=== PATIENT | female | born 1960 | race Caucasian/White ===

== ENCOUNTER 2024-12-12 16:29 | Inpatient (IN) | payer MEDICARE, MEDICAID, SELFPAY ==
[2024-12-12 16:47] VITALS: BP 157/51; PULSE 89; RESP 18; TEMP 37; O2SAT 95; BMI 20.4
--- NOTE | 2024-12-12 16:56 | XR_ITS ---
Examination: Foot, right, 3 views Technique: AP, oblique, lateral views foot, 3 views Date and time of exam: December 12, 2024 1702 hrs. Indications: Open wound between fourth and fifth digit today. Findings: Amputation proximal phalanx third digit Prominent soft tissue swelling involving the fifth digit with ulcer defect at the tail and fifth digit Suspicious for early cortical bone destruction involving the distal aspect of the proximal phalanx fifth digit Impression: Suspicious for early osteomyelitis proximal phalanx fifth digit, recommend MRI foot without contrast follow-up
--- NOTE | 2024-12-12 17:02 | PD.EDRME ---
Rapid Medical Screening Exam RME Arrival date/time: 12/12/24 16:29 Chief Complaint: Extremity Problem,Nontraumatic Time Seen by Provider: 12/12/24 16:38 Vital signs: Vital Signs Temperature 98.6 F 12/12/24 16:47 Pulse Rate 89 12/12/24 16:47 Respiratory Rate 18 12/12/24 16:47 Blood Pressure 157/51 H 12/12/24 16:47 Pulse Oximetry (%) 95 12/12/24 16:47 Oxygen Delivery Method Room Air 12/12/24 16:47 RME Narrative: Patient is a 64-year-old female with history of hypertension, prior CVA, breast cancer, polycythemia, and prior foot amputations. She presents with complaint of pain to her right fifth toe for weeks. She also complains of generalized pain. I have greeted and performed a focused initial assessment of this patient. A comprehensive ED assessment and evaluation of the patient, analysis of all test results, and completion of the medical decision making process will be conducted by additional ED providers.
[2024-12-12 18:00] LABS: Lactate (Lactic Acid) 1.6 mMol/L (0.4-2.0)
[2024-12-12 18:05] LABS: Basophils # (Auto) 0.2 Thou/mm3 (0.0-0.2); Basophils % (Auto) 1 % (0-2.5); Eosinophils # (Auto) 0.4 Thou/mm3 (0.0-0.5); Eosinophils % (Auto) 3 % (0-10); Immature Granulocytes % (Auto) 1 % (0-0); Immature Granulocytes Auto 0.21 Thou/mm3 (0.00-0.00); Lymphocytes # (Auto) 2.7 Thou/mm3 (1.0-4.8); Lymphocytes % (Auto) 17 % (10-50); Mean Corpuscular Hemoglobin 15.3 pg (25.0-35.0); Mean Corpuscular Volume 57 fL (80-100); Monocytes # (Auto) 0.6 Thou/mm3 (0.0-0.8); Monocytes % (Auto) 4 % (0-12); Neutrophils % (Auto) 75 % (37-80); Nucleated Red Blood Cell % 1 /100 WBC (0); RDW Standard Deviation 49.2 fL (36.4-46.3); Red Blood Count 3.79 Miln/mm3 (4.00-5.20); White Blood Count 16.1 Thou/mm3 (3.6-11.0)
[2024-12-12 18:20] LABS: Hematocrit 21.5 % (36.0-46.0); Hemoglobin 5.8 g/dL (12.0-16.0); Platelet Count 1786 Thou/mm3 (140-440)
[2024-12-12] MEDS: ACETAMINOPHEN 500 MG TABLET 1000 MG PO (18:23)
[2024-12-12 18:26] LABS: Alanine Aminotransferase 13 U/L (10-49); Albumin, Serum 4.2 gm/dL (3.4-4.8); Albumin/Globulin Ratio 1.6 (1.2-2.2); Alkaline Phosphatase 477 U/L (46-116); Anion Gap 5 (7-16); Aspartate Amino Transferase 30 U/L (0-34); BUN/Creatinine Ratio 21 Ratio (12-20); Bilirubin,Total 0.2 mg/dL (0.3-1.2); Blood Urea Nitrogen 25 mg/dL (9-23); C-Reactive Protein 1.5 mg/dL (0.0-0.9); Carbon Dioxide 24.6 mMol/L (20.0-31.0); Chloride 106 mMol/L (98-107); Creatinine (Component) 1.2 mg/dL (0.6-1.3); Estimated Creatinine Clearance 38.6 mL/min (>60); Globulin 2.7 gm/dL (2.3-3.5); Glucose 117 mg/dL (74-106); Osmolality,Calculated 277 (275-295); Potassium 3.8 mMol/L (3.4-5.1); Sodium 136 mMol/L (136-145); Total Protein 6.9 gm/dL (5.7-8.2); eGFR 50 See Note
[2024-12-12 18:40] LABS: Sed Rate (ESR) 70 mm/hr (0-30)
[2024-12-12 19:21] VITALS: BP 121/67; PULSE 82; RESP 18; TEMP 36.9; O2SAT 96
[2024-12-12 20:05] LABS: Path Review Blood Smear Sent to Pathologist
--- NOTE | 2024-12-12 20:17 | PD.EDEXREM ---
ED Extremity Problem RME/HPI General Chief complaint: Extremity Problem,Nontraumatic Stated complaint: BILATERAL LEG AND FEET PAIN / SWELLING Time Seen by Provider: 12/12/24 16:38 Arrival date/time: 12/12/24 16:29 RME / HPI RME / HPI Narrative: Patient is a 64-year-old female with history of hypertension, prior CVA, breast cancer, polycythemia, and prior foot amputations. She presents with complaint of pain to her right fifth toe for weeks. She also complains of generalized pain. I have greeted and performed a focused initial assessment of this patient. A comprehensive ED assessment and evaluation of the patient, analysis of all test results, and completion of the medical decision making process will be conducted by additional ED providers. This section includes all my notes and documentations, including HPI, PE, and ED course. Cristian Angulo MD HPI: 64yo female with a history of CVA (2020), HTN, breast CA s/p left mastectomy, Reynaud's disease, depression BIB her son presents to the ED for a chief complaint of bilateral foot pain x 2-3 weeks. Son at bedside states the patient has been unable to bare weight very well due to her feet pain. He states the patient has been losing weight despite eating normally. He states the patient lives with his dad, but is unsure if she is compliant with her medications. Patient denies any hematemesis, coffee-ground emesis, rectal bleeding, black/tarry stools, abdominal pain or any other associated symptoms. No other complaints reported. ROS: All negative except as documented in HPI. Physical Exam: General: Alert and oriented. Appears to be in pain. Eyes: Conjunctivae and lids clear. ENT: No nasal congestion. Neck: Supple. Heart: RRR. Lungs: No respiratory distress. Good air movement. No rhonchi, wheezing, rales. Abdomen: Soft and nontender. Legs: No clubbing, cyanosis, edema. Skin: Warm and dry. Third toes amputated bilaterally. Distal foot bilateral remarkable for erythema and edema and calor and tenderness. Neuro: Alert and oriented X 3. I reviewed all diagnostic test results. My review of the right foot CT report is osteomyelitis. Blood tests and urine tests remarkable for WBC 16.1, Hgb 5.8, PLT 1786, ESR 70, TSH 12.40, and UTI. At this point, diagnoses include osteomyelitis, UTI, severe anemia, thrombocythemia, and elevated TSH. Treatment here included Tylenol, NS, Morphine, Cefepime, and Vancomycin. Two units of pRBC ordered. I discussed the case with our hospitalist. About the presentation and exam and diagnostics and treatments here. And need of further care in the hospital. Will accept the patient. Cristian Angulo MD Related Data Home Medications ?Medication ?Instructions ?Recorded ?Confirmed aspirin 325 mg tablet 325 mg PO QDAY 12/05/21 12/17/21 famotidine 20 mg tablet 20 mg PO Q12H 12/05/21 12/17/21 gabapentin 600 mg tablet 600 mg PO TID 12/05/21 12/17/21 levothyroxine 50 mcg tablet 50 mcg PO QDAY 12/05/21 12/17/21 Previous Rx's ?Medication ?Instructions ?Recorded cephalexin 500 mg capsule 500 mg PO Q8H #20 caps 12/17/21 hydrocodone 5 mg-acetaminophen 325 1 tab PO Q6H #25 tabs 12/17/21 mg tablet cephalexin 500 mg capsule 500 mg PO BID #10 caps 05/20/22 hydrocodone 5 mg-acetaminophen 325 1 tab PO TID PRN pain #15 tabs 05/20/22 mg tablet Allergies Allergy/AdvReac Type Severity Reaction Status Date / Time codeine Allergy Vomiting Verified 12/12/24 16:32 Review of Systems Review of Systems Systems Reviewed: All systems reviewed, normal except as documented Past Medical History Past Medical History NEUROLOGIC: Positive Neurological Disorders and Cerebrovascular Accident; Negative Seizures CARDIAC: Positive Cardiac Disorders, Hypercholesterolemia and Hypertension; Negative Congestive Heart Failure RESPIRATORY: Positive Chronic Obstructive Pulmonary Disease (COPD) and Pneumonia; Negative Asthma GASTROINTESTINAL: Positive Hepatitis; Negative Gastrointestinal Disorders GENITOURINARY: Negative Genitourinary Disorders or Renal Disease REPRODUCTIVE: Positive Breast Cancer and Previous Pregnancies; Negative Endometriosis, Pelvic Inflammatory Disease or Uterine Prolapse MUSCULOSKELETAL: Positive Musculoskeletal Disorders and Fractures ENDOCRINE: Positive Endocrine Disorders, Diabetes Mellitus Type 2 and Hyperthyroidism; Negative Diabetes Mellitus Type 1 HEMATOLOGIC: Negative Blood Disorders, Anemia, Leukemia, Hemophilia, Thalassemia, Sickle Cell Disease or Clotting Problems PSYCHO/SOCIAL: Positive Depression and Anxiety OTHER HISTORY: Positive Hospitalization, Chicken Pox, Cancer and Breast Cancer; Negative Autoimmune Disease, Down Syndrome, Developmental Delay, Shingles, Falls, Blood Transfusions, Blood Transfusion Reaction, Anesthesia Reactions, Organ Transplant, Chemotherapy, Radiation Therapy, Hyperbaric Therapy, MRSA, VRSA, Vancomycin-Resistant Enterococci, Human Immunodeficiency Virus (HIV), Measles, Mumps, Rubella ([place] Measles), Pertussis or Clostridium Difficile Family History FAMILY HISTORY: Positive Family Cancer; Negative Family Cardiac Disorders, Family Surgery or Family Anesthesia Reaction Surgical History SURGICAL: Positive Amputation and Tubal Ligation; Negative Organ Transplant Social History SMOKING STATUS: Current every day smoker SUBSTANCE USE: methamphetamine ED Exam Narrative Physical exam: As noted in HPI. Course Quality Measures none Orders Category Date Time Status Admit to Inpatient Status Routine Admission 12/13/24 00:06 Active Patient Condition Routine Admission 12/13/24 00:06 Ordered COVID-19 Screening Questionnaire NOW Care 12/12/24 23:[address] Screening NOW Care 12/12/24 20:28 Active Decision to Admit X1 Care 12/12/24 23:55 Active Notify provider NEEDED Care 12/13/24 00:06 Active Obtain weight NOW Care 12/13/24 00:06 Active Post Transfusion H&H PRN Care 12/13/24 00:06 Active Saline [Insert IV] NOW Care 12/12/24 20:26 Active Straight [In and Out Catheter] X1 Care 12/12/24 20:26 Completed Transfuse,blood/blood products NOW Care 12/12/24 20:27 Active Wound Care NOW Care 12/13/24 00:[address] foot LT w con Stat Exams 12/12/24 20:[address] foot RT w con Stat Exams 12/12/24 20:27 Completed XR foot comp RT min 3V Stat Exams 12/12/24 16:56 Completed Antibody Identification Stat Lab 12/12/24 20:44 Results Blood Culture (Lab) Stat Lab 12/13/24 00:02 Ordered CBC AM DRAW Lab 12/13/24 05:00 Ordered CBC AM DRAW Lab 12/14/24 05:00 Ordered CBC AM DRAW Lab 12/15/24 05:00 Ordered CBC AM DRAW Lab 12/16/24 05:00 Ordered CBC Stat Lab 12/12/24 17:35 Completed CMP [Comprehensive Metabolic Panel] AM DRAW Lab 12/13/24 05:00 Ordered CMP [Comprehensive Metabolic Panel] AM DRAW Lab 12/14/24 05:00 Ordered CMP [Comprehensive Metabolic Panel] AM DRAW Lab 12/15/24 05:00 Ordered CMP [Comprehensive Metabolic Panel] AM DRAW Lab 12/16/24 05:00 Ordered CMP [Comprehensive Metabolic Panel] Stat Lab 12/12/24 17:35 Completed CRP [C-Reactive Protein] Stat Lab 12/12/24 17:35 Completed Drug Screen,Urine Stat Lab 12/12/24 22:12 Completed ESR [Sed Rate (ESR)] Stat Lab 12/12/24 17:35 Completed Free T4 (Free Thyroxine) AM DRAW Lab 12/13/24 05:00 Ordered Lactate (Lactic Acid) Stat Lab 12/12/24 17:35 Completed Magnesium AM DRAW Lab 12/13/24 05:00 Ordered Magnesium AM DRAW Lab 12/14/24 05:00 Ordered Magnesium AM DRAW Lab 12/15/24 05:00 Ordered Magnesium AM DRAW Lab 12/16/24 05:00 Ordered Magnesium Stat Lab 12/12/24 20:44 Completed Path Review Blood Smear Stat Lab 12/12/24 17:35 Completed Phosphorous AM DRAW Lab 12/13/24 05:00 Ordered Phosphorous AM DRAW Lab 12/14/24 05:00 Ordered Phosphorous AM DRAW Lab 12/15/24 05:00 Ordered Phosphorous AM DRAW Lab 12/16/24 05:00 Ordered Prothrombin Time with INR Stat Lab 12/13/24 00:06 Ordered TSH [Thyroid Stimulating Hormone] Stat Lab 12/12/24 20:44 Completed Troponin I Stat Lab 12/12/24 20:44 Completed Type and Screen Stat Lab 12/12/24 20:44 Results UA, C/S IF [Urinalysis, C/S if Indicated] Stat Lab 12/12/24 22:12 Completed Urine Culture Stat Lab 12/12/24 22:12 Received Urine Culture Stat Lab 12/13/24 00:02 Ordered prbc [Red Blood Cells] Stat Lab 12/12/24 20:44 Results Acetaminophen Tab [Tylenol ES Tab] Med 12/12/24 16:58 Discontinued 1,000 mg PO X1 ONE Acetaminophen Tab [Tylenol Tab] Med 12/13/24 00:06 Active 650 mg PO Q6H PRN Acetaminophen Tab [Tylenol Tab] Med 12/13/24 00:06 Active 650 mg PO Q6H PRN Aspirin [Ecotrin] Med 12/13/24 09:00 Pending 81 mg PO QDAY Cefepime Inj [Maxipime Inj] 1 gm Med 12/12/24 23:00 Discontinued Sodium Chloride 0.9% [Ns] 50 ml IV X1 Gabapentin [Neurontin] Med 12/13/24 00:15 Active 300 mg PO TID HYDROcodone/APAP 10/325 [[place] 10/325] Med 12/13/24 00:06 Active 1 tab PO Q4HR PRN Levothyroxine Sodium [Synthroid] Med 12/13/24 06:00 Active 50 mcg PO ACBR Morphine Inj Med 12/12/24 20:27 Discontinued 4 mg IVP X1 ONE Ondansetron Inj [Zofran Inj] Med 12/13/24 00:06 Active 4 mg IV Q6H PRN Pantoprazole Inj [Protonix Inj] Med 12/13/24 09:00 Active 40 mg IVP QDAY Piper/Tazo 3.375 gm [Zosyn] Med 12/13/24 00:13 Pending 3.375 gm in 50 ml IV Q6HR Piper/Tazo 3.375 gm [Zosyn] Med 12/13/24 00:30 Active 3.375 gm in 50 ml IV X1 Sodium Chloride 0.9% 1000 ml [Ns] 1,000 ml Med 12/12/24 20:28 Discontinued IV 999 mls/hr Vancomycin Inj 2,000 mg Med 12/12/24 23:00 Active Sodium Chloride 0.9% 500 ml [Ns] 500 ml IV X1 Vancomycin Pharmacy to Dose Med 12/13/24 09:00 Pending 1 each IV QDAY oxyCODONE/APAP 5/325 [Percocet 5/325] Med 12/13/24 00:06 Active 1 tab PO Q6H PRN Code Status Routine Oth 12/13/24 00:06 Ordered Vital Signs Vital signs: Vital Signs Temperature 98.6 F 12/12/24 16:47 Pulse Rate 89 12/12/24 16:47 Respiratory Rate 18 12/12/24 16:47 Blood Pressure 157/51 H 12/12/24 16:47 Pulse Oximetry (%) 95 12/12/24 16:47 Oxygen Delivery Method Room Air 12/12/24 16:47 Extremity Problem MDM Narrative MDM Narrative:: Scribe Attestation: 12/12/24 - Jackie Arnett am scribing for and in the presence of Dr. Angulo. Patient data External records reviewed:: [facility] previous records (Per chart review, patient was seen here on 01/15/24 for atypical chest pain.) Clinical information provided by:: patient and family Social determinants that could affect healthcare access:: none Patient has the following chronic illnesses:: CVA, HTN, breast CA s/p left mastectomy, Reynaud's disease, depression How is presenting disease/condition affected by chronic disease/condition?: exacerbated by Evaluation data The following diagnostics were reviewed and interpreted by me:: lab results and radiology exam(s) Lab and/or radiology exams considered but not ordered:: none Interpretation Summary: osteomyelitis, UTI, severe anemia, thrombocythemia, and elevated TSH. Medications / Prescriptions Medications or Prescriptions considered but not ordered:: none Medication administrations:: Medication Administration History Acetaminophen (Acetaminophen 325 Mg Tablet) 650 mg PO Q6H PRN PRN Reason: PAIN SCALE 1-3 (mild Stop: 01/12/25 00:05 Acetaminophen (Acetaminophen 325 Mg Tablet) 650 mg PO Q6H PRN PRN Reason: Fever >100 Stop: 01/12/25 00:05 Hydrocodone Bitart/Acetaminophen (Hydrocodone/Apap 10/325 Tab) 1 tab PO Q4HR PRN PRN Reason: PAIN SCALE 7-10 (Severe Stop: 12/18/24 00:05 Aspirin (Aspirin Ec 81 Mg Tabec) 81 mg PO QDAY JUAN Stop: 01/12/25 08:59 Gabapentin (Gabapentin 300 Mg Capsule) 300 mg PO TID JUAN Stop: 01/12/25 00:14 Vancomycin HCl 2,000 mg/ (Sodium Chloride) 500 mls @ 150 mls/hr IV X1 ONE Stop: 12/13/24 02:19 Last Admin: 12/12/24 23:41 Dose: 150 mls/hr Documented By: KG Piperacillin/Tazobactam/Dextrose (Zosyn) 3.375 gm in 50 mls @ 100 mls/hr IV Q6HR JUAN Stop: 12/20/24 00:12 Piperacillin/Tazobactam/Dextrose (Zosyn) 3.375 gm in 50 mls @ 100 mls/hr IV X1 ONE Stop: 12/13/24 00:59 Levothyroxine Sodium (Levothyroxine Sodium 25 Mcg Tablet) 50 mcg PO ACBR JUAN Stop: 01/12/25 05:59 Ondansetron HCl (Ondansetron Inj 2 Mg/Ml Inj 2 Ml) 4 mg IV Q6H PRN; Protocol PRN Reason: NAUSEA OR VOMITING Stop: 01/12/25 00:05 Oxycodone/Acetaminophen (Oxycodone/Apap 5/325 Tablet) 1 tab PO Q6H PRN PRN Reason: PAIN SCALE 4-6 (Moderate Stop: 12/18/24 00:05 Pantoprazole Sodium (Pantoprazole Inj 40 Mg Vial) 40 mg IVP QDAY [facility] Stop: 01/12/25 08:59 Pharmacy Consult (Vancomycin Pharmacy To Dose 1 Each Each) 1 each IV QDAY [facility] Stop: 01/12/25 08:59 Discontinued Medications Acetaminophen (Acetaminophen 500 Mg Tablet) 1,000 mg PO X1 ONE Stop: 12/12/24 16:59 Last Admin: 12/12/24 18:23 Dose: 1,000 mg Documented By: Sodium Chloride (Ns) 1,000 mls @ 999 mls/hr IV .Q1H1M ONE Stop: 12/12/24 21:28 Last Infusion: 12/12/24 21:39 Dose: Infused Documented By: Admin: 12/12/24 20:38 Dose: 999 mls/hr Documented By: KG Cefepime HCl 1 gm/ Sodium (Chloride) 50 mls @ 100 mls/hr IV X1 ONE Stop: 12/12/24 23:29 Last Infusion: 12/12/24 23:41 Dose: Infused Documented By: Admin: 12/12/24 23:11 Dose: 100 mls/hr Documented By: KG Morphine Sulfate (Morphine Sulf Inj 10 Mg/Ml Vial) 4 mg IVP X1 ONE Stop: 12/12/24 20:28 Last Admin: 12/12/24 20:39 Dose: 4 mg Documented By: KG Tylenol, NS, Morphine, Cefepime, Vancomycin Consultations Consultation(s) initiated? (list below): No Diagnosis Extremity Problem Differential Diagnosis: gout, cellulitis, superficial thrombophlebitis, deep venous thrombosis of upper extremity, lower extremity edema and deep vein thrombosis of lower extremity Most likely diagnosis given after review of the tests above:: osteomyelitis, UTI, severe anemia, thrombocythemia, and elevated TSH. Admission Indicated Admission indicated?: indicated Explain why admission is indicated or not indicated:: osteomyelitis, UTI, severe anemia, thrombocythemia, and elevated TSH. Admission Request Was there a request for admission?: Yes Admission Attestation Admission request attestation: Discussed case with Hospitalist service regarding admission. Discussed patients ED course, exam findings, labs, and radiology results. The Hospitalist [agrees] to accept the patient for admission. Disposition Plan Disposition Plan: Admit Discharge Plan Plan Patient Disposition: Admit Acute Care w/in Hospital Prescriptions/Referrals Prescriptions/Med Rec: No Action gabapentin 600 mg tablet 600 mg PO TID aspirin 325 mg Tablet 325 mg PO QDAY famotidine 20 mg tablet 20 mg PO Q12H levothyroxine 50 mcg Tablet 50 mcg PO QDAY cephalexin 500 mg capsule 500 mg PO BID Qty: 10 0RF hydrocodone-acetaminophen 5-325 mg tablet 1 tab PO TID MDD APAP PRN (Reason: pain) Qty: 15 0RF cephalexin 500 mg capsule 500 mg PO Q8H Qty: 20 0RF hydrocodone-acetaminophen 5-325 mg tablet 1 tab PO Q6H MDD 4 Qty: 25 0RF Referrals: Benjy Mcneal, [employer] [Primary Care Provider] - In 1 week Problem List Clinical Impression: Severe anemia, Osteomyelitis, UTI (urinary tract infection), Thrombocythemia, Elevated TSH Patient/Caregiver Discharge Instructions Print Language: Hungarian Stand Alone Forms: Joyce Award Info., Patient Portal Info Letter
[2024-12-12 20:23] VITALS: BP 114/80; PULSE 84; RESP 20; O2SAT 99
--- NOTE | 2024-12-12 20:23 | PC.NURSE ---
Dr. Angulo at the bedside at this time.
--- NOTE | 2024-12-12 20:27 | XR_ITS ---
Examination: CT left foot without intravenous contrast. 2-D sagittal reconstructions. 2-D coronal reconstructions. 3-D reconstructions. Date and time of exam: December 12, 2024 10:26 PM Indications: Severe foot pain this week CTDI: vol (mGy):3.51 DLP: (mGycm):934 Technique: Multiple 1.25 mm axial sections of the left foot without intravenous contrast have been obtained. 2-D sagittal and coronal reconstructions have been obtained. 3-D reconstructions have been obtained. Low dose protocols were performed. One or more of the following dose reduction techniques were used; automated exposure control, adjustment of the mA and/or KV according to patient size, use of iterative reconstruction technique. Findings: Severe osteopenia Amputation proximal phalanx third digit No acute fracture No tremayne cortical bone destruction No opaque foreign body No soft tissue abscess noted Impression: No tremayne cortical bone destruction Consider MRI foot without contrast follow-up
--- NOTE | 2024-12-12 20:27 | XR_ITS ---
Examination: CT right thyroid, without contrast. 2-D sagittal reconstructions. 2-D coronal reconstructions. 3-D reconstructions. Date and time of exam:December 08, 2024 at 10:26 PM Indications: Severe (pain today CTDI: vol (mGy):3.52 DLP: (mGycm):92.4 Technique: Multiple 1.25 mm axial sections of the right foot without intravenous contrast have been obtained. 2-D sagittal and coronal reconstructions have been obtained. 3-D reconstructions have been obtained. Low dose protocols were performed. One or more of the following dose reduction techniques were used; automated exposure control, adjustment of the mA and/or KV according to patient size, use of iterative reconstruction technique. Findings: Severe osteopenia Amputation proximal proximal phalanx third digit Soft tissue defect distal fifth digit Early cortical erosion distal aspect proximal phalanx fifth digit No foreign body No soft tissue abscess Impression: Suspicious for early osteomyelitis distal aspect proximal phalanx fifth digit Recommend MRI foot without contrast follow-up
[2024-12-12] MEDS: SODIUM CHLORIDE 0.9% 1000 ML 1,000 ML 999 ML IV (20:38)
[2024-12-12] MEDS: MORPHINE SULF INJ 10 MG/ML VIAL 4 MG IVP (20:39)
[2024-12-12 21:14] VITALS: BP 133/71; PULSE 84; RESP 20; O2SAT 98
[2024-12-12 21:30] LABS: Magnesium 2.5 mg/dL (1.6-2.6); Troponin I < 0.020 ng/mL (0.0-0.045)
[2024-12-12 22:37] LABS: Collection Type, Urine Clean Catch; Squamous Epithelial Cell,Urine 0 /hpf (0-5)
[2024-12-12 22:42] LABS: Bacteria,Urine Rare; Bilirubin,Urine Negative (Negative); Blood,Urine Negative (Negative); Clarity,Urine Clear (Clear/Hazy); Color,Urine Lt-Yellow (Lt Yel-Yel); Culture Indicated,Urine Yes; Glucose, Urine Negative (Negative); Hyaline Casts,Urine < 1 /hpf (0-1); Ketones,Urine Negative (Negative); Leukocyte Esterase,Urine Positive (Negative); Nitrite,Urine Positive (Negative); PH,Urine 5.5 (5.0-7.0); Protein,Urine Negative (Neg - Trace); RBC,Urine 3 /hpf (0-3); Specific Gravity,Urine 1.024 (1.001-1.035); Urobilinogen,Urine Negative mg/dL (0.0-1.0); WBC,Urine 98 /hpf (0-5)
--- NOTE | 2024-12-12 22:48 | PC.LAC ---
Pt back in room after CT scan.
[2024-12-12 22:49] LABS: Amphetamine/Methamp Scrn,U Negative (Negative); Barbiturate Screen,Urine Negative (Negative); Benzodiazepines Screen,Urine Negative (Negative); Benzoylecgonine Screen, Ur Negative (Negative); Fentanyl Screen,Urine Negative (Negative); Opiate Screen,Urine Positive (Negative); THC Screen,Urine Positive (Negative)
[2024-12-12 23:00] VITALS: BP 121/56; PULSE 70; RESP 16; O2SAT 100
[2024-12-12] MEDS: CEFEPIME INJ 1 GM in SODIUM CHLORIDE 0.9% 50 ML IV (23:11)
[2024-12-12] MEDS: Vancomycin Inj 2,000 MG in SODIUM CHLORIDE 0.9% 500 ML 500 ML 150 MG IV (23:41)
[2024-12-13] VITALS (18 sets, daily range): BP systolic 109–174; BP diastolic 56–101; PULSE 61–90; RESP 14–23; TEMP 36.8–37.3; O2SAT 94–100
[2024-12-13] MEDS: GABAPENTIN 300 MG CAPSULE PO ×4 (00:48→21:20)
[2024-12-13 00:58] LABS: Prothrombin Time 11.4 Seconds (9.0-12.2)
--- NOTE | 2024-12-13 02:18 | ESPR_ITS ---
Documentation for date of: 12/13/24 Subjective Subjective Interval history: This is a 64-year-old female PMHx of HTN, hypothyroidism, prior CVA, breast cancer, polycythemia, prior digit amputation, substance use disorder, Raynaud's presenting with right foot pain. Pain started weeks ago, greater than 2 months and has been gradually worsening since. Describes the pain as burning sensation extending over her right foot. Has not improved with etpa-laa-dhzvfow pain meds. She had previous partial amputation of the right foot fifth digit which was done in January 2024. Per son, she completed ANTIBIOTICS and wound care at [facility]. However, she has been complaining of worsening pain of her right foot which has been limiting her daily activities of living. She hasn't follow-up with her surgeon since she was discharged from SNF. Additionally, son states that she has been generally weak, fatigued, and deterioration over the last several months. Stay mostly at home, avoiding driving, shopping, and other outdoor activities secondary to pain. Currently not taking any medications of except for ASPIRIN. Denies fall, trauma, foot injury, fever, chills, headaches, chest pain, shortness of breath, GI or urinary symptoms, abnormal bleeding including dark stool, blood in stool, vomiting or coughing up blood. ED COURSE: Febrile, HR 89, BP 157/51, satting 95% on room air. WBC 16.1, Hgb 5.8, HCT 21.5, MCV 57, PLT 1786. Normal coag studies. CR 1.2, GLUCOSE 117, ALP 477, CRP 1.5, TSH 12.4. Right foot CXR and CT showed early osteomyelitis of proximal fifth phalanx. Left foot CT without cortical bone destruction. PMHx: HTN, hypothyroidism, prior CVA, breast cancer, polycythemia PSHx: Prior foot amputation MEDS: Currently only taking ASPIRIN. However, she is prescribed GABAPENTIN 600 mg TID, ATORVASTATIN (dose unknown), and LEVOTHYROXINE 50 mcg. ALLERGIES: CODEINE (vomiting) FHx: Not relevant SH: Current daily tobacco smoker. Uses METHAMPHETAMINE use daily. Denies alcohol. Exam Vital Signs Temp Pulse Resp BP Pulse Ox O2 Del Method O2 Flow Rate 98.4 F 78 17 171/67 H 99 Room Air 0 12/13/24 01:23 12/13/24 01:23 12/13/24 01:23 12/13/24 01:23 12/13/24 01:23 12/12/24 23:00 12/13/24 01:23 Narrative Exam GENERAL * Disheveled, ill-appearing female, appears in distress secondary to pain. HEENT * NCAT.?MED. Oral mucosa is moist. Patent Nares NECK * Supple, nontender, no thyromegaly, no meningismus, no JVD, no step offs CHEST * Tachycardic, grade 3 systolic murmur, no gallops. * CTAB, no w/r/r. Symmetrical chest rise. No intercostal subcostal retraction * Atraumatic, nontender, no crepitus, symmetrical expansion. ABDOMEN * Soft, flat, nontender. No guarding/rebound tenderness/masses. * Bowel sounds presents EXTREMITIES * Nontender, no cyanosis, no edema * No edema/cyanosis.? * Right foot: S/p amputation of third digit. Fifth digit s/p partial amputation, erythema, tender to palpation, no active bleeding or discharge. SKIN * Warm and dry, no jaundice/rashes. NEUROMUSCULAR * No lumbar or midline, no CVA, no paraspinal muscle spasm or tenderness. * Moves all 4 extremities well, with full ROM and good CSM. * CASTELLANOS x4, CN II-XII grossly intact. * No focal neurologic deficits. PSYCHIATRY * Normal mood and affect, cooperative, no SI or HI or hallucinations. Objective Labs 12/12/24 17:35 12/12/24 17:35 Labs: Laboratory Results - last 24 hr 12/12/24 12/12/24 12/12/24 17:35 20:44 22:12 WBC 16.1 H RBC 3.79 L Hgb 5.8 L* Hct 21.5 L* MCV 57 L MCH 15.3 L MCHC 27.0 L RDW Std Deviation 49.2 H Plt Count 1786 H* Neut % (Auto) 75 Lymph % (Auto) 17 Boyle % (Auto) 4 Eos % (Auto) 3 Baso % (Auto) 1 Neut # (Auto) 12.0 H Lymph # (Auto) 2.7 Boyle # (Auto) 0.6 Eos # (Auto) 0.4 Baso # (Auto) 0.2 Immature Gran # (Auto) 0.21 H Absolute Nucleated RBC 0.20 H Immature Gran % 1 H Nucleated RBC % 1 H Smear Path Review Sent to Pathologist ESR 70 H PT INR Sodium 136 Potassium 3.8 Chloride 106 Carbon Dioxide 24.6 Anion Gap 5 L BUN 25 H Creatinine 1.2 Estim Creat Clear Calc 38.6 L eGFR 50 L BUN/Creatinine Ratio 21 H Glucose 117 H Calculated Osmolality 277 Lactic Acid 1.6 Calcium 9.0 Corrected Calcium 9.0 Magnesium 2.5 Total Bilirubin 0.2 L AST 30 ALT 13 Alkaline Phosphatase 477 H Troponin I < 0.020 C-Reactive Prot, Quant 1.5 H Total Protein 6.9 Albumin 4.2 Globulin 2.7 Albumin/Globulin Ratio 1.6 TSH 12.40 H Ur Collection Type Clean Catch Urine Color Lt-Yellow Urine Clarity Clear Urine pH 5.5 Ur Specific Point 1.024 Urine Protein Negative Urine Glucose (UA) Negative Urine Ketones Negative Urine Blood Negative Urine Nitrite Positive Urine Bilirubin Negative Urine Urobilinogen (Auto) Negative Ur Leukocyte Esterase Positive Urine RBC 3 Urine WBC 98 H Ur Squamous Epith Cells 0 Urine Bacteria Rare Hyaline Casts < 1 Ur Culture Indicated? Yes Urine Opiates Screen Positive A Urine Fentanyl Screen Negative Ur Barbiturates Screen Negative U Amphetamin/Meth Scrn Negative U Benzodiazepines Scrn Negative U Cocaine Metab Screen Negative U Marijuana (THC) Screen Positive A Blood Type O Positive Antibody Screen POSITIVE Antibody Identification Cold Antibody Crossmatch See Detail Blood Bank Wristband ID Yes 12/13/24 00:28 WBC RBC Hgb Hct MCV MCH MCHC RDW Std Deviation Plt Count Neut % (Auto) Lymph % (Auto) Boyle % (Auto) Eos % (Auto) Baso % (Auto) Neut # (Auto) Lymph # (Auto) Boyle # (Auto) Eos # (Auto) Baso # (Auto) Immature Gran # (Auto) Absolute Nucleated RBC Immature Gran % Nucleated RBC % Smear Path Review ESR PT 11.4 INR 1.0 Sodium Potassium Chloride Carbon Dioxide Anion Gap BUN Creatinine Estim Creat Clear Calc eGFR BUN/Creatinine Ratio Glucose Calculated Osmolality Lactic Acid Calcium Corrected Calcium Magnesium Total Bilirubin AST ALT Alkaline Phosphatase Troponin I C-Reactive Prot, Quant Total Protein Albumin Globulin Albumin/Globulin Ratio TSH Ur Collection Type Urine Color Urine Clarity Urine pH Ur Specific Point Urine Protein Urine Glucose (UA) Urine Ketones Urine Blood Urine Nitrite Urine Bilirubin Urine Urobilinogen (Auto) Ur Leukocyte Esterase Urine RBC Urine WBC Ur Squamous Epith Cells Urine Bacteria Hyaline Casts Ur Culture Indicated? Urine Opiates Screen Urine Fentanyl Screen Ur Barbiturates Screen U Amphetamin/Meth Scrn U Benzodiazepines Scrn U Cocaine Metab Screen U Marijuana (THC) Screen Blood Type Antibody Screen Antibody Identification Crossmatch Blood Bank Wristband ID Quality Measures Quality Measures none Advance care planning discussed with:: patient Assessment & Plan Assessment Current Active Medications: Generic Name Dose Route Start Last Admin Trade Name Freq PRN Reason Stop Dose Admin Acetaminophen 650 mg 12/13/24 00:06 Acetaminophen 325 Mg Tablet PO 01/12/25 00:05 Q6H PRN PAIN SCALE 1-3 (mild Acetaminophen 650 mg 12/13/24 00:06 Acetaminophen 325 Mg Tablet PO 01/12/25 00:05 Q6H PRN Fever >100 Hydrocodone Bitart/Acetaminophen 1 tab 12/13/24 00:06 Hydrocodone/Apap 10/325 Tab PO 12/18/24 00:05 Q4HR PRN PAIN SCALE 7-10 (Severe Aspirin 81 mg 12/13/24 09:00 Aspirin Ec 81 Mg Tabec PO 01/12/25 08:59 QDAY JUAN Gabapentin 300 mg 12/13/24 00:15 12/13/24 00:48 Gabapentin 300 Mg Capsule PO 01/12/25 00:14 300 mg TID JUAN Administration Vancomycin HCl 2,000 mg/ 500 mls @ 150 mls/hr 12/12/24 23:00 12/12/24 23:41 Sodium Chloride IV 12/13/24 02:19 150 mls/hr X1 ONE Administration Piperacillin/Tazobactam/Dextrose 3.375 gm in 50 mls @ 100 mls/hr 12/13/24 00:13 Zosyn IV 12/20/24 00:12 Q6HR JUAN Levothyroxine Sodium 50 mcg 12/13/24 06:00 Levothyroxine Sodium 25 Mcg Tablet PO 01/12/25 05:59 ACBR JUAN Ondansetron HCl 4 mg 12/13/24 00:06 Ondansetron Inj 2 Mg/Ml Inj 2 Ml IV 01/12/25 00:05 Q6H PRN NAUSEA OR VOMITING Protocol Oxycodone/Acetaminophen 1 tab 12/13/24 00:06 Oxycodone/Apap 5/325 Tablet PO 12/18/24 00:05 Q6H PRN PAIN SCALE 4-6 (Moderate Pantoprazole Sodium 40 mg 12/13/24 09:00 Pantoprazole Inj 40 Mg Vial IVP 01/12/25 08:59 QDAY [facility] Pharmacy Consult 1 each 12/13/24 09:00 Vancomycin Pharmacy To Dose 1 Each Each IV 01/12/25 08:59 QDAY [facility] Plan In summary: 64-year-old female PMHx of HTN, hypothyroidism, prior CVA, breast cancer, polycythemia, prior digit amputation, substance use disorder, Raynaud's, admitted for early osteomyelitis of fifth digit of right foot. Osteomyelitis of 5th digit of 4 foot S/p partial amputation of distal 5th digit of same limb S/p amputation of 3rd digit of same limb 2/4 SIRS positive Substance use disorder Chronic, worsening right foot pain, leading to limitation in daily activities of living. No history of diabetes. A1c/GLUCOSE WNL. Has Raynaud's documented in visit from 2021, she is unaware of having Raynaud's. DDx: PAD in settings of smoking, recurrent injury, thrombotic disease in setting of PV, possibly Raynaud's. Met 2/ SIRS with tachypnea and leukocytosis. Right foot CXR and CT showed early osteomyelitis of proximal fifth phalanx. ? Pain control ? Continue VANCOMYCIN (12/13 to present) ? Continue ZOSYN (12/13 to present) ? Wound care ? Pending arterial duplex r/o PAD ? Pending blood/urine culture ? Consider general surgery consult as indicated Acute microcytic anemia Polycythemia vera Prior CVA Anemia likely related to iron deficiency. Admission Hgb 5.8, MCV 57, PLT 1786. Previously seen here by Dr. Angulo for PV and prescribed HYDROXYUREA which likely the cause anemia. However she states she is only taking ASPIRIN 325 mg daily. No signs or symptoms of abnormal bleed. Received 1 unit PRBC in ED. ? Holding home ASPIRIN in settings of anemia ? Posttransfusion H&H ? Transfuse if Hgb <7 ? Pending iron studies ? Pending FOBT ? Consider heme-onc consult, may need HYDROXYUREA once anemia control HTN Hypothyroidism BP 147/89. Likely reactive. No history of hypertension. TSH elevated on admission. Currently not taking meds. ? Resumed home LEVOTHYROXINE 50 mcg ? Pending free T4 ? Start ANTIHYPERTENSIVE as indicated Peripheral neuropathy Received prescribed GABAPENTIN, however has not refilled her meds. Planing of severe burning sensation in bilateral extremity, worse on the right. On exam right foot, tender and erythematous, no increased swelling compared to left. ? Continue GABAPENTIN 600 mL TID ? Pending venous Doppler R/O DVT Grade 3 systolic murmur Likely incidental. Currently asymptomatic. Recommended outpatient follow-up. Health maintenance Diet: Regular diet GI prophylaxis: PROTONIX DVT prophylaxis: CI 2/2 anemia, cannot tolerate SCD 2/2 pain Antibiotics: ZOSYN, VANCOMYCIN CODE STATUS: Full code Disposition: Pending further workup. Patient case was discussed with attending, Glen Chacon MD. Quintin Burr DO PGYI Attending Provider Attestation/Addendum 64-year-old female with substance use, hypertension, polycythemia vera, history of CVA was admitted because of right fifth toe osteomyelitis. Patient has a hemoglobin less than 6. She is on hydroxyurea. The patient was seen in ER 18 receiving PRBC. He will be admitted for IV antibiotic treatment. Check vascular studies. Fecal occult blood testing ordered.
--- NOTE | 2024-12-13 02:50 | XR_ITS ---
Examination: Venous duplex lower extremity sonogram, bilateral. Date and time of exam: December 13, 2024 1022 hours INDICATIONS: Bilateral foot redness swelling and pain this week, early cortical bone destruction distal aspect proximal phalanx fifth digit right foot Technique: Multiple sonographic images of the deep venous system have been obtained. B-mode/2-D grayscale imaging of vascular structures and Doppler spectral analysis (waveforms) and color performed Both legs are examined. Findings: Deep venous systems do not demonstrate abnormal echogenicity. All visualized deep veins exhibit compressibility. All visualized deep veins exhibit augmentation. Impression: Negative for deep vein thrombosis
--- NOTE | 2024-12-13 02:50 | XR_ITS ---
Examination: Arterial duplex lower extremity study. Date and time of exam: December 13, 2024 1027 hours INDICATIONS: Early osteomyelitis fifth digit on CT foot examination right foot yesterday, redness swelling and pain involving both lower legs and feet Findings: Duplex sonographic imaging of the lower extremity arteries using B-mode/Feliciano scale imaging and Doppler spectral analysis and color flow. Ankle brachial indices have been recorded. Right common femoral artery demonstrates triphasic flow. Right superficial femoral artery demonstrates triphasic flow. Right popliteal artery demonstrates triphasic flow. Right posterior tibial artery demonstrated monophasic flow. Right ankle/brachial index is 1.0. Left common femoral artery demonstrates triphasic flow. Left superficial femoral artery demonstrates monophasic flow. Left popliteal artery demonstrates monophasic flow. Left posterior tibial artery demonstrated monophasic flow. Left ankle/brachial index is 1.0. Impression: Bilateral peripheral obstructive arterial disease, consider correlation with CTA abdominal aorta iliofemoral runoff post intravenous contrast follow-up
[2024-12-13] MEDS: PIPER/TAZO 3.375 GM 3.375 GM/50 ML BAG IV (03:06)
[2024-12-13 03:17] LABS: Iron 9 mcg/dL (50-170)
[2024-12-13 03:30] LABS: Percent Iron Saturation 3 % (20-55); Total Iron Binding Capacity 283 mcg/dL (250-425); Unsaturated Iron Binding 274 (225-295)
[2024-12-13] MEDS: LEVOTHYROXINE SODIUM 25 MCG TABLET 50 MCG PO (06:14)
[2024-12-13] MEDS: HYDROcodone/APAP 10/325 TAB PO (06:20)
--- NOTE | 2024-12-13 06:55 | PC.NURSE ---
pt arrived on floor at 06:31. pt a/o to self and place vital signs done.Patient hooked up to cloth classer and tucked in bed. Wheel chair at bed side
--- NOTE | 2024-12-13 08:37 | ESHP_ITS ---
Documentation for date of: 12/13/24 [facility] History of Present Illness History of present illness: This is a 64-year-old female PMHx of HTN, hypothyroidism, prior CVA, breast cancer, polycythemia, prior digit amputation, substance use disorder, Raynaud's presenting with right foot pain. Pain started weeks ago, greater than 2 months and has been gradually worsening since. Describes the pain as burning sensation extending over her right foot. Has not improved with hykv-yaf-bftouhs pain meds. She had previous partial amputation of the right foot fifth digit which was done in January 2024. Per son, she completed ANTIBIOTICS and wound care at [facility]. However, she has been complaining of worsening pain of her right foot which has been limiting her daily activities of living. She hasn't follow-up with her surgeon since she was discharged from SNF. Additionally, son states that she has been generally weak, fatigued, and deterioration over the last several months. Stay mostly at home, avoiding driving, shopping, and other outdoor activities secondary to pain. Currently not taking any medications of except for ASPIRIN. Denies fall, trauma, foot injury, fever, chills, headaches, chest pain, shortness of breath, GI or urinary symptoms, abnormal bleeding including dark stool, blood in stool, vomiting or coughing up blood. ED COURSE: Febrile, HR 89, BP 157/51, satting 95% on room air. WBC 16.1, Hgb 5.8, HCT 21.5, MCV 57, PLT 1786. Normal coag studies. CR 1.2, GLUCOSE 117, ALP 477, CRP 1.5, TSH 12.4. Right foot CXR and CT showed early osteomyelitis of proximal fifth phalanx. Left foot CT without cortical bone destruction. PMHx: HTN, hypothyroidism, prior CVA, breast cancer, polycythemia PSHx: Prior foot amputation MEDS: Currently only taking ASPIRIN. However, she is prescribed GABAPENTIN 600 mg TID, ATORVASTATIN (dose unknown), and LEVOTHYROXINE 50 mcg. ALLERGIES: CODEINE (vomiting) FHx: Not relevant SH: Current daily tobacco smoker. Uses METHAMPHETAMINE use daily. Denies alcohol. Exam Vital Signs Temp Pulse Resp BP Pulse Ox O2 Del Method O2 Flow Rate 98.9 F 74 20 131/65 H 96 Room Air 0 12/13/24 07:55 12/13/24 07:55 12/13/24 07:55 12/13/24 07:55 12/13/24 07:55 12/13/24 07:55 12/13/24 06:39 Narrative Exam GENERAL * Disheveled, ill-appearing female, appears in distress secondary to pain. HEENT * NCAT.?MED. Oral mucosa is moist. Patent Nares NECK * Supple, nontender, no thyromegaly, no meningismus, no JVD, no step offs CHEST * Tachycardic, grade 3 systolic murmur, no gallops. * CTAB, no w/r/r. Symmetrical chest rise. No intercostal subcostal retraction * Atraumatic, nontender, no crepitus, symmetrical expansion. ABDOMEN * Soft, flat, nontender. No guarding/rebound tenderness/masses. * Bowel sounds presents EXTREMITIES * Nontender, no cyanosis, no edema * No edema/cyanosis.? * Right foot: S/p amputation of third digit. Fifth digit s/p partial amputation, erythema, tender to palpation, no active bleeding or discharge. SKIN * Warm and dry, no jaundice/rashes. NEUROMUSCULAR * No lumbar or midline, no CVA, no paraspinal muscle spasm or tenderness. * Moves all 4 extremities well, with full ROM and good CSM. * CASTELLANOS x4, CN II-XII grossly intact. * No focal neurologic deficits. PSYCHIATRY * Normal mood and affect, cooperative, no SI or HI or hallucinations. Results: Labs 12/12/24 17:35 12/12/24 17:35 Labs: Short CBC 12/12/24 Range/Units 17:35 WBC 16.1 H (3.6-11.0) Thou/mm3 Hgb 5.8 L* (12.0-16.0) g/dL Hct 21.5 L* (36.0-46.0) % Plt Count 1786 H* (140-440) Thou/mm3 BMP 12/12/24 17:35 Sodium 136 Potassium 3.8 Chloride 106 Carbon Dioxide 24.6 BUN 25 H Creatinine 1.2 Glucose 117 H Calcium 9.0 Cardiac Enzymes 12/12/24 Range/Units 20:44 Troponin I < 0.020 (0.0-0.045) ng/mL Liver Function 12/12/24 Range/Units 17:35 Total Bilirubin 0.2 L (0.3-1.2) mg/dL AST 30 (0-34) U/L ALT 13 (10-49) U/L Alkaline Phosphatase 477 H (46-116) U/L Albumin 4.2 (3.4-4.8) gm/dL Urine 12/12/24 Range/Units 22:12 Urine Color Lt-Yellow (Lt Yel-Yel) Urine Clarity Clear (Clear/Hazy) Urine pH 5.5 (5.0-7.0) Ur Specific [place] 1.024 (1.001-1.035) Urine Protein Negative (Neg - Trace) Urine Glucose (UA) Negative (Negative) Quality Measures Quality Measures none Advance care planning discussed with:: patient and child Medications Home Medications and Allergies Home Medications ?Medication ?Instructions ?Recorded ?Confirmed ?Type aspirin 325 mg tablet 325 mg PO QDAY 12/05/2112/02 History famotidine 20 mg tablet 20 mg PO Q12H 12/05/2112/17 History gabapentin 600 mg tablet 600 mg PO TID 12/05/2112/17 History levothyroxine 50 mcg tablet 50 mcg PO QDAY 12/05/21 History Allergies Allergy/AdvReac Type Severity Reaction Status Date / Time codeine Allergy Vomiting Verified 12/12/24 16:32 Visit Medications Acetaminophen (Acetaminophen 325 Mg Tablet) 650 mg PO Q6H PRN PRN Reason: PAIN SCALE 1-3 (mild Stop: 01/12/25 00:05 Acetaminophen (Acetaminophen 325 Mg Tablet) 650 mg PO Q6H PRN PRN Reason: Fever >100 Stop: 01/12/25 00:05 Hydrocodone Bitart/Acetaminophen (Hydrocodone/Apap 10/325 Tab) 1 tab PO Q4HR PRN PRN Reason: PAIN SCALE 7-10 (Severe Stop: 12/18/24 00:05 Last Admin: 12/13/24 06:20 Dose: 1 tab Gabapentin (Gabapentin 300 Mg Capsule) 300 mg PO TID [facility] Stop: 01/12/25 00:14 Last Admin: 12/13/24 06:14 Dose: 300 mg Piperacillin/Tazobactam/Dextrose (Zosyn) 3.375 gm in 50 mls @ 12.5 mls/hr IV Q8HR [facility] Stop: 12/20/24 13:59 Vancomycin/Sodium Chloride (Vancomycin/Ns 500 Mg Ivpb) 100 mls @ 120 mls/hr IV Q12HR@1000,2200 [facility] Stop: 12/20/24 09:59 Levothyroxine Sodium (Levothyroxine Sodium 25 Mcg Tablet) 50 mcg PO ACBR [facility] Stop: 01/12/25 05:59 Last Admin: 12/13/24 06:14 Dose: 50 mcg Ondansetron HCl (Ondansetron Inj 2 Mg/Ml Inj 2 Ml) 4 mg IV Q6H PRN; Protocol PRN Reason: NAUSEA OR VOMITING Stop: 01/12/25 00:05 Oxycodone/Acetaminophen (Oxycodone/Apap 5/325 Tablet) 1 tab PO Q6H PRN PRN Reason: PAIN SCALE 4-6 (Moderate Stop: 12/18/24 00:05 Pantoprazole Sodium (Pantoprazole Inj 40 Mg Vial) 40 mg IVP QDAY [facility] Stop: 01/12/25 08:59 Pharmacy Consult (Vancomycin Pharmacy To Dose 1 Each Each) 1 each IV QDAY PRN PRN Reason: CONSULT Stop: 01/12/25 08:59 Discontinued Medications Acetaminophen (Acetaminophen 500 Mg Tablet) 1,000 mg PO X1 ONE Stop: 12/12/24 16:59 Last Admin: 12/12/24 18:23 Dose: 1,000 mg Aspirin (Aspirin Ec 81 Mg Tabec) 81 mg PO QDAY [facility] Stop: 01/12/25 08:59 Sodium Chloride (Ns) 1,000 mls @ 999 mls/hr IV .Q1H1M ONE Stop: 12/12/24 21:28 Last Infusion: 12/12/24 21:39 Dose: Infused Cefepime HCl 1 gm/ Sodium (Chloride) 50 mls @ 100 mls/hr IV X1 ONE Stop: 12/12/24 23:29 Last Infusion: 12/12/24 23:41 Dose: Infused Vancomycin HCl 2,000 mg/ (Sodium Chloride) 500 mls @ 150 mls/hr IV X1 ONE Stop: 12/13/24 02:19 Last Infusion: 12/13/24 03:01 Dose: Infused Piperacillin/Tazobactam/Dextrose (Zosyn) 3.375 gm in 50 mls @ 100 mls/hr IV X1 ONE Stop: 12/13/24 00:59 Last Infusion: 12/13/24 03:36 Dose: Infused Morphine Sulfate (Morphine Sulf Inj 10 Mg/Ml Vial) 4 mg IVP X1 ONE Stop: 12/12/24 20:28 Last Admin: 12/12/24 20:39 Dose: 4 mg Assessment & Plan Plan In summary: 64-year-old female PMHx of HTN, hypothyroidism, prior CVA, breast cancer, polycythemia, prior digit amputation, substance use disorder, Raynaud's, admitted for early osteomyelitis of fifth digit of right foot. Osteomyelitis of 5th digit of 4 foot S/p partial amputation of distal 5th digit of same limb S/p amputation of 3rd digit of same limb 2/4 SIRS positive Substance use disorder Chronic, worsening right foot pain, leading to limitation in daily activities of living. No history of diabetes. A1c/GLUCOSE WNL. Has Raynaud's documented in visit from 2021, she is unaware of having Raynaud's. DDx: PAD in settings of smoking, recurrent injury, thrombotic disease in setting of PV, possibly Raynaud's. Met 2/ SIRS with tachypnea and leukocytosis. Right foot CXR and CT showed early osteomyelitis of proximal fifth phalanx. ? Pain control ? Continue VANCOMYCIN (12/13 to present) ? Continue ZOSYN (12/13 to present) ? Wound care ? Pending arterial duplex r/o PAD ? Pending blood/urine culture ? Consider general surgery consult as indicated Acute microcytic anemia Polycythemia vera Prior CVA Anemia likely related to iron deficiency. Admission Hgb 5.8, MCV 57, PLT 1786. Previously seen here by Dr. Angulo for PV and prescribed HYDROXYUREA which likely the cause anemia. However she states she is only taking ASPIRIN 325 mg daily. No signs or symptoms of abnormal bleed. Received 1 unit PRBC in ED. ? Holding home ASPIRIN in settings of anemia ? Posttransfusion H&H ? Transfuse if Hgb <7 ? Pending iron studies ? Pending FOBT ? Consider heme-onc consult, may need HYDROXYUREA once anemia control HTN Hypothyroidism BP 147/89. Likely reactive. No history of hypertension. TSH elevated on admission. Currently not taking meds. ? Resumed home LEVOTHYROXINE 50 mcg ? Pending free T4 ? Start ANTIHYPERTENSIVE as indicated Peripheral neuropathy Received prescribed GABAPENTIN, however has not refilled her meds. Planing of severe burning sensation in bilateral extremity, worse on the right. On exam right foot, tender and erythematous, no increased swelling compared to left. ? Continue GABAPENTIN 600 mL TID ? Pending venous Doppler R/O DVT Grade 3 systolic murmur Likely incidental. Currently asymptomatic. Recommended outpatient follow-up. Health maintenance Diet: Regular diet GI prophylaxis: PROTONIX DVT prophylaxis: CI 2/2 anemia, cannot tolerate SCD 2/2 pain Antibiotics: ZOSYN, VANCOMYCIN CODE STATUS: Full code Disposition: Pending further workup. Patient case was discussed with attending, Glen Chacon MD. Quintin Burr DO PGYI Attending Provider Attestation/Addendum 64-year-old female with substance use, hypertension, polycythemia vera, history of CVA was admitted because of right fifth toe osteomyelitis. Patient has a hemoglobin less than 6. She is on hydroxyurea. The patient was seen in ER 18 receiving PRBC. He will be admitted for IV antibiotic treatment. Check vascular studies. Fecal occult blood testing ordered.
[2024-12-13 09:07] LABS: Basophils # (Auto) 0.2 Thou/mm3 (0.0-0.2); Basophils % (Auto) 1 % (0-2.5); Eosinophils # (Auto) 0.4 Thou/mm3 (0.0-0.5); Eosinophils % (Auto) 3 % (0-10); Hematocrit 27.9 % (36.0-46.0); Immature Granulocytes % (Auto) 1 % (0-0); Immature Granulocytes Auto 0.19 Thou/mm3 (0.00-0.00); Lymphocytes % (Auto) 14 % (10-50); Mean Corpuscular HGB Conc 30.5 g/dl (31.0-37.0); Mean Corpuscular Hemoglobin 19.4 pg (25.0-35.0); Mean Corpuscular Volume 64 fL (80-100); Monocytes # (Auto) 0.6 Thou/mm3 (0.0-0.8); Monocytes % (Auto) 4 % (0-12); Neutrophils # (Auto) 11.6 Thou/mm3 (1.8-7.7); Neutrophils % (Auto) 77 % (37-80); Nucleated Red Blood Cell # 0.22 Thou/mm3 (0.00-0.00); Nucleated Red Blood Cell % 2 /100 WBC (0); Red Blood Count 4.39 Miln/mm3 (4.00-5.20)
[2024-12-13 09:13] LABS: Hemoglobin 8.5 g/dL (12.0-16.0)
[2024-12-13 09:16] LABS: Platelet Count 1439 Thou/mm3 (140-440)
[2024-12-13 09:32] LABS: Iron 35 mcg/dL (50-170); Percent Iron Saturation 12 % (20-55); Total Iron Binding Capacity 276 mcg/dL (250-425); Unsaturated Iron Binding 241 (225-295)
[2024-12-13] MEDS: PANTOPRAZOLE INJ 40 MG VIAL IVP (09:32)
[2024-12-13 09:47] LABS: Alanine Aminotransferase 9 U/L (10-49); Albumin, Serum 3.7 gm/dL (3.4-4.8); Albumin/Globulin Ratio 1.6 (1.2-2.2); Alkaline Phosphatase 423 U/L (46-116); Anion Gap 3 (7-16); Aspartate Amino Transferase 33 U/L (0-34); BUN/Creatinine Ratio 19 Ratio (12-20); Bilirubin,Total 0.5 mg/dL (0.3-1.2); Blood Urea Nitrogen 21 mg/dL (9-23); Calcium (Corrected) 9.2 mg/dL (8.5-10.1); Carbon Dioxide 21.8 mMol/L (20.0-31.0); Chloride 113 mMol/L (98-107); Creatinine (Component) 1.1 mg/dL (0.6-1.3); Estimated Creatinine Clearance 42.1 mL/min (>60); Free T4 (Free Thyroxine) 0.94 ng/dL (0.89-1.76); Globulin 2.3 gm/dL (2.3-3.5); Glucose 87 mg/dL (74-106); Magnesium 2.2 mg/dL (1.6-2.6); Osmolality,Calculated 277 (275-295); Phosphorous 4.6 mg/dL (2.4-5.1); Potassium 4.3 mMol/L (3.4-5.1); Sodium 138 mMol/L (136-145); eGFR 56 See Note
[2024-12-13] MEDS: VANCOMYCIN/NS 500 MG IVPB 100 ML 120 MG IV ×2 (11:07→21:18)
--- NOTE | 2024-12-13 11:22 | PD.ONCCONS ---
HPI Data of Consult Consult date: 12/13/24 Requesting Physician: Franklin Gamez MD Primary Care Provider: Benjy Mcneal NP Consult Narrative Reason for consult: History of left breast CA and polycythemia rubra vera History of present illness: Patient is a 64-year-old lady who has been followed at the cancer treatment center seeing both myself and junior accountant bookkeeper Dr. Burt for problem related to her left breast as well as polycythemia vera. Patient initially underwent left partial mastectomy 2006 and underwent simple mastectomy for recurrence in 12/17/2021. Tumor was receptor positive HER2 negative. Patient was recommended a postoperation radiation and estrogen modulators. Which she never followed through on. Also will being followed by junior accountant bookkeeper Dr. Burt for polycythemia vera, noted to have elevated WBC neutrophilia erythrocytosis as well as thrombocytosis. Pt was prescribed hydroxyurea and aspirin, which she reportedly was noncompliant on along with not coming for follow-up visits. Patient also has been having pain involving her right lower extremity and had a surgeon in [place] remove right third digit January 2024 followed by rehab at [facility]. Patient presented to the ER with complaints of right foot pain and plain x-ray 12/12/2024 revealed suspicion for early osteomyelitis proximal phalanx fifth digit with amputation of proximal phalanx third digit noted. There appear to be early cortical destruction of the distal aspect of the proximal phalanx of the fifth digit and soft tissue swelling involving the fifth digit with ulcer defect. Also noted was elevated white count of 16.1 hemoglobin of 5.8 and platelets 1786. After receiving packed cells at the ER they hemoglobin improved to 8.5 this a.m. Patient now referred for oncological consultation. The last PET scan she had on 04/08/2023 suggested possible bone and lung met. cc:: cc: Franklin Gamez MD Past Medical History Family History OTHER FAMILY HX: Denies family history of cancer Surgical History OTHER SURGICAL HX: Prior mastectomy x 2 right foot third digit removal Social History SOCIAL: Lives with partner with son Camilo Stewart help caring for patient Past Medical History Comments PMH COMMENT: History of left left breast CA initial surgery followed by total mastectomy for recurrence 2021. Noncompliance regarding postop adjuvant therapy with possible mets. History of polycythemia vera noncompliant with medications. History of prior CVA hypertension hypothyroidism. Meds Home Medications and Allergies Home Medications ?Medication ?Instructions ?Recorded ?Confirmed ?Type aspirin 325 mg tablet 325 mg PO QDAY 12/05/21 12/17/21 History famotidine 20 mg tablet 20 mg PO Q12H 12/05/21 12/17/21 History gabapentin 600 mg tablet 600 mg PO TID 12/05/21 12/17/21 History levothyroxine 50 mcg tablet 50 mcg PO QDAY 12/05/21 12/17/21 History Allergies Allergy/AdvReac Type Severity Reaction Status Date / Time codeine Allergy Vomiting Verified 12/12/24 16:32 Exam Vital Signs Temp Pulse Resp BP Pulse Ox O2 Del Method O2 Flow Rate 98.9 F 74 20 131/65 H 96 Room Air 0 12/13/24 07:55 12/13/24 07:55 12/13/24 07:55 12/13/24 07:55 12/13/24 07:55 12/13/24 07:55 12/13/24 06:39 Narrative Exam Appears comfortable not good historian ambulating without significant difficulty., Results Labs 12/13/24 08:40 12/13/24 08:40 Labs: Short CBC 12/12/24 12/13/24 Range/Units 17:35 08:40 WBC 16.1 H 15.0 H (3.6-11.0) Thou/mm3 Hgb 5.8 L* 8.5 L D (12.0-16.0) g/dL Hct 21.5 L* 27.9 L (36.0-46.0) % Plt Count 1786 H* 1439 H* D (140-440) Thou/mm3 BMP 12/12/24 12/13/24 17:35 08:40 Sodium 136 138 Potassium 3.8 4.3 D Chloride 106 113 H Carbon Dioxide 24.6 21.8 BUN 25 H 21 Creatinine 1.2 1.1 Glucose 117 H 87 Calcium 9.0 9.0 Cardiac Enzymes 12/12/24 Range/Units 20:44 Troponin I < 0.020 (0.0-0.045) ng/mL Liver Function 12/12/24 12/13/24 Range/Units 17:35 08:40 Total Bilirubin 0.2 L 0.5 (0.3-1.2) mg/dL AST 30 33 (0-34) U/L ALT 13 9 L (10-49) U/L Alkaline Phosphatase 477 H 423 H D (46-116) U/L Albumin 4.2 3.7 D (3.4-4.8) gm/dL Urine 12/12/24 Range/Units 22:12 Urine Color Lt-Yellow (Lt Yel-Yel) Urine Clarity Clear (Clear/Hazy) Urine pH 5.5 (5.0-7.0) Ur Specific [place] 1.024 (1.001-1.035) Urine Protein Negative (Neg - Trace) Urine Glucose (UA) Negative (Negative) Assessment and Plan Additional Assessment & Plan Additional Plan: 1. History of left breast CA receptor positive HER2/chelsea negative prior surgery for recurrence 2019 after initial partial mastectomy 2006. 2. Has been noncompliant regarding adjuvant therapy and follow-ups at the cancer center. Has suspected lung and bone mets on PET scan of 2022. 3 History of polycythemia vera prescribed aspirin and, hydroxyurea and varying doses which according to son patient has been noncompliant as well. 4. Had prior right third toe removed, in [place], for pain symptoms. Now with more pain and suspected osteomyelitis right foot fifth digit. 5. Patient has been followed by the previous junior accountant bookkeeper Dr. Burt, I will discuss case with Dr. Lentz who is now following his patients at [facility].
--- NOTE | 2024-12-13 13:24 | ESPR_ITS ---
<Statement entered by Nacho Carmona MD - 12/14/24 17:45> Patient to undergo amputation by Dr. De La Cruz. I discussed with and supervised the geotechnical intern physician involved in the care of this patient. Patient assessment and plan was discussed with entire medicine team, including my attending. I agree with the assessment and plan as documented by geotechnical intern doctor. Patient care was discussed with my attending physician Dr. Mercedes Carmona, PGY-2 Documentation for date of: 12/13/24 Subjective Subjective Interval history: Patient was seen and examined at bedside this AM. No acute exents overnight. Patient tolerating diet, adequate urine output and mentation is at baseline. Patient currently denies any pain but is tearful. When questioned did not give a reason. Currently pending bilateral lower extremity duplex arterial ultrasound. Will consult general surgery, Dr Madrigal. Appreciate recommendations Exam Vital Signs Temp Pulse Resp BP Pulse Ox O2 Del Method O2 Flow Rate 98.5 F 68 14 129/61 95 Room Air 0 12/13/24 11:48 12/13/24 12:00 12/13/24 11:48 12/13/24 11:48 12/13/24 11:48 12/13/24 11:48 12/13/24 06:39 Narrative Exam Constitutional Alert, oriented x 3. Elderly female, tearful HEENT Vision grossly intact. Patent nares. Trachea midline Respiratory Chest normal on inspection and clear auscultation bilaterally Cardiovascular S1 and S2 audible, RRR. No murmurs carotid bruit. No gross JVD. Abdominal Soft and non tender to palpation in all quadrants. BS + Genitourinary No bladder tenderness, no flank pain. Normal to palpation Musculoskeletal Extremities tone within normal limits. No LE edema. Neurological CN II - XII grossly intact. Extremity motor and sensation grossly intact. Skin Warm, dry and intact. Toes on bilateral lower extremities appear swollen, erythematous, nontender to touch. Bilateral third digit amputation on both feet. Psychiatric Patient has good affect, is cooperative Objective Labs 12/15/24 04:20 12/15/24 04:20 Labs: Laboratory Results - last 24 hr 12/12/24 12/12/24 12/12/24 17:35 20:44 22:12 WBC 16.1 H RBC 3.79 L Hgb 5.8 L* Hct 21.5 L* MCV 57 L MCH 15.3 L MCHC 27.0 L RDW Std Deviation 49.2 H Plt Count 1786 H* Neut % (Auto) 75 Lymph % (Auto) 17 Bledsoe % (Auto) 4 Eos % (Auto) 3 Baso % (Auto) 1 Neut # (Auto) 12.0 H Lymph # (Auto) 2.7 Bledsoe # (Auto) 0.6 Eos # (Auto) 0.4 Baso # (Auto) 0.2 Immature Gran # (Auto) 0.21 H Absolute Nucleated RBC 0.20 H Immature Gran % 1 H Nucleated RBC % 1 H Smear Path Review Sent to Pathologist ESR 70 H PT INR Sodium 136 Potassium 3.8 Chloride 106 Carbon Dioxide 24.6 Anion Gap 5 L BUN 25 H Creatinine 1.2 Estim Creat Clear Calc 38.6 L eGFR 50 L BUN/Creatinine Ratio 21 H Glucose 117 H Calculated Osmolality 277 Lactic Acid 1.6 Calcium 9.0 Corrected Calcium 9.0 Phosphorus Magnesium 2.5 Iron TIBC Iron Saturation Unsat Iron Binding Total Bilirubin 0.2 L AST 30 ALT 13 Alkaline Phosphatase 477 H Troponin I < 0.020 C-Reactive Prot, Quant 1.5 H Total Protein 6.9 Albumin 4.2 Globulin 2.7 Albumin/Globulin Ratio 1.6 TSH 12.40 H Free T4 Ur Collection Type Clean Catch Urine Color Lt-Yellow Urine Clarity Clear Urine pH 5.5 Ur Specific [place] 1.024 Urine Protein Negative Urine Glucose (UA) Negative Urine Ketones Negative Urine Blood Negative Urine Nitrite Positive Urine Bilirubin Negative Urine Urobilinogen (Auto) Negative Ur Leukocyte Esterase Positive Urine RBC 3 Urine WBC 98 H Ur Squamous Epith Cells 0 Urine Bacteria Rare Hyaline Casts < 1 Ur Culture Indicated? Yes Urine Opiates Screen Positive A Urine Fentanyl Screen Negative Ur Barbiturates Screen Negative U Amphetamin/Meth Scrn Negative U Benzodiazepines Scrn Negative U Cocaine Metab Screen Negative U Marijuana (THC) Screen Positive A Blood Type O Positive Antibody Screen POSITIVE Antibody Identification Cold Antibody Crossmatch See Detail Blood Bank Wristband ID Yes 12/12/24 12/13/24 12/13/24 23:22 00:28 08:40 WBC 15.0 H RBC 4.39 Hgb 8.5 L D Hct 27.9 L MCV 64 L MCH 19.4 L MCHC 30.5 L RDW Std Deviation 67.0 H Plt Count 1439 H* D Neut % (Auto) 77 Lymph % (Auto) 14 Bledsoe % (Auto) 4 Eos % (Auto) 3 Baso % (Auto) 1 Neut # (Auto) 11.6 H Lymph # (Auto) 2.0 Bledsoe # (Auto) 0.6 Eos # (Auto) 0.4 Baso # (Auto) 0.2 Immature Gran # (Auto) 0.19 H Absolute Nucleated RBC 0.22 H Immature Gran % 1 H Nucleated RBC % 2 H Smear Path Review ESR PT 11.4 INR 1.0 Sodium 138 Potassium 4.3 D Chloride 113 H Carbon Dioxide 21.8 Anion Gap 3 L BUN 21 Creatinine 1.1 Estim Creat Clear Calc 42.1 L eGFR 56 L BUN/Creatinine Ratio 19 Glucose 87 Calculated Osmolality 277 Lactic Acid Calcium 9.0 Corrected Calcium 9.2 Phosphorus 4.6 Magnesium 2.2 Iron 9 L 35 L TIBC 283 276 Iron Saturation 3 L 12 L Unsat Iron Binding 274 241 Total Bilirubin 0.5 AST 33 ALT 9 L Alkaline Phosphatase 423 H D Troponin I C-Reactive Prot, Quant Total Protein 6.0 Albumin 3.7 D Globulin 2.3 Albumin/Globulin Ratio 1.6 TSH Free T4 0.94 Ur Collection Type Urine Color Urine Clarity Urine pH Ur Specific [place] Urine Protein Urine Glucose (UA) Urine Ketones Urine Blood Urine Nitrite Urine Bilirubin Urine Urobilinogen (Auto) Ur Leukocyte Esterase Urine RBC Urine WBC Ur Squamous Epith Cells Urine Bacteria Hyaline Casts Ur Culture Indicated? Urine Opiates Screen Urine Fentanyl Screen Ur Barbiturates Screen U Amphetamin/Meth Scrn U Benzodiazepines Scrn U Cocaine Metab Screen U Marijuana (THC) Screen Blood Type Antibody Screen Antibody Identification Crossmatch Blood Bank Wristband ID Quality Measures Quality Measures none Advance care planning discussed with:: patient Assessment & Plan Assessment Current Active Medications: Generic Name Dose Route Start Last Admin Trade Name Freq PRN Reason Stop Dose Admin Acetaminophen 650 mg 12/13/24 00:06 Acetaminophen 325 Mg Tablet PO 01/12/25 00:05 Q6H PRN PAIN SCALE 1-3 (mild Acetaminophen 650 mg 12/13/24 00:06 Acetaminophen 325 Mg Tablet PO 01/12/25 00:05 Q6H PRN Fever >100 Hydrocodone Bitart/Acetaminophen 1 tab 12/13/24 00:06 12/13/24 06:20 Hydrocodone/Apap 10/325 Tab PO 12/18/24 00:05 1 tab Q4HR PRN Administration PAIN SCALE 7-10 (Severe Gabapentin 300 mg 12/13/24 00:15 12/13/24 06:14 Gabapentin 300 Mg Capsule PO 01/12/25 00:14 300 mg TID JUAN Administration Vancomycin/Sodium Chloride 100 mls @ 120 mls/hr 12/13/24 10:00 12/13/24 11:07 Vancomycin/Ns 500 Mg Ivpb IV 12/20/24 09:59 120 mls/hr Q12HR@1000,2200 JUAN Administration Levothyroxine Sodium 50 mcg 12/13/24 06:00 12/13/24 06:14 Levothyroxine Sodium 25 Mcg Tablet PO 01/12/25 05:59 50 mcg ACBR JUAN Administration Ondansetron HCl 4 mg 12/13/24 00:06 Ondansetron Inj 2 Mg/Ml Inj 2 Ml IV 01/12/25 00:05 Q6H PRN NAUSEA OR VOMITING Protocol Oxycodone/Acetaminophen 1 tab 12/13/24 00:06 Oxycodone/Apap 5/325 Tablet PO 12/18/24 00:05 Q6H PRN PAIN SCALE 4-6 (Moderate Pantoprazole Sodium 40 mg 12/13/24 09:00 12/13/24 09:32 Pantoprazole Inj 40 Mg Vial IVP 01/12/25 08:59 40 mg QDAY JUAN Administration Pharmacy Consult 1 each 12/13/24 09:00 Vancomycin Pharmacy To Dose 1 Each Each IV 01/12/25 08:59 QDAY PRN CONSULT Plan In summary: 64-year-old female PMHx of HTN, hypothyroidism, prior CVA, breast cancer, polycythemia, prior digit amputation, substance use disorder, Raynaud's, admitted for early osteomyelitis of fifth digit of right foot. Acute blood loss anemia Iron deficiency anemia Polycythemia vera Prior CVA Previously seen here by Dr. Angulo for PV and prescribed HYDROXYUREA which likely the cause anemia. However she states she is only taking ASPIRIN 325 mg daily. No signs or symptoms of abnormal bleed. Received 2 unit PRBC in ED. Admission Hgb 5.8 ---> 8.5 , PLT 1786 ---> 1439 FE 9, TIBC 283, iron saturation 3% Radiation oncologist, Dr. Angulo said he will reach out to heme oncologist Dr. Lentz. Plan: ? Pending stool guaiac test ? Will consider iron on discharge once osteomyelitis treated ? Radiation oncologist, Dr. Angulo Consulted. Appreciate recommendations Osteomyelitis of 5th digit right foot S/p partial amputation third digit right foot S/p amputation of 3rd digit left foot Peripheral arterial disease 2/4 SIRS positive Substance use disorder Chronic, worsening right foot pain, leading to limitation in daily activities of living. No history of diabetes. A1c/GLUCOSE WNL. Met 2/4 SIRS with tachypnea and leukocytosis. Right foot CXR and CT showed early osteomyelitis of proximal fifth phalanx. Venous duplex completed on 12/13/2024 was negative for DVT. Duplex scan lower extremity arterial 12/13/2021 findings includes bilateral peripheral obstructive arterial disease. Right MIGUEL 1, Left MIGUEL 1 Plan: ? Pain control ? Will consider starting on aspirin pending surgery recommendations ? Discontinued ZOSYN (12/13 to present) ? Continue VANCOMYCIN (12/13- ? Pending blood/urine culture ? General Surgery, Dr Madrigal consulted. Appreciate recommendation Hypothyroidism TSH 12.4, FT4 0.94. Plan: ? Continue home LEVOTHYROXINE 50 mcg History of left breast cancer s/p partial mastectomy [2006] Recurrence of breast cancer 12/17/2021 s/p simple mastectomy not in remission Tumor was receptor positive HER2 negative. Patient was recommended a postoperation radiation and estrogen modulators. Which she never followed through on. Plan: ? Radiation oncologist, Dr. Angulo Consulted. Appreciate recommendations Peripheral neuropathy Raynaud's Has Raynaud's documented in visit from 2021, she is unaware of having Raynaud's. Received prescribed GABAPENTIN, however has not refilled her meds. Planing of severe burning sensation in bilateral extremity, worse on the right. On exam right foot, tender and erythematous, no increased swelling compared to left. Plan: ? Continue GABAPENTIN 600 mL TID Grade 3 systolic murmur Likely incidental. Currently asymptomatic. Plan: ? Will recommend outpatient transthoracic echocardiogram and cardiology referral. Health maintenance: Disposition: IV antibiotics. Pending general surgery consult. Pending oncology recommendations. Diet: Cardiac, dysphagia 2 Lines: pIVs GI Prophylaxis: None Thrombo Prophylaxis: SCDs Code status: FULL CODE Plan of care discussed with Attending Dr. Gamez and PGY2 Dr. Kristine Aldrich MD PGY 1 Attending Provider Attestation/Addendum I attest that I was physically present for the evaluation, physical examination, lab and imaging review of the patient with the residents. I discussed the case with the residents and agree with the findings and plans of care as documented above. Patient is a 64 years old female with past medical history of hypertension, hypothyroidism, prior CVA, breast cancer, polycythemia, prior digit amputation, substance use disorder, Raynaud's phenomena, who was admitted overnight for management of osteomyelitis of fifth digit of right foot. Patient also meets criteria for sepsis secondary to her foot infection. Has been started on broad- spectrum IV antibiotics. General surgery has been consulted for evaluation of possible amputation. Patient is also noted to have acute anemia, likely from her chronic wound, hemoglobin noted to be 5.8 on admission and received 2 units of PRBC. Patient is also noted to have history of breast cancer status partial mastectomy and recurrence with previous imaging concerning for possible metastasis. She is also noted to have history of polycythemia vera. Patient has been seen by Dr. Angulo in the past, we will obtain consult with oncology again. We will also obtain FOBT. Patient found to have low iron, we will plan for iron supplement on discharge after treatment of osteomyelitis. On exam, patient is also noted to be confused , possibly secondary to sepsis but was able to answer few questions. We will monitor closely. Franklin Gamez MD
--- NOTE | 2024-12-13 19:27 | PD.SURCONS ---
HPI Consult details Consult date: 12/13/24 Reason for consultation narrative: The patient was seen on consultation because of ulceration over the fifth toe right foot History of present illness: Patient is not able to give any history because of her confusion Meds Home Medications and Allergies Home Medications ?Medication ?Instructions ?Recorded ?Confirmed ?Type aspirin 325 mg tablet 325 mg PO QDAY 12/05/21 12/17/21 History famotidine 20 mg tablet 20 mg PO Q12H 12/05/21 12/17/21 History gabapentin 600 mg tablet 600 mg PO TID 12/05/21 12/17/21 History levothyroxine 50 mcg tablet 50 mcg PO QDAY 12/05/21 12/17/21 History Allergies Allergy/AdvReac Type Severity Reaction Status Date / Time codeine Allergy Vomiting Verified 12/12/24 16:32 Exam Vital Signs Temp Pulse Resp BP Pulse Ox O2 Del Method O2 Flow Rate 98.5 F 77 20 163/77 H 94 L Room Air 0 12/13/24 16:00 12/13/24 16:12/13/24 16:12/13/24 16:12/13/24 16:12/13/24 16:00 12/13/24 06:39 Routine Extremities Exam Comments: Examination of the right foot revealed soft tissue infection over the fifth toe which seems to have been amputated partially. Patient has no gangrene but ulceration with discoloration of the skin Results Results: Imaging Imaging narrative: X-ray of the right foot revealed osteomyelitis of the fifth toe involving the proximal phalanx Assessment & Plan Additional Assessment Additional comments: Impression ulcer fifth toe right foot Plan Plan: The osteomyelitis is not severe enough for amputation. However she has considerable soft tissue infection and therefore amputation will be indicated. I will discuss with the son and arrange for the procedure.
[2024-12-13] MEDS: HYDROXYUREA 500 MG CAPSULE PO (21:17)
[2024-12-14] VITALS: BP 120/79; PULSE 89; RESP 16; TEMP 37; O2SAT 95
[2024-12-14 04:00] VITALS: BP 145/68; PULSE 85; RESP 15; TEMP 36.7; O2SAT 94
[2024-12-14] MEDS: LEVOTHYROXINE SODIUM 25 MCG TABLET 50 MCG PO (05:35)
[2024-12-14] MEDS: GABAPENTIN 300 MG CAPSULE PO ×3 (05:35→21:49)
[2024-12-14 06:00] VITALS: BMI 20.9
[2024-12-14 06:06] LABS: Basophils # (Auto) 0.2 Thou/mm3 (0.0-0.2); Basophils % (Auto) 1 % (0-2.5); Eosinophils # (Auto) 0.5 Thou/mm3 (0.0-0.5); Eosinophils % (Auto) 3 % (0-10); Hematocrit 27.7 % (36.0-46.0); Immature Granulocytes % (Auto) 2 % (0-0); Immature Granulocytes Auto 0.34 Thou/mm3 (0.00-0.00); Lymphocytes # (Auto) 2.6 Thou/mm3 (1.0-4.8); Lymphocytes % (Auto) 15 % (10-50); Mean Corpuscular HGB Conc 30.7 g/dl (31.0-37.0); Mean Corpuscular Hemoglobin 19.2 pg (25.0-35.0); Mean Corpuscular Volume 63 fL (80-100); Monocytes # (Auto) 0.9 Thou/mm3 (0.0-0.8); Monocytes % (Auto) 5 % (0-12); Neutrophils # (Auto) 12.7 Thou/mm3 (1.8-7.7); Neutrophils % (Auto) 74 % (37-80); Nucleated Red Blood Cell # 0.38 Thou/mm3 (0.00-0.00); Nucleated Red Blood Cell % 2 /100 WBC (0); RDW Standard Deviation 67.1 fL (36.4-46.3); Red Blood Count 4.43 Miln/mm3 (4.00-5.20); White Blood Count 17.2 Thou/mm3 (3.6-11.0)
[2024-12-14 06:09] LABS: Hemoglobin 8.5 g/dL (12.0-16.0)
[2024-12-14 06:10] LABS: Platelet Count 1351 Thou/mm3 (140-440)
[2024-12-14 06:42] LABS: Alanine Aminotransferase 10 U/L (10-49); Albumin, Serum 3.7 gm/dL (3.4-4.8); Albumin/Globulin Ratio 1.5 (1.2-2.2); Alkaline Phosphatase 455 U/L (46-116); Anion Gap 7 (7-16); Aspartate Amino Transferase 36 U/L (0-34); BUN/Creatinine Ratio 20 Ratio (12-20); Bilirubin,Total 0.4 mg/dL (0.3-1.2); Blood Urea Nitrogen 22 mg/dL (9-23); Calcium 9.3 mg/dL (8.3-10.6); Calcium (Corrected) 9.5 mg/dL (8.5-10.1); Carbon Dioxide 23.7 mMol/L (20.0-31.0); Chloride 106 mMol/L (98-107); Creatinine (Component) 1.1 mg/dL (0.6-1.3); Estimated Creatinine Clearance 42.2 mL/min (>60); Globulin 2.5 gm/dL (2.3-3.5); Glucose 92 mg/dL (74-106); Magnesium 2.2 mg/dL (1.6-2.6); Osmolality,Calculated 277 (275-295); Phosphorous 3.6 mg/dL (2.4-5.1); Potassium 4.3 mMol/L (3.4-5.1); Sodium 137 mMol/L (136-145); Total Protein 6.2 gm/dL (5.7-8.2); eGFR 56 See Note
[2024-12-14 08:00] VITALS: BP 149/82; PULSE 90; RESP 18; TEMP 36.3; O2SAT 94
[2024-12-14 09:17] LABS: Vancomycin,Trough 20.1 mcg/mL (5.0-10.0)
--- NOTE | 2024-12-14 09:27 | PC.SS ---
Late note 12-14-24: SS attempted to meet with pt but she is confused.? SS spoke to patient's sonCamilo regarding her d/c plan.? Pt is alert but confused.? Pt was admitted for Osteomyelitis.? Son explained resides alone but her has been staying with her to assists.? Per son, and are .? Son confirmed demographic and contact information is correct on facesheet.? Per son, pt has been having difficulty ambulating independently and is requiring assistance.? Pt requires assistance with ADLs.? Son, Camilo Stewart he is patient's medical decision maker if she is unable.? SS provided verbal d/c options for d/c to home or SNF.? Son's choice is SNF and [facility] is the preferred SNF.? Son explained pt was at [facility] in the past and was their for 20 days.? Son states pt is not participating in chemo therapy at this time.? Per son, pt last followed up with PCP in August or September 2024. D/C plan:? SNF Next of Kin:? Camilo Stewart, son, phone# [phone] PCP:? Dr. Benjy Mcneal from [facility] in [place] Address:? Correct on facesheet
[2024-12-14] MEDS: cefTRIAXone 1,000 MG in SODIUM CHLORIDE 0.9% (P) 50 ML 100 MG IV (09:50)
[2024-12-14] MEDS: HYDROXYUREA 500 MG CAPSULE PO ×2 (09:50→21:49)
[2024-12-14] MEDS: PANTOPRAZOLE INJ 40 MG VIAL IVP (10:00)
--- NOTE | 2024-12-14 10:58 | ESPR_ITS ---
<Statement entered by Nacho Carmona MD - 12/14/24 18:18> Possible right 5th toe amputation per Dr. De La Cruz. I discussed with and supervised the marketing intern physician involved in the care of this patient. Patient assessment and plan was discussed with entire medicine team, including my attending. I agree with the assessment and plan as documented by marketing intern doctor. Patient care was discussed with my attending physician Dr. Mercedes Carmona, PGY-2 Documentation for date of: 12/14/24 Subjective Subjective Interval history: Patient was seen and examined at bedside this AM. No acute exents overnight. Patient tolerating diet, adequate urine output and mentation is confused Patient currently denies any pain but is tearful. When questioned did not give a reason. Platelet decreased to 1439 from 1351. Patient currently on hydroxyurea 500 Mg p.o. twice daily Possible right fifth toe amputation by general surgery, Dr Madrigal. Pending authorization from her son as patient is currently altered. Exam Vital Signs Temp Pulse Resp BP Pulse Ox O2 Del Method O2 Flow Rate 97.3 F 90 18 149/82 H 94 L Room Air 0 12/14/24 08:00 12/14/24 08:00 12/14/24 08:00 12/14/24 08:00 12/14/24 08:00 12/14/24 08:00 12/14/24 04:00 Narrative Exam Constitutional Alert, oriented x 3. Elderly female, tearful HEENT Vision grossly intact. Patent nares. Trachea midline Respiratory Chest normal on inspection and clear auscultation bilaterally Cardiovascular S1 and S2 audible, RRR. No murmurs carotid bruit. No gross JVD. Abdominal Soft and non tender to palpation in all quadrants. BS + Genitourinary No bladder tenderness, no flank pain. Normal to palpation Musculoskeletal Extremities tone within normal limits. No LE edema. Neurological CN II - XII grossly intact. Extremity motor and sensation grossly intact. Skin Warm, dry and intact. Toes on bilateral lower extremities appear swollen, erythematous, nontender to touch. Bilateral third digit amputation on both feet. Psychiatric Patient has good affect, is cooperative Objective Labs 12/15/24 04:20 12/15/24 04:20 Labs: Laboratory Results - last 24 hr 12/14/24 12/14/24 05:45 08:20 WBC 17.2 H RBC 4.43 Hgb 8.5 L Hct 27.7 L MCV 63 L MCH 19.2 L MCHC 30.7 L RDW Std Deviation 67.1 H Plt Count 1351 H* D Neut % (Auto) 74 Lymph % (Auto) 15 [place] % (Auto) 5 Eos % (Auto) 3 Baso % (Auto) 1 Neut # (Auto) 12.7 H Lymph # (Auto) 2.6 [place] # (Auto) 0.9 H Eos # (Auto) 0.5 Baso # (Auto) 0.2 Immature Gran # (Auto) 0.34 H Absolute Nucleated RBC 0.38 H Immature Gran % 2 H Nucleated RBC % 2 H Sodium 137 Potassium 4.3 Chloride 106 Carbon Dioxide 23.7 Anion Gap 7 BUN 22 Creatinine 1.1 Estim Creat Clear Calc 42.2 L eGFR 56 L BUN/Creatinine Ratio 20 Glucose 92 Calculated Osmolality 277 Calcium 9.3 Corrected Calcium 9.5 Phosphorus 3.6 Magnesium 2.2 Total Bilirubin 0.4 AST 36 H ALT 10 Alkaline Phosphatase 455 H D Total Protein 6.2 Albumin 3.7 Globulin 2.5 Albumin/Globulin Ratio 1.5 Vancomycin Trough 20.1 H* Quality Measures Quality Measures none Advance care planning discussed with:: other Assessment & Plan Assessment Current Active Medications: Generic Name Dose Route Start Last Admin Trade Name Freq PRN Reason Stop Dose Admin Acetaminophen 650 mg 12/13/24 00:06 Acetaminophen 325 Mg Tablet PO 01/12/25 00:05 Q6H PRN PAIN SCALE 1-3 (mild Acetaminophen 650 mg 12/13/24 00:06 Acetaminophen 325 Mg Tablet PO 01/12/25 00:05 Q6H PRN Fever >100 Hydrocodone Bitart/Acetaminophen 1 tab 12/13/24 14:33 Hydrocodone/Apap 5/325 Tablet PO 12/18/24 14:32 Q4HR PRN PAIN SCALE 4-10(Mod-Sev Gabapentin 300 mg 12/13/24 00:15 12/14/24 05:35 Gabapentin 300 Mg Capsule PO 01/12/25 00:14 300 mg TID JUAN Administration Hydroxyurea 500 mg 12/13/24 21:00 12/13/24 21:17 Hydroxyurea 500 Mg Capsule PO 01/12/25 20:59 500 mg BID JUAN Administration Ceftriaxone Sodium 1,000 mg/ 50 mls @ 100 mls/hr 12/14/24 09:00 Sodium Chloride IV 12/21/24 08:59 QDAY JUAN Vancomycin HCl 750 mg/ Sodium 250 mls @ 120 mls/hr 12/14/24 14:00 Chloride IV 12/21/24 13:59 QDAY@1000 JUAN Levothyroxine Sodium 50 mcg 12/13/24 06:00 12/14/24 05:35 Levothyroxine Sodium 25 Mcg Tablet PO 01/12/25 05:59 50 mcg ACBR JUAN Administration Morphine Sulfate 2 mg 12/13/24 14:34 Morphine Sulf Inj 10 Mg/Ml Vial IVP 12/18/24 14:33 Q4HR PRN BREAKTHROUGH PAIN Ondansetron HCl 4 mg 12/13/24 00:06 Ondansetron Inj 2 Mg/Ml Inj 2 Ml IV 01/12/25 00:05 Q6H PRN NAUSEA OR VOMITING Protocol Pantoprazole Sodium 40 mg 12/13/24 09:00 12/13/24 09:32 Pantoprazole Inj 40 Mg Vial IVP 01/12/25 08:59 40 mg QDAY JUAN Administration Pharmacy Consult 1 each 12/13/24 09:00 Vancomycin Pharmacy To Dose 1 Each Each IV 01/12/25 08:59 QDAY PRN CONSULT Plan In summary: 64-year-old female PMHx of HTN, hypothyroidism, prior CVA, breast cancer, polycythemia, prior digit amputation, substance use disorder, Raynaud's, admitted for early osteomyelitis of fifth digit of right foot. Altered mental status secondary to acute toxic versus metabolic encephalopathy Patient has history of meth use in the past. However U tox on this admission only positive for marijuana and opiates. Patient denies any drug use history. Patient currently oriented to self only. Plan: ? Neurochecks Q4 hourly Acute blood loss anemia Iron deficiency anemia Polycythemia vera Prior CVA Previously seen here by Dr. Angulo for PV and prescribed HYDROXYUREA which likely the cause anemia. However she states she is only taking ASPIRIN 325 mg daily. No signs or symptoms of abnormal bleed. Received 2 unit PRBC in ED. Admission Hgb 5.8 ---> 8.5 , PLT 1786 ---> 1439 FE 9, TIBC 283, iron saturation 3% Heme oncologist, Dr. Lentz was curb sided. Recommended to start patient on hydroxyurea 500 Mg p.o. twice daily and ASA 81 Mg p.o. daily once no procedures anticipated. Also recommended patient to follow-up with her at [facility]. Plan: ? Pending stool guaiac test ? Continue hydroxyurea 500 Mg p.o. twice daily ? Will consider starting on ASA 81 Mg p.o. daily once amputation completed. ? Will consider iron on discharge once osteomyelitis treated ? Radiation oncologist, Dr. Angulo Consulted. Appreciate recommendations Osteomyelitis of 5th digit right foot S/p partial amputation third digit right foot S/p amputation of 3rd digit left foot Peripheral arterial disease 2/4 SIRS positive Substance use disorder Chronic, worsening right foot pain, leading to limitation in daily activities of living. No history of diabetes. A1c/GLUCOSE WNL. Met 2/4 SIRS with tachypnea and leukocytosis. Right foot CXR and CT showed early osteomyelitis of proximal fifth phalanx. Venous duplex completed on 12/13/2024 was negative for DVT. Duplex scan lower extremity arterial 12/13/2021 findings includes bilateral peripheral obstructive arterial disease. Right MIGUEL 1, Left MIGUEL 1 Possible right fifth toe amputation by general surgery, Dr Madrigal. Pending authorization from her son as patient is currently altered. Plan: ? Pain control ? Will consider starting on aspirin pending surgery recommendations ? Continue VANCOMYCIN (12/13- ? Pending blood/urine culture - Possible right fifth toe amputation by general surgery, Dr Madrigal. Pending authorization from her son as patient is currently altered. ? General Surgery, Dr Madrigal consulted. Appreciate recommendation Hypothyroidism TSH 12.4, FT4 0.94. Plan: ? Continue home LEVOTHYROXINE 50 mcg History of left breast cancer s/p partial mastectomy [2006] Recurrence of breast cancer 12/17/2021 s/p simple mastectomy not in remission Tumor was receptor positive HER2 negative. Patient was recommended a postoperation radiation and estrogen modulators. Which she never followed through on. Plan: ? Radiation oncologist, Dr. Angulo Consulted. Appreciate recommendations Peripheral neuropathy Raynaud's Has Raynaud's documented in visit from 2021, she is unaware of having Raynaud's. Received prescribed GABAPENTIN, however has not refilled her meds. Planing of severe burning sensation in bilateral extremity, worse on the right. On exam right foot, tender and erythematous, no increased swelling compared to left. Plan: ? Continue GABAPENTIN 600 mL TID Grade 3 systolic murmur Likely incidental. Currently asymptomatic. Plan: ? Will recommend outpatient transthoracic echocardiogram and cardiology referral. Health maintenance: Disposition: Pending amputation by general surgery. Diet: Cardiac, dysphagia 2 Lines: pIVs GI Prophylaxis: None Thrombo Prophylaxis: SCDs Code status: FULL CODE Plan of care discussed with Attending Dr. Gamez and PGY2 Dr. Kristine Aldrich MD PGY 1 Attending Provider Attestation/Addendum I attest that I was physically present for the evaluation, physical examination, lab and imaging review of the patient with the residents. I discussed the case with the residents and agree with the findings and plans of care as documented above. At bedside today, patient appears more alert, was able to state her name and date of but did not answer questions about place. She is noted to be crying but states she does not have any complaints when asking. We will try to reach out to the family to find out about her baseline mental status. Patient does have history of illicit drug abuse in the past but urine toxicology is only positive for marijuana and opiates this time. We will continue with frequent neurochecks, after confirming with family if patient continues to have altered mentation, we will obtain brain imaging and neurology consult. Patient continues to be on IV vancomycin, added Rocephin for GNR in urine. General surgery following, patient being planned for amputation of toe. Oncology following, stated that patient has been lost to follow-up regarding her recurrence of breast cancer. Discussed with Dr. Lentz, oncology, recommended starting patient on hydroxyurea 500 twice daily, aspirin 81 daily with outpatient follow-up. We will start hydroxyurea today and start aspirin once patient completes her amputation procedure. Patient's hemoglobin level has been stable following the transfusion, unable to complete occult blood testing as patient has not passed bowel. Franklin Gamez MD
[2024-12-14 12:00] VITALS: BP 125/78; PULSE 87; RESP 18; TEMP 36.2; O2SAT 94
--- NOTE | 2024-12-14 12:46 | PC.CC ---
PASRR Level 1 complete and downloaded; Level 2 not required.
[2024-12-14] MEDS: Vancomycin Inj 750 MG in SODIUM CHLORIDE 0.9% 250 ML 250 ML 120 MG IV (15:00)
[2024-12-14 16:00] VITALS: BP 130/83; PULSE 84; RESP 18; TEMP 36.2; O2SAT 94
[2024-12-14 20:00] VITALS: BP 146/83; PULSE 97; RESP 20; TEMP 36.9; O2SAT 95
[2024-12-15] VITALS (12 sets, daily range): BP systolic 113–152; BP diastolic 66–91; PULSE 61–99; RESP 17–98; TEMP 36.5–37.2; O2SAT 91–99; BMI 21.5
[2024-12-15 06:00] LABS: Eosinophils % (Auto) 2 % (0-10); Hematocrit 27.9 % (36.0-46.0); Immature Granulocytes % (Auto) 1 % (0-0); Immature Granulocytes Auto 0.19 Thou/mm3 (0.00-0.00); Lymphocytes # (Auto) 2.6 Thou/mm3 (1.0-4.8); Lymphocytes % (Auto) 16 % (10-50); Mean Corpuscular HGB Conc 30.5 g/dl (31.0-37.0); Mean Corpuscular Hemoglobin 19.2 pg (25.0-35.0); Mean Corpuscular Volume 63 fL (80-100); Neutrophils # (Auto) 12.4 Thou/mm3 (1.8-7.7); Nucleated Red Blood Cell % 1 /100 WBC (0); RDW Standard Deviation 67.7 fL (36.4-46.3); Red Blood Count 4.42 Miln/mm3 (4.00-5.20); White Blood Count 16.3 Thou/mm3 (3.6-11.0)
[2024-12-15 06:02] LABS: Basophils # (Auto) 0.2 Thou/mm3 (0.0-0.2); Basophils % (Auto) 1 % (0-2.5); Eosinophils # (Auto) 0.4 Thou/mm3 (0.0-0.5); Monocytes # (Auto) 0.6 Thou/mm3 (0.0-0.8); Monocytes % (Auto) 4 % (0-12); Neutrophils % (Auto) 76 % (37-80)
[2024-12-15 06:19] LABS: Hemoglobin 8.5 g/dL (12.0-16.0); Platelet Count 1132 Thou/mm3 (140-440)
--- NOTE | 2024-12-15 06:20 | PC.NURSE ---
Addendum entered by Kenneth Rosa RN 12/15/24 06:28: Critical platelet 1132. Addendum entered by Kenneth Rosa RN 12/15/24 06:27: Dr. Burr made aware. Original Note: RN attempted to call hospitalists at [phone] and [phone] regarding critical platelet of 1000, but hospitalists did not answer. RN will try again later.
[2024-12-15 06:39] LABS: Alanine Aminotransferase < 7 U/L (10-49); Albumin, Serum 3.8 gm/dL (3.4-4.8); Albumin/Globulin Ratio 1.5 (1.2-2.2); Alkaline Phosphatase 446 U/L (46-116); Anion Gap 8 (7-16); Aspartate Amino Transferase 37 U/L (0-34); BUN/Creatinine Ratio 21 Ratio (12-20); Bilirubin,Total 0.3 mg/dL (0.3-1.2); Blood Urea Nitrogen 23 mg/dL (9-23); Calcium 9.3 mg/dL (8.3-10.6); Calcium (Corrected) 9.5 mg/dL (8.5-10.1); Chloride 105 mMol/L (98-107); Creatinine (Component) 1.1 mg/dL (0.6-1.3); Estimated Creatinine Clearance 42.2 mL/min (>60); Globulin 2.5 gm/dL (2.3-3.5); Glucose 77 mg/dL (74-106); Magnesium 2.4 mg/dL (1.6-2.6); Osmolality,Calculated 274 (275-295); Phosphorous 4.2 mg/dL (2.4-5.1); Potassium 4.3 mMol/L (3.4-5.1); Sodium 136 mMol/L (136-145); Total Protein 6.3 gm/dL (5.7-8.2); eGFR 56 See Note
--- NOTE | 2024-12-15 09:19 | PC.SS ---
Follow up note: Possible amputation and waitng for Dr. Cruz's recommendations. Pt will d/c to SNF.
--- NOTE | 2024-12-15 10:54 | XR_ITS ---
Examination: CT brain head without contrast. 2-D sagittal coronal reconstructions Date and time of exam:December 15, 2024 1429 hours INDICATIONS: Onset altered mental status today, diagnosis breast cancer CTDI: vol (mGy):54.6 DLP: (mGycm):1139 Technique: Multiple CT axial sections of the brain have been obtained, 5 mm slice thickness. Contrast has not been administered. 2-D sagittal, coronal reconstructions have been obtained Low dose protocols were performed. One or more of the following dose reduction techniques were used; automated exposure control, adjustment of the mA and/or KV according to patient size, use of iterative reconstruction technique. Findings: No significant ventricular enlargement. Encephalomalacia right frontal lobe right posterior parietal lobe Old infarct right basal ganglia and left cerebellar hemisphere Intra-axial or extra-axial hemorrhage density is not seen. No mass effect or midline shift Basal cisterns are not remarkable. Fourth ventricle is midline. Cranial vault intact. Impression: Negative for acute hemorrhage, mass effect or midline shift Multiple old infarcts As clinically warranted, brain MRI follow-up would best assess for acute ischemic change
[2024-12-15] MEDS: cefTRIAXone 1,000 MG in SODIUM CHLORIDE 0.9% (P) 50 ML 100 MG IV (11:01)
[2024-12-15] MEDS: PANTOPRAZOLE INJ 40 MG VIAL IVP (11:01)
--- NOTE | 2024-12-15 12:21 | PD.SUROPNT ---
Date of Procedure 12/15/24 Pre Op Diagnosis Gangrene right fifth toe with osteomyelitis of the proximal phalanx Post Op Diagnosis Same Procedure Amputation of the right fifth toe at the proximal phalangeal level Findings Patient is found to have a good pedal pulses but there was necrosis of the skin over the fifth toe and therefore amputation is planned Procedure Description After the patient was brought to the operating room LMA anesthesia was given. The right foot was washed with Betadine solution and draped in a sterile manner. Timeout is performed. Then I made a racquet shaped incision over the base of the fifth toe and amputated the proximal phalanx all the way up to the articulating surface. A small portion was left behind and pieces were removed from rounger. Then there was excellent bleeding and skin approximation was carried out with interrupted 5-0 nylon stitches. Dressing was applied with Adaptic and 4 x 4 gauze and Kerlix roll. Patient tolerated the procedure well. Anesthesia other Pathology / specimen Other (Distal to phalanx of the fifth toe) Estimated Blood Loss 10 Surgeon Juan Madrigal MD Surgical Staff Operation Date: 12/15/24 12:00 <No data on this case meets the specified criteria>
--- NOTE | 2024-12-15 12:22 | SUR.PHASEI ---
pt arrived to PACU via bed with LMA present, breathing unlabored, dressing to right foot clean, dry, and intact, report from Dean FLORES and Dr Chen
--- NOTE | 2024-12-15 13:00 | SUR.PHASEI ---
pt awake, alert, able to answer questions, breathing unlabored, VS stable, dressing to right foot clean, dry, and intact, pt able to tolerate ice chips without difficulty swallowing or n/v, report called to Christen FLORES, pt transferred to room at this time
[2024-12-15] MEDS: GABAPENTIN 300 MG CAPSULE PO ×2 (14:13→21:45)
[2024-12-15] MEDS: VANCOMYCIN/NS 1 GM IVPB 200 ML IV (14:13)
[2024-12-15] MEDS: HYDROcodone/APAP 5/325 TABLET 1 TAB PO ×2 (14:59→21:26)
--- NOTE | 2024-12-15 18:32 | PD.RESPRO ---
Documentation for date of: 12/15/24 Subjective Subjective Interval history: Patient underwent right fifth toe amputation by Dr. De La Cruz. Patient's son was contacted for baseline per son, patient dependent but is able to answer questions and have a conversation when at baseline. Per son, patient has had decreased cognition for the last 2 weeks, percent this might be due to the severe pain of her left lower leg that she has been experiencing lately. Neurology was consulted and head CT was ordered. Results of head CT indicated multiple old infarcts but was negative for acute hemorrhage. Exam Vital Signs Temp Pulse Resp BP Pulse Ox O2 Del Method O2 Flow Rate 98.2 F 61 17 135/68 H 97 Room Air 0 12/15/24 16:00 12/15/24 16:00 12/15/24 16:00 12/15/24 16:00 12/15/24 16:00 12/15/24 16:00 12/14/24 16:00 Narrative Exam Constitutional Alert, oriented x 3. Elderly female, tearful HEENT Vision grossly intact. Patent nares. Trachea midline Respiratory Chest normal on inspection and clear auscultation bilaterally Cardiovascular S1 and S2 audible, RRR. No murmurs carotid bruit. No gross JVD. Abdominal Soft and non tender to palpation in all quadrants. BS + Genitourinary No bladder tenderness, no flank pain. Normal to palpation Musculoskeletal Extremities tone within normal limits. No LE edema. Neurological CN II - XII grossly intact. Extremity motor and sensation grossly intact. Skin Warm, dry and intact. Toes on bilateral lower extremities appear swollen, erythematous, nontender to touch. Bilateral third digit amputation on both feet. Psychiatric Patient has good affect, is cooperative Objective Labs 12/16/24 05:07 12/16/24 05:07 Labs: Laboratory Results - last 24 hr 12/15/24 04:20 WBC 16.3 H RBC 4.42 Hgb 8.5 L Hct 27.9 L MCV 63 L MCH 19.2 L MCHC 30.5 L RDW Std Deviation 67.7 H Plt Count 1132 H* D Neut % (Auto) 76 Lymph % (Auto) 16 [place] % (Auto) 4 Eos % (Auto) 2 Baso % (Auto) 1 Neut # (Auto) 12.4 H Lymph # (Auto) 2.6 [place] # (Auto) 0.6 Eos # (Auto) 0.4 Baso # (Auto) 0.2 Immature Gran # (Auto) 0.19 H Absolute Nucleated RBC 0.10 H Immature Gran % 1 H Nucleated RBC % 1 H Sodium 136 Potassium 4.3 Chloride 105 Carbon Dioxide 23.0 Anion Gap 8 BUN 23 Creatinine 1.1 Estim Creat Clear Calc 42.2 L eGFR 56 L BUN/Creatinine Ratio 21 H Glucose 77 Calculated Osmolality 274 L Calcium 9.3 Corrected Calcium 9.5 Phosphorus 4.2 Magnesium 2.4 Total Bilirubin 0.3 AST 37 H ALT < 7 L Alkaline Phosphatase 446 H Total Protein 6.3 Albumin 3.8 Globulin 2.5 Albumin/Globulin Ratio 1.5 Quality Measures Quality Measures none Advance care planning discussed with:: other Assessment & Plan Assessment Current Active Medications: Generic Name Dose Route Start Last Admin Trade Name Freq PRN Reason Stop Dose Admin Acetaminophen 650 mg 12/13/24 00:06 Acetaminophen 325 Mg Tablet PO 01/12/25 00:05 Q6H PRN PAIN SCALE 1-3 (mild Acetaminophen 650 mg 12/13/24 00:06 Acetaminophen 325 Mg Tablet PO 01/12/25 00:05 Q6H PRN Fever >100 Hydrocodone Bitart/Acetaminophen 1 tab 12/13/24 14:33 12/15/24 14:59 Hydrocodone/Apap 5/325 Tablet PO 12/18/24 14:32 1 tab Q4HR PRN Administration PAIN SCALE 4-10(Mod-Sev Gabapentin 300 mg 12/13/24 00:15 12/15/24 14:13 Gabapentin 300 Mg Capsule PO 01/12/25 00:14 300 mg TID JUAN Administration Hydroxyurea 500 mg 12/13/24 21:00 12/15/24 09:00 Hydroxyurea 500 Mg Capsule PO 01/12/25 20:59 Not Given BID JUAN Ceftriaxone Sodium 1,000 mg/ 50 mls @ 100 mls/hr 12/14/24 09:00 12/15/24 11:01 Sodium Chloride IV 12/21/24 08:59 100 mls/hr QDAY JUAN Administration Vancomycin/Sodium Chloride 200 mls @ 120 mls/hr 12/15/24 10:00 12/15/24 14:13 Vancomycin/Ns 1 Gm Ivpb IV 12/22/24 09:59 120 mls/hr QDAY@1000 JUAN Administration Protocol Levothyroxine Sodium 50 mcg 12/13/24 06:00 12/15/24 05:30 Levothyroxine Sodium 25 Mcg Tablet PO 01/12/25 05:59 Not Given ACBR [facility] Morphine Sulfate 2 mg 12/13/24 14:34 Morphine Sulf Inj 10 Mg/Ml Vial IVP 12/18/24 14:33 Q4HR PRN BREAKTHROUGH PAIN Ondansetron HCl 4 mg 12/13/24 00:06 Ondansetron Inj 2 Mg/Ml Inj 2 Ml IV 01/12/25 00:05 Q6H PRN NAUSEA OR VOMITING Protocol Pantoprazole Sodium 40 mg 12/13/24 09:00 12/15/24 11:01 Pantoprazole Inj 40 Mg Vial IVP 01/12/25 08:59 40 mg QDAY JUAN Administration Pharmacy Consult 1 each 12/13/24 09:00 Vancomycin Pharmacy To Dose 1 Each Each IV 01/12/25 08:59 QDAY PRN CONSULT Plan In summary: 64-year-old female PMHx of HTN, hypothyroidism, prior CVA, breast cancer, polycythemia, prior digit amputation, substance use disorder, Raynaud's, admitted for early osteomyelitis of fifth digit of right foot. Altered mental status secondary to acute toxic versus metabolic encephalopathy Patient has history of meth use in the past. However U tox on this admission only positive for marijuana and opiates. Patient denies any drug use history. Patient currently oriented to self only. Plan: ? Neurochecks Q4 hourly Acute blood loss anemia Iron deficiency anemia Polycythemia vera Prior CVA Previously seen here by Dr. Angulo for PV and prescribed HYDROXYUREA which likely the cause anemia. However she states she is only taking ASPIRIN 325 mg daily. No signs or symptoms of abnormal bleed. Received 2 unit PRBC in ED. Admission Hgb 5.8 ---> 8.5 , PLT 1786 ---> 1439 FE 9, TIBC 283, iron saturation 3% Heme oncologist, Dr. Lentz was curb sided. Recommended to start patient on hydroxyurea 500 Mg p.o. twice daily and ASA 81 Mg p.o. daily once no procedures anticipated. Also recommended patient to follow-up with her at [facility]. Plan: ? Pending stool guaiac test ? Continue hydroxyurea 500 Mg p.o. twice daily ? Will consider starting on ASA 81 Mg p.o. daily once amputation completed. ? Will consider iron on discharge once osteomyelitis treated ? Radiation oncologist, Dr. Angulo Consulted. Appreciate recommendations Osteomyelitis of 5th digit right foot S/p partial amputation third digit right foot S/p amputation of 3rd digit left foot Peripheral arterial disease 2/4 SIRS positive Substance use disorder Chronic, worsening right foot pain, leading to limitation in daily activities of living. No history of diabetes. A1c/GLUCOSE WNL. Met 2/4 SIRS with tachypnea and leukocytosis. Right foot CXR and CT showed early osteomyelitis of proximal fifth phalanx. Venous duplex completed on 12/13/2024 was negative for DVT. Duplex scan lower extremity arterial 12/13/2021 findings includes bilateral peripheral obstructive arterial disease. Right MIGUEL 1, Left MIGUEL 1 Possible right fifth toe amputation by general surgery, Dr Madrigal. Pending authorization from her son as patient is currently altered. Plan: ? Pain control ? Will consider starting on aspirin pending surgery recommendations ? Continue VANCOMYCIN (12/13- ? Pending blood/urine culture - Possible right fifth toe amputation by general surgery, Dr Madrigal. Pending authorization from her son as patient is currently altered. ? General Surgery, Dr Madrigal consulted. Appreciate recommendation Hypothyroidism TSH 12.4, FT4 0.94. Plan: ? Continue home LEVOTHYROXINE 50 mcg History of left breast cancer s/p partial mastectomy [2006] Recurrence of breast cancer 12/17/2021 s/p simple mastectomy not in remission Tumor was receptor positive HER2 negative. Patient was recommended a postoperation radiation and estrogen modulators. Which she never followed through on. Plan: ? Radiation oncologist, Dr. Angulo Consulted. Appreciate recommendations Peripheral neuropathy Raynaud's Has Raynaud's documented in visit from 2021, she is unaware of having Raynaud's. Received prescribed GABAPENTIN, however has not refilled her meds. Planing of severe burning sensation in bilateral extremity, worse on the right. On exam right foot, tender and erythematous, no increased swelling compared to left. Plan: ? Continue GABAPENTIN 600 mL TID Grade 3 systolic murmur Likely incidental. Currently asymptomatic. Plan: ? Will recommend outpatient transthoracic echocardiogram and cardiology referral. Health maintenance: Disposition: Pending amputation by general surgery. Diet: Cardiac, dysphagia 2 Lines: pIVs GI Prophylaxis: None Thrombo Prophylaxis: SCDs Code status: FULL CODE This patient care was discussed with my attending Dr. Franco Carmona MD PGY-2 Disclaimer: Minor errors in public health clinical nurse specialist may be present since this note was dictated by speech recognition software. Attending Provider Attestation/Addendum I attest that I was physically present for the evaluation, physical examination, lab and imaging review of the patient with the residents. I discussed the case with the residents and agree with the findings and plans of care as documented above. Franklin Gamez MD
[2024-12-15] MEDS: HYDROXYUREA 500 MG CAPSULE PO (21:45)
--- NOTE | 2024-12-15 23:30 | PD.NEUROCONS ---
History of Present Illness Data of Consult Requesting Physician: Franklin Gamez MD Primary Care Provider: Benjy Mcneal NP Consult Narrative History of present illness: 64-year-old female PMHx of HTN, hypothyroidism, prior CVA, breast cancer, polycythemia, prior digit amputation, substance use disorder, Raynaud's, admitted for early osteomyelitis of fifth digit of right foot. As the patient remains altered with confusion and not able to communicate unlike from baseline, neurology was consulted to evaluate further. Patient underwent to amputation secondary to osteomyelitis. Neurology was consulted to evaluate for altered mental status. cc:: cc: Franklin Gamez MD Review of Systems Review of Systems ROS Unobtainable: unobtainable due to mental status Past Medical History Family History OTHER FAMILY HX: Denies family history of cancer Surgical History OTHER SURGICAL HX: Prior mastectomy x 2 right foot third digit removal Social History SOCIAL: Lives with partner with son Camilo Stewart help caring for patient Past Medical History Comments PMH COMMENT: History of left left breast CA initial surgery followed by total mastectomy for recurrence 2021. Noncompliance regarding postop adjuvant therapy with possible mets. History of polycythemia vera noncompliant with medications. History of prior CVA hypertension hypothyroidism. Meds Home Medications and Allergies Home Medications ?Medication ?Instructions ?Recorded ?Confirmed ?Type aspirin 325 mg tablet 325 mg PO QDAY 12/05/21 12/14/24 History famotidine 20 mg tablet 20 mg PO Q12H 12/05/21 12/14/24 History gabapentin 600 mg tablet 600 mg PO TID 12/05/21 12/14/24 History levothyroxine 50 mcg tablet 50 mcg PO QDAY 12/05/21 12/14/24 History atorvastatin 80 mg tablet 80 mg PO DAILY UD 12/14/24 12/14/24 History clopidogrel 75 mg tablet 75 mg PO .evening 12/14/24 12/14/24 History Allergies Allergy/AdvReac Type Severity Reaction Status Date / Time codeine Allergy Vomiting Verified 12/12/24 16:32 Exam - Neurology Vital Signs Temp Pulse Resp BP Pulse Ox O2 Del Method O2 Flow Rate 98.2 F 68 18 122/66 99 Room Air 0 12/15/24 20:00 12/15/24 20:50 12/15/24 20:50 12/15/24 20:00 12/15/24 20:00 12/15/24 20:00 12/14/24 16:00 Narrative Exam GENERAL APPEARANCE: Well hydrated, well-nourished in no acute distress. HEENT: Normocephalic, atraumatic, extraocular movements intact. Pupils: Equal reacting to light NECK: Supple, no JVD or bruits. CARDIOVASULAR: Heart: S1, S2 heard, regular without S3-S4 or murmur no rubs or gallops. LUNGS/CHEST: Clear to auscultation bilaterally. No rails, rhonchi, or wheezing. Normal inspection. ABDOMEN: Soft, nontender, with normal bowel sounds. No pulsatile masses. No rebound, rigidity, or guarding. Normal inspection and palpation. EXTREMITIES: Normal inspection and palpation. No edema, clubbing or cyanosis. SKIN: Warm and dry without rashes. Normal inspection. MUSCULOSKELETAL: No cervical, thoracic, lumbar or midline bony tenderness. Normal inspection. NEURO: Alert, awake .Cranial nerves: II through XII grossly intact. Speech and language: Noncommunicative. Motor system: Tone and bulk: Normal: Strength: Moves all 4 extremities; No pronator drift noted. Deep tendon reflexes: 1+ bilaterally symmetrical. Plantar reflex: Downgoing bilaterally. Sensory system: Intact to pinprick sensation bilaterally. Rest of the exam including gait: Not able to test. no signs of meningeal irritation noted. PSYCHIATRIC: Normal mood and affect. Emotional lability noted Results Labs 12/15/24 04:20 12/15/24 04:20 Labs: Short CBC 12/15/24 Range/Units 04:20 WBC 16.3 H (3.6-11.0) Thou/mm3 Hgb 8.5 L (12.0-16.0) g/dL Hct 27.9 L (36.0-46.0) % Plt Count 1132 H* D (140-440) Thou/mm3 BMP 12/15/24 04:20 Sodium 136 Potassium 4.3 Chloride 105 Carbon Dioxide 23.0 BUN 23 Creatinine 1.1 Glucose 77 Calcium 9.3 Liver Function 12/15/24 Range/Units 04:20 Total Bilirubin 0.3 (0.3-1.2) mg/dL AST 37 H (0-34) U/L ALT < 7 L (10-49) U/L Alkaline Phosphatase 446 H (46-116) U/L Albumin 3.8 (3.4-4.8) gm/dL Assessment & Plan Assessment and plan (1) Altered mental status: Status: Acute Assessment and plan: Likely secondary to metabolic encephalopathies from urinary tract infection/vascular dementia from prior CVA Continue with aspirin, Plavix and statin and blood pressure control, treatment of urinary tract infection with antibiotics, follow-up with culture and sensitivity reviewed the CT findings. For dual benefits: Consider adding Trintellix 10 mg a day treating depression/cognitive impairment (2) Essential hypertension: Status: Acute Assessment and plan: Continue with the current medication (3) Polycythemia rubra vera: Status: Acute Assessment and plan: Continue with hydroxyurea (4) Dyslipidemia: Status: Acute Assessment and plan: Continue with statin (5) Osteomyelitis: Status: Acute Assessment and plan: Status post toe amputation by Dr. Madrigal.
[2024-12-16] VITALS (7 sets, daily range): BP systolic 109–163; BP diastolic 48–80; PULSE 65–81; RESP 16–97; TEMP 36.1–37.2; O2SAT 93–97
[2024-12-16] MEDS: LEVOTHYROXINE SODIUM 25 MCG TABLET 50 MCG PO (05:42)
[2024-12-16] MEDS: GABAPENTIN 300 MG CAPSULE PO ×3 (05:43→21:00)
[2024-12-16 05:52] LABS: Basophils # (Auto) 0.2 Thou/mm3 (0.0-0.2); Basophils % (Auto) 2 % (0-2.5); Eosinophils # (Auto) 0.4 Thou/mm3 (0.0-0.5); Eosinophils % (Auto) 3 % (0-10); Hematocrit 28.6 % (36.0-46.0); Immature Granulocytes % (Auto) 1 % (0-0); Immature Granulocytes Auto 0.12 Thou/mm3 (0.00-0.00); Lymphocytes # (Auto) 2.1 Thou/mm3 (1.0-4.8); Lymphocytes % (Auto) 18 % (10-50); Mean Corpuscular Hemoglobin 18.8 pg (25.0-35.0); Mean Corpuscular Volume 65 fL (80-100); Monocytes # (Auto) 0.6 Thou/mm3 (0.0-0.8); Monocytes % (Auto) 5 % (0-12); Neutrophils # (Auto) 8.7 Thou/mm3 (1.8-7.7); Neutrophils % (Auto) 72 % (37-80); Nucleated Red Blood Cell # 0.06 Thou/mm3 (0.00-0.00); Nucleated Red Blood Cell % 1 /100 WBC (0); RDW Standard Deviation 72.3 fL (36.4-46.3); Red Blood Count 4.41 Miln/mm3 (4.00-5.20); White Blood Count 12.2 Thou/mm3 (3.6-11.0)
[2024-12-16 06:13] LABS: Hemoglobin 8.3 g/dL (12.0-16.0)
[2024-12-16 06:14] LABS: Platelet Count 1142 Thou/mm3 (140-440)
[2024-12-16 07:45] LABS: Alanine Aminotransferase 8 U/L (10-49); Albumin, Serum 3.8 gm/dL (3.4-4.8); Albumin/Globulin Ratio 1.5 (1.2-2.2); Alkaline Phosphatase 402 U/L (46-116); Anion Gap 9 (7-16); Aspartate Amino Transferase 27 U/L (0-34); BUN/Creatinine Ratio 24 Ratio (12-20); Bilirubin,Total 0.2 mg/dL (0.3-1.2); Blood Urea Nitrogen 26 mg/dL (9-23); Calcium 9.1 mg/dL (8.3-10.6); Calcium (Corrected) 9.3 mg/dL (8.5-10.1); Carbon Dioxide 24.9 mMol/L (20.0-31.0); Chloride 105 mMol/L (98-107); Creatinine (Component) 1.1 mg/dL (0.6-1.3); Estimated Creatinine Clearance 42.2 mL/min (>60); Globulin 2.6 gm/dL (2.3-3.5); Glucose 108 mg/dL (74-106); Magnesium 2.4 mg/dL (1.6-2.6); Osmolality,Calculated 283 (275-295); Phosphorous 4.7 mg/dL (2.4-5.1); Potassium 4.5 mMol/L (3.4-5.1); Sodium 139 mMol/L (136-145); Total Protein 6.4 gm/dL (5.7-8.2); eGFR 56 See Note
[2024-12-16] MEDS: PANTOPRAZOLE INJ 40 MG VIAL IVP (08:42)
[2024-12-16] MEDS: cefTRIAXone 1,000 MG in SODIUM CHLORIDE 0.9% (P) 50 ML 100 MG IV (08:42)
[2024-12-16] MEDS: VANCOMYCIN/NS 1 GM IVPB 200 ML IV (08:44)
[2024-12-16] MEDS: HYDROXYUREA 500 MG CAPSULE PO ×2 (09:18→20:49)
--- NOTE | 2024-12-16 12:16 | PD.VPROG1 ---
Telemedicine visit statement This visit was conducted with the use of phone was obtained on 12/16/24 at 1216. Documentation for date of: 12/16/24 Subjective Subjective Interval history: Patient is in MedSurg unit. No new symptoms reported. Tolerating oral diet well, moves both upper and lower extremities. Virtual exam Vital Signs Temp Pulse Resp BP Pulse Ox O2 Del Method O2 Flow Rate 98.6 F 77 18 130/78 97 Room Air 0 12/16/24 08:00 12/16/24 08:00 12/16/24 08:00 12/16/24 08:00 12/16/24 08:00 12/16/24 08:00 12/14/24 16:00 Objective Labs 12/16/24 05:07 12/16/24 05:07 Labs: Laboratory Results - last 24 hr 12/16/24 05:07 WBC 12.2 H RBC 4.41 Hgb 8.3 L Hct 28.6 L MCV 65 L MCH 18.8 L MCHC 29.0 L RDW Std Deviation 72.3 H Plt Count 1142 H* Neut % (Auto) 72 Lymph % (Auto) 18 [place] % (Auto) 5 Eos % (Auto) 3 Baso % (Auto) 2 Neut # (Auto) 8.7 H Lymph # (Auto) 2.1 [place] # (Auto) 0.6 Eos # (Auto) 0.4 Baso # (Auto) 0.2 Immature Gran # (Auto) 0.12 H Absolute Nucleated RBC 0.06 H Immature Gran % 1 H Nucleated RBC % 1 H Sodium 139 Potassium 4.5 Chloride 105 Carbon Dioxide 24.9 Anion Gap 9 BUN 26 H Creatinine 1.1 Estim Creat Clear Calc 42.2 L eGFR 56 L BUN/Creatinine Ratio 24 H Glucose 108 H Calculated Osmolality 283 Calcium 9.1 Corrected Calcium 9.3 Phosphorus 4.7 Magnesium 2.4 Total Bilirubin 0.2 L AST 27 ALT 8 L Alkaline Phosphatase 402 H D Total Protein 6.4 Albumin 3.8 Globulin 2.6 Albumin/Globulin Ratio 1.5 Assessment & Plan Assessment (1) Altered mental status: Likely secondary to metabolic encephalopathy from urinary tract infection/vascular dementia from prior CVA Continue with aspirin, Plavix and statin and blood pressure control, treatment of urinary tract infection with antibiotics, follow-up with culture and sensitivity reviewed the CT head findings. Added Cymbalta 30 mg once a day as Trintellix may not be covered. (2) Essential hypertension: Controlled Continue with the current medication (3) Polycythemia rubra vera: Continue with hydroxyurea (4) Dyslipidemia: Continue with statin (5) Osteomyelitis: Status post toe amputation by Dr. Madrigal. Continue with antibiotics and wound care
--- NOTE | 2024-12-16 12:19 | PD.SURPROG ---
Documentation for date of: 12/16/24 Subjective Subjective Brief History: Patient is not able to give any history because of her confusion Narrative: Patient was seen postoperatively. Her dressing is dry Exam Vital Signs Temp Pulse Resp BP Pulse Ox O2 Del Method O2 Flow Rate 98.6 F 77 18 130/78 97 Room Air 0 12/16/24 08:00 12/16/24 08:00 12/16/24 08:00 12/16/24 08:00 12/16/24 08:00 12/16/24 08:00 12/14/24 16:00 Assessment & Plan Assessment Additional comments: Impression: Stable postoperative condition after amputation of the right fifth toe Plan Plan: Patient does not have any infection at the amputated site and I closed the wound primarily. She has excellent vascular supply. I will see the patient in my office in 10 days when discharged Procedures Procedures Amputation of the right fifth toe at the proximal phalangeal level
[2024-12-16] MEDS: DULoxetine HCL 30 MG CAPSULE PO (13:35)
--- NOTE | 2024-12-16 14:47 | ESDS_ITS ---
Planned Discharge Date 12/16/24 DS: Providers Provider Date of admission: 12/13/24 00:06 Primary care physician: Benjy Mcneal NP Admitting Provider: Glen Chacon MD Attending Provider on Admission: Franklin Gamez MD Consults: 12/13/24 08:33 Consult to Oncology Routine Comment: Consulting Provider: Rickey Angulo 12/13/24 10:40 Consult to General Surgery Routine Comment: Right 5th toe osteomyelitis Consulting Provider: Juan Madrigal 12/15/24 10:55 Consult to Neurology / Tele-Neurology Routine Comment: Consulting Provider: Rodney Nance 12/15/24 14:37 Consult to Infectious Diseases Routine Comment: Consulting Provider: Camilo Aguilera Attending Provider on DC: Ncaho Carmona MD Discharging Provider: Nacho Carmona MD DS: Diagnosis Problem List Completed Was Problem List Reviewed/Reconciled?: Yes Hospital Course Hospital Course Hospital course: Miss Isidro, a 64-year-old female PMHx of HTN, hypothyroidism, prior CVA, breas t cancer, polycythemia, prior digit amputation, substance use disorder, Raynaud's presenting with right foot pain. Patient was admitted at [facility] on 12/13/27 for osteomyelitis and altered mental status. Patient was also found to have UTI and treated for. While in hospital patient underwent amputation of the right fifth toe (on 12/15/[address] De La Cruz). Neurologist Dr. Nance followed up with patient regarding her altered mental status. Head imagings were negative for any acute changes. Over time patient became stable and was safe to be discharged to SNF on: Nitrofurantoin antibiotics, hydroxyurea, aspirin 81 mg and cymbalta 30 mg. Discharge summary was reviewed with my attending Dr. Franco Carmona, PGY-2 Status at Discharge Overall status at discharge: patient is progressing back to baseline Time Spent with Patient Time attestation: Total time spent providing and/or coordinating discharge services: Time spent: Greater than 30 minutes Exam Vital Signs Temp Pulse Resp BP Pulse Ox O2 Del Method O2 Flow Rate 97.3 F 76 18 126/59 L 93 L Room Air 0 12/16/24 12:00 12/16/24 12:00 12/16/24 12:00 12/16/24 12:00 12/16/24 12:00 12/16/24 12:00 12/14/24 16:00 Narrative Exam Constitutional: Frail looking elderly, in no acute distress, lying in bed HEENT: NCAT, EOMI, reactive round pupils b/l, patent nares b/l, moist mucous membranes Lung: CTAB, no wheezing, no rhonchi Heart: Regular S1S2, no murmurs, gallops, or rubs Abdomen: Soft, non-distended, non-tender, bowel sounds present throughout Extremities: No cyanosis, clubbing, or edema, right fifth toe covered with bandage, sensation of LE intact Neurologic: AOx2, no focal neurological deficit noted Discharge Plan Plan Patient Disposition: Xfer Skilled Nsg Fac (SNF) Prescriptions/Referrals Prescriptions/Med Rec: New hydroxyurea 500 mg Capsule 500 mg PO BID 30 Days Qty: 60 0RF duloxetine 30 mg Capsule,Delayed Release(Dr/Ec) 30 mg PO QDAY 30 Days Qty: 30 2RF aspirin 81 mg capsule 81 mg PO QDAY Qty: 30 1RF nitrofurantoin macrocrystal 100 mg capsule 100 mg PO BID 5 Days Qty: 10 0RF Rx Instructions: must administer with a meal/food Continued gabapentin 600 mg tablet 600 mg PO TID famotidine 20 mg tablet 20 mg PO Q12H levothyroxine 50 mcg Tablet 50 mcg PO QDAY hydrocodone-acetaminophen 5-325 mg tablet 1 tab PO TID MDD APAP PRN (Reason: pain) Qty: 15 0RF clopidogrel 75 mg tablet 75 mg PO .evening Patient Comments: TAKE 1 TABLET BY MOUTH EVERY EVENING atorvastatin 80 mg tablet 80 mg PO DAILY UD Patient Comments: TAKE 1 TABLET BY MOUTH EVERY DAY Discontinued aspirin 325 mg Tablet 325 mg PO QDAY cephalexin 500 mg capsule 500 mg PO BID Qty: 10 0RF Referrals: Benjy Mcneal NP [Primary Care Provider] - Juan Madrigal MD [Physician] - Patient/Caregiver Discharge Instructions Other Discharge Activity Instructions:: See your primary care doctor within x1 week of discharge See your surgeon Dr. De La Cruz within x10 days of discharge Follow up with your heme-oncologist Complete your course of antibiotics for UTI Start your new medications: Duloxetine and hydroxyurea as prescribed Stop taking aspirin 325 mg daily Start aspirin 81 mg once daily Start your new prescriptions duloxetine and hydroxyurea as prescribed If symptoms worsen, go to your nearest hospital / ED Education Materials: Preventing Surgical Site Infections, ED Confusion, ED Hypothyroidism Print Language: Salvadorean Activity Restrictions/Additional Instructions: When discharged please give appointment to my office at [phone] for a follow- up in 10 days and to remove sutures Stand Alone Forms: Joyce Award Info., Patient Portal Info Letter Discharge Order Discharge Orders: Discharge (Routine); Ordered 12/16/24 Ordered By: Nacho Carmona Quality Discharge Quality Measures VTE prophylaxis (SCD) MD Attestestation MD Attestation I attest that I was physically present for the evaluation, physical examination, lab and imaging review of the patient with the residents. I discussed the case with the residents and agree with the findings and plans of care as documented above. Franklin Gamez MD
--- NOTE | 2024-12-16 16:21 | PC.SS ---
SS spoke with Meghana and medical team transportation set for 1800 SS spoke with fausto Dial, authorization number [id number] SS spoke with [facility] Kowalski, confirmed pt to discharge this evening SS spoke with Camilo confirmed SNF[facility]; will set up trnasporation for 1800 SS learned pt to discharge; SS spoke elian Page, went over medicare rights for pt;
--- NOTE | 2024-12-16 17:25 | PC.NURSE ---
Report called to [facility] 12/16 @ 4130. ETA for pt to be picked up for transportation is [phone].
[2024-12-16] MEDS: HYDROcodone/APAP 5/325 TABLET 1 TAB PO (20:49)
== END 2024-12-16 21:30 | disposition skilled nursing facility (03) | DRG 504 ==
LOC: SERX 23:57 → SERHOLD 12-13 00:39 → S2NX 12-13 06:31 → S3NX 12-13 17:59 → S3SX 12-14 04:58
PROVIDERS: Physician Assistant; Surgery; Admitting Provider Internal Medicine; Emergency Provider Emergency Medicine; PCP Nurse Practitioner Family; Visit Provider Student in an Organized Health Care Education/Training Program
PROC: 0Y6X0Z0 Detachment at Right 5th Toe, Complete, Open Approach (ICD-10-PCS; CPT 28820; principal; 2024-12-15 11:45)
DX: M86.8X7 Other osteomyelitis, ankle and foot (principal); D62 Acute posthemorrhagic anemia; G93.40 Encephalopathy, unspecified; I73.01 Raynaud's syndrome with gangrene; N39.0 Urinary tract infection, site not specified; I10 Essential (primary) hypertension; F17.200 Nicotine dependence, unspecified, uncomplicated; E03.9 Hypothyroidism, unspecified; F15.90 Other stimulant use, unspecified, uncomplicated; D45 Polycythemia vera; I69.318 Other symptoms and signs involving cognitive functions following cerebral infarction; D50.9 Iron deficiency anemia, unspecified; G62.9 Polyneuropathy, unspecified; R01.1 Cardiac murmur, unspecified; D75.839 Thrombocytosis, unspecified; F12.10 Cannabis abuse, uncomplicated; E78.5 Hyperlipidemia, unspecified; F01.50 Vascular dementia, unspecified severity, without behavioral disturbance, psychotic disturbance, mood disturbance, and anxiety; Z79.82 Long term (current) use of aspirin; Z91.199 Patient's noncompliance with other medical treatment and regimen due to unspecified reason; Z90.12 Acquired absence of left breast and nipple; Z17.32 Human epidermal growth factor receptor 2 negative status; Z85.3 Personal history of malignant neoplasm of breast; Z89.431 Acquired absence of right foot; Z79.899 Other long term (current) drug therapy; Z88.5 Allergy status to narcotic agent
CPT/HCPCS: 36415; 36430; 70450; 73630; 73701; 80053; 80202; 80307; 81001; 83540; 83550; 83605; 83735; 84100; 84439; 84443; 84484; 85014; 85018; 85025; 85610; 85652; 86140; 86850; 86870; 86900; 86901; 86920; 86921; 86922; 87040; 87077; 87086; 87186; 93925; 93970; 96361; 96365; 96366; 96367; 96375; 99285; A4217; A4649; J0692; J0696; J2250; J2270; J2405; J2470; J2543; J2704; J3010; J3370; J3371; J7030; J7040; J7050; P9016; Q9967; A9270

== ENCOUNTER 2025-02-19 22:19 | Emergency (ER) | payer MEDICARE, MEDICAID, SELFPAY ==
[2025-02-19 22:25] VITALS: BP 108/62; PULSE 111; RESP 20; TEMP 36.9; O2SAT 92
--- NOTE | 2025-02-19 22:59 | PD.EDSKIN ---
ED Skin Abcess FB-RME/HPI General Chief complaint: Skin/Abscess/Foreign Body Stated complaint: BLEEDING FROM LEFT BREAST WOUND Time Seen by Provider: 02/19/25 22:54 Arrival date/time: 02/19/25 22:19 RME / HPI RME / HPI narrative: Dr. Todd?s Main ED Evaluation: 65yo female with a history of HTN, hypothyroidism, prior CVA, breast cancer, polycythemia, prior digit amputation, substance use disorder, Raynaud's BIBA from [facility] presents to the ED for a chief complaint of bleeding from her wound. Per EMS, patient states SNF staff was cleaning the wound , reporting it started bleeding, so they sent her over for evaluation. No fever or chills reported. Patient is a poor historian and is unable to provide any history. Related Data Home Medications ?Medication ?Instructions ?Recorded ?Confirmed famotidine 20 mg tablet 20 mg PO Q12H 12/05/21 12/14/24 gabapentin 600 mg tablet 600 mg PO TID 12/05/21 12/14/24 levothyroxine 50 mcg tablet 50 mcg PO QDAY 12/05/21 12/14/24 atorvastatin 80 mg tablet 80 mg PO DAILY UD 12/14/24 12/14/24 clopidogrel 75 mg tablet 75 mg PO .evening 12/14/24 12/14/24 Previous Rx's ?Medication ?Instructions ?Recorded hydrocodone 5 mg-acetaminophen 325 1 tab PO TID PRN pain #15 tabs 05/20/22 mg tablet aspirin 81 mg capsule 81 mg PO QDAY #30 caps 12/16/24 duloxetine 30 mg capsule,delayed 30 mg PO QDAY 30 days #30 caps 12/16/24 release Allergies Allergy/AdvReac Type Severity Reaction Status Date / Time codeine Allergy Vomiting Verified 12/12/24 16:32 Review of Systems Review of Systems ROS Unobtainable: other (unobtainable due to the patient being a poor historian) ED Exam Narrative Physical exam: GENERAL APPEARANCE: alert and oriented x 4, well-developed, well-nourished, no acute distress VITALS: All vitals were reviewed and the pulse ox is % on room air, which is normal according to my interpretation. HEENT: Normocephalic, atraumatic; pupils equal, round, reactive to light; EOMI; mucous membranes pink, moist; oropharynx clear NECK: Supple LUNGS: CTABL; no wheezes, no rales, no rhonchi HEART: Regular rate, regular rhythm; normal S1, S2; no murmurs ABDOMEN: non distended; normal BS; soft, no tenderness, no guarding, no rebound; no masses, no organomegaly, no hernia BACK: no CVA tenderness EXTREMITIES: atraumatic; no edema NEUROLOGIC: awake; alert and oriented x4; cranial nerves II-XII grossly intact; no focal sensory or motor deficits PSYCHIATRIC: anxious mood and affect SKIN: warm, dry, normal color; no rashes; well-healed horizontal mastectomy scar at the left upper chest; there is a nipple to the left lateral chest with [id number] steady venous bleeding, underlying hard palpable mass noted Course Quality Measures none Orders Category Date Time Status CT Screening NOW Care 02/19/25 23:01 Completed CBC Stat Lab 02/19/25 23:30 Completed CMP [Comprehensive Metabolic Panel] Stat Lab 02/19/25 23:30 Completed INR [Prothrombin Time with INR] Stat Lab 02/19/25 23:30 Completed PTT [Partial Thromboplastin Time] Stat Lab 02/19/25 23:30 Completed LORazepam [Ativan Inj] Med 02/19/25 23:15 Discontinued 0.5 mg IVP X1 ONE Vital Signs Vital signs: Vital Signs Temperature 98.5 F 02/19/25 22:25 Pulse Rate 111 H 02/19/25 22:25 Respiratory Rate 20 02/19/25 22:25 Blood Pressure 108/62 02/19/25 22:25 Pulse Oximetry (%) 92 L 02/19/25 22:25 Oxygen Delivery Method Room Air 02/19/25 22:25 Skin / Abscess / Foreign Body MDM Narrative MDM Narrative:: Scribe Attestation: 02/19/25 - Jackie Arnett am scribing for and in the presence of Dr. Todd. 2310: Spoke with the nurse from [facility], who states the patient has been picking at her nipple and is the reason why she is bleeding. 0048: Patient's HR is currently 98. 0144: Patient's wound is no longer bleeding. Patient is stable to be discharged home. Patient data External records reviewed:: [facility] previous records (Per chart review, patient was admitted here on 12/12/24 for osteomyelitis.) Clinical information provided by:: patient and EMS Social determinants that could affect healthcare access:: housing (SNF resident) Patient has the following chronic illnesses:: HTN, hypothyroidism, prior CVA, breast cancer, polycythemia, prior digit amputation, substance use disorder, Raynaud's How is presenting disease/condition affected by chronic disease/condition?: exacerbated by Evaluation data The following diagnostics were reviewed and interpreted by me:: lab results Lab and/or radiology exams considered but not ordered:: none Interpretation Summary: PTT is normal, PT and INR are normal, CMP is normal. Medications / Prescriptions Medications or Prescriptions considered but not ordered:: none Medication administrations:: Medication Administration History Discontinued Medications Lorazepam (Lorazepam 2 Mg/Ml Vial) 0.5 mg IVP X1 ONE Stop: 02/19/25 23:16 Last Admin: 02/19/25 23:27 Dose: 0.5 mg Documented By: CB see above Consultations Consultation(s) initiated? (list below): No Diagnosis Skin/Abscess Differential Diagnosis: other (abrasion, breast CA, coagulopathy) Most likely diagnosis given after review of the tests above:: see clinical impression below Admission Indicated Admission indicated?: not indicated Admission Request Was there a request for admission?: No Disposition Plan Disposition Plan: Discharge Discharge Attestation Discharge Attestation: The patient and all family members were given an opportunity to ask questions and understood the discharge instructions. Discharge instructions specifically effects, indications for sooner follow up or return to the emergency department, and the expected course of current diagnosis. Patient condition: Stable Discharge Plan Plan Patient Disposition: Xfer Skilled Nsg Fac (SNF) Disposition Comment: Stable for discharge to the SNF Patient condition on transfer: Stable Prescriptions/Referrals Prescriptions/Med Rec: No Action gabapentin 600 mg tablet 600 mg PO TID famotidine 20 mg tablet 20 mg PO Q12H levothyroxine 50 mcg Tablet 50 mcg PO QDAY hydrocodone-acetaminophen 5-325 mg tablet 1 tab PO TID MDD APAP PRN (Reason: pain) Qty: 15 0RF clopidogrel 75 mg tablet 75 mg PO .evening Patient Comments: TAKE 1 TABLET BY MOUTH EVERY EVENING atorvastatin 80 mg tablet 80 mg PO DAILY UD Patient Comments: TAKE 1 TABLET BY MOUTH EVERY DAY duloxetine 30 mg Capsule,Delayed Release(Dr/Ec) 30 mg PO QDAY 30 Days Qty: 30 2RF aspirin 81 mg capsule 81 mg PO QDAY Qty: 30 1RF Referrals: [facility] [Provider Group] - In 1 week Problem List Clinical Impression: Bleeding, Breast cancer Patient/Caregiver Discharge Instructions Discharge Activity: activity as tolerated Education Materials: Cancer: Preventing Infections, What Is Breast Cancer?, First Aid: Bleeding Additional Instructions: Please return to the emergency department if you have any worsening or any further medical problems. Otherwise you should follow-up with your primary healthcare physician or in the [facility] within the next several days. Print Language: Kiswahili Stand Alone Forms: Joyce Award Info., Patient Portal Info Letter
[2025-02-19 23:05] VITALS: BMI 23.3
[2025-02-19] MEDS: LORazepam 2 MG/ML VIAL 0.5 MG IVP (23:27)
[2025-02-20 00:26] LABS: INR 1.1 (0.9-1.3); Partial Thromboplastin Time 24.9 Seconds (22.0-36.0); Prothrombin Time 11.9 Seconds (9.0-12.2)
[2025-02-20 00:42] LABS: Basophils # (Auto) 0.2 Thou/mm3 (0.0-0.2); Basophils % (Auto) 1 % (0-2.5); Eosinophils # (Auto) 0.3 Thou/mm3 (0.0-0.5); Eosinophils % (Auto) 2 % (0-10); Hematocrit 24.2 % (36.0-46.0); Immature Granulocytes % (Auto) 2 % (0-0); Immature Granulocytes Auto 0.38 Thou/mm3 (0.00-0.00); Lymphocytes # (Auto) 3.5 Thou/mm3 (1.0-4.8); Lymphocytes % (Auto) 22 % (10-50); Mean Corpuscular HGB Conc 29.8 g/dl (31.0-37.0); Mean Corpuscular Volume 74 fL (80-100); Monocytes # (Auto) 1.3 Thou/mm3 (0.0-0.8); Monocytes % (Auto) 8 % (0-12); Neutrophils # (Auto) 10.2 Thou/mm3 (1.8-7.7); Neutrophils % (Auto) 65 % (37-80); Nucleated Red Blood Cell # 0.48 Thou/mm3 (0.00-0.00); Nucleated Red Blood Cell % 3 /100 WBC (0); Platelet Count 883 Thou/mm3 (140-440); Red Blood Count 3.27 Miln/mm3 (4.00-5.20); White Blood Count 15.8 Thou/mm3 (3.6-11.0)
[2025-02-20 01:02] LABS: Hemoglobin 7.2 g/dL (12.0-16.0)
[2025-02-20 01:06] VITALS: BP 121/70; PULSE 100; RESP 15; TEMP 37; O2SAT 98
[2025-02-20 01:21] LABS: Alanine Aminotransferase 34 U/L (10-49); Albumin, Serum 3.7 gm/dL (3.4-4.8); Albumin/Globulin Ratio 1.3 (1.2-2.2); Alkaline Phosphatase 1143 U/L (46-116); Anion Gap 9 (7-16); Aspartate Amino Transferase 77 U/L (0-34); BUN/Creatinine Ratio 26 Ratio (12-20); Bilirubin,Total 0.5 mg/dL (0.3-1.2); Blood Urea Nitrogen 26 mg/dL (9-23); Calcium 9.6 mg/dL (8.3-10.6); Calcium (Corrected) 9.8 mg/dL (8.5-10.1); Carbon Dioxide 24.6 mMol/L (20.0-31.0); Chloride 107 mMol/L (98-107); Estimated Creatinine Clearance 49.8 mL/min (>60); Globulin 2.8 gm/dL (2.3-3.5); Glucose 95 mg/dL (74-106); Osmolality,Calculated 285 (275-295); Potassium 4.7 mMol/L (3.4-5.1); Sodium 141 mMol/L (136-145); Total Protein 6.5 gm/dL (5.7-8.2); eGFR > 60 See Note
--- NOTE | 2025-02-20 02:48 | PC.NURSE ---
CALLED JUSTYNA ALEXANDER TO GIVE REPORT SPOKE TO LIDIA FLORES.
[2025-02-20 02:49] VITALS: BP 100/82; PULSE 100; RESP 20; TEMP 37.2; O2SAT 95
== END 2025-02-20 02:50 | disposition skilled nursing facility (03) ==
LOC: SERX 02-20 04:04
PROVIDERS: Emergency Provider Emergency Medicine
DX: R58 Hemorrhage, not elsewhere classified (principal); C50.912 Malignant neoplasm of unspecified site of left female breast
CPT/HCPCS: 36415; 80053; 85025; 85610; 85730; 96374; 99284; J2060

== ENCOUNTER 2025-02-22 13:07 | Outpatient (RCR) | payer MEDICARE, MEDICAID, SELFPAY | END 2025-02-28 23:59 | disposition home or self-care (01) | LOC: SCTC 13:07 | PROVIDERS: PCP Nurse Practitioner Family; Referring Provider Nurse Practitioner Family; Visit Provider Nurse Practitioner Family | DX: D45 Polycythemia vera (principal); R74.01 Elevation of levels of liver transaminase levels; Z89.429 Acquired absence of other toe(s), unspecified side; Z85.3 Personal history of malignant neoplasm of breast; Z90.12 Acquired absence of left breast and nipple; N64.89 Other specified disorders of breast; Z86.73 Personal history of transient ischemic attack (TIA), and cerebral infarction without residual deficits | CPT/HCPCS: 99212; G0463 ==

== ENCOUNTER 2025-02-22 15:53 | Emergency (ER) | payer MEDICARE, MEDICAID, SELFPAY ==
[2025-02-22 15:53] VITALS: BMI 17.4
--- NOTE | 2025-02-22 16:17 | XR_ITS ---
Examination: Abdomen sonogram, Limited Date and time of exam: February 22, 2025 1637 hrs. Indications: Jaundice and low hematocrit today on laboratory examination Technique: Real-time monet scale transabdominal sonographic images of the upper abdomen obtained. Findings: Contracted gallbladder Gallbladder wall 0.4 cm Common bile duct 0.3 cm Pancreatic head 1.7 cm Liver 13.9 cm fatty infiltration no focal liver lesions Normal hepatopedal portal venous flow Patent IVC Impression: Recommend repeating the gallbladder portion of this study with fasting Fatty liver
--- NOTE | 2025-02-22 16:18 | PD.EDRME ---
Rapid Medical Screening Exam RME Arrival date/time: 02/22/25 15:53 65-year-old female with history of hyperlipidemia, breast cancer, CVA with brought to the emergency room by her son with a chief complaint of a low hemoglobin level and jaundice. Patient was sent over by the cancer treatment center. I have greeted and performed a focused initial assessment of this patient. A comprehensive ED assessment and evaluation of the patient, analysis of all test results, and completion of the medical decision making process will be conducted by additional ED providers. Chief Complaint: General Adult/Misc Complain Vital signs reviewed by provider: Yes
[2025-02-22 16:23] VITALS: BP 137/78; PULSE 86; RESP 18; TEMP 36.7; O2SAT 99
[2025-02-22 16:57] LABS: Basophils # (Auto) 0.1 Thou/mm3 (0.0-0.2); Basophils % (Auto) 1 % (0-2.5); Eosinophils # (Auto) 0.3 Thou/mm3 (0.0-0.5); Eosinophils % (Auto) 2 % (0-10); Hematocrit 24.9 % (36.0-46.0); Immature Granulocytes % (Auto) 3 % (0-0); Immature Granulocytes Auto 0.39 Thou/mm3 (0.00-0.00); Lymphocytes # (Auto) 2.8 Thou/mm3 (1.0-4.8); Lymphocytes % (Auto) 20 % (10-50); Mean Corpuscular HGB Conc 28.9 g/dl (31.0-37.0); Mean Corpuscular Volume 76 fL (80-100); Monocytes # (Auto) 1.3 Thou/mm3 (0.0-0.8); Monocytes % (Auto) 9 % (0-12); Neutrophils # (Auto) 9.6 Thou/mm3 (1.8-7.7); Neutrophils % (Auto) 66 % (37-80); Nucleated Red Blood Cell # 0.77 Thou/mm3 (0.00-0.00); Nucleated Red Blood Cell % 5 /100 WBC (0); Platelet Count 914 Thou/mm3 (140-440); RDW Standard Deviation 84.7 fL (36.4-46.3); Red Blood Count 3.28 Miln/mm3 (4.00-5.20); White Blood Count 14.5 Thou/mm3 (3.6-11.0)
[2025-02-22 17:02] LABS: Hemoglobin 7.2 g/dL (12.0-16.0)
[2025-02-22 17:09] LABS: INR 1.1 (0.9-1.3); Partial Thromboplastin Time 33.3 Seconds (22.0-36.0); Prothrombin Time 11.5 Seconds (9.0-12.2)
[2025-02-22 17:22] LABS: Alanine Aminotransferase 26 U/L (10-49); Albumin, Serum 3.9 gm/dL (3.4-4.8); Albumin/Globulin Ratio 1.4 (1.2-2.2); Alkaline Phosphatase 954 U/L (46-116); Anion Gap 11 (7-16); Aspartate Amino Transferase 57 U/L (0-34); BUN/Creatinine Ratio 24 Ratio (12-20); Bilirubin,Total 0.4 mg/dL (0.3-1.2); Blood Urea Nitrogen 24 mg/dL (9-23); Calcium 9.8 mg/dL (8.3-10.6); Calcium (Corrected) 9.9 mg/dL (8.5-10.1); Carbon Dioxide 23.2 mMol/L (20.0-31.0); Chloride 104 mMol/L (98-107); Estimated Creatinine Clearance 41.6 mL/min (>60); Globulin 2.7 gm/dL (2.3-3.5); Glucose 116 mg/dL (74-106); Lipase 45 U/L (12-53); Osmolality,Calculated 280 (275-295); Potassium 3.8 mMol/L (3.4-5.1); Sodium 138 mMol/L (136-145); Total Protein 6.6 gm/dL (5.7-8.2); eGFR > 60 See Note
[2025-02-22 19:43] VITALS: BP 138/94; PULSE 86; RESP 18; TEMP 36.8; O2SAT 100
[2025-02-22 21:23] VITALS: BP 137/69; PULSE 94; RESP 16; TEMP 36.8; O2SAT 95
[2025-02-22 21:40] VITALS: BP 144/80; PULSE 85; RESP 16; TEMP 36.8; O2SAT 97
[2025-02-22 21:55] VITALS: BP 143/73; PULSE 86; RESP 16; TEMP 36.8; O2SAT 100
[2025-02-22 22:05] VITALS: BP 143/73; PULSE 89; RESP 16; TEMP 37.2; O2SAT 100
--- NOTE | 2025-02-22 22:48 | PD.EDADULT ---
ED General RME/HPI General Chief complaint: General Adult/Misc Complain Stated complaint: SENT BY PMD FOR BLOOD TRANSFUSION, JAUNDICE Time Seen by Provider: 02/22/25 22:40 Arrival date/time: 02/22/25 15:53 RME / HPI RME / HPI narrative: 02/22/25 15:53 65-year-old female with history of hyperlipidemia, breast cancer, CVA with brought to the emergency room by her son with a chief complaint of a low hemoglobin level and jaundice. Patient was sent over by the cancer treatment center. I have greeted and performed a focused initial assessment of this patient. A comprehensive ED assessment and evaluation of the patient, analysis of all test results, and completion of the medical decision making process will be conducted by additional ED providers. --------- Dr. Todd?s Main ED Evaluation: 65yo female with a history of HTN, hypothyroidism, prior CVA, breast cancer, polycythemia, prior digit amputation, substance use disorder, Raynaud's disease BIBA from [facility] presents to the ED for a chief complaint of abnormal labs. Per patient's son, patient was seen by Dr. Huntley and was sent over due to concern of anemia and jaundice. Patient is awake, but does not answer questions, therefore, she is unable to provide any history. Related Data Home Medications ?Medication ?Instructions ?Recorded ?Confirmed famotidine 20 mg tablet 20 mg PO Q12H 12/05/21 12/14/24 gabapentin 600 mg tablet 600 mg PO TID 12/05/21 12/14/24 levothyroxine 50 mcg tablet 50 mcg PO QDAY 12/05/21 12/14/24 atorvastatin 80 mg tablet 80 mg PO DAILY UD 12/14/24 12/14/24 clopidogrel 75 mg tablet 75 mg PO .evening 12/14/24 12/14/24 Previous Rx's ?Medication ?Instructions ?Recorded hydrocodone 5 mg-acetaminophen 325 1 tab PO TID PRN pain #15 tabs 05/20/22 mg tablet aspirin 81 mg capsule 81 mg PO QDAY #30 caps 12/16/24 duloxetine 30 mg capsule,delayed 30 mg PO QDAY 30 days #30 caps 12/16/24 release Allergies Allergy/AdvReac Type Severity Reaction Status Date / Time codeine Allergy Vomiting Verified 02/22/25 15:55 Review of Systems Review of Systems Systems Reviewed: All systems reviewed, normal except as documented ED Exam Narrative Physical exam: GENERAL APPEARANCE: awake, somewhat confused, cachectic, no acute distress VITALS: All vitals were reviewed and the pulse ox is 100% on room air, which is normal according to my interpretation. HEENT: Normocephalic, atraumatic; pupils equal, round, reactive to light; EOMI; mucous membranes pink, moist; oropharynx clear NECK: Supple LUNGS: CTABL; no wheezes, no rales, no rhonchi HEART: Regular rate, regular rhythm; normal S1, S2; no murmurs ABDOMEN: non distended; normal BS; soft, no tenderness, no guarding, no rebound; no masses, no organomegaly, no hernia BACK: no CVA tenderness EXTREMITIES: atraumatic; no edema NEUROLOGIC: awake; somewhat confused; cranial nerves II-XII grossly intact; no focal sensory or motor deficits PSYCHIATRIC: appropriate mood and affect SKIN: warm, dry, pallor; no rashes Course Quality Measures none Orders Category Date Time Status Administer blood products NOW Care 02/22/25 20:22 Active Insert IV NOW Care 02/22/25 20:36 Active US gall bladder Stat Exams 02/22/25 16:17 Completed CBC Stat Lab 02/22/25 16:31 Completed CMP [Comprehensive Metabolic Panel] Stat Lab 02/22/25 16:31 Completed Lipase Stat Lab 02/22/25 16:31 Completed PT [Prothrombin Time with INR] Stat Lab 02/22/25 16:31 Completed PTT [Partial Thromboplastin Time] Stat Lab 02/22/25 16:31 Completed Type and Screen Stat Lab 02/22/25 16:31 Completed UA [Urinalysis] Stat Lab 02/22/25 16:17 Ordered Urine Culture Stat Lab 02/22/25 16:17 Ordered rbc [Red Blood Cells] Stat Lab 02/22/25 16:31 Completed Vital Signs Vital signs: Vital Signs Temperature 98.1 F 02/22/25 16:23 Pulse Rate 86 02/22/25 16:23 Respiratory Rate 18 02/22/25 16:23 Blood Pressure 137/78 H 02/22/25 16:23 Pulse Oximetry (%) 99 02/22/25 16:23 Oxygen Delivery Method Room Air 02/22/25 16:23 Discharge Plan Plan Patient Disposition: Xfer Skilled Nsg Fac (SNF) Disposition Comment: Stable for discharge to the SNF Patient condition on transfer: Stable Prescriptions/Referrals Prescriptions/Med Rec: No Action gabapentin 600 mg tablet 600 mg PO TID famotidine 20 mg tablet 20 mg PO Q12H levothyroxine 50 mcg Tablet 50 mcg PO QDAY hydrocodone-acetaminophen 5-325 mg tablet 1 tab PO TID MDD APAP PRN (Reason: pain) Qty: 15 0RF clopidogrel 75 mg tablet 75 mg PO .evening Patient Comments: TAKE 1 TABLET BY MOUTH EVERY EVENING atorvastatin 80 mg tablet 80 mg PO DAILY UD Patient Comments: TAKE 1 TABLET BY MOUTH EVERY DAY duloxetine 30 mg Capsule,Delayed Release(Dr/Ec) 30 mg PO QDAY 30 Days Qty: 30 2RF aspirin 81 mg capsule 81 mg PO QDAY Qty: 30 1RF Referrals: Chaitanya Lentz MD [Physician] - In 1 week Dom([facility]),Blue Allen MD [Primary Care Provider] - In 1 week Problem List Clinical Impression: Hypochromic-microcytic anemia Patient/Caregiver Discharge Instructions Discharge Activity: activity as tolerated Education Materials: ED Anemia, Iron-Deficiency (Adult) Additional Instructions: Please return to the emergency department for any worsening or any further medical problems and we will help you. Otherwise you should follow-up with your primary care doctor within the next several days. Please be sure to make an appointment for Sang with Dr. Schuster for sometime within the next several days Sang received 1 unit of packed red blood cells this evening. Other than anemia the rest of her blood work was basically normal Print Language: Brazilian Stand Alone Forms: Joyce Award Info., Patient Portal Info Letter MDM Patient Acuity Low Acuity (complete MDM as needed) Narrative: Scribe Attestation: 02/22/25 - Jackie Arnett am scribing for and in the presence of Dr. Todd. Patient presents to the ED for abnormal labs. HnH here is low at 7.2/24.9. 1 unit of pRBCs ordered by the previous provider. Total Bilirubin is normal. The patient was placed in ED observation care at 02/22/25 at 2245 hours. The patient was placed in ED observation care because of pending blood transfusion. The patients past medical history, social history, and family history were reviewed. At 0000, patient's blood transfusion was completed. Patient is stable to be discharged back to the SNF. At this time, observation has ended. Clinical Information Provided by: family (patient's son) Medical Records reviewed [facility] (Per chart review, patient was seen here on 02/19/25 for bleeding.) Labs/Rad/Tests considered, not ordered None Chronic Illness/Social Conditions which may negatively complicate care or outcome(s)-explain: FPC/debilitated Explain: PMHx: HTN, hypothyroidism, prior CVA, breast cancer, polycythemia, prior digit amputation, substance use disorder, Raynaud's disease Labs Labs: Interpreted by pa Lab(s) Interpretation(s): WBC count is 14.5 (which is improved from 15.8 3 days ago), HnH is 7.2/24.9, PT and INR are normal, PTT is normal, Total Bilirubin is normal, according to my interpretation. Imaging Imaging interpretation: Interpreted by pa Imaging Interpretation(s): [facility] [facility] Report Signed Patient: SANG HOFF [facility]. Record#: [id number] Birthdate: 1960 Age/Sex: 65 / F [facility] Attending Dr: Ordering Physician: Stevie Tena Date of Service: 02/22/25 Procedure(s): US gall bladder Accession Number(s): [id number] cc: Stevie Tena; Blue Fernandes MD; Duglas Hoover MD~ Examination: Abdomen sonogram, Limited Date and time of exam: February 22, 2025 1637 hrs. Indications: Jaundice and low hematocrit today on laboratory examination Technique: Real-time monet scale transabdominal sonographic images of the upper abdomen obtained. Findings: Contracted gallbladder Gallbladder wall 0.4 cm Common bile duct 0.3 cm Pancreatic head 1.7 cm Liver 13.9 cm fatty infiltration no focal liver lesions Normal hepatopedal portal venous flow Patent IVC Impression: Recommend repeating the gallbladder portion of this study with fasting Fatty liver Dictated By: Duglas Hoover MD Signed By: <Electronically signed by Duglas Hoover MD in OV> 02/22/25 1721 Medication Administration(s) 1U pRBCs Diagnosis Differential Diagnosis ED Complaint MDM: hemolytic anemia, microcytic anemia, iron deficiency anemia
[2025-02-23 00:14] VITALS: BP 151/107; PULSE 90; RESP 18; TEMP 37.1; O2SAT 97
--- NOTE | 2025-02-23 01:43 | PC.NURSE ---
REPORT CALLED TO PRINCE AT THIS TIME.
== END 2025-02-23 02:15 | disposition skilled nursing facility (03) ==
PROVIDERS: Nurse Practitioner Family; Emergency Provider Emergency Medicine; PCP Hospitalist
DX: D50.9 Iron deficiency anemia, unspecified (principal); E78.5 Hyperlipidemia, unspecified; E03.9 Hypothyroidism, unspecified; Z86.73 Personal history of transient ischemic attack (TIA), and cerebral infarction without residual deficits
CPT/HCPCS: 36415; 36430; 76705; 80053; 81001; 83690; 85025; 85610; 85730; 86850; 86900; 86901; 86921; 86922; 87086; 99285; P9016

== ENCOUNTER 2025-03-03 13:09 | Inpatient (IN) | payer MEDICARE, MEDICAID, SELFPAY ==
[2025-03-03] VITALS (15 sets, daily range): BP systolic 131–164; BP diastolic 79–101; PULSE 100–150; RESP 16–29; TEMP 36.3–37.4; O2SAT 82–100; BMI 17.7
--- NOTE | 2025-03-03 13:33 | XR_ITS ---
Examination: AP chest single view TECHNIQUE: AP portable semiupright chest single view Exam date and time: March 03, 2025, 1423 hours Comparison April 17, 2022. INDICATIONS: Onset chest pain today. FINDINGS: Mild bibasilar pneumonia. Normal heart size. Ectatic thoracic aorta. Prominent osteopenia IMPRESSION: Mild bibasilar pneumonia.
--- NOTE | 2025-03-03 13:33 | EKG_ITS ---
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
--- NOTE | 2025-03-03 14:05 | EDNOTE_ITS ---
ED SOB =RME/HPI General Chief Complaint: Shortness of Breath/Dyspnea Stated Complaint: HYPOXIA Time Seen by Provider: 03/03/25 13:23 Arrival date/time: 03/03/25 13:09 Limitations: no limitations RME / HPI RME / HPI Narrative: 65 year old female with history of hypertension, hyperlipidemia, breast cancer, CVA, and peripheral vascular disease, presented to the ER BIBA from [facility] ([facility]) with a chief complaint of hypoxia and weakness. Patient has 2 toes removed, one toe on each foot. Patient was unable to provide any additional information regarding complaint. Related Data Home Medications ?Medication ?Instructions ?Recorded ?Confirmed famotidine 20 mg tablet 20 mg PO Q12H 12/05/2112/14 gabapentin 600 mg tablet 600 mg PO TID 12/05/2112/14 levothyroxine 50 mcg tablet 50 mcg PO QDAY 12/05/21 atorvastatin 80 mg tablet 80 mg PO DAILY UD 12/14/24 0 12/14/24 clopidogrel 75 mg tablet 75 mg PO .evening 12/14/24 0 12/14/24 Previous Rx's ?Medication ?Instructions ?Recorded hydrocodone 5 mg-acetaminophen 325 1 tab PO TID PRN pa in #15 tabs 05/20/22 mg tablet aspirin 81 mg capsule 81 mg PO QDAY #30 caps 12/16 duloxetine 30 mg capsule,delayed 30 mg PO QDAY 30 days #30 caps 12/16/24 release Allergies Allergy/AdvReac Type Severity Reaction Status Date / Time codeine Allergy Vomiting Verified 03/03/25 13:31 Review of Systems Review of Systems ROS Unobtainable: unobtainable due to mental status Past Medical History Past Medical History NEUROLOGIC: Positive Neurological Disorders and Cerebrovascular Accident CARDIAC: Positive Cardiac Disorders, Hypercholesterolemia and Hypertension RESPIRATORY: Positive Pneumonia REPRODUCTIVE: Positive Breast Cancer MUSCULOSKELETAL: Positive Musculoskeletal Disorders and Fractures ENDOCRINE: Positive Hyperthyroidism PSYCHO/SOCIAL: Positive Depression and Anxiety OTHER HISTORY: Positive Hospitalization, Chicken Pox, Cancer and Breast Cancer Family History FAMILY HISTORY: Positive Family Cancer; Negative Family Cardiac Disorders, Family Surgery or Family Anesthesia Reaction Surgical History SURGICAL: Positive Amputation and Tubal Ligation Social History SMOKING STATUS: Smoker, status unknown SUBSTANCE USE: methamphetamine ED Exam General Limitations: Present no limitations General appearance: Present alert and in no apparent distress Head Head exam: Present atraumatic Eye Eye exam: Present normal appearance, PERRL and EOMI ENT ENT exam: Present normal exam, normal oropharynx and mucous membranes dry (clincally dry ) Neck Neck exam: Present normal inspection, full ROM and trachea midline Chest Chest inspection: Present symmetric chest wall rise and other (old healed scar on chest with lateral incisions (resurface with granulation) from mastectomy) Respiratory Respiratory exam: Present normal lung sounds bilaterally and other (no hypoxia) Cardiovascular Cardiovascular exam: Present regular rate, tachycardia and normal heart sounds Abdominal Exam Abdominal exam: Present soft and normal bowel sounds Extremities Exam Extremities exam: Present normal inspection and full ROM Back Exam Back exam: Present normal inspection and full ROM Neurological Exam Neurological exam: Present alert and CN II-XII intact Psychiatric Psychiatric exam: Present normal affect and normal mood Skin Skin exam: Present warm, dry, intact and normal color Course Quality Measures none Orders Category Date Time Status Order Packer Or Packager STAT Care 03/03/25 13:33 Active Continuous Pulse Oximetry ONCE Care 03/03/25 13:33 Active EKG (ED ONLY) *Do not use* NOW Care 03/03/25 13:33 Completed Insert IV STAT Care 03/03/25 13:33 Active EKG (ED Only) Stat Exams 03/03/25 13:33 Draft XR chest 1V portable Stat Exams 03/03/25 13:33 Completed B-Type Natriuretic Peptide Stat Lab 03/03/25 14:00 Completed CBC Stat Lab 03/03/25 14:00 Completed Comprehensive Metabolic Panel Stat Lab 03/03/25 14:00 Completed Troponin I Stat Lab 03/03/25 14:00 Completed Diltiazem Inj [Cardizem Inj] Med 03/03/25 14:09 Discontinued 10 mg IV X1 ONE Sodium Chloride 0.9% 1000 ml [Ns] 1,000 ml Med 03/03/25 13:34 Discontinued IV 999 mls/hr Sodium Chloride 0.9% 1000 ml [Ns] 1,000 ml Med 03/03/25 13:35 Discontinued IV 999 mls/hr Reevaluation(s) Reevaluation #1: Notified by the RN that the patient is now in SVT 170's. While moving the patient in bed, placing the pads for cardioversion, the patient converted to sinus tachycardia rate 130's. Time: 14:05 Vital Signs Vital signs: Vital Signs Temperature 99.4 F 03/03/25 13:30 Pulse Rate 123 H 03/03/25 13:30 Respiratory Rate 20 03/03/25 13:30 Blood Pressure 134/92 H 03/03/25 13:30 Pulse Oximetry (%) 91 L 03/03/25 13:30 Oxygen Delivery Method Room Air 03/03/25 13:30 Shortness of Breath / Dyspnea MDM Narrative MDM Narrative:: Sury Arnett am scribing for and in the presence of Dr. Ferris. Patient data External records reviewed:: [facility] previous records, EMS form and Shelter records ([facility], I reviewed pmhx and medication list) Clinical information provided by:: EMS and other (specify) ([facility] ) Social determinants that could affect healthcare access:: housing (SNF) Patient has the following chronic illnesses:: hypertension, hyperlipidemia, breast cancer, CVA, peripheral vascular disease How is presenting disease/condition affected by chronic disease/condition?: exacerbated by Evaluation data The following diagnostics were reviewed and interpreted by me:: lab results, radiology exam(s) and EKG tracing(s) (EKG # 1 @ 14:07 hours shows narrow complex SVT, rate 172. EKG # 2 ) Lab and/or radiology exams considered but not ordered:: none Interpretation Summary: Ordering Physician: Jacinto Ferris MD Date of Service: 03/03/25 Procedure(s): XR chest 1V portable Accession Number(s): [id number] cc: Jacinto Ferris MD; Duglas Hoover MD~ Examination: AP chest single view TECHNIQUE: AP portable semiupright chest single view Exam date and time: March 03, 2025, 1423 hours Comparison April 17, 2022. INDICATIONS: Onset chest pain today. FINDINGS: Mild bibasilar pneumonia. Normal heart size. Ectatic thoracic aorta. Prominent osteopenia IMPRESSION: Mild bibasilar pneumonia. Dictated By: Duglas Hoover MD Signed By: <Electronically signed by Duglas Hoover MD in OV> 03/03/25 1449 Medications / Prescriptions Medications or Prescriptions considered but not ordered:: none Medication administrations:: Medication Administration History Acetaminophen (Acetaminophen 325 Mg Tablet) 650 mg PO Q6H PRN PRN Reason: Fever >101.5 Stop: 04/02/25 16:00 Acetaminophen (Acetaminophen 325 Mg Tablet) 650 mg PO Q6H PRN PRN Reason: PAIN SCALE 1-3 (mild Stop: 04/02/25 16:00 Hydrocodone Bitart/Acetaminophen (Hydrocodone/Apap 10/325 Tab) 1 tab PO Q4H PRN PRN Reason: PAIN SCALE 4-6 (Moderate Stop: 03/08/25 16:00 Albuterol/Ipratropium (Albuterol/Ipratropium (Duoneb) Rt Citlaly 3 Ml Nebu) 3 ml INH Q4HRRT PRN PRN Reason: SHORTNESS OF BREATH OR WHEEZE Stop: 04/02/25 18:59 Calcitonin [place] (Calcitonin, [place] Synth Inj 1 Unit/0.005 Ml Vial) 192 unit SC Q12HR JUAN Stop: 04/02/25 16:29 Heparin Sodium (Porcine) (Heparin Sod Inj 5000 Unit/Ml Vial) 5,000 unit SC Q8HR JUAN Stop: 03/17/25 21:59 Magnesium Sulfate (Magnesium Sulfate Ivpb) 2 gm in 50 mls @ 25 mls/hr IV X1 ONE Stop: 03/03/25 18:25 Potassium Chloride (Kcl Ivpb) 10 meq in 100 mls @ 100 mls/hr IV Q1H JUAN Stop: 03/03/25 20:28 Sodium Chloride (Ns) 1,000 mls @ 250 mls/hr IV .Q4H JUAN Stop: 04/02/25 16:31 Azithromycin 500 mg/ Sodium (Chloride) 250 mls @ 250 mls/hr IV QDAY JUAN Stop: 03/11/25 08:59 Ceftriaxone Sodium/Dextrose (Rocephin/D5w 1gm Iv Premix) 1 gm in 50 mls @ 100 mls/hr IV QDAY JUAN Stop: 03/10/25 17:22 Azithromycin 500 mg/ Sodium (Chloride) 250 mls @ 250 mls/hr IV X1 ONE Stop: 03/03/25 18:29 Ondansetron HCl (Ondansetron Inj 2 Mg/Ml Inj 2 Ml) 4 mg IV Q6H PRN; Protocol PRN Reason: NAUSEA OR VOMITING Stop: 04/02/25 16:00 Pantoprazole Sodium (Pantoprazole Inj 40 Mg Vial) 40 mg IVP QDAY JUAN Stop: 04/03/25 08:59 Discontinued Medications Denosumab (Denosumab Inj 60 Mg/Ml Syringe) 120 mg SC X1 ONE Stop: 03/03/25 16:31 Diltiazem HCl (Diltiazem Inj 5 Mg/Ml Vial 5 Ml) 10 mg IV X1 ONE Stop: 03/03/25 14:10 Last Admin: 03/03/25 14:13 Dose: 10 mg Documented By: TM Sodium Chloride (Ns) 1,000 mls @ 999 mls/hr IV .Q1H1M ONE Stop: 03/03/25 14:34 Last Infusion: 03/03/25 15:15 Dose: Infused Documented By: Admin: 03/03/25 14:14 Dose: 999 mls/hr Documented By: TM Sodium Chloride (Ns) 1,000 mls @ 999 mls/hr IV .Q1H1M ONE Stop: 03/03/25 14:35 Last Infusion: 03/03/25 15:15 Dose: Infused Documented By: Admin: 03/03/25 14:14 Dose: 999 mls/hr Documented By: TM see above Consultations Consultation(s) initiated? (list below): Yes Diagnosis Shortness of Breath Differential Diagnosis: acute exacerbation of chronic obstructive airways disease, congestive heart failure, community acquired pneumonia and asthma with exacerbation Most likely diagnosis given after review of the tests above:: Very high Calcium levels, concerning for dysrythmias Admission Indicated Admission indicated?: indicated Admission Request Was there a request for admission?: Yes Admission Attestation Admission request attestation: Discussed case with [] from Hospitalist service regarding admission. Discussed patients ED course, exam findings, labs, and radiology results. The Hospitalist [agrees,declines] to accept the patient for admission. Disposition Plan Disposition Plan: Admit Discharge Plan Plan Patient Disposition: Admit Acute Care w/in Hospital Problem List Clinical Impression: Hypercalcemia, Dehydration
[2025-03-03] MEDS: DILTIAZEM INJ 5 MG/ML VIAL 5 ML 10 MG IV (14:13)
[2025-03-03 14:14] LABS: Basophils # (Auto) 0.1 Thou/mm3 (0.0-0.2); Basophils % (Auto) 1 % (0-2.5); Eosinophils % (Auto) 0 % (0-10); Hematocrit 35.4 % (36.0-46.0); Hemoglobin 10.7 g/dL (12.0-16.0); Immature Granulocytes % (Auto) 3 % (0-0); Immature Granulocytes Auto 0.58 Thou/mm3 (0.00-0.00); Lymphocytes % (Auto) 9 % (10-50); Mean Corpuscular HGB Conc 30.2 g/dl (31.0-37.0); Mean Corpuscular Hemoglobin 23.8 pg (25.0-35.0); Mean Corpuscular Volume 79 fL (80-100); Monocytes # (Auto) 1.2 Thou/mm3 (0.0-0.8); Monocytes % (Auto) 6 % (0-12); Neutrophils # (Auto) 17.4 Thou/mm3 (1.8-7.7); Neutrophils % (Auto) 82 % (37-80); Nucleated Red Blood Cell # 1.84 Thou/mm3 (0.00-0.00); Nucleated Red Blood Cell % 9 /100 WBC (0); Platelet Count 912 Thou/mm3 (140-440); RDW Standard Deviation 76.3 fL (36.4-46.3); Red Blood Count 4.49 Miln/mm3 (4.00-5.20); White Blood Count 21.2 Thou/mm3 (3.6-11.0)
[2025-03-03] MEDS: SODIUM CHLORIDE 0.9% 1000 ML 1,000 ML 999 ML IV ×2 (14:14)
[2025-03-03 14:37] LABS: B-Type Natriuretic Peptide 514 pg/mL (0-100)
[2025-03-03 14:42] LABS: Alanine Aminotransferase 48 U/L (10-49); Albumin, Serum 4.1 gm/dL (3.4-4.8); Albumin/Globulin Ratio 1.3 (1.2-2.2); Alkaline Phosphatase 995 U/L (46-116); Anion Gap 16 (7-16); Aspartate Amino Transferase 79 U/L (0-34); BUN/Creatinine Ratio 30 Ratio (12-20); Bilirubin,Total 1.5 mg/dL (0.3-1.2); Blood Urea Nitrogen 65 mg/dL (9-23); Carbon Dioxide 27.3 mMol/L (20.0-31.0); Chloride 102 mMol/L (98-107); Creatinine (Component) 2.2 mg/dL (0.6-1.3); Globulin 3.2 gm/dL (2.3-3.5); Glucose 119 mg/dL (74-106); Osmolality,Calculated 308 (275-295); Potassium 3.3 mMol/L (3.4-5.1); Sodium 145 mMol/L (136-145); Total Protein 7.3 gm/dL (5.7-8.2); eGFR 24 See Note
[2025-03-03 14:45] LABS: Calcium (Corrected) 17.1 mg/dL (8.5-10.1)
[2025-03-03 14:46] LABS: Calcium 17.1 mg/dL (8.3-10.6); Troponin I 1.446 ng/mL (0.0-0.045)
--- NOTE | 2025-03-03 16:07 | EKG_ITS ---
[facility] Test Date: 2025-03-03 Pat Name: SANG HOFF Department: Room: - Gender: Female Assistant Maintenance Manager: : 1960 Requested By: Arnel Katz Order Number: [id number] Reading MD: Arnel Katz Measurements Intervals [place] Rate: 125 P: 73 SD: 215 QRS: 31 QRSD: 92 T: 59 QT: 400 QTc: 578 Interpretive Statements SINUS TACHYCARDIA WITH FIRST DEGREE AV BLOCK VOLTAGE CRITERIA FOR LVH [MEETS CRITERIA IN ONE OF: R(aVL), S(V1), R(V5), R(V5/V6)+S(V1)] MODERATE ST DEPRESSION [0.05+ mV ST DEPRESSION] Compared to ECG 04/17/2022 15:56:57 First degree AV block now present Sinus bradycardia no longer present ST (T wave) deviation still present /store/S0/[id number]
--- NOTE | 2025-03-03 16:20 | PD.RESHP ---
Documentation for date of: 03/03/25 HPI History of Present Illness Chief complaint: Hypercalcemia History of present illness: Patient is a 65-year-old female past medical history hypertension, hyperlipidemia, breast cancer status post left mastectomy, CVA, peripheral vascular disease, Raynaud's phenomenon brought in by ambulance from [facility][1] where she was found to be weak and hypoxic. Patient's son was at bedside who contributed to the story. Patient was seen at bedside and was not communicating well aside from nodding her head to questions after they are being repeated by her son. Son says that patient is wheelchair-bound and has lost weight and has had decreased appetite lately. At baseline she is usually more talkative as they recently went to an family history went where he took care of her. Patient has history of cancer status post left mastectomy with incomplete margin removal. Son states that they recently followed up with oncology who is suspecting that the patient may have recurrent malignancy. Sons also contributes the patient used to be a heavy smoker when she was younger had stopped for some time however she is roommates with her who is a smoker and he states that sometimes she would ask for cigarette from her and he will give it to her. Patient has also used marijuana in the past. She does not drink alcohol. In the ED Patient had a blood pressure 134/92 and a pulse of 123 with a respiratory 20 temperature 99.4 and O2 sat 91 on 6 L nasal cannula After speaking with Dr. Ferris, he revealed the patient was found to be in SVT and he was about to cardiovert however after the dose of diltiazem she converted. CBC showed a WBC of 21.2, hemoglobin 10.7, platelet count of 912 CMP was significant for sodium of 145, potassium 3.3, BUN 65, creatinine 2.2 glucose 119 and a calcium of 17.1 after correction. Alk phos is elevated at 995 Troponins were elevated at 1.446 and BNP was elevated at 514. Chest x-ray showed mild bibasilar pneumonia Patient received 2 L boluses of NS in the ER and her heart rate did seem to come down. Nephrology was consulted, Dr. Jang, appreciate recommendations Patient will be admitted to the ICU for severe hyperglycemia Review of Systems Review of Systems ROS Unobtainable: unobtainable due to mental status Exam Vital Signs Temp Pulse Resp BP Pulse Ox O2 Del Method 99.4 F 120 H 20 154/101 H 91 L Room Air 03/03/25 13:30 03/03/25 14:13 03/03/25 13:30 03/03/25 14:13 03/03/25 13:30 03/03/25 13:30 Narrative Exam Constitutional: Cachectic female with debility keep her eyes open but is easily arousable Head: Normocephalic/Atraumatic Eyes: PERRL , no conjunctival injection , symmetrical lids. ENMT: Dry mucous Membranes, No trauma or injury. Neck: Supple to palpation, No JVD CVS: RRR, S1 and S2 present, no murmurs, rubs or gallops. Capillary refill is longer than 5 seconds RESP: CTAB, no SOB, no rales, rhonchi or wheezing. No respiratory Distress GI: Nontender nondistended with decreased bowel sounds MSK: Full range of motion, No trauma or deformities or masses. Skin: Warm to touch, Dry. No rashes or lesions. No hematomas. Decreased skin turgor Psych: (AAO) x0 . Patient was lethargic but arousable, shook her head to answer yes or no to questions Results: Labs 03/05/25 04:54 03/05/25 04:54 Labs: Short CBC 03/03/25 Range/Units 14:00 WBC 21.2 H (3.6-11.0) Thou/mm3 Hgb 10.7 L (12.0-16.0) g/dL Hct 35.4 L (36.0-46.0) % Plt Count 912 H (140-440) Thou/mm3 BMP 03/03/25 14:00 Sodium 145 Potassium 3.3 L Chloride 102 Carbon Dioxide 27.3 BUN 65 H Creatinine 2.2 H Glucose 119 H Calcium 17.1 H* Cardiac Enzymes 03/03/25 Range/Units 14:00 Troponin I 1.446 H* (0.0-0.045) ng/mL Liver Function 03/03/25 Range/Units 14:00 Total Bilirubin 1.5 H (0.3-1.2) mg/dL AST 79 H (0-34) U/L ALT 48 (10-49) U/L Alkaline Phosphatase 995 H (46-116) U/L Albumin 4.1 (3.4-4.8) gm/dL Quality Measures Quality Measures none Advance care planning discussed with:: child Medications Home Medications and Allergies Home Medications ?Medication ?Instructions ?Recorded ?Confirmed ?Type famotidine 20 mg tablet 20 mg PO Q12H 12/05/21 03/04/25 History gabapentin 600 mg tablet 600 mg PO TID 12/05/21 03/04/25 History levothyroxine 50 mcg tablet 50 mcg PO QDAY 12/05/21 03/04/25 History atorvastatin 80 mg tablet 80 mg PO DAILY UD 12/14/24 03/04/25 History clopidogrel 75 mg tablet 75 mg PO .evening 12/14/24 03/04/25 History ascorbic acid (vitamin C) 500 mg 500 mg PO QDAY 03/04/25 03/04/25 History tablet (Vitamin C) ferrous sulfate 325 mg (65 mg 325 mg PO QDAY 03/04/25 03/04/25 History iron) tablet (Feosol) megestrol 40 mg tablet 40 mg PO TID take before each meal 03/04/25 03/04/25 History Allergies Allergy/AdvReac Type Severity Reaction Status Date / Time codeine Allergy Vomiting Verified 03/03/25 13:31 Visit Medications Acetaminophen (Acetaminophen 325 Mg Tablet) 650 mg PO Q6H PRN PRN Reason: Fever >101.5 Stop: 04/02/25 16:00 Acetaminophen (Acetaminophen 325 Mg Tablet) 650 mg PO Q6H PRN PRN Reason: PAIN SCALE 1-3 (mild Stop: 04/02/25 16:00 Hydrocodone Bitart/Acetaminophen (Hydrocodone/Apap 10/325 Tab) 1 tab PO Q4H PRN PRN Reason: PAIN SCALE 4-6 (Moderate Stop: 03/08/25 16:00 Denosumab (Denosumab Inj 60 Mg/Ml Syringe) 120 mg SC X1 ONE Stop: 03/03/25 16:31 Heparin Sodium (Porcine) (Heparin Sod Inj 5000 Unit/Ml Vial) 5,000 unit SC Q8HR JUAN Stop: 03/17/25 21:59 Ondansetron HCl (Ondansetron Inj 2 Mg/Ml Inj 2 Ml) 4 mg IV Q6H PRN; Protocol PRN Reason: NAUSEA OR VOMITING Stop: 04/02/25 16:00 Discontinued Medications Diltiazem HCl (Diltiazem Inj 5 Mg/Ml Vial 5 Ml) 10 mg IV X1 ONE Stop: 03/03/25 14:10 Last Admin: 03/03/25 14:13 Dose: 10 mg Sodium Chloride (Ns) 1,000 mls @ 999 mls/hr IV .Q1H1M ONE Stop: 03/03/25 14:34 Last Admin: 03/03/25 14:14 Dose: 999 mls/hr Sodium Chloride (Ns) 1,000 mls @ 999 mls/hr IV .Q1H1M ONE Stop: 03/03/25 14:35 Last Admin: 03/03/25 14:14 Dose: 999 mls/hr Assessment & Plan Plan 65-year-old female past medical history hypertension, hyperlipidemia, breast cancer status post left mastectomy, CVA, peripheral vascular disease, Raynaud's phenomenon admitted to ICU for severe symptomatic hypercalcemia. Neuro #Acute encephalopathy Likely secondary to hypercalcemia versus metabolic versus infectious Patient is lethargic but easily arousable she can head no to questions Patient baseline is alert and oriented and able to answer questions according to her son Plan: ? Frequent neurochecks ? Treat underlying hyperglycemia CVS # Episode of SVT #Tachycardia Patient had a small run of SVT in the ED for which she was close to getting cardioverted however she converted after dose of Dilt Patient is now in sinus rhythm with a heart rate in the low 100s Likely secondary to hypercalcemia Plan: ? Will correct underlying hypercalcemia ? Magnesium sulfate 2 g ordered ? Will keep potassium above 4 magnesium above 2 ? Monitor closely in telemetry ICU #Troponinemia Likely secondary to demand ischemia from tachycardia and an episode of SVT Troponins were elevated at 1.446 EKG did not show any obvious ST segment elevations Patient denied any chest pain or shortness of breath by shaking her head Plan: ? Trend troponins every 6 hours Resp #Acute hypoxic respiratory failure #Community-acquired pneumonia #History of smoking Patient was found to be hypoxic in the nursing facility and required 6 L to saturate at 91% in our ED Chest x-ray showed bibasilar pneumonias Patient is to be a heavy smoker and seems to be smoking on and off, possible underlying COPD Plan: ? Started ceftriaxone azithromycin ? DuoNebs as needed for shortness of breath or wheezing ? Will wean down O2 as tolerated GI #Stable Renal #AYDEN Likely prerenal from severe dehydration Patient presented with a creatinine of 2.2 from 1.0 and a BUN of 65 With a setting of hypercalcemia, nephrology was consulted for possible HD if patient's calcium does not correct adequately or if her symptoms continue or worsen Plan: ? Aggressive fluid resuscitation ?Follow-up with Daily renal function ?Appreciate nephrology recommendations Endocrine #Hypercalcemia Likely secondary to malignancy versus severe dehydration versus vitamin D intoxication rule out Patient has a history of breast cancer which may be recurring according to history Patient looks severely dehydrated on bedside examination Corrected calcium levels were 17.1 Patient was given 2 L bolus as well as Lasix in the ED Patient is symptomatic as she is confused from her baseline and she had an episode of SVT in the ED Plan: ? Continue NS at 250 cc/h ? Calcitonin 192 units subcu twice daily ? Denosumab 120 mg subcu x 1 ? Follow up with next creatinine calcium level ? Frequent neurochecks ? Strict CHEPE's ? Telemetry monitoring ? PTH, vitamin D 1 23D hydroxy and 25 OH vitamin D total ordered ? Will consider hemodialysis ID/Skin #Sepsis likely secondary to community-acquired pneumonia Patient presented with tachycardia and hypoxia with an elevated white count of 21.2 Vitals could be contributed by hypercalcemia however she did have bibasilar pneumonias on x-ray Urinalysis ordered to rule out other possible sources Patient received 2 L bolus NS in the ED Plan: ? Zofran as needed ? Azithromycin and Rocephin started for pneumonia coverage ? Follow-up with UA ? Monitor daily CBCs Hematology #Leukocytosis See ID above #Anemia likely of chronic disease Patient's hemoglobin was 10.7 but she has a history of dark stools in the past which have improved according to her son MCV is 79 Patient does have a history of cancer Plan: ? Follow daily CBCs ? Transfuse if hemoglobin less than 7 ? Iron panel ordered Hospital Maintenance: FEN: N.p.o. until she passes Steven bedside swallow DVT PPx: Heparin 5K SQ every 8 hours GI PPx: Protonix 40 IV daily IV lines: Peripheral IVs Padilla: In Code Status: Full code Dispo: Patient will remain in the ICU for further management of her severe hypercalcemia I discussed patient's care with solar sales estimator, Dr Carol Lang MD, PGY3 Attending Provider Attestation/Addendum Patient not seen on this date of service. Above resident did contact me about admission. I agree with the plan as documented. Patient will require aggressive volume resuscitation for significant hypercalcemia. Nephrology is aware of the case and will be amenable to hemodialysis should the need arise. Patient encephalopathy likely related to his metabolic derangement. Underlying etiology seems to be metastatic malignancy. I remain available overnight for any issues. Will formally see patient tomorrow during rounds
[2025-03-03 17:44] LABS: Magnesium 2.5 mg/dL (1.6-2.6)
[2025-03-03 17:45] LABS: Phosphorous 6.8 mg/dL (2.4-5.1)
[2025-03-03] MEDS: POTASSIUM CHL 10 mEq IVPB 10 MEQ/100 ML BAG 100 MEQ IV ×4 (18:28→21:36)
[2025-03-03] MEDS: Magnesium Sulfate 2 GM Ivpb 2 GM/50 ML BAG IV (18:29)
[2025-03-03] MEDS: CALCITONIN, SALMON SYNTH INJ 1 UNIT/0.005 ML VIAL 192 UNIT SC (18:38)
[2025-03-03] MEDS: DENOSUMAB INJ 60 MG/ML SYRINGE SC (18:46)
[2025-03-03 18:48] LABS: Alanine Aminotransferase 41 U/L (10-49); Albumin, Serum 3.7 gm/dL (3.4-4.8); Albumin/Globulin Ratio 1.3 (1.2-2.2); Alkaline Phosphatase 845 U/L (46-116); Anion Gap 12 (7-16); Aspartate Amino Transferase 71 U/L (0-34); BUN/Creatinine Ratio 27 Ratio (12-20); Bilirubin,Total 1.4 mg/dL (0.3-1.2); Blood Urea Nitrogen 53 mg/dL (9-23); Carbon Dioxide 24.4 mMol/L (20.0-31.0); Chloride 106 mMol/L (98-107); Estimated Creatinine Clearance 21.1 mL/min (>60); Globulin 2.8 gm/dL (2.3-3.5); Glucose 113 mg/dL (74-106); Osmolality,Calculated 298 (275-295); Phosphorous 7.4 mg/dL (2.4-5.1); Potassium 2.8 mMol/L (3.4-5.1); Sodium 142 mMol/L (136-145); Total Protein 6.5 gm/dL (5.7-8.2); eGFR 27 See Note
[2025-03-03 18:53] LABS: Calcium 17.1 mg/dL (8.3-10.6); Troponin I 2.056 ng/mL (0.0-0.045)
[2025-03-03 18:54] LABS: Calcium (Corrected) 17.3 mg/dL (8.5-10.1)
[2025-03-03] MEDS: cefTRIAXone/D5w 1gm IV premix 1 GM/50 ML BAG IV (18:55)
[2025-03-03] MEDS: AZITHROMYCIN INJ 500 MG in SODIUM CHLORIDE 0.9% 250 ML 250 ML 250 MG IV (18:56)
--- NOTE | 2025-03-03 18:58 | PC.NURSE ---
THIS RN CALLED MULTIPLE TIMES DIFFERENT NUMBERS ATTEMPTING TO GET AHOLD OF ICU PROVIDER, UNABLE TO REACH THEM AT THIS TIME TO REPORT CRITICAL LABS
[2025-03-03] MEDS: SODIUM CHLORIDE 0.9% 1000 ML 1,000 ML 250 ML IV ×2 (19:12→20:42)
[2025-03-03 19:34] LABS: Collection Type, Urine Catheter
[2025-03-03 19:42] LABS: Bacteria,Urine 2+; Bilirubin,Urine Negative (Negative); Blood,Urine Negative (Negative); Clarity,Urine Turbid (Clear/Hazy); Color,Urine Lt-Yellow (Lt Yel-Yel); Glucose, Urine Negative (Negative); Hyaline Casts,Urine < 1 /hpf (0-1); Ketones,Urine Negative (Negative); Leukocyte Esterase,Urine Positive (Negative); Nitrite,Urine Positive (Negative); Protein,Urine Negative (Neg - Trace); RBC,Urine 28 /hpf (0-3); Specific Gravity,Urine 1.011 (1.001-1.035); Squamous Epithelial Cell,Urine 1 /hpf (0-5); Urobilinogen,Urine Negative mg/dL (0.0-1.0); WBC,Urine 120 /hpf (0-5)
[2025-03-03 21:24] LABS: Ferritin 175 ng/mL (7.3-270.7); Iron 48 mcg/dL (50-170); Percent Iron Saturation 33 % (20-55); Total Iron Binding Capacity 145 mcg/dL (250-425); Unsaturated Iron Binding 97 (225-295)
[2025-03-03] MEDS: HEPARIN SOD INJ 5000 UNIT/ML VIAL SC (21:36)
[2025-03-03 22:10] LABS: Calcium 14.8 mg/dL (8.3-10.6)
[2025-03-04] VITALS (30 sets, daily range): BP systolic 119–170; BP diastolic 67–126; PULSE 81–130; RESP 16–42; TEMP 36.1–37.2; O2SAT 92–97; BMI 17.7
[2025-03-04 02:00] LABS: Calcium 14.6 mg/dL (8.3-10.6); Troponin I 2.209 ng/mL (0.0-0.045)
[2025-03-04] MEDS: SODIUM CHLORIDE 0.9% 1000 ML 1,000 ML 250 ML IV ×3 (03:06→11:31)
[2025-03-04] MEDS: HEPARIN SOD INJ 5000 UNIT/ML VIAL SC ×3 (06:00→22:08)
[2025-03-04 07:08] LABS: Basophils # (Auto) 0.1 Thou/mm3 (0.0-0.2); Basophils % (Auto) 0 % (0-2.5); Eosinophils % (Auto) 0 % (0-10); Hematocrit 31.6 % (36.0-46.0); Hemoglobin 9.3 g/dL (12.0-16.0); Immature Granulocytes % (Auto) 3 % (0-0); Lymphocytes # (Auto) 2.4 Thou/mm3 (1.0-4.8); Lymphocytes % (Auto) 12 % (10-50); Mean Corpuscular HGB Conc 29.4 g/dl (31.0-37.0); Mean Corpuscular Hemoglobin 24.4 pg (25.0-35.0); Mean Corpuscular Volume 83 fL (80-100); Monocytes % (Auto) 5 % (0-12); Neutrophils # (Auto) 16.3 Thou/mm3 (1.8-7.7); Neutrophils % (Auto) 79 % (37-80); Nucleated Red Blood Cell # 1.35 Thou/mm3 (0.00-0.00); Nucleated Red Blood Cell % 7 /100 WBC (0); Platelet Count 799 Thou/mm3 (140-440); RDW Standard Deviation 80.6 fL (36.4-46.3); Red Blood Count 3.81 Miln/mm3 (4.00-5.20); White Blood Count 20.5 Thou/mm3 (3.6-11.0)
[2025-03-04 07:24] LABS: Alanine Aminotransferase 34 U/L (10-49); Albumin, Serum 3.6 gm/dL (3.4-4.8); Albumin/Globulin Ratio 1.3 (1.2-2.2); Alkaline Phosphatase 799 U/L (46-116); Anion Gap 15 (7-16); Aspartate Amino Transferase 62 U/L (0-34); BUN/Creatinine Ratio 31 Ratio (12-20); Bilirubin,Total 0.8 mg/dL (0.3-1.2); Blood Urea Nitrogen 49 mg/dL (9-23); Carbon Dioxide 24.9 mMol/L (20.0-31.0); Cardiac Risk Estimate 7.9 RATIO (3.7-5.6); Chloride 112 mMol/L (98-107); Cholesterol 127 mg/dL (132-200); Creatinine (Component) 1.6 mg/dL (0.6-1.3); Estimated Creatinine Clearance 24.8 mL/min (>60); Globulin 2.8 gm/dL (2.3-3.5); Glucose 102 mg/dL (74-106); HDL Cholesterol 16 mg/dL (40-60); LDL Cholesterol,Calculated 72 mg/dL (0-130); Magnesium 2.5 mg/dL (1.6-2.6); Osmolality,Calculated 314 (275-295); Sodium 152 mMol/L (136-145); Total Protein 6.4 gm/dL (5.7-8.2); Triglycerides 193 mg/dL (30-150); eGFR 35 See Note
[2025-03-04 07:46] LABS: Potassium 2.6 mMol/L (3.4-5.1)
[2025-03-04 07:50] LABS: Troponin I 2.184 ng/mL (0.0-0.045)
[2025-03-04 07:51] LABS: Calcium (Corrected) 15.3 mg/dL (8.5-10.1)
--- NOTE | 2025-03-04 09:07 | ESPR_ITS ---
Documentation for date of: 03/04/25 Subjective Subjective Interval history: Patient is a 65-year-old female past medical history hypertension, hyperlipidemia, breast cancer status post left mastectomy, CVA, peripheral vascular disease, Raynaud's phenomenon brought in by ambulance from [facility] where she was found to be weak and hypoxic. Patient's son was at bedside who contributed to the story. Patient was seen at bedside and was not communicating well aside from nodding her head to questions after they are being repeated by her son. Son says that patient is wheelchair-bound and has lost weight and has had decreased appetite lately. At baseline she is usually more talkative as they recently went to an family history went where he took care of her. Patient has history of cancer status post left mastectomy with incomplete margin removal. Son states that they recently followed up with oncology who is suspecting that the patient may have recurrent malignancy. Sons also contributes the patient used to be a heavy smoker when she was younger had stopped for some time however she is roommates with her who is a smoker and he states that sometimes she would ask for cigarette from her and he will give it to her. Patient has also used marijuana in the past. She does not drink alcohol. 03/04/2025: Overnight no pyrexia reported for patinet. Patient is alert and orientated to self. Complaining of generlized pain. Small erythemtous lesion non-purulent at site of previous mastectomy, concern for malignancy as patient never followed up with radiation or chemo. PET scan form 2022 showing hypermetabolic pulmonary nodules in right middle lobe. Mulitle hyermetabolic foci in right ribs. Aggressive hydration needed for hypercalcemia. LR at 500 cc per hour. Continue Calcitonin, IV Pamidronate X 1, and Lasix X 1. PTHrp send out wednesday. Pending Echo. Please keep patinet net positive 1. Dr. Angulo consulted for Wednesday and Dr. Jang following. Updated son about PET scan findings and encouraged him to come in person for goals of care discussion. D/C antibiotics. Exam Vital Signs Temp Pulse Resp BP Pulse Ox O2 Del Method O2 Flow Rate 98.6 F 111 H 17 148/106 H 95 Room Air 6 03/04/25 04:00 03/04/25 07:00 03/04/25 07:00 03/04/25 07:00 03/04/25 07:00 03/03/25 19:27 03/03/25 16:20 Narrative Exam General Appearance: Alert & Oriented X1, thin female who is lying in bed in no acute distress HEENT: Skull symmetrical and atraumatic. Conjunctivae pale pink and moist. Pupils equal, round, reactive to light and accommodation (PERRL). External ear without lesion or discharge. Straight, nares patient, mucosa pink, no discharge. Cardio: Normal Rate and Rhythm with S1 and S2 heart sounds. No murmurs or extra heart sounds auscultated. No bruits on carotid auscultation. No peripheral edema or cyanosis. Lungs: Symmetric with good expansion. Chest and back non-tender. Breath sounds vesicular without crackles, wheezing or rhonchi Abdomen: Non-tender, Non-distended, Normal Reactive Bowel Sounds Neuro: Yes Alert, Yes cooperative, Yes oriented to person, No place, and No time. Speech clear. CN grossly intact. Upper motor strength 5/5 and Lower motor strength 5/5. Sensation intact. Objective Labs 03/05/25 04:54 03/05/25 04:54 Labs: Laboratory Results - last 24 hr 03/03/25 03/03/25 03/03/25 14:00 17:14 18:15 WBC 21.2 H RBC 4.49 Hgb 10.7 L Hct 35.4 L MCV 79 L MCH 23.8 L MCHC 30.2 L RDW Std Deviation 76.3 H Plt Count 912 H Neut % (Auto) 82 H Lymph % (Auto) 9 L [place] % (Auto) 6 Eos % (Auto) 0 Baso % (Auto) 1 Neut # (Auto) 17.4 H Lymph # (Auto) 2.0 [place] # (Auto) 1.2 H Eos # (Auto) 0.0 Baso # (Auto) 0.1 Immature Gran # (Auto) 0.58 H Absolute Nucleated RBC 1.84 H Immature Gran % 3 H Nucleated RBC % 9 H Sodium 145 142 Potassium 3.3 L 2.8 L D Chloride 102 106 Carbon Dioxide 27.3 24.4 Anion Gap 16 12 BUN 65 H 53 H Creatinine 2.2 H 2.0 H Estim Creat Clear Calc Not Performed. 21.1 L eGFR 24 L 27 L BUN/Creatinine Ratio 30 H 27 H Glucose 119 H 113 H Calculated Osmolality 308 H 298 H Calcium 17.1 H* 17.1 H* Corrected Calcium 17.1 H* 17.3 H* Phosphorus 6.8 H 7.4 H Magnesium 2.5 Iron 48 L TIBC 145 L Iron Saturation 33 Unsat Iron Binding 97 L Ferritin 175 Total Bilirubin 1.5 H 1.4 H AST 79 H 71 H ALT 48 41 Alkaline Phosphatase 995 H 845 H D Troponin I 1.446 H* 2.056 H* D B-Natriuretic Peptide 514 H* Total Protein 7.3 6.5 Albumin 4.1 3.7 Globulin 3.2 2.8 Albumin/Globulin Ratio 1.3 1.3 Triglycerides Cholesterol LDL Cholesterol, Calc HDL Cholesterol Cholesterol/HDL Ratio Ur Collection Type Urine Color Urine Clarity Urine pH Ur Specific [place] Urine Protein Urine Glucose (UA) Urine Ketones Urine Blood Urine Nitrite Urine Bilirubin Urine Urobilinogen (Auto) Ur Leukocyte Esterase Urine RBC Urine WBC Ur Squamous Epith Cells Urine Bacteria Hyaline Casts 03/03/25 03/03/25 03/04/25 19:29 21:09 01:05 WBC RBC Hgb Hct MCV MCH MCHC RDW Std Deviation Plt Count Neut % (Auto) Lymph % (Auto) [place] % (Auto) Eos % (Auto) Baso % (Auto) Neut # (Auto) Lymph # (Auto) [place] # (Auto) Eos # (Auto) Baso # (Auto) Immature Gran # (Auto) Absolute Nucleated RBC Immature Gran % Nucleated RBC % Sodium Potassium Chloride Carbon Dioxide Anion Gap BUN Creatinine Estim Creat Clear Calc eGFR BUN/Creatinine Ratio Glucose Calculated Osmolality Calcium 14.8 H* D 14.6 H* Corrected Calcium Phosphorus Magnesium Iron TIBC Iron Saturation Unsat Iron Binding Ferritin Total Bilirubin AST ALT Alkaline Phosphatase Troponin I 2.209 H* B-Natriuretic Peptide Total Protein Albumin Globulin Albumin/Globulin Ratio Triglycerides Cholesterol LDL Cholesterol, Calc HDL Cholesterol Cholesterol/HDL Ratio Ur Collection Type Catheter Urine Color Lt-Yellow Urine Clarity Turbid A Urine pH 6.0 Ur Specific [place] 1.011 Urine Protein Negative Urine Glucose (UA) Negative Urine Ketones Negative Urine Blood Negative Urine Nitrite Positive Urine Bilirubin Negative Urine Urobilinogen (Auto) Negative Ur Leukocyte Esterase Positive Urine RBC 28 H Urine WBC 120 H Ur Squamous Epith Cells 1 Urine Bacteria 2+ A Hyaline Casts < 1 03/04/25 06:10 WBC 20.5 H RBC 3.81 L Hgb 9.3 L Hct 31.6 L MCV 83 MCH 24.4 L MCHC 29.4 L RDW Std Deviation 80.6 H Plt Count 799 H D Neut % (Auto) 79 Lymph % (Auto) 12 [place] % (Auto) 5 Eos % (Auto) 0 Baso % (Auto) 0 Neut # (Auto) 16.3 H Lymph # (Auto) 2.4 [place] # (Auto) 1.0 H Eos # (Auto) 0.0 Baso # (Auto) 0.1 Immature Gran # (Auto) 0.70 H Absolute Nucleated RBC 1.35 H Immature Gran % 3 H Nucleated RBC % 7 H Sodium 152 H D Potassium 2.6 L* Chloride 112 H Carbon Dioxide 24.9 Anion Gap 15 BUN 49 H Creatinine 1.6 H Estim Creat Clear Calc 24.8 L eGFR 35 L BUN/Creatinine Ratio 31 H Glucose 102 Calculated Osmolality 314 H Calcium 15.0 H* Corrected Calcium 15.3 H* D Phosphorus 5.0 Magnesium 2.5 Iron TIBC Iron Saturation Unsat Iron Binding Ferritin Total Bilirubin 0.8 D AST 62 H ALT 34 Alkaline Phosphatase 799 H D Troponin I 2.184 H* B-Natriuretic Peptide Total Protein 6.4 Albumin 3.6 Globulin 2.8 Albumin/Globulin Ratio 1.3 Triglycerides 193 H Cholesterol 127 L LDL Cholesterol, Calc 72 HDL Cholesterol 16 L Cholesterol/HDL Ratio 7.9 H Ur Collection Type Urine Color Urine Clarity Urine pH Ur Specific [place] Urine Protein Urine Glucose (UA) Urine Ketones Urine Blood Urine Nitrite Urine Bilirubin Urine Urobilinogen (Auto) Ur Leukocyte Esterase Urine RBC Urine WBC Ur Squamous Epith Cells Urine Bacteria Hyaline Casts Quality Measures Quality Measures none Advance care planning discussed with:: patient Assessment & Plan Assessment Current Active Medications: Generic Name Dose Route Start Last Admin Trade Name Freq PRN Reason Stop Dose Admin Acetaminophen 650 mg 03/03/25 16:01 Acetaminophen 325 Mg Tablet PO 04/02/25 16:00 Q6H PRN Fever >101.5 Acetaminophen 650 mg 03/03/25 16:01 Acetaminophen 325 Mg Tablet PO 04/02/25 16:00 Q6H PRN PAIN SCALE 1-3 (mild Hydrocodone Bitart/Acetaminophen 1 tab 03/03/25 16:01 Hydrocodone/Apap 10/325 Tab PO 03/08/25 16:00 Q4H PRN PAIN SCALE 4-6 (Moderate Albuterol/Ipratropium 3 ml 03/03/25 17:23 Albuterol/Ipratropium (Duoneb) Rt Citlaly 3 Ml Nebu INH 04/02/25 18:59 Q4HRRT PRN SHORTNESS OF BREATH OR WHEEZE Calcitonin [place] 192 unit 03/03/25 16:30 03/03/25 18:38 Calcitonin, [place] Synth Inj 1 Unit/0.005 Ml Vial SC 04/02/25 16:29 192 unit Q12HR JUAN Administration Heparin Sodium (Porcine) 5,000 unit 03/03/25 22:00 03/04/25 06:00 Heparin Sod Inj 5000 Unit/Ml Vial SC 03/17/25 21:59 5,000 unit Q8HR JUAN Administration Sodium Chloride 1,000 mls @ 250 mls/hr 03/03/25 16:32 03/04/25 07:06 Ns IV 04/02/25 16:31 250 mls/hr .Q4H JUAN Administration Azithromycin 500 mg/ Sodium 250 mls @ 250 mls/hr 03/04/25 14:00 Chloride IV 03/11/25 13:59 QDAY@1400 JUAN Ceftriaxone Sodium/Dextrose 1 gm in 50 mls @ 100 mls/hr 03/03/25 17:23 03/03/25 18:55 Rocephin/D5w 1gm Iv Premix IV 03/10/25 17:22 100 mls/hr QDAY JUAN Administration Potassium Chloride 10 meq in 100 mls @ 100 mls/hr 03/04/25 07:51 Kcl Ivpb IV 03/04/25 11:50 Q1H JUAN Ondansetron HCl 4 mg 03/03/25 16:01 Ondansetron Inj 2 Mg/Ml Inj 2 Ml IV 04/02/25 16:00 Q6H PRN NAUSEA OR VOMITING Protocol Pantoprazole Sodium 40 mg 03/04/25 09:00 Pantoprazole Inj 40 Mg Vial IVP 04/03/25 08:59 QDAY JUAN Plan 65-year-old female past medical history hypertension, hyperlipidemia, breast cancer status post left mastectomy, CVA, peripheral vascular disease, Raynaud's phenomenon admitted to ICU for severe symptomatic hypercalcemia. Neuro #Acute encephalopathy Likely secondary to hypercalcemia and malignancy, patinet would benefit from brain MRI after improved hypercalcemia and can not rule out UTI, UA positive. Pneumonia less likely. Patient is lethargic but easily arousable she can head no to questions Patient baseline is alert and oriented and able to answer questions according to her son Plan: ? Frequent neurochecks ? Treat underlying hyperglycemia CVS # Episode of SVT #Tachycardia Patient had a small run of SVT in the ED for which she was close to getting cardioverted however she converted after dose of Dilt Patient is now in sinus rhythm with a heart rate in the low 100s Likely secondary to hypercalcemia Plan: ? Will correct underlying hypercalcemia ? Labetolol X 1 ? Will keep potassium above 4 magnesium above 2 ? Monitor closely in telemetry ICU #Troponinemia Likely secondary to demand ischemia from tachycardia and an episode of SVT Troponins were elevated at 1.446 EKG did not show any obvious ST segment elevations Patient denied any chest pain or shortness of breath by shaking her head Plan: -no acute intervention less likely cardiac in nature. Resp #Acute hypoxic respiratory failure #Community-acquired pneumonia, less likely #History of smoking Patient was found to be hypoxic in the nursing facility and required 6 L to saturate at 91% in our ED Chest x-ray showed bibasilar pneumonias Patient is to be a heavy smoker and seems to be smoking on and off, possible underlying COPD Plan: ? Started ceftriaxone azithromycin, stopped on 03/04/2025 ? DuoNebs as needed for shortness of breath or wheezing ? Will wean down O2 as tolerated GI #Stable Renal #AYDEN Likely prerenal from severe dehydration Patient presented with a creatinine of 2.2 from 1.0 and a BUN of 65 With a setting of hypercalcemia, nephrology was consulted for possible HD if patient's calcium does not correct adequately or if her symptoms continue or worsen Plan: -RENAL Panel at MIDNIGHT ? Aggressive fluid resuscitation ?Follow-up with Daily renal function ?Appreciate nephrology recommendations Endocrine #Hypercalcemia Likely secondary to malignancy versus severe dehydration versus vitamin D intoxication rule out Patient has a history of breast cancer which may be recurring according to history Patient looks severely dehydrated on bedside examination Corrected calcium levels were 17.1 Patient was given 2 L bolus as well as Lasix in the ED Patient is symptomatic as she is confused from her baseline and she had an episode of SVT in the ED Plan: - ? Continue NS at 500 cc/h ? Calcitonin 192 units subcu twice daily ? IV lasix 40 mg IVP X 1 and IV Pamidronate X 1 ? Follow up with next creatinine calcium level ? Frequent neurochecks ? Strict CHEPE's ? Telemetry monitoring ? PTH, vitamin D 1 23D hydroxy and 25 OH vitamin D total, and PTHrp ? Will consider hemodialysis ID/Skin #Sepsis, in setting of UTI #CAP, ruled out. #UTI Patient presented with tachycardia and hypoxia with an elevated white count of 21.2 Vitals could be contributed by hypercalcemia however she did have bibasilar pneumonias on x-ray, which is likely secondary malignancy. UA positive. Ordered Urine culture. stopped antibiotics. Small erythematous lesion at site of previous mastectomy, non concern for infection. Patient received 2 L bolus NS in the ED Plan: -Ceftriaxone 03/03/2025 ? Zofran as needed -Urine Culture ? Monitor daily CBCs Hematology #Leukocytosis See ID above #Anemia likely of chronic disease Patient's hemoglobin was 10.7 but she has a history of dark stools in the past which have improved according to her son. Iron Panel: Iron 48 L, TIBC 145, Iron Saturation 33, Unsat iron 97 and Ferritin 175 MCV is 79 Patient does have a history of cancer Plan: ? Follow daily CBCs ? Transfuse if hemoglobin less than 7 Hospital Maintenance: FEN: Passed swallow screen-->dysphagia diet DVT PPx: Heparin 5K SQ every 8 hours GI PPx: Protonix 40 IV daily IV lines: Peripheral IVs Padilla: In Code Status: Full code Dispo: Patient will remain in the ICU for further management of her severe hypercalcemia - The patient's plan was discussed with attending Dr. Carol Raymond MD PGY1 Internal Medicine Attending Provider Attestation/Addendum Patient seen and examined with above resident, Aarti Rayomnd MD. I agree with the findings, assessment, and plan of care as documented except for any differences below. Patient with significant hypercalcemia in the setting of malignancy. 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 Will exclude hypervitaminosis D as well as PTH related peptide if the PTH is not high/paraneoplastic syndrome. Patient started on aggressive IV fluid resuscitation with good urine output. Will add on Lasix to further help renal excretion of calcium. Patient was transitioned to LR from normal saline to avoid associated hyperkalemia/hyponatremia. Nephrology is participating in care and is aware of potential need for hemodialysis if she fails medical therapy. Has been placed on denosumab as well as calcitonin. Patient also was given treatment with antibiotics though this is likely unnecessary with no evidence of clear-cut pneumonia on chest film. Antibiotics have been discontinued as of today. Patient's mentation seems to be unchanged despite improvement though she does continue to have significant hypercalcemia which may be precluding her ability to normalize or go back to her baseline mentation. Discussion with the family will need to be had given likely stage IV malignancy potentially with recurrence. Will await input from oncology to the course of the upcoming week to help further delineate goals of care. Total critical care time: I personally spent 35 minutes for review of physiologic parameters, coordination of care with other specialties, and directly plan of care throughout the day. This is exclusive of time spent teaching housestaff or performing any separate billable procedures. Patient remains at risk for further morbidity and mortality warranting close monitoring and care only available in the intensive care unit. Patient requiring critical care services for acute encephalopathy secondary to hypercalcemia.
[2025-03-04] MEDS: PANTOPRAZOLE INJ 40 MG VIAL IVP (09:09)
[2025-03-04] MEDS: cefTRIAXone/D5w 1gm IV premix 1 GM/50 ML BAG IV (09:17)
[2025-03-04] MEDS: POTASSIUM CHL 10 mEq IVPB 10 MEQ/100 ML BAG 100 MEQ IV ×8 (09:31→22:08)
[2025-03-04] MEDS: CALCITONIN, SALMON SYNTH INJ 1 UNIT/0.005 ML VIAL 192 UNIT SC ×2 (09:54→22:00)
[2025-03-04] MEDS: LABETALOL INJ 5 MG/ML VIAL 20 ML 10 MG IVP (10:34)
[2025-03-04 11:06] LABS: Calcium 15.4 mg/dL (8.3-10.6)
[2025-03-04] MEDS: POTASSIUM CHLORIDE 10% 20 MEQ/15 ML UDC 40 MEQ PO ×3 (11:30→20:50)
--- NOTE | 2025-03-04 12:11 | PD.NEPHCONS ---
Documented by User: Mello Jang MD 03/05/25 17:20 History of Present Illness Data of Consult Requesting Physician: Troy Medina MD Primary Care Provider: Physician No Primary/Family Consult Narrative cc:: cc: Troy Medina MD Meds Home Medications and Allergies Home Medications ?Medication ?Instructions ?Recorded ?Confirmed ?Type famotidine 20 mg tablet 20 mg PO Q12H 12/05/21 03/04/25 History gabapentin 600 mg tablet 600 mg PO TID 12/05/21 03/04/25 History levothyroxine 50 mcg tablet 50 mcg PO QDAY 12/05/21 03/04/25 History atorvastatin 80 mg tablet 80 mg PO DAILY UD 12/14/24 03/04/25 History clopidogrel 75 mg tablet 75 mg PO .evening 12/14/24 03/04/25 History ascorbic acid (vitamin C) 500 mg 500 mg PO QDAY 03/04/25 03/04/25 History tablet (Vitamin C) ferrous sulfate 325 mg (65 mg 325 mg PO QDAY 03/04/25 03/04/25 History iron) tablet (Feosol) megestrol 40 mg tablet 40 mg PO TID take before each meal 03/04/25 03/04/25 History Allergies Allergy/AdvReac Type Severity Reaction Status Date / Time codeine Allergy Vomiting Verified 03/03/25 13:31 Exam Vital Signs Temp Pulse Resp BP Pulse Ox O2 Del Method O2 Flow Rate 37.0 C 130 H 17 164/91 H 95 Room Air 6 03/04/25 04:00 03/04/25 10:34 03/04/25 07:00 03/04/25 10:34 03/04/25 07:00 03/03/25 19:27 03/03/25 16:20 Results Labs 03/05/25 04:54 03/05/25 15:36 Labs: Short CBC 03/03/25 03/04/25 Range/Units 14:00 06:10 WBC 21.2 H 20.5 H (3.6-11.0) Thou/mm3 Hgb 10.7 L 9.3 L (12.0-16.0) g/dL Hct 35.4 L 31.6 L (36.0-46.0) % Plt Count 912 H 799 H D (140-440) Thou/mm3 BMP 03/03/25 03/03/25 03/03/25 14:00 18:15 21:09 Sodium 145 142 Potassium 3.3 L 2.8 L D Chloride 102 106 Carbon Dioxide 27.3 24.4 BUN 65 H 53 H Creatinine 2.2 H 2.0 H Glucose 119 H 113 H Calcium 17.1 H* 17.1 H* 14.8 H* D 03/04/25 03/04/25 03/04/25 01:05 06:10 09:16 Sodium 152 H D Potassium 2.6 L* Chloride 112 H Carbon Dioxide 24.9 BUN 49 H Creatinine 1.6 H Glucose 102 Calcium 14.6 H* 15.0 H* 15.4 H* Cardiac Enzymes 03/03/25 03/03/25 03/04/25 Range/Units 14:00 18:15 01:05 Troponin I 1.446 H* 2.056 H* D 2.209 H* (0.0-0.045) ng/mL 03/04/25 Range/Units 06:10 Troponin I 2.184 H* (0.0-0.045) ng/mL Liver Function 03/03/25 03/03/25 03/04/25 Range/Units 14:00 18:15 06:10 Total Bilirubin 1.5 H 1.4 H 0.8 D (0.3-1.2) mg/dL AST 79 H 71 H 62 H (0-34) U/L ALT 48 41 34 (10-49) U/L Alkaline Phosphatase 995 H 845 H D 799 H D (46-116) U/L Albumin 4.1 3.7 3.6 (3.4-4.8) gm/dL Urine 03/03/25 Range/Units 19:29 Urine Color Lt-Yellow (Lt Yel-Yel) Urine Clarity Turbid A (Clear/Hazy) Urine pH 6.0 (5.0-7.0) Ur Specific [place] 1.011 (1.001-1.035) Urine Protein Negative (Neg - Trace) Urine Glucose (UA) Negative (Negative) Assessment & Plan Assessment and plan (1) Hypercalcemia: Status: Acute (2) AYDEN (acute kidney injury): Status: Acute (3) Hypokalemia: Status: Acute (4) Hypernatremia: Status: Acute Additional Assessment & Plan Additional Plan: Thank you for allowing us to participate in the care of this patient. Plan of care discussed with attending Dr. Jang. Nash Wilson MD PGY?1 Patient seen and examined with resident physician Dr. Ward. Note reviewed, agree with findings and recommendations. Patient was consulted with Hypercalcemia, high sodium, AYDEN, hypokalemia. Spoke to ICU team. continue with IVF Documented by User: Nash Wilson MD 03/05/25 16:59 History of Present Illness Data of Consult Consult date: 03/04/25 Consult Narrative Reason for consult: Hypercalcemia History of present illness: 65 y/o F with PMHx significant for hypertension, hyperlipidemia, breast cancer status post left mastectomy, CVA, peripheral vascular disease, Raynaud's phenomenon brought in by ambulance from [facility] where she was found to be weak and hypoxic. Patient was seen at bedside and was not communicating well aside from nodding her head to questions after they are being repeated by her son. Son says that patient is wheelchair-bound and has lost weight and has had decreased appetite lately. Patient has history of cancer status post left mastectomy with incomplete margin removal. Son states that they recently followed up with oncology who is suspecting that the patient may have recurrent malignancy. Sons also contributes the patient used to be a heavy smoker when she was younger had stopped for some time however she is roommates with her who is a smoker and he states that sometimes she would ask for cigarette from her and he will give it to her. Patient has also used marijuana in the past. She does not drink alcohol. ED COURSE: Patient had a blood pressure 134/92 and a pulse of 123 with a respiratory 20 temperature 99.4 and O2 sat 91 on 6 L nasal cannula. After speaking with Dr. Ferris, he revealed the patient was found to be in SVT and he was about to cardiovert however after the dose of diltiazem she converted. CBC showed a WBC of 21.2, hemoglobin 10.7, platelet count of 912 CMP was significant for sodium of 145, potassium 3.3, BUN 65, creatinine 2.2 glucose 119 and a calcium of 17.1 after correction. Alk phos is elevated at 995 Troponins were elevated at 1.446 and BNP was elevated at 514. Chest x-ray showed mild bibasilar pneumonia Patient received 2 L boluses of NS in the ER and her heart rate did seem to come down. Patient will be admitted to the ICU for severe hyperglycemia. Nephrology consulted for management of hypercalcemia. Patient seen and examined at bedside, unable to provide answers to questions. Per chart review and family history patient is altered from her baseline, is usually talkative. WBC 20.5, hemoglobin 7.3, platelets 799. Sodium 152, potassium 2.6, bicarb 24.9. BUN 49, creatinine 1.6, EGFR 35. Corrected calcium 15. Aggressive hydration for rapid correction of calcium, along with calcitonin. PET scan from 2022 showed hypermetabolic pulmonary nodules, hypermetabolic foci in multiple right-sided ribs. Recommend goals of care conversation with family. Review of Systems Review of Systems ROS Unobtainable: unobtainable due to mental status Meds Home Medications and Allergies Home Medications ?Medication ?Instructions ?Recorded ?Confirmed ?Type famotidine 20 mg tablet 20 mg PO Q12H 12/05/21 03/04/25 History gabapentin 600 mg tablet 600 mg PO TID 12/05/21 03/04/25 History levothyroxine 50 mcg tablet 50 mcg PO QDAY 12/05/21 03/04/25 History atorvastatin 80 mg tablet 80 mg PO DAILY UD 12/14/24 03/04/25 History clopidogrel 75 mg tablet 75 mg PO .evening 12/14/24 03/04/25 History ascorbic acid (vitamin C) 500 mg 500 mg PO QDAY 03/04/25 03/04/25 History tablet (Vitamin C) ferrous sulfate 325 mg (65 mg 325 mg PO QDAY 03/04/25 03/04/25 History iron) tablet (Feosol) megestrol 40 mg tablet 40 mg PO TID take before each meal 03/04/25 03/04/25 History Allergies Allergy/AdvReac Type Severity Reaction Status Date / Time codeine Allergy Vomiting Verified 03/03/25 13:31 Exam Narrative Exam Constitutional: Cachectic female with difficulty keep her eyes open but is easily arousable Head: Normocephalic/Atraumatic Eyes: PERRL , no conjunctival injection , symmetrical lids. ENMT: Dry mucous Membranes, No trauma or injury. Neck: Supple to palpation, No JVD CVS: RRR, S1 and S2 present, no murmurs, rubs or gallops. Capillary refill is longer than 5 seconds RESP: CTAB, no SOB, no rales, rhonchi or wheezing. No respiratory Distress GI: Nontender nondistended with decreased bowel sounds MSK: Full range of motion, No trauma or deformities or masses. Skin: Warm to touch, Dry. No rashes or lesions. No hematomas. Decreased skin turgor Psych: A&Ox0. Patient was lethargic but arousable, shook her head to answer yes or no to questions Results Labs 03/05/25 04:54 03/05/25 15:36 Assessment & Plan Assessment and plan (1) Hypercalcemia: Status: Acute Assessment and plan: Patient presented with weakness, hypoxia. Very lethargic, poorly communicative, altered from baseline per family. Patient severely hypercalcemic, corrected calcium 15. Likely due to metastatic lesions from recurrence of previous breast cancer. - D5W 500 mL/h - Calcitonin twice daily - Frequent neurochecks - Monitor daily labs - PTH, vitamin D labs, PTHrp tests ordered - Will consider hemodialysis if calcium does not improve (2) AYDEN (acute kidney injury): Status: Acute Assessment and plan: Patient is clinically very dry on exam. Has AYDEN, likely due to prerenal dehydration lessening of hypercalcemia. - IVF as above - Monitor daily renal function - Avoid nephrotoxins - Renally dose meds - Strict I's and O's (3) Hypokalemia: Status: Acute Assessment and plan: Patient has severe hypokalemia, potassium 2.6. Received 40 mEq p.o. potassium and 40 mEq IV potassium. - Recheck renal panel this afternoon, replete as needed - Will continue to monitor (4) Hypernatremia: Status: Acute Assessment and plan: Patient is hyponatremia, sodium 152. Unable to properly assess for symptoms given severe hypercalcemia. - IVF as above - Monitor daily sodium Additional Assessment & Plan Additional Plan: Thank you for allowing us to participate in the care of this patient. Plan of care discussed with attending Dr. Jang. Nash Wilson MD PGY?1
[2025-03-04] MEDS: RINGERS LACTATED 1000 ML 1,000 ML 500 ML IV ×5 (12:42→22:48)
[2025-03-04] MEDS: PAMIDRONATE IV (13:15)
[2025-03-04] MEDS: SODIUM CHLORIDE 0.9% IV (13:15)
[2025-03-04 13:29] LABS: Thyroid Stimulating Hormone 0.25 uIU/mL (0.55-4.78)
[2025-03-04 13:30] LABS: Troponin I 1.682 ng/mL (0.0-0.045)
[2025-03-04 14:47] LABS: Albumin, Serum 3.4 gm/dL (3.4-4.8); Anion Gap 14 (7-16); BUN/Creatinine Ratio 27 Ratio (12-20); Blood Urea Nitrogen 41 mg/dL (9-23); Carbon Dioxide 25.5 mMol/L (20.0-31.0); Chloride 113 mMol/L (98-107); Creatinine (Component) 1.5 mg/dL (0.6-1.3); Estimated Creatinine Clearance 26.5 mL/min (>60); Glucose 101 mg/dL (74-106); Osmolality,Calculated 311 (275-295); Potassium 3.1 mMol/L (3.4-5.1); Sodium 152 mMol/L (136-145); eGFR 38 See Note
[2025-03-04 15:03] LABS: Calcium (Corrected) 15.5 mg/dL (8.5-10.1)
[2025-03-04] MEDS: FUROSEMIDE INJ 10 MG/ML 4ML VIAL 40 MG IVP (16:07)
[2025-03-04] MEDS: HYDROcodone/APAP 10/325 TAB PO (17:45)
[2025-03-04 21:24] LABS: Parathyroid Hormone Intact 13.3 pg/ml (18.5-88.0)
[2025-03-04 21:53] LABS: Vitamin D 25 Hydroxy Total 32.1 ng/mL (7.3-40.2)
[2025-03-05] VITALS (87 sets, daily range): BP systolic 95–194; BP diastolic 65–123; PULSE 75–131; RESP 13–97; TEMP 35.9–37.6; O2SAT 88–100; BMI 18.5
[2025-03-05] MEDS: RINGERS LACTATED 1000 ML 1,000 ML 500 ML IV ×3 (00:48→04:57)
[2025-03-05 01:15] LABS: Albumin, Serum 3.5 gm/dL (3.4-4.8); Anion Gap 12 (7-16); BUN/Creatinine Ratio 23 Ratio (12-20); Blood Urea Nitrogen 32 mg/dL (9-23); Chloride 108 mMol/L (98-107); Creatinine (Component) 1.4 mg/dL (0.6-1.3); Estimated Creatinine Clearance 28.4 mL/min (>60); Glucose 106 mg/dL (74-106); Osmolality,Calculated 304 (275-295); Phosphorous 4.2 mg/dL (2.4-5.1); Potassium 3.6 mMol/L (3.4-5.1); Sodium 150 mMol/L (136-145); eGFR 41 See Note
[2025-03-05] MEDS: RINGERS LACTATED 1000 ML 1,000 ML 999 ML IV ×2 (01:26→05:16)
[2025-03-05 02:11] LABS: Calcium 14.8 mg/dL (8.3-10.6)
[2025-03-05 02:12] LABS: Calcium (Corrected) 15.2 mg/dL (8.5-10.1)
[2025-03-05] MEDS: HEPARIN SOD INJ 5000 UNIT/ML VIAL SC ×3 (05:16→21:15)
[2025-03-05] MEDS: MORPHINE SULF INJ 10 MG/ML VIAL IVP (05:16)
[2025-03-05 05:52] LABS: Misc Send Out* See Sep Rpt
[2025-03-05 06:08] LABS: Basophils # (Auto) 0.1 Thou/mm3 (0.0-0.2); Basophils % (Auto) 0 % (0-2.5); Eosinophils # (Auto) 0.1 Thou/mm3 (0.0-0.5); Eosinophils % (Auto) 1 % (0-10); Hematocrit 29.5 % (36.0-46.0); Immature Granulocytes % (Auto) 6 % (0-0); Immature Granulocytes Auto 1.09 Thou/mm3 (0.00-0.00); Lymphocytes # (Auto) 1.8 Thou/mm3 (1.0-4.8); Lymphocytes % (Auto) 9 % (10-50); Mean Corpuscular HGB Conc 29.8 g/dl (31.0-37.0); Mean Corpuscular Hemoglobin 23.7 pg (25.0-35.0); Mean Corpuscular Volume 79 fL (80-100); Monocytes # (Auto) 0.6 Thou/mm3 (0.0-0.8); Monocytes % (Auto) 3 % (0-12); Neutrophils % (Auto) 80 % (37-80); Nucleated Red Blood Cell # 2.73 Thou/mm3 (0.00-0.00); Nucleated Red Blood Cell % 15 /100 WBC (0); Platelet Count 729 Thou/mm3 (140-440); RDW Standard Deviation 76.9 fL (36.4-46.3); Red Blood Count 3.72 Miln/mm3 (4.00-5.20); White Blood Count 18.6 Thou/mm3 (3.6-11.0)
[2025-03-05] MEDS: LABETALOL INJ 5 MG/ML VIAL 20 ML 10 MG IVP (06:08)
[2025-03-05 06:15] LABS: Hemoglobin 8.8 g/dL (12.0-16.0)
[2025-03-05 06:37] LABS: Alanine Aminotransferase 24 U/L (10-49); Albumin, Serum 3.3 gm/dL (3.4-4.8); Albumin/Globulin Ratio 1.3 (1.2-2.2); Alkaline Phosphatase 688 U/L (46-116); Anion Gap 15 (7-16); Aspartate Amino Transferase 50 U/L (0-34); BUN/Creatinine Ratio 25 Ratio (12-20); Bilirubin,Total 0.8 mg/dL (0.3-1.2); Blood Urea Nitrogen 30 mg/dL (9-23); Carbon Dioxide 30.3 mMol/L (20.0-31.0); Chloride 105 mMol/L (98-107); Creatinine (Component) 1.2 mg/dL (0.6-1.3); Estimated Creatinine Clearance 33.1 mL/min (>60); Globulin 2.6 gm/dL (2.3-3.5); Glucose 106 mg/dL (74-106); Magnesium 1.8 mg/dL (1.6-2.6); Osmolality,Calculated 304 (275-295); Phosphorous 3.8 mg/dL (2.4-5.1); Sodium 150 mMol/L (136-145); Total Protein 5.9 gm/dL (5.7-8.2); eGFR 50 See Note
[2025-03-05 06:40] LABS: Calcium 14.9 mg/dL (8.3-10.6)
[2025-03-05 06:41] LABS: Calcium (Corrected) 15.5 mg/dL (8.5-10.1)
[2025-03-05] MEDS: Magnesium Sulfate 2 GM Ivpb 2 GM/50 ML BAG IV (07:23)
[2025-03-05] MEDS: SODIUM CHLORIDE 0.45 % 1,000 ML 150 ML IV (07:24)
[2025-03-05] MEDS: POTASSIUM CHL 10 mEq IVPB 10 MEQ/100 ML BAG 100 MEQ IV ×4 (07:24→10:56)
[2025-03-05] MEDS: cefTRIAXone/D5w 1gm IV premix 1 GM/50 ML BAG IV (08:45)
[2025-03-05] MEDS: PANTOPRAZOLE INJ 40 MG VIAL IVP (08:45)
[2025-03-05] MEDS: MIDAZOLAM INJ 1 MG/ML VIAL 2 ML 2 MG IV (10:56)
[2025-03-05 11:05] LABS: Path Review Blood Smear Sent to Pathologist
[2025-03-05] MEDS: hydrALAZINE INJ 20 MG/ML VIAL 10 MG IV (11:22)
[2025-03-05] MEDS: CALCITONIN, SALMON SYNTH INJ 1 UNIT/0.005 ML VIAL 192 UNIT SC ×2 (11:24→22:16)
--- NOTE | 2025-03-05 11:40 | XR_ITS ---
Examination: AP chest single view Technique one AP portable sitting chest single view Exam date and time: March 15, 2025 1123 hours INDICATIONS: Status post dialysis catheter insertion FINDINGS: Right internal jugular temporary dialysis catheter tip SVC Mild CHF Mild enlargement left atrium with prominent vascular congestion and septal edema in the lung sipvey Severe osteopenia with multiple old appearing bilateral rib fractures No pneumothorax IMPRESSION: Right internal jugular temporary dialysis catheter tip SVC, no pneumothorax
[2025-03-05 12:27] LABS: Hepatitis A Antibody IgM Non Reactive (Non React); Hepatitis B Core Antibody IgM Non Reactive (Non React); Hepatitis B Surface Ab Reactive (Immune) (Immune); Hepatitis B Surface Antigen Non Reactive (Non React); Hepatitis C Antibody Non Reactive (Non React)
--- NOTE | 2025-03-05 13:06 | ESCONSULT_ITS ---
HPI Data of Consult Requesting Physician: Troy Medina MD Primary Care Provider: Physician No Primary/Family Consult Narrative Reason for consult: Breast cancer with likely mets History of present illness: Patient an unfortunate 65-year-old lady was followed at [facility] for left breast CA and polycythemia rubra vera. It has been suspected based patient had mets for the past 2 years with PET scan in April 2023 showing suggestive of bone mets and possible lung mets. At the local site in the left chest there appeared to be recurrence as well. For variety reasons patient's follow-up has been spotty at the cancer center, along with multiple comorbidities such as osteomyelitis of right lower extremities with prior right third toe removed and suspected right fifth digit involvement. Patient currently residing at [facility] was admitted with acute encephalopathy with corrected calcium in the 15 range. Also noted to have tachycardia with SVT elevated troponins and acute respiratory failure with chest x-ray showing mild bibasilar pneumonia and acute kidney injury. Patient now in the ICU getting hydration antibiotics and other supportive measures. Present referred for oncological consultation. cc:: cc: Troy Medina MD Past Medical History Past Medical History Comments PMH COMMENT: History of left breast CA with likely mets. Polycythemia vera osteomyelitis right lower extremity prior CVA Meds Home Medications and Allergies Home Medications ?Medication ?Instructions ?Recorded ?Confirmed ?Type famotidine 20 mg tablet 20 mg PO Q12H 12/05/2103/04 History gabapentin 600 mg tablet 600 mg PO TID 12/05/2103/04 History levothyroxine 50 mcg tablet 50 mcg PO QDAY 12/05/21 History atorvastatin 80 mg tablet 80 mg PO DAILY UD 12/14/24 0 03/04/25 History clopidogrel 75 mg tablet 75 mg PO .evening 12/14/24 0 03/04/25 History ascorbic acid (vitamin C) 500 mg 500 mg PO QDAY 03/04/25 History tablet (Vitamin C) ferrous sulfate 325 mg (65 mg 325 mg PO QDAY 03/04/25 03/04/25 History iron) tablet (Feosol) megestrol 40 mg tablet 40 mg PO TID take before eac h meal 03/04/25 03/04/25 History Allergies Allergy/AdvReac Type Severity Reaction Status Date / Time codeine Allergy Vomiting Verified 03/03/25 13:31 Exam Vital Signs Temp Pulse Resp BP Pulse Ox O2 Del Method O2 Flow Rate 98.8 F 129 H 26 H 165/102 H 94 L Room Air 6 03/05/25 12:00 03/05/25 12:37 03/05/25 12:37 03/05/25 12:37 03/05/25 12:37 03/03/25 19:27 03/03/25 16:20 Results Labs 03/05/25 04:54 03/05/25 04:54 Labs: Short CBC 03/05/25 Range/Units 04:54 WBC 18.6 H (3.6-11.0) Thou/mm3 Hgb 8.8 L (12.0-16.0) g/dL Hct 29.5 L (36.0-46.0) % Plt Count 729 H D (140-440) Thou/mm3 BMP 03/04/25 03/05/25 03/05/25 14:00 00:31 04:54 Sodium 152 H 150 H 150 H Potassium 3.1 L D 3.6 D 3.0 L D Chloride 113 H 108 H 105 Carbon Dioxide 25.5 30.0 30.3 BUN 41 H 32 H 30 H Creatinine 1.5 H 1.4 H 1.2 Glucose 101 106 106 Calcium 15.0 H* 14.8 H* 14.9 H* Cardiac Enzymes 03/04/25 Range/Units 12:00 Troponin I 1.682 H* D (0.0-0.045) ng/mL Liver Function 03/04/25 03/05/25 03/05/25 Range/Units 14:00 00:31 04:54 Total Bilirubin 0.8 (0.3-1.2) mg/dL AST 50 H (0-34) U/L ALT 24 (10-49) U/L Alkaline Phosphatase 688 H D (46-116) U/L Albumin 3.4 3.5 3.3 L (3.4-4.8) gm/dL Assessment and Plan Additional Assessment & Plan Additional Plan: 1. History of left breast CA likely recurrence with widespread mets. 2. History of polycythemia vera treated with hydroxyurea followed at [facility]. 3. Admitted with hypercalcemia likely related to stage IV breast, along with encephalopathy acute respiratory failure and acute kidney injury. 4. Receiving supportive measures in ICU. Will follow.
--- NOTE | 2025-03-05 13:58 | PCS.ST ---
Swallow Evaluation order received. Pt has been obtunded today. Unable to participate. Currently has Dysphagia [address] will follow up in AM.
--- NOTE | 2025-03-05 15:45 | PC.NURSE ---
BP TRENDING DOWN PT REMAINS W/O DISTRESS NOTED WILL ADMIN PRN ALBUMIN AND CONT. TO MONITOR
[2025-03-05] MEDS: ALBUMIN HUMAN 25% IVPB 25 GM/100 ML BTL IV (15:46)
[2025-03-05 16:07] LABS: Albumin, Serum 3.3 gm/dL (3.4-4.8); Anion Gap 7 (7-16); BUN/Creatinine Ratio 21 Ratio (12-20); Blood Urea Nitrogen 19 mg/dL (9-23); Calcium 11.7 mg/dL (8.3-10.6); Calcium (Corrected) 12.3 mg/dL (8.5-10.1); Carbon Dioxide 32.9 mMol/L (20.0-31.0); Chloride 103 mMol/L (98-107); Creatinine (Component) 0.9 mg/dL (0.6-1.3); Estimated Creatinine Clearance 46.1 mL/min (>60); Glucose 92 mg/dL (74-106); Osmolality,Calculated 287 (275-295); Phosphorous 2.4 mg/dL (2.4-5.1); Potassium 3.7 mMol/L (3.4-5.1); Sodium 143 mMol/L (136-145); eGFR > 60 See Note
--- NOTE | 2025-03-05 16:50 | ESPR_ITS ---
Documentation for date of: 03/05/25 Subjective Subjective Interval history: 65 y/o F with PMHx significant for hypertension, hyperlipidemia, breast cancer status post left mastectomy, CVA, peripheral vascular disease, Raynaud's phenomenon brought in by ambulance from [facility] where she was found to be weak and hypoxic. Patient was seen at bedside and was not communicating well aside from nodding her head to questions after they are being repeated by her son. Son says that patient is wheelchair-bound and has lost weight and has had decreased appetite lately. Patient has history of cancer status post left mastectomy with incomplete margin removal. Son states that they recently followed up with oncology who is suspecting that the patient may have recurrent malignancy. Sons also contributes the patient used to be a heavy smoker when she was younger had stopped for some time however she is roommates with her who is a smoker and he states that sometimes she would ask for cigarette from her and he will give it to her. Patient has also used marijuana in the past. She does not drink alcohol. ED COURSE: Patient had a blood pressure 134/92 and a pulse of 123 with a respiratory 20 temperature 99.4 and O2 sat 91 on 6 L nasal cannula. After speaking with Dr. Ferris, he revealed the patient was found to be in SVT and he was about to cardiovert however after the dose of diltiazem she converted. CBC showed a WBC of 21.2, hemoglobin 10.7, platelet count of 912 CMP was significant for sodium of 145, potassium 3.3, BUN 65, creatinine 2.2 glucose 119 and a calcium of 17.1 after correction. Alk phos is elevated at 995 Troponins were elevated at 1.446 and BNP was elevated at 514. Chest x-ray showed mild bibasilar pneumonia Patient received 2 L boluses of NS in the ER and her heart rate did seem to come down. Patient will be admitted to the ICU for severe hyperglycemia. Nephrology consulted for management of hypercalcemia. Patient seen and examined at bedside, unable to provide answers to questions. Per chart review and family history patient is altered from her baseline, is usually talkative. WBC 20.5, hemoglobin 7.3, platelets 799. Sodium 152, potassium 2.6, bicarb 24.9. BUN 49, creatinine 1.6, EGFR 35. Corrected calcium 15. Aggressive hydration for rapid correction of calcium, along with calcitonin. PET scan from 2022 showed hypermetabolic pulmonary nodules, hypermetabolic foci in multiple right-sided ribs. Recommend goals of care conversation with family. 03/05/2025: Patient seen and examined at bedside, awake and alert but does not verbally respond, does not follow commands. WBC 18.6, hemoglobin 8.8, sodium 150, potassium 3.0, bicarb 3.3, BUN 30, creatinine 1.2, EGFR 50. Corrected calcium 15.5, ALP 688. Calcium has worsened despite aggressive fluid resuscitation, patient annemarie severely symptomatic. Will place dialysis catheter today and plan for 1 session hemodialysis. May require further sessions depending on response, will continue to monitor. Exam Vital Signs Temp Pulse Resp BP Pulse Ox O2 Del Method O2 Flow Rate 98.8 F 120 H 20 146/79 H 91 L Room Air 3 03/05/25 14:51 03/05/25 16:45 03/05/25 15:15 03/05/25 16:45 03/05/25 15:15 03/03/25 19:27 03/05/25 14:51 Narrative Exam Gen: Well-developed and well-nourished. Thin. HEENT: NCAT, PERRLA, EOMI, MMM, anicteric conjunctivae. CVS: normal S1 and S2. RRR. No M/R/G. Resp: CTA B/L. No rhonchi, rales, crackles or wheezing. Abd: soft, non-tender, non-distended. BS+ in all 4 quadrants. MSK: Good ROM in BUE & BLE. No edema or rash. Reddish lesion at site of breast cancer excision and left outer breast. Firm mass underlying lesion. Neuro: CN II-XII grossly intact. Strength 5/5 in BUE & BLE. A&O x 1, not verbally responsive, poorly follows commands. Objective Labs 03/05/25 04:54 03/05/25 15:36 Labs: Laboratory Results - last 24 hr 03/03/25 03/05/25 03/05/25 17:14 00:31 04:54 WBC 18.6 H RBC 3.72 L Hgb 8.8 L Hct 29.5 L MCV 79 L MCH 23.7 L MCHC 29.8 L RDW Std Deviation 76.9 H Plt Count 729 H D Neut % (Auto) 80 Lymph % (Auto) 9 L [place] % (Auto) 3 Eos % (Auto) 1 Baso % (Auto) 0 Neut # (Auto) 15.0 H Lymph # (Auto) 1.8 [place] # (Auto) 0.6 Eos # (Auto) 0.1 Baso # (Auto) 0.1 Immature Gran # (Auto) 1.09 H Absolute Nucleated RBC 2.73 H Immature Gran % 6 H Nucleated RBC % 15 H Smear Path Review Sent to Pathologist Sodium 150 H 150 H Potassium 3.6 D 3.0 L D Chloride 108 H 105 Carbon Dioxide 30.0 30.3 Anion Gap 12 15 BUN 32 H 30 H Creatinine 1.4 H 1.2 Estim Creat Clear Calc 28.4 L 33.1 L eGFR 41 L 50 L BUN/Creatinine Ratio 23 H 25 H Glucose 106 106 Calculated Osmolality 304 H 304 H Calcium 14.8 H* 14.9 H* Corrected Calcium 15.2 H* 15.5 H* Phosphorus 4.2 3.8 Magnesium 1.8 Total Bilirubin 0.8 AST 50 H ALT 24 Alkaline Phosphatase 688 H D Total Protein 5.9 Albumin 3.5 3.3 L Globulin 2.6 Albumin/Globulin Ratio 1.3 25-OH Vitamin D Total 32.1 PTH Intact 13.3 L Hepatitis A IgM Ab Non Reactive Hep Bs Antigen Non Reactive Hep Bs Antibody Reactive (Immune) Hep B Core IgM Ab Non Reactive Hepatitis C Antibody Non Reactive 03/05/25 15:36 WBC RBC Hgb Hct MCV MCH MCHC RDW Std Deviation Plt Count Neut % (Auto) Lymph % (Auto) [place] % (Auto) Eos % (Auto) Baso % (Auto) Neut # (Auto) Lymph # (Auto) [place] # (Auto) Eos # (Auto) Baso # (Auto) Immature Gran # (Auto) Absolute Nucleated RBC Immature Gran % Nucleated RBC % Smear Path Review Sodium 143 Potassium 3.7 D Chloride 103 Carbon Dioxide 32.9 H Anion Gap 7 BUN 19 Creatinine 0.9 Estim Creat Clear Calc 46.1 L eGFR > 60 BUN/Creatinine Ratio 21 H Glucose 92 Calculated Osmolality 287 Calcium 11.7 H D Corrected Calcium 12.3 H D Phosphorus 2.4 Magnesium Total Bilirubin AST ALT Alkaline Phosphatase Total Protein Albumin 3.3 L Globulin Albumin/Globulin Ratio 25-OH Vitamin D Total PTH Intact Hepatitis A IgM Ab Hep Bs Antigen Hep Bs Antibody Hep B Core IgM Ab Hepatitis C Antibody Quality Measures Quality Measures VTE prophylaxis Advance care planning discussed with:: child Assessment & Plan Assessment Current Active Medications: Generic Name Dose Route Start Last Admin Trade Name Freq PRN Reason Stop Dose Admin Acetaminophen 650 mg 03/03/25 16:01 Acetaminophen 325 Mg Tablet PO 04/02/25 16:00 Q6H PRN Fever >101.5 Acetaminophen 650 mg 03/03/25 16:01 Acetaminophen 325 Mg Tablet PO 04/02/25 16:00 Q6H PRN PAIN SCALE 1-3 (mild Hydrocodone Bitart/Acetaminophen 1 tab 03/03/25 16:01 03/04/25 17:45 Hydrocodone/Apap 10/325 Tab PO 03/08/25 16:00 1 tab Q4H PRN Administration PAIN SCALE 4-6 (Moderate Albuterol/Ipratropium 3 ml 03/03/25 17:23 Albuterol/Ipratropium (Duoneb) Rt Citlaly 3 Ml Nebu INH 04/02/25 18:59 Q4HRRT PRN SHORTNESS OF BREATH OR WHEEZE Calcitonin [place] 192 unit 03/03/25 16:30 03/05/25 11:24 Calcitonin, [place] Synth Inj 1 Unit/0.005 Ml Vial SC 04/02/25 16:29 192 unit Q12HR JUAN Administration Heparin Sodium (Porcine) 5,000 unit 03/03/25 22:00 03/05/25 13:16 Heparin Sod Inj 5000 Unit/Ml Vial SC 03/17/25 21:59 5,000 unit Q8HR JUAN Administration Heparin Sodium (Porcine) 2,600 unit 03/05/25 15:12 Heparin Sod Inj 1000 Unit/Ml Vial 10 Ml INDWELLCAT 03/19/25 15:11 PRN PRN DIALYSIS Ceftriaxone Sodium/Dextrose 1 gm in 50 mls @ 100 mls/hr 03/05/25 09:00 03/05/25 08:45 Rocephin/D5w 1gm Iv Premix IV 03/12/25 08:59 100 mls/hr QDAY JUAN Administration Albumin Human 25 gm in 100 mls @ 100 mls/min 03/05/25 11:03 03/05/25 15:46 Albuminar-25 Ivpb IV 100 mls/min PRN PRN Administration DIALYSIS Ondansetron HCl 4 mg 03/03/25 16:01 Ondansetron Inj 2 Mg/Ml Inj 2 Ml IV 04/02/25 16:00 Q6H PRN NAUSEA OR VOMITING Protocol Pantoprazole Sodium 40 mg 03/04/25 09:00 03/05/25 08:45 Pantoprazole Inj 40 Mg Vial IVP 04/03/25 08:59 40 mg QDAY JUAN Administration Potassium Chloride 40 meq 03/04/25 11:00 03/05/25 10:57 Potassium Chloride 10% 20 Meq/15 Ml Udc PO 04/03/25 10:59 Not Given BID JUAN Plan 65-year-old female past medical history hypertension, hyperlipidemia, breast cancer status post left mastectomy, CVA, peripheral vascular disease, Raynaud's phenomenon admitted to ICU for severe symptomatic hypercalcemia. Nephrology consulted for management of severe symptomatic hypercalcemia. #Severe symptomatic hypercalcemia Patient presented with weakness, hypoxia. Very lethargic, poorly communicative, altered from baseline per family. Patient severely hypercalcemic, corrected calcium 15. Likely due to metastatic lesions from recurrence of previous breast cancer. Despite aggressive fluid therapy, patient calcium worsens at 15.5. Elevated ALP 688, metastatic bone lesions likely source of cancer. Will place temporary dialysis catheter today, plan for 1 session hemodialysis. PTH 13.3, not elevated enough to be source of hypercalcemia. - D5W 500 mL/h - Calcitonin twice daily - Frequent neurochecks - Monitor daily labs - Vitamin D labs, PTHrp tests ordered - 1 session hemodialysis #AYDEN (acute kidney injury) Patient is clinically very dry on exam. Has AYDEN, likely due to prerenal dehydration lessening of hypercalcemia. - IVF as above - Monitor daily renal function - Avoid nephrotoxins - Renally dose meds - Strict I's and O's -Will receive 1 session hemodialysis #Hypokalemia Patient has severe hypokalemia, potassium 2.6. Received 40 mEq p.o. potassium and 40 mEq IV potassium. Patient received more potassium in the afternoon due to hypokalemia. Patient continues to have low potassium despite frequent repletion. Possibly related to malnutrition or metastatic cancer. - Replete as needed - Will continue to monitor #Hypernatremia Patient is hyponatremia, sodium 152. Unable to properly assess for symptoms given severe hypercalcemia. Sodium improved the following day, 150. - IVF as above - Monitor daily sodium FEN: Passed swallow screen-->dysphagia diet DVT PPx: Heparin 5K SQ every 8 hours GI PPx: Protonix 40 IV daily Lines: Peripheral IVs, Padilla cath Code Status: Full code Thank you for allowing us to participate in the care of this patient. Plan of care discussed with attending Dr. Jang. Nash Wilson MD PGY?1 Attending Provider Attestation/Addendum Patient currently seen and examined with resident physician Dr. Wilson. Note reviewed, agree with findings and recommendations. Patient currently seen in ICU. Still with hypercalcemia, AMS--intractable to medical mgmt- will do temporary dialysis for correcting electrolyte imbalance. CC time spent 40minutes Patient currently seen on dialysis. Hemodialysis for 3 hours, Qb 200, 4K, C2,5, ultrafiltration 1 L, Epogen 6000, no heparin ordered. Plan of care discussed with the dialysis nurse. Please see dialysis flowsheet for further details. spoek to ICU Team.
--- NOTE | 2025-03-05 17:09 | PD.RESPROC ---
Procedures Procedure Date / Time 03/05/25 1709 Procedure Narrative Procedure Narrative: Attending Attestation: I was present for entire procedure. Patient tolerated procedure well with no immediate complications. No significant blood loss. Follow-up chest x-ray confirms no postprocedural pneumothorax with adequate placement of the tip of the catheter. Will proceed with hemodialysis for hypercalcemia. Central Line Placement Right IJ: Indication(s): other (dialysis secondary to hypercalcemia) Informed consent obtained: other (patient's son) Time out done, and the following verified: correct patient, side and site, procedure and patient position Patient placed on monitor/pulse ox: Yes Hand Hygiene: soap & water and alcohol-based hand rub Max Sterile Barrier Techniques used: cap, mask, sterile gown, sterile gloves and sterile full body drape Central line prep: Povidone-Iodine 1% Local anesthesia used: lidocaine 1% Ultrasound used for placement: Yes Sterile Technique if Ultrasound used, including sterile gel: yes Central line lumen inserted: single Post procedure: sutured in place, good blood return, all ports aspirated, flushed, capped and sterile dressing applied Post procedure x-ray: tip of catheter in good position and no pneumothorax seen Patient tolerated procedure: well Complications: none Procedure comment: Procedure time, 11:00 AM Procedure, site, and special equipment obtained. Patient placed supine in Trendelenburg position. Patient's right neck prepped and drapped in sterile manner. Lidocained applied to numb area. Needle introduced with aspiration of venous blood. Guide wire introduced. Scalpel used to place small david. Dilator introduced over guide-wire. Central line catheter over guide-wire. Guide-wire removed. Central catheter secured in place via suture and biopathc to site. chest x-ray obtained. - The patient's plan was discussed with attending Dr. Carol Raymond MD PGY1 Internal Medicine
--- NOTE | 2025-03-05 17:09 | PD.RESPRO ---
Documentation for date of: 03/05/25 Subjective Subjective Interval history: Patient is a 65-year-old female past medical history hypertension, hyperlipidemia, breast cancer status post left mastectomy, CVA, peripheral vascular disease, Raynaud's phenomenon brought in by ambulance from [facility] where she was found to be weak and hypoxic. Patient's son was at bedside who contributed to the story. Patient was seen at bedside and was not communicating well aside from nodding her head to questions after they are being repeated by her son. Son says that patient is wheelchair-bound and has lost weight and has had decreased appetite lately. At baseline she is usually more talkative as they recently went to an family history went where he took care of her. Patient has history of cancer status post left mastectomy with incomplete margin removal. Son states that they recently followed up with oncology who is suspecting that the patient may have recurrent malignancy. Sons also contributes the patient used to be a heavy smoker when she was younger had stopped for some time however she is roommates with her who is a smoker and he states that sometimes she would ask for cigarette from her and he will give it to her. Patient has also used marijuana in the past. She does not drink alcohol. 03/04/2025: Overnight no pyrexia reported for patinet. Patient is alert and orientated to self. Complaining of generlized pain. Small erythemtous lesion non-purulent at site of previous mastectomy, concern for malignancy as patient never followed up with radiation or chemo. PET scan form 2022 showing hypermetabolic pulmonary nodules in right middle lobe. Mulitle hyermetabolic foci in right ribs. Aggressive hydration needed for hypercalcemia. LR at 500 cc per hour. Continue Calcitonin, IV Pamidronate X 1, and Lasix X 1. PTHrp send out Wednesday. Pending Echo. Please keep patinet net positive 1. Dr. Angulo consulted for Wednesday and Dr. Jang following. Updated son about PET scan findings and encouraged him to come in person for goals of care discussion. D/C antibiotics. 03/05/2025: No overnight events. Central Line Tri-flow placed on right IJ for dialysis given hypercalcemia. Net output -720 overnight (5380 input and 6100 urine output). LR stopped today and transitioned to half normal saline. Last dose of Calcitonin scheduled for 7 PM. Exam Vital Signs Temp Pulse Resp BP Pulse Ox O2 Del Method O2 Flow Rate 98.8 F 119 H 20 129/86 H 91 L Room Air 3 03/05/25 14:51 03/05/25 17:00 03/05/25 15:15 03/05/25 17:00 03/05/25 15:15 03/03/25 19:27 03/05/25 14:51 Narrative Exam General Appearance: Alert & Oriented X0, thin female who is lying in bed in no acute distress HEENT: Skull symmetrical and atraumatic. Conjunctivae pale pink and moist. Pupils equal, round, reactive to light and accommodation (PERRL). External ear without lesion or discharge. Straight, nares patient, mucosa pink, no discharge. Cardio: Normal Rate and Rhythm with S1 and S2 heart sounds. No murmurs or extra heart sounds auscultated. No bruits on carotid auscultation. No peripheral edema or cyanosis. Lungs: Symmetric with good expansion. Chest and back non-tender. Breath sounds vesicular without crackles, wheezing or rhonchi Abdomen: Non-tender, Non-distended, Normal Reactive Bowel Sounds Neuro: Yes Alert, No cooperative, No oriented to person, No place, and No time. No verbal. Objective Labs 03/08/25 05:49 03/08/25 05:49 Labs: Laboratory Results - last 24 hr 03/03/25 03/05/25 03/05/25 17:14 00:31 04:54 WBC 18.6 H RBC 3.72 L Hgb 8.8 L Hct 29.5 L MCV 79 L MCH 23.7 L MCHC 29.8 L RDW Std Deviation 76.9 H Plt Count 729 H D Neut % (Auto) 80 Lymph % (Auto) 9 L [place] % (Auto) 3 Eos % (Auto) 1 Baso % (Auto) 0 Neut # (Auto) 15.0 H Lymph # (Auto) 1.8 [place] # (Auto) 0.6 Eos # (Auto) 0.1 Baso # (Auto) 0.1 Immature Gran # (Auto) 1.09 H Absolute Nucleated RBC 2.73 H Immature Gran % 6 H Nucleated RBC % 15 H Smear Path Review Sent to Pathologist Sodium 150 H 150 H Potassium 3.6 D 3.0 L D Chloride 108 H 105 Carbon Dioxide 30.0 30.3 Anion Gap 12 15 BUN 32 H 30 H Creatinine 1.4 H 1.2 Estim Creat Clear Calc 28.4 L 33.1 L eGFR 41 L 50 L BUN/Creatinine Ratio 23 H 25 H Glucose 106 106 Calculated Osmolality 304 H 304 H Calcium 14.8 H* 14.9 H* Corrected Calcium 15.2 H* 15.5 H* Phosphorus 4.2 3.8 Magnesium 1.8 Total Bilirubin 0.8 AST 50 H ALT 24 Alkaline Phosphatase 688 H D Total Protein 5.9 Albumin 3.5 3.3 L Globulin 2.6 Albumin/Globulin Ratio 1.3 25-OH Vitamin D Total 32.1 PTH Intact 13.3 L Hepatitis A IgM Ab Non Reactive Hep Bs Antigen Non Reactive Hep Bs Antibody Reactive (Immune) Hep B Core IgM Ab Non Reactive Hepatitis C Antibody Non Reactive 03/05/25 15:36 WBC RBC Hgb Hct MCV MCH MCHC RDW Std Deviation Plt Count Neut % (Auto) Lymph % (Auto) [place] % (Auto) Eos % (Auto) Baso % (Auto) Neut # (Auto) Lymph # (Auto) [place] # (Auto) Eos # (Auto) Baso # (Auto) Immature Gran # (Auto) Absolute Nucleated RBC Immature Gran % Nucleated RBC % Smear Path Review Sodium 143 Potassium 3.7 D Chloride 103 Carbon Dioxide 32.9 H Anion Gap 7 BUN 19 Creatinine 0.9 Estim Creat Clear Calc 46.1 L eGFR > 60 BUN/Creatinine Ratio 21 H Glucose 92 Calculated Osmolality 287 Calcium 11.7 H D Corrected Calcium 12.3 H D Phosphorus 2.4 Magnesium Total Bilirubin AST ALT Alkaline Phosphatase Total Protein Albumin 3.3 L Globulin Albumin/Globulin Ratio 25-OH Vitamin D Total PTH Intact Hepatitis A IgM Ab Hep Bs Antigen Hep Bs Antibody Hep B Core IgM Ab Hepatitis C Antibody Quality Measures Quality Measures none Advance care planning discussed with:: patient Assessment & Plan Assessment Current Active Medications: Generic Name Dose Route Start Last Admin Trade Name Freq PRN Reason Stop Dose Admin Acetaminophen 650 mg 03/03/25 16:01 Acetaminophen 325 Mg Tablet PO 04/02/25 16:00 Q6H PRN Fever >101.5 Acetaminophen 650 mg 03/03/25 16:01 Acetaminophen 325 Mg Tablet PO 04/02/25 16:00 Q6H PRN PAIN SCALE 1-3 (mild Hydrocodone Bitart/Acetaminophen 1 tab 03/03/25 16:01 03/04/25 17:45 Hydrocodone/Apap 10/325 Tab PO 03/08/25 16:00 1 tab Q4H PRN Administration PAIN SCALE 4-6 (Moderate Albuterol/Ipratropium 3 ml 03/03/25 17:23 Albuterol/Ipratropium (Duoneb) Rt Citlaly 3 Ml Nebu INH 04/02/25 18:59 Q4HRRT PRN SHORTNESS OF BREATH OR WHEEZE Calcitonin [place] 192 unit 03/03/25 16:30 03/05/25 11:24 Calcitonin, [place] Synth Inj 1 Unit/0.005 Ml Vial SC 04/02/25 16:29 192 unit Q12HR JUAN Administration Heparin Sodium (Porcine) 5,000 unit 03/03/25 22:00 03/05/25 13:16 Heparin Sod Inj 5000 Unit/Ml Vial SC 03/17/25 21:59 5,000 unit Q8HR JUAN Administration Heparin Sodium (Porcine) 2,600 unit 03/05/25 15:12 Heparin Sod Inj 1000 Unit/Ml Vial 10 Ml INDWELLCAT 03/19/25 15:11 PRN PRN DIALYSIS Ceftriaxone Sodium/Dextrose 1 gm in 50 mls @ 100 mls/hr 03/05/25 09:00 03/05/25 08:45 Rocephin/D5w 1gm Iv Premix IV 03/12/25 08:59 100 mls/hr QDAY JUAN Administration Albumin Human 25 gm in 100 mls @ 100 mls/min 03/05/25 11:03 03/05/25 15:46 Albuminar-25 Ivpb IV 100 mls/min PRN PRN Administration DIALYSIS Ondansetron HCl 4 mg 03/03/25 16:01 Ondansetron Inj 2 Mg/Ml Inj 2 Ml IV 04/02/25 16:00 Q6H PRN NAUSEA OR VOMITING Protocol Pantoprazole Sodium 40 mg 03/04/25 09:00 03/05/25 08:45 Pantoprazole Inj 40 Mg Vial IVP 04/03/25 08:59 40 mg QDAY JUAN Administration Potassium Chloride 40 meq 03/04/25 11:00 03/05/25 10:57 Potassium Chloride 10% 20 Meq/15 Ml Udc PO 04/03/25 10:59 Not Given BID JUAN Plan 65-year-old female past medical history hypertension, hyperlipidemia, breast cancer status post left mastectomy, CVA, peripheral vascular disease, Raynaud's phenomenon admitted to ICU for severe symptomatic hypercalcemia. Neuro #Acute encephalopathy, worsened Likely secondary to hypercalcemia and malignancy, patinet would benefit from brain MRI after improved hypercalcemia and can not rule out UTI, UA positive. Pneumonia less likely. Patient is lethargic but easily arousable she can head no to questions Patient baseline is alert and oriented and able to answer questions according to her son Plan: ? Frequent neurochecks ? Treat underlying hyperglycemia CVS # Episode of SVT #Tachycardia Patient had a small run of SVT in the ED for which she was close to getting cardioverted however she converted after dose of Dilt Patient is now in sinus rhythm with a heart rate in the low 100s Likely secondary to hypercalcemia Plan: ? Will correct underlying hypercalcemia ? Will keep potassium above 4 magnesium above 2 ? Monitor closely in telemetry ICU #Troponinemia Likely secondary to demand ischemia from tachycardia and an episode of SVT Troponins were elevated at 1.446 EKG did not show any obvious ST segment elevations Patient denied any chest pain or shortness of breath by shaking her head Plan: -no acute intervention less likely cardiac in nature. Resp #Acute hypoxic respiratory failure #Community-acquired pneumonia, less likely #History of smoking Patient was found to be hypoxic in the nursing facility and required 6 L to saturate at 91% in our ED Chest x-ray showed bibasilar pneumonias Patient is to be a heavy smoker and seems to be smoking on and off, possible underlying COPD Plan: ? Started ceftriaxone azithromycin, stopped on 03/04/2025 ? DuoNebs as needed for shortness of breath or wheezing ? Will wean down O2 as tolerated GI #Stable Renal #AYDEN, improving s/p dialysis x1 Likely prerenal from severe dehydration Patient presented with a creatinine of 2.2 from 1.0 and a BUN of 65 With a setting of hypercalcemia, nephrology plan for dialysis today Plan: ?Follow-up with Daily renal function ?Appreciate nephrology recommendations Endocrine #Hypercalcemia, improved #s/p Dialsysis Likely secondary to malignancy versus severe dehydration versus vitamin D intoxication rule out Patient has a history of breast cancer which may be recurring according to history Patient looks severely dehydrated on bedside examination Corrected calcium levels were 17.1 Patient was given 2 L bolus as well as Lasix in the ED Patient is symptomatic as she is confused from her baseline and she had an episode of SVT in the ED Plan: -Fluids d/c ? Calcitonin 192 units subcu twice daily, last dose after 7 PM on 03/05/2025 ? IV lasix 40 mg IVP X 1 and IV Pamidronate X 1 (03/04/2025) ? Follow up with next creatinine calcium level ? Frequent neurochecks ? Strict CHEPE's ? Telemetry monitoring ? PTH, vitamin D 1 23D hydroxy and 25 OH vitamin D total, and PTHrp ID/Skin #Sepsis, in setting of CAP, ruled out. #CAP, ruled out. #UTI less likely Patient presented with tachycardia and hypoxia with an elevated white count of 21.2 Vitals could be contributed by hypercalcemia however she did have bibasilar pneumonias on x-ray, which is likely secondary malignancy. UA positive. Ordered Urine culture. stopped antibiotics. Small erythematous lesion at site of previous mastectomy, non concern for infection. Patient received 2 L bolus NS in the ED Plan: ? Zofran as needed ? Monitor daily CBCs Hematology #Leukocytosis likely in the setting of metastasis, as noted in PET scan. Infectious cause less likely. #Anemia likely of chronic disease Patient's hemoglobin was 10.7 but she has a history of dark stools in the past which have improved according to her son. Iron Panel: Iron 48 L, TIBC 145, Iron Saturation 33, Unsat iron 97 and Ferritin 175 MCV is 79. Patient does have a history of cancer Plan: ? Follow daily CBCs ? Transfuse if hemoglobin less than 7 Hospital Maintenance: FEN: NPO DVT PPx: Heparin 5K SQ every 8 hours GI PPx: Protonix 40 IV daily IV lines: Peripheral IVs and central tri-flow RIJ [place]: In Code Status: Full code Dispo: Patient will remain in the ICU for further management of her severe hypercalcemia, scheduled dialysis - The patient's plan was discussed with attending Dr. Carol Raymond MD PGY1 Internal Medicine Attending Provider Attestation/Addendum Patient seen and examined with the above resident, Aarti Raymond MD. I agree with the findings, assessment, and plan of care as document except for any differences below. Patient continues to have altered mentation secondary to hypercalcemia. Despite aggressive fluids and good urine output including challenge with loop diuretics to enable further calcium excretion level remains elevated. Will plan for hemodialysis today. A right IJ HD catheter was placed at bedside. Patient tolerated procedure well with adequate positioning of catheter for first HD today. Discussed with nephrology with ongoing plans including use of denosumab, bisphosphonate, calcitonin, and ongoing fluids which we have now stopped as the patient is having new oxygen requirement likely in the setting of increasing interstitial edema from volume overload. Patient will have 1 L removed during HD to optimize respiratory status as well. Patient will need to be assessed by oncology for further input given stage IV/metastatic likely breast cancer with local recurrence as etiology. This will need to ultimately be discussed with her and her son once her mentation has improved as far as goals of therapy. We are unclear of her baseline neurologic status still though this seems to be far from her normal per family. However her cognitive function seems to not be completely normal and more recent decline may actually have been related to slow progression of hypercalcemia. Total critical care time: I personally spent 40 minutes for review of physiologic parameters, directed plan of care throughout the day, coordination of care with other specialists, and counseling family. This is exclusive of time spent teaching housestaff or performing any separate billable procedures. Patient remains at significant risk for further morbidity and mortality warranting close monitoring and care only available in the ICU. Patient receiving critical care services for acute encephalopathy, metabolic and hypercalcemia secondary to metastatic breast cancer, presumed.
[2025-03-05] MEDS: HEPARIN SOD INJ 1000 UNIT/ML VIAL 10 ML 2600 UNIT INDWELLCAT (18:15)
[2025-03-06] VITALS (45 sets, daily range): BP systolic 104–181; BP diastolic 65–108; PULSE 82–122; RESP 6–56; TEMP 36.3–36.9; O2SAT 91–100
[2025-03-06] MEDS: HEPARIN SOD INJ 5000 UNIT/ML VIAL SC ×3 (05:35→21:08)
[2025-03-06 06:14] LABS: Basophils # (Auto) 0.1 Thou/mm3 (0.0-0.2); Basophils % (Auto) 1 % (0-2.5); Eosinophils # (Auto) 0.2 Thou/mm3 (0.0-0.5); Eosinophils % (Auto) 1 % (0-10); Immature Granulocytes % (Auto) 4 % (0-0); Immature Granulocytes Auto 0.51 Thou/mm3 (0.00-0.00); Lymphocytes # (Auto) 1.7 Thou/mm3 (1.0-4.8); Lymphocytes % (Auto) 12 % (10-50); Mean Corpuscular HGB Conc 30.7 g/dl (31.0-37.0); Mean Corpuscular Hemoglobin 24.2 pg (25.0-35.0); Mean Corpuscular Volume 79 fL (80-100); Monocytes # (Auto) 0.6 Thou/mm3 (0.0-0.8); Monocytes % (Auto) 4 % (0-12); Neutrophils # (Auto) 11.5 Thou/mm3 (1.8-7.7); Neutrophils % (Auto) 79 % (37-80); Nucleated Red Blood Cell # 3.13 Thou/mm3 (0.00-0.00); Nucleated Red Blood Cell % 21 /100 WBC (0); Platelet Count 447 Thou/mm3 (140-440); RDW Standard Deviation 76.9 fL (36.4-46.3); Red Blood Count 3.56 Miln/mm3 (4.00-5.20); White Blood Count 14.6 Thou/mm3 (3.6-11.0)
[2025-03-06 06:24] LABS: Hemoglobin 8.6 g/dL (12.0-16.0)
[2025-03-06 06:51] LABS: Alanine Aminotransferase 16 U/L (10-49); Albumin, Serum 3.5 gm/dL (3.4-4.8); Albumin/Globulin Ratio 1.5 (1.2-2.2); Alkaline Phosphatase 725 U/L (46-116); Anion Gap 11 (7-16); Aspartate Amino Transferase 74 U/L (0-34); BUN/Creatinine Ratio 14 Ratio (12-20); Bilirubin,Total 0.9 mg/dL (0.3-1.2); Blood Urea Nitrogen 23 mg/dL (9-23); Calcium 11.7 mg/dL (8.3-10.6); Calcium (Corrected) 12.1 mg/dL (8.5-10.1); Carbon Dioxide 28.8 mMol/L (20.0-31.0); Chloride 102 mMol/L (98-107); Creatinine (Component) 1.6 mg/dL (0.6-1.3); Estimated Creatinine Clearance 24.2 mL/min (>60); Globulin 2.3 gm/dL (2.3-3.5); Glucose 95 mg/dL (74-106); Magnesium 1.8 mg/dL (1.6-2.6); Osmolality,Calculated 286 (275-295); Phosphorous 3.6 mg/dL (2.4-5.1); Potassium 3.6 mMol/L (3.4-5.1); Sodium 142 mMol/L (136-145); Total Protein 5.8 gm/dL (5.7-8.2); eGFR 35 See Note
--- NOTE | 2025-03-06 08:31 | XR_ITS ---
Examination: CT chest with intravenous contrast CT abdomen with intravenous contrast CT pelvis with intravenous contrast 2-D coronal and sagittal reconstructions Time of exam: March 07, 2025 at [address] scan April 08, 2023 INDICATIONS: Diagnosis malignant neoplasm breast, staging, severe hypercalcemia CTDI: vol (mGy) : 5.23 DLP: (mGycm): 332 Technique: Multiple axial images of the chest, abdomen and pelvis with intravenous contrast, 3.0 mm slice thickness. Images obtained post intravenous injection Isovue 370 60 cc. 2-D sagittal and coronal reconstructions. Low dose protocols were performed. One or more of the following dose reduction techniques were used; automated exposure control, adjustment of the mA and/or KV according to patient size, use of iterative reconstruction technique. Findings: AP dimension ascending thoracic aorta 35 mm No pulmonary artery filling defects No paratracheal tracheobronchial or bronchopulmonary adenopathy No chest wall mass 6 mm pulmonary nodule left upper lobe image 39 17 mm pulmonary nodule right middle lobe image 162 Bibasilar pneumonia with small bilateral pleural effusions No visualized liver or splenic lesion Distended gallbladder No pancreatic mass Abdominal aorta is not enlarged No hydronephrosis No bowel obstruction Normal appendix No diverticulitis Atrophic anteverted uterus Urinary bladder contracted around a Padilla catheter with urinary bladder wall thickening 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
--- NOTE | 2025-03-06 08:39 | ESPR_ITS ---
Documentation for date of: 03/06/25 Subjective Subjective Interval history: Patient was seen and examined at bedside this morning. No acute overnight events. Patient was admitted recently to the ICU on 03/03/2025 due to hypercalcemia. Throughout the ICU course patient did not clear her calcium down on calcitonin therefore nephrology was consulted and started the patient on hemodialysis. Given that the patient does have a history of breast cancer which most likely recurred oncology was consulted. Patient at this time most likely has recurrence of her breast cancer with possible metastasis. Patient is still minimally responsive and she is following very minimal commands and is not responding to questions. At this time there is suspicion of possible brain metastasis therefore brain MRI was ordered and will order CT chest/abdomen/pelvis to look for other possible metastasis. Exam Vital Signs Temp Pulse Resp BP Pulse Ox O2 Del Method O2 Flow Rate 98.4 F 112 H 24 H 113/77 93 L Nasal Cannula 2 03/06/25 04:00 03/06/25 06:48 03/06/25 06:48 03/06/25 06:00 03/06/25 06:48 03/06/25 04:00 03/06/25 04:00 Narrative Exam General: not able to communicate, but moving all extremities and following minimal commands. Eyes: PERRL, EOMI. Anicteric, not tracking Ears: No ear discharge. Nose: No nasal discharge. Mouth/Throat: Dry mucous membranes, no redness, no lesions. Neck: Neck supple, non-tender, no cervical lymphadenopathy. Lungs: Clear VANESSA to auscultation and percussion, No accessory muscle use. Cardio: Normal S1/S2, regular rhythm, no murmurs, no JVD Abdomen: Soft, non-tender, no palpable masses, peristalsis present, no guarding or rebound. Extremities: Symmetrical, no significant deformities, no peripheral edema , non-tender, peripheral pulses presents. Skin: Lesion on L thoracic wall with ulceration and fixed to wall. Neuro: No focal neurological deficits appreciated but was limited due to patient's mental status. Able to follow very minimal commands and not able to answer questions. Objective Labs 03/07/25 04:42 03/07/25 04:42 Labs: Laboratory Results - last 24 hr 03/05/25 03/05/25 03/06/25 04:54 15:36 05:00 WBC 14.6 H RBC 3.56 L Hgb 8.6 L Hct 28.0 L MCV 79 L MCH 24.2 L MCHC 30.7 L RDW Std Deviation 76.9 H Plt Count 447 H D Neut % (Auto) 79 Lymph % (Auto) 12 [place] % (Auto) 4 Eos % (Auto) 1 Baso % (Auto) 1 Neut # (Auto) 11.5 H Lymph # (Auto) 1.7 [place] # (Auto) 0.6 Eos # (Auto) 0.2 Baso # (Auto) 0.1 Immature Gran # (Auto) 0.51 H Absolute Nucleated RBC 3.13 H Immature Gran % 4 H Nucleated RBC % 21 H Smear Path Review Sent to Pathologist Sodium 143 142 Potassium 3.7 D 3.6 Chloride 103 102 Carbon Dioxide 32.9 H 28.8 Anion Gap 7 11 BUN 19 23 Creatinine 0.9 1.6 H D Estim Creat Clear Calc 46.1 L 24.2 L eGFR > 60 35 L BUN/Creatinine Ratio 21 H 14 Glucose 92 95 Calculated Osmolality 287 286 Calcium 11.7 H D 11.7 H Corrected Calcium 12.3 H D 12.1 H Phosphorus 2.4 3.6 Magnesium 1.8 Total Bilirubin 0.9 AST 74 H ALT 16 Alkaline Phosphatase 725 H D Total Protein 5.8 Albumin 3.3 L 3.5 Globulin 2.3 Albumin/Globulin Ratio 1.5 Hepatitis A IgM Ab Non Reactive Hep Bs Antigen Non Reactive Hep Bs Antibody Reactive (Immune) Hep B Core IgM Ab Non Reactive Hepatitis C Antibody Non Reactive Quality Measures Quality Measures VTE prophylaxis Advance care planning discussed with:: patient, child and legal surragate Assessment & Plan Assessment Current Active Medications: Generic Name Dose Route Start Last Admin Trade Name Freq PRN Reason Stop Dose Admin Acetaminophen 650 mg 03/03/25 16:01 Acetaminophen 325 Mg Tablet PO 04/02/25 16:00 Q6H PRN Fever >101.5 Acetaminophen 650 mg 03/03/25 16:01 Acetaminophen 325 Mg Tablet PO 04/02/25 16:00 Q6H PRN PAIN SCALE 1-3 (mild Hydrocodone Bitart/Acetaminophen 1 tab 03/03/25 16:01 03/04/25 17:45 Hydrocodone/Apap 10/325 Tab PO 03/08/25 16:00 1 tab Q4H PRN Administration PAIN SCALE 4-6 (Moderate Albuterol/Ipratropium 3 ml 03/03/25 17:23 Albuterol/Ipratropium (Duoneb) Rt Citlaly 3 Ml Nebu INH 04/02/25 18:59 Q4HRRT PRN SHORTNESS OF BREATH OR WHEEZE Heparin Sodium (Porcine) 5,000 unit 03/03/25 22:00 03/06/25 05:35 Heparin Sod Inj 5000 Unit/Ml Vial SC 03/17/25 21:59 5,000 unit Q8HR JUAN Administration Heparin Sodium (Porcine) 2,600 unit 03/05/25 15:12 03/05/25 18:15 Heparin Sod Inj 1000 Unit/Ml Vial 10 Ml INDWELLCAT 03/19/25 15:11 2,600 unit PRN PRN Administration DIALYSIS Albumin Human 25 gm in 100 mls @ 100 mls/min 03/05/25 11:03 03/05/25 15:46 Albuminar-25 Ivpb IV 100 mls/min PRN PRN Administration DIALYSIS Lactated Ringer's 1,000 mls @ 60 mls/hr 03/06/25 08:45 Lactated Ringers IV 04/05/25 08:44 .[id number] JUAN Ondansetron HCl 4 mg 03/03/25 16:01 Ondansetron Inj 2 Mg/Ml Inj 2 Ml IV 04/02/25 16:00 Q6H PRN NAUSEA OR VOMITING Protocol Pantoprazole Sodium 40 mg 03/04/25 09:00 03/05/25 08:45 Pantoprazole Inj 40 Mg Vial IVP 04/03/25 08:59 40 mg QDAY JUAN Administration Potassium Chloride 40 meq 03/04/25 11:00 03/05/25 20:52 Potassium Chloride 10% 20 Meq/15 Ml Udc PO 04/03/25 10:59 Not Given BID JUAN Plan 65-year-old female with past medical history of breast cancer s/p left mastectomy, hypertension, hyperlipidemia, CVA, peripheral vascular disease, and Raynaud's phenomenon was admitted to the ICU on 03/03/2025 for hypercalcemia likely in the setting of possible malignancy before being downgraded to the medical floors on 03/06/2025 for further management. #Acute encephalopathy #Hypercalcemia #Hx of breast cancer with possible recurrence and metastasis Patient was recently admitted to the ICU on 03/03/2025 for hypercalcemia likely in the setting of possible malignancy. Patient does have a history of breast cancer status post left mastectomy, but given hypercalcemia as well as lesion seen on the left chest wall patient mostly had recurrence of breast cancer which possibly could have metastasized to the brain causing her acute encephalopathy versus her hypocalcemia from possible malignancy causing her acute encephalopathy. Patient's initial calcium was 17 and today is 11.7 and 12.2 corrected Alkaline phosphatase was also elevated at 725 today Patient received calcitonin as well as pamidronate in the ICU Patient required hemodialysis after session was on 03/05/2025. Patient may benefit of goals of care discussion with family after imaging is done and was oncology states what would be the course of action. Plan: Will continue with hemodialysis as scheduled Will continue with IV fluids Pending brain MRI for possible metastasis to the brain Pending CT of chest/abdomen/pelvis for evaluation of possible metastasis elsewhere Will continue to monitor calcium with daily labs Nephrology consulted, appreciate recommendations Oncology consulted, appreciate recommendations #Acute hypoxic respiratory failure #Community-acquired pneumonia #Hx of smoking Patient is ex x-ray that showed no pneumonia, but does look more like vascular congestion than pneumonia at this time Patient did receive one-time dose of antibiotics Plan: Will continue with DuoNebs as needed Will continue with O2 administration Will continue to monitor #AYDEN Patient came in with creatinine of 2.2 and her baseline is around 1 Patient creatinine today was 1.6 Likely in the setting of hypovolemia versus possible ATN given hypercalcemia Patient is currently on hemodialysis Plan: IV fluids Will continue with hemodialysis schedule Avoid nephrotoxic agents Renally dose medication Nephrology consulted, prescription medications #Anemia of chronic disease Patient's hemoglobin was 10.7 on admission and her baseline is around 8 Hemoglobin today 8.6, but no active signs of bleeding Plan: Will transfuse a hemoglobin less than 7 Will continue to monitor #Leukocytosis Patient's WBC downtrending Most likely reactive in the setting of possible malignancy Plan: Will continue to monitor #NSTEMI Patient's troponins did come back elevated at 1.446 and peaked at 2.209 before downtrending EKG did not show any ST depressions or elevations Plan: Will continue to monitor Disposition: Patient seen in telemetry for hypercalcemia 2/2 possible malignancy, pending Brain MRI and CT chest/abd/pelvis Diet: NPO GI prophylaxis: protonix DVT prophylaxis: heparin subcu Code: Full code Case disclosed with Attending Dr. Kun Mccarthy PGY1 Attending Provider Attestation/Addendum I reviewed labs, imaging, EKG, home medications and prior available records. Face to face evaluation was performed by me. I have personally examined the patient and discussed assessment and plan with the IM team. I reviewed the resident note and agree with the plan with exceptions as below. Acute encephalopathy Breast cancer status post left mastectomy Acute hypoxic respiratory failure AYDEN Hypercalcemia Non-STEMI Concern for brain metastasis given the significant change in mental status. Ordered brain MRI Discussed with dietitian: May try sips of water. Concern for inability to receive oral intake She received IV hydration Ordered CT scan of the chest, abdomen, and pelvis, to check for metastasis Calcium level improved. She received calcitonin and denosumab. Continue to monitor calcium level Discussed with nephrology: Will continue hemodialysis. Monitor kidney function and electrolytes Troponin peaked. Likely demand ischemia in setting of above. Management as above. Patient is full code. Will benefit from goals of care discussion after we get the results of her brain MRI and CT chest/abdomen/pelvis. Gave Dyan from [facility] a heads up as the patient is a potential hospice candidate
--- NOTE | 2025-03-06 09:00 | PD.RESPRO ---
Documentation for date of: 03/06/25 Subjective Subjective Interval history: Patient is a 65-year-old female past medical history hypertension, hyperlipidemia, breast cancer status post left mastectomy, CVA, peripheral vascular disease, Raynaud's phenomenon brought in by ambulance from [facility] where she was found to be weak and hypoxic. Patient's son was at bedside who contributed to the story. Patient was seen at bedside and was not communicating well aside from nodding her head to questions after they are being repeated by her son. Son says that patient is wheelchair-bound and has lost weight and has had decreased appetite lately. At baseline she is usually more talkative as they recently went to an family history went where he took care of her. Patient has history of cancer status post left mastectomy with incomplete margin removal. Son states that they recently followed up with oncology who is suspecting that the patient may have recurrent malignancy. Sons also contributes the patient used to be a heavy smoker when she was younger had stopped for some time however she is roommates with her who is a smoker and he states that sometimes she would ask for cigarette from her and he will give it to her. Patient has also used marijuana in the past. She does not drink alcohol. 03/04/2025: Overnight no pyrexia reported for patinet. Patient is alert and orientated to self. Complaining of generlized pain. Small erythemtous lesion non-purulent at site of previous mastectomy, concern for malignancy as patient never followed up with radiation or chemo. PET scan form 2022 showing hypermetabolic pulmonary nodules in right middle lobe. Mulitle hyermetabolic foci in right ribs. Aggressive hydration needed for hypercalcemia. LR at 500 cc per hour. Continue Calcitonin, IV Pamidronate X 1, and Lasix X 1. PTHrp send out Wednesday. Pending Echo. Please keep patinet net positive 1. Dr. Angulo consulted for Wednesday and Dr. Jang following. Updated son about PET scan findings and encouraged him to come in person for goals of care discussion. D/C antibiotics. 03/05/2025: No overnight events. Central Line Tri-flow placed on right IJ for dialysis given hypercalcemia. Net output -720 overnight (5380 input and 6100 urine output). LR stopped today and transitioned to half normal saline. Last dose of Calcitonin scheduled for 7 PM. 03/06/2025 No overnight events. Meagan continues to be NPO as meagan louis can not swallow food safely. Previous speech evaluation for dysphagia diet on this admission. Keep meagan NPO, day 2. Resume fluids. Completed Calcitonin and IV Pamidronate x 1. Continue dilaysis. Meagan's son would likely to persue all treatment at the moment. Patient from [facility]. Brain MRI ordered with and without contrast, likely malignacy spread given altered mental status. No antihypertensive medication given overall poor progrnosis. Exam Vital Signs Temp Pulse Resp BP Pulse Ox O2 Del Method O2 Flow Rate 98.2 F 107 H 34 H 126/74 96 Nasal Cannula 2 03/06/25 08:01 03/06/25 08:01 03/06/25 08:01 03/06/25 08:01 03/06/25 08:01 03/06/25 04:00 03/06/25 04:00 Narrative Exam General Appearance: Alert & Oriented X0, thin female who is lying in bed in no acute distress HEENT: Skull symmetrical and atraumatic. Conjunctivae pale pink and moist. Pupils equal, round, reactive to light and accommodation (PERRL). External ear without lesion or discharge. Straight, nares patient, mucosa pink, no discharge. Cardio: Normal Rate and Rhythm with S1 and S2 heart sounds. No murmurs or extra heart sounds auscultated. No bruits on carotid auscultation. No peripheral edema or cyanosis. Lungs: Symmetric with good expansion. Chest and back non-tender. Breath sounds vesicular without crackles, wheezing or rhonchi Abdomen: Non-tender, Non-distended, Normal Reactive Bowel Sounds Neuro: Yes Alert, No cooperative, No oriented to person, No place, and No time. No verbal. Objective Labs 03/07/25 04:42 03/07/25 04:42 Labs: Laboratory Results - last 24 hr 03/05/25 03/05/25 03/06/25 04:54 15:36 05:00 WBC 14.6 H RBC 3.56 L Hgb 8.6 L Hct 28.0 L MCV 79 L MCH 24.2 L MCHC 30.7 L RDW Std Deviation 76.9 H Plt Count 447 H D Neut % (Auto) 79 Lymph % (Auto) 12 [place] % (Auto) 4 Eos % (Auto) 1 Baso % (Auto) 1 Neut # (Auto) 11.5 H Lymph # (Auto) 1.7 [place] # (Auto) 0.6 Eos # (Auto) 0.2 Baso # (Auto) 0.1 Immature Gran # (Auto) 0.51 H Absolute Nucleated RBC 3.13 H Immature Gran % 4 H Nucleated RBC % 21 H Smear Path Review Sent to Pathologist Sodium 143 142 Potassium 3.7 D 3.6 Chloride 103 102 Carbon Dioxide 32.9 H 28.8 Anion Gap 7 11 BUN 19 23 Creatinine 0.9 1.6 H D Estim Creat Clear Calc 46.1 L 24.2 L eGFR > 60 35 L BUN/Creatinine Ratio 21 H 14 Glucose 92 95 Calculated Osmolality 287 286 Calcium 11.7 H D 11.7 H Corrected Calcium 12.3 H D 12.1 H Phosphorus 2.4 3.6 Magnesium 1.8 Total Bilirubin 0.9 AST 74 H ALT 16 Alkaline Phosphatase 725 H D Total Protein 5.8 Albumin 3.3 L 3.5 Globulin 2.3 Albumin/Globulin Ratio 1.5 Hepatitis A IgM Ab Non Reactive Hep Bs Antigen Non Reactive Hep Bs Antibody Reactive (Immune) Hep B Core IgM Ab Non Reactive Hepatitis C Antibody Non Reactive Quality Measures Quality Measures VTE prophylaxis Advance care planning discussed with:: patient Assessment & Plan Assessment Current Active Medications: Generic Name Dose Route Start Last Admin Trade Name Freq PRN Reason Stop Dose Admin Acetaminophen 650 mg 03/03/25 16:01 Acetaminophen 325 Mg Tablet PO 04/02/25 16:00 Q6H PRN Fever >101.5 Acetaminophen 650 mg 03/03/25 16:01 Acetaminophen 325 Mg Tablet PO 04/02/25 16:00 Q6H PRN PAIN SCALE 1-3 (mild Hydrocodone Bitart/Acetaminophen 1 tab 03/03/25 16:01 03/04/25 17:45 Hydrocodone/Apap 10/325 Tab PO 03/08/25 16:00 1 tab Q4H PRN Administration PAIN SCALE 4-6 (Moderate Albuterol/Ipratropium 3 ml 03/03/25 17:23 Albuterol/Ipratropium (Duoneb) Rt Citlaly 3 Ml Nebu INH 04/02/25 18:59 Q4HRRT PRN SHORTNESS OF BREATH OR WHEEZE Heparin Sodium (Porcine) 5,000 unit 03/03/25 22:00 03/06/25 05:35 Heparin Sod Inj 5000 Unit/Ml Vial SC 03/17/25 21:59 5,000 unit Q8HR JUAN Administration Heparin Sodium (Porcine) 2,600 unit 03/05/25 15:12 03/05/25 18:15 Heparin Sod Inj 1000 Unit/Ml Vial 10 Ml INDWELLCAT 03/19/25 15:11 2,600 unit PRN PRN Administration DIALYSIS Albumin Human 25 gm in 100 mls @ 100 mls/min 03/05/25 11:03 03/05/25 15:46 Albuminar-25 Ivpb IV 100 mls/min PRN PRN Administration DIALYSIS Lactated Ringer's 1,000 mls @ 60 mls/hr 03/06/25 08:45 03/06/25 09:28 Lactated Ringers IV 03/07/25 01:24 60 mls/hr .[id number] JUAN Administration Ondansetron HCl 4 mg 03/03/25 16:01 Ondansetron Inj 2 Mg/Ml Inj 2 Ml IV 04/02/25 16:00 Q6H PRN NAUSEA OR VOMITING Protocol Pantoprazole Sodium 40 mg 03/04/25 09:00 03/06/25 09:29 Pantoprazole Inj 40 Mg Vial IVP 04/03/25 08:59 40 mg QDAY JUAN Administration Potassium Chloride 40 meq 03/04/25 11:00 03/06/25 09:29 Potassium Chloride 10% 20 Meq/15 Ml Udc PO 04/03/25 10:59 Not Given BID JUAN Plan 65-year-old female past medical history hypertension, hyperlipidemia, breast cancer status post left mastectomy, CVA, peripheral vascular disease, Raynaud's phenomenon admitted to ICU for severe symptomatic hypercalcemia. Neuro #Acute encephalopathy, worsened Likely secondary to hypercalcemia vs malignancy given extent of metastasis as noted in PET scan from 2022. Pneumonia less likely. Patient is lethargic but easily arousable. Patient baseline is alert and oriented and able to answer questions according to her son Plan: -Brain MRI w/ and without contrast for possible malignancy mets ? Frequent neurochecks ? Treat underlying hyperglycemia CVS #Episode of SVT #Tachycardia Patient had a small run of SVT in the ED for which she was close to getting cardioverted however she converted after dose of Dilt Patient is now in sinus rhythm with a heart rate in the low 100s Likely secondary to hypercalcemia Plan: ? Will correct underlying hypercalcemia ? Will keep potassium above 4 magnesium above 2 ? Monitor closely in telemetry ICU #Troponinemia Likely secondary to demand ischemia from tachycardia and an episode of SVT Troponins were elevated at 1.446 EKG did not show any obvious ST segment elevations Patient denied any chest pain or shortness of breath by shaking her head Plan: -no acute intervention less likely cardiac in nature. Resp #Acute hypoxic respiratory failure, improved #Community-acquired pneumonia, less likely #History of smoking Patient was found to be hypoxic in the nursing facility and required 6 L to saturate at 91% in our ED Chest x-ray showed bibasilar pneumonias Patient is to be a heavy smoker and seems to be smoking on and off, possible underlying COPD Plan: ? Started ceftriaxone azithromycin, stopped on 03/04/2025 ? DuoNebs as needed for shortness of breath or wheezing ? Will wean down O2 as tolerated GI #Dysphagia Patient is NPO. Speech Evaluation dysphagia diet 1. Keep patient NPO until acute encephlopathy improves. Consider PPN. Patient would benefit from goals of care once again. Renal #AYDEN, improving s/p dialysis x1 Likely pre-renal from severe dehydration Patient presented with a creatinine of 2.2 from 1.0 and a BUN of 65. Completed one course of dialysis. Tentative dialysis for today. Plan: -LR @ 60 cc per hour -Hemodialysis today ?Follow-up with Daily renal function ?Appreciate nephrology recommendations Endocrine #Hypercalcemia, improved #s/p Dialsysis Likely secondary to malignancy versus severe dehydration versus vitamin D intoxication rule out. PTH 13.3 in the setting of hypercalcemia. Pending Vitamin D levels. Pending PTHrp which was a send out. Patient has a history of breast cancer which may be recurring according to history Patient looks severely dehydrated on bedside examination Corrected calcium levels were 17.1 Patient was given 2 L bolus as well as Lasix in the ED Patient is symptomatic as she is confused from her baseline and she had an episode of SVT in the ED Plan: ? Calcitonin 192 units subcu twice daily, last dose after 7 PM on 03/05/2025 ? IV lasix 40 mg IVP X 1 and IV Pamidronate X 1 (03/04/2025) ? Follow up with next creatinine calcium level ? Frequent neurochecks ? Strict CHEPE's ? Telemetry monitoring ? PTH, vitamin D 1 23D hydroxy and 25 OH vitamin D total, and PTHrp ID/Skin #Sepsis, in setting of CAP, ruled out. #CAP, ruled out. #UTI less likely Patient presented with tachycardia and hypoxia with an elevated white count of 21.2 Vitals could be contributed by hypercalcemia however she did have bibasilar pneumonias on x-ray, which is likely secondary malignancy. UA positive. Ordered Urine culture. stopped antibiotics. Small erythematous lesion at site of previous mastectomy, non concern for infection. Patient received 2 L bolus NS in the ED Plan: ? Zofran as needed ? Monitor daily CBCs Hematology #Leukocytosis likely in the setting of metastasis, as noted in PET scan. Infectious cause less likely. #Anemia likely of chronic disease Patient's hemoglobin was 10.7 but she has a history of dark stools in the past which have improved according to her son. Iron Panel: Iron 48 L, TIBC 145, Iron Saturation 33, Unsat iron 97 and Ferritin 175 MCV is 79. Patient does have a history of cancer Plan: -EPO ? Follow daily CBCs ? Transfuse if hemoglobin less than 7 Hospital Maintenance: FEN: NPO, consider goals of care with family again given worsening acute encephalopathy DVT PPx: Heparin 5K SQ every 8 hours GI PPx: Protonix 40 IV daily IV lines: Peripheral IVs and central tri-flow RIJ Padilla: In Code Status: Full code Dispo: Patient will remain in the ICU for further management of her severe hypercalcemia, scheduled dialysis - The patient's plan was discussed with attending Dr. Carol Raymond MD PGY1 Internal Medicine Attending Provider Attestation/Addendum Patient seen and examined with above resident, Aarti Raymond MD. I agree with the findings, assessment, plan of care as documented except for any differences below. Patient with significant improvement post hemodialysis and hypercalcemia. However continues to be elevated. Her mentation has yet to return to baseline. Repeat hemodialysis after discussion with nephrology today. Patient otherwise remains hemodynamically stable and on minimal oxygen requirements. Will plan to keep her n.p.o. until her mentation improves and she passes a swallow evaluation. Otherwise, patient remains on appropriate prophylaxis. Will transition her to medicine rodrigez for ongoing management. I remain available in case if needed with help with removal of dialysis catheter after completed on therapy per nephrology. Patient's son was updated at bedside by resident. Total critical care time: I personally spent 35 minutes for review of physiologic parameters, directing plan of care, coordination of care with other specialists, and counseling patient's family at bedside. This is exclusive of time spent teaching housestaff or performing any separate billable procedures. Patient remains at significant risk for further morbidity and mortality warranting close monitoring of care only available in the ICU. Patient receiving critical care services for severe hypercalcemia with acute metabolic encephalopathy.
--- NOTE | 2025-03-06 09:12 | PD.RESPRO ---
Documentation for date of: 03/06/25 Subjective Subjective Interval history: 65 y/o F with PMHx significant for hypertension, hyperlipidemia, breast cancer status post left mastectomy, CVA, peripheral vascular disease, Raynaud's phenomenon brought in by ambulance from [facility] where she was found to be weak and hypoxic. Patient was seen at bedside and was not communicating well aside from nodding her head to questions after they are being repeated by her son. Son says that patient is wheelchair-bound and has lost weight and has had decreased appetite lately. Patient has history of cancer status post left mastectomy with incomplete margin removal. Son states that they recently followed up with oncology who is suspecting that the patient may have recurrent malignancy. Sons also contributes the patient used to be a heavy smoker when she was younger had stopped for some time however she is roommates with her who is a smoker and he states that sometimes she would ask for cigarette from her and he will give it to her. Patient has also used marijuana in the past. She does not drink alcohol. ED COURSE: Patient had a blood pressure 134/92 and a pulse of 123 with a respiratory 20 temperature 99.4 and O2 sat 91 on 6 L nasal cannula. After speaking with Dr. Ferris, he revealed the patient was found to be in SVT and he was about to cardiovert however after the dose of diltiazem she converted. CBC showed a WBC of 21.2, hemoglobin 10.7, platelet count of 912 CMP was significant for sodium of 145, potassium 3.3, BUN 65, creatinine 2.2 glucose 119 and a calcium of 17.1 after correction. Alk phos is elevated at 995 Troponins were elevated at 1.446 and BNP was elevated at 514. Chest x-ray showed mild bibasilar pneumonia Patient received 2 L boluses of NS in the ER and her heart rate did seem to come down. Patient will be admitted to the ICU for severe hyperglycemia. Nephrology consulted for management of hypercalcemia. Patient seen and examined at bedside, unable to provide answers to questions. Per chart review and family history patient is altered from her baseline, is usually talkative. WBC 20.5, hemoglobin 7.3, platelets 799. Sodium 152, potassium 2.6, bicarb 24.9. BUN 49, creatinine 1.6, EGFR 35. Corrected calcium 15. Aggressive hydration for rapid correction of calcium, along with calcitonin. PET scan from 2022 showed hypermetabolic pulmonary nodules, hypermetabolic foci in multiple right-sided ribs. Recommend goals of care conversation with family. 03/05/2025: Patient seen and examined at bedside, awake and alert but does not verbally respond, does not follow commands. WBC 18.6, hemoglobin 8.8, sodium 150, potassium 3.0, bicarb 3.3, BUN 30, creatinine 1.2, EGFR 50. Corrected calcium 15.5, ALP 688. Calcium has worsened despite aggressive fluid resuscitation, patient annemarie severely symptomatic. Will place dialysis catheter today and plan for 1 session hemodialysis. May require further sessions depending on response, will continue to monitor. 03/06/2025: Patient seen examined at bedside, awake and alert but does not follow or respond to questioning. When limbs are moved, has purposeful movements to get comfortable, otherwise stares blankly. WBC 14.6, hemoglobin 8.6. Sodium 142, bicarb 28.8, BUN 23, creatinine 1.6, EGFR 35. ALP 725, corrected calcium 12.1. Plan for hemodialysis today without fluid removal. Suspect patient's mental status due to brain metastasis, patient will get brain MRI today. Exam Vital Signs Temp Pulse Resp BP Pulse Ox O2 Del Method O2 Flow Rate 98.2 F 107 H 34 H 126/74 96 Nasal Cannula 2 03/06/25 08:01 03/06/25 08:01 03/06/25 08:01 03/06/25 08:01 03/06/25 08:01 03/06/25 04:00 03/06/25 04:00 Narrative Exam Gen: Well-developed and well-nourished. Thin. HEENT: NCAT, PERRLA, EOMI, MMM, anicteric conjunctivae. CVS: normal S1 and S2. RRR. No M/R/G. Resp: CTA B/L. No rhonchi, rales, crackles or wheezing. Abd: soft, non-tender, non-distended. BS+ in all 4 quadrants. MSK: Good ROM in BUE & BLE. No edema or rash. Reddish lesion at site of breast cancer excision and left outer breast. Firm mass underlying lesion. Neuro: CN II-XII grossly intact. Strength 5/5 in BUE & BLE. A&O x 1, not verbally responsive, does not follow commands. Has purposeful movements. Objective Labs 03/11/25 04:36 03/11/25 04:36 Labs: Laboratory Results - last 24 hr 03/05/25 03/05/25 03/06/25 04:54 15:36 05:00 WBC 14.6 H RBC 3.56 L Hgb 8.6 L Hct 28.0 L MCV 79 L MCH 24.2 L MCHC 30.7 L RDW Std Deviation 76.9 H Plt Count 447 H D Neut % (Auto) 79 Lymph % (Auto) 12 [place] % (Auto) 4 Eos % (Auto) 1 Baso % (Auto) 1 Neut # (Auto) 11.5 H Lymph # (Auto) 1.7 [place] # (Auto) 0.6 Eos # (Auto) 0.2 Baso # (Auto) 0.1 Immature Gran # (Auto) 0.51 H Absolute Nucleated RBC 3.13 H Immature Gran % 4 H Nucleated RBC % 21 H Smear Path Review Sent to Pathologist Sodium 143 142 Potassium 3.7 D 3.6 Chloride 103 102 Carbon Dioxide 32.9 H 28.8 Anion Gap 7 11 BUN 19 23 Creatinine 0.9 1.6 H D Estim Creat Clear Calc 46.1 L 24.2 L eGFR > 60 35 L BUN/Creatinine Ratio 21 H 14 Glucose 92 95 Calculated Osmolality 287 286 Calcium 11.7 H D 11.7 H Corrected Calcium 12.3 H D 12.1 H Phosphorus 2.4 3.6 Magnesium 1.8 Total Bilirubin 0.9 AST 74 H ALT 16 Alkaline Phosphatase 725 H D Total Protein 5.8 Albumin 3.3 L 3.5 Globulin 2.3 Albumin/Globulin Ratio 1.5 Hepatitis A IgM Ab Non Reactive Hep Bs Antigen Non Reactive Hep Bs Antibody Reactive (Immune) Hep B Core IgM Ab Non Reactive Hepatitis C Antibody Non Reactive Quality Measures Quality Measures VTE prophylaxis Advance care planning discussed with:: patient and child Assessment & Plan Assessment Current Active Medications: Generic Name Dose Route Start Last Admin Trade Name Freq PRN Reason Stop Dose Admin Acetaminophen 650 mg 03/03/25 16:01 Acetaminophen 325 Mg Tablet PO 04/02/25 16:00 Q6H PRN Fever >101.5 Acetaminophen 650 mg 03/03/25 16:01 Acetaminophen 325 Mg Tablet PO 04/02/25 16:00 Q6H PRN PAIN SCALE 1-3 (mild Hydrocodone Bitart/Acetaminophen 1 tab 03/03/25 16:01 03/04/25 17:45 Hydrocodone/Apap 10/325 Tab PO 03/08/25 16:00 1 tab Q4H PRN Administration PAIN SCALE 4-6 (Moderate Albuterol/Ipratropium 3 ml 03/03/25 17:23 Albuterol/Ipratropium (Duoneb) Rt Citlaly 3 Ml Nebu INH 04/02/25 18:59 Q4HRRT PRN SHORTNESS OF BREATH OR WHEEZE Heparin Sodium (Porcine) 5,000 unit 03/03/25 22:00 03/06/25 05:35 Heparin Sod Inj 5000 Unit/Ml Vial SC 03/17/25 21:59 5,000 unit Q8HR JUAN Administration Heparin Sodium (Porcine) 2,600 unit 03/05/25 15:12 03/05/25 18:15 Heparin Sod Inj 1000 Unit/Ml Vial 10 Ml INDWELLCAT 03/19/25 15:11 2,600 unit PRN PRN Administration DIALYSIS Albumin Human 25 gm in 100 mls @ 100 mls/min 03/05/25 11:03 03/05/25 15:46 Albuminar-25 Ivpb IV 100 mls/min PRN PRN Administration DIALYSIS Lactated Ringer's 1,000 mls @ 60 mls/hr 03/06/25 08:45 Lactated Ringers IV 04/05/25 08:44 .[id number] JUAN Ondansetron HCl 4 mg 03/03/25 16:01 Ondansetron Inj 2 Mg/Ml Inj 2 Ml IV 04/02/25 16:00 Q6H PRN NAUSEA OR VOMITING Protocol Pantoprazole Sodium 40 mg 03/04/25 09:00 03/05/25 08:45 Pantoprazole Inj 40 Mg Vial IVP 04/03/25 08:59 40 mg QDAY JUAN Administration Potassium Chloride 40 meq 03/04/25 11:00 03/05/25 20:52 Potassium Chloride 10% 20 Meq/15 Ml Udc PO 04/03/25 10:59 Not Given BID JUAN Plan 65-year-old female past medical history hypertension, hyperlipidemia, breast cancer status post left mastectomy, CVA, peripheral vascular disease, Raynaud's phenomenon admitted to ICU for severe symptomatic hypercalcemia. Nephrology consulted for management of severe symptomatic hypercalcemia. #Severe symptomatic hypercalcemia, improving Patient presented with weakness, hypoxia. Very lethargic, poorly communicative, altered from baseline per family. Patient severely hypercalcemic, corrected calcium 15. Likely due to metastatic lesions from recurrence of previous breast cancer. Despite aggressive fluid therapy, patient calcium worsens at 15.5. Elevated ALP 688, metastatic bone lesions likely source of cancer. Will place temporary dialysis catheter today, plan for 1 session hemodialysis. PTH 13.3, not elevated enough to be source of hypercalcemia. Patient calcium improved significantly after first session of hemodialysis to corrected calcium 12.1. Patient remains severely symptomatic, suspect other etiology. - IVF: Lactated Ringer's at 60 mL/h - Calcitonin twice daily - Frequent neurochecks - Monitor daily labs - Vitamin D labs, PTHrp tests ordered - Hemodialysis without fluid removal #AYDEN (acute kidney injury) Patient is clinically very dry on exam. Has AYDEN, likely due to prerenal dehydration lessening of hypercalcemia. - IVF as above - Monitor daily renal function - Avoid nephrotoxins - Renally dose meds - Strict I's and O's - Will receive hemodialysis without fluid removal today #Hypokalemia Patient has severe hypokalemia, potassium 2.6. Received 40 mEq p.o. potassium and 40 mEq IV potassium. Patient received more potassium in the afternoon due to hypokalemia. Patient continues to have low potassium despite frequent repletion. Possibly related to malnutrition or metastatic cancer. - Replete as needed - Will continue to monitor #Hypernatremia Patient is hyponatremia, sodium 152. Unable to properly assess for symptoms given severe hypercalcemia. Sodium improved the following day, 150. - IVF as above - Monitor daily sodium #Acute encephalopathy, worsened #Episode of SVT #Tachycardia #Acute hypoxic respiratory failure #History of smoking #Sepsis #Anemia likely of chronic disease Management as per primary team. FEN: Dysphagia diet DVT PPx: Heparin 5K SQ every 8 hours GI PPx: Protonix 40 IV daily Lines: Peripheral IVs, Padilla cath Code Status: Full code Thank you for allowing us to participate in the care of this patient. Plan of care discussed with attending Dr. Jang. Nash Wilson MD PGY?1 Attending Provider Attestation/Addendum Patient currently seen and examined with resident physician Dr. Wilson. Note reviewed, agree with findings and recommendations. Patient currently seen in ICU. Still with hypercalcemia, AMS--intractable to medical mgmt- will do temporary dialysis for correcting electrolyte imbalance. CC time spent 40minutes Patient currently seen on dialysis. Hemodialysis for 3 hours, Qb 200, 4K, C2,5, ultrafiltration 0 L, Epogen 6000, no heparin ordered. Plan of care discussed with the dialysis nurse. Please see dialysis flowsheet for further details. spoke to ICU Team.
[2025-03-06] MEDS: RINGERS LACTATED 1000 ML 1,000 ML 60 ML IV (09:28)
[2025-03-06] MEDS: PANTOPRAZOLE INJ 40 MG VIAL IVP (09:29)
--- NOTE | 2025-03-06 11:24 | PCS.ST ---
Swallow Evaluation completed. See report for details. Non-functional PO skills at this time. Functional pharyngeal swallow. ST will continue tx for diet readiness.
--- NOTE | 2025-03-06 15:21 | ESPR_ITS ---
Addendum Progress Note Addendum Date of report being addended: 03/06/25 Narrative: Attending's attestation: I reviewed labs, imaging, EKG, home medications and prior available records. Face to face evaluation was performed by me. I have personally examined the patient and discussed assessment and plan with the IM team. I reviewed the resident note and agree with the plan with exceptions as below. Acute encephalopathy Breast cancer status post left mastectomy Acute hypoxic respiratory failure AYDEN Hypercalcemia Non-STEMI Concern for brain metastasis given the significant change in mental status. Ordered brain MRI Discussed with dietitian: May try sips of water. Concern for inability to receive oral intake She received IV hydration Ordered CT scan of the chest, abdomen, and pelvis, to check for metastasis Calcium level improved. She received calcitonin and denosumab. Continue to monitor calcium level Discussed with nephrology: Will continue hemodialysis. Monitor kidney function and electrolytes Troponin peaked. Likely demand ischemia in setting of above. Management as above. Patient is full code. Will benefit from goals of care discussion after we get the results of her brain MRI and CT chest/abdomen/pelvis. Gave Dyan from [facility] a heads up as the patient is a potential hospice candidate
--- NOTE | 2025-03-06 16:10 | PC.SS ---
BROACHER conducted bedside contact with the patient to conduct initial assessment and to discuss discharge planning. ?At bedside with patient was son, Camilo Stewart .? Due to patient?s altered mental status information obtained from the patient?s son.? Patient is a resident of [facility].? Patient has been placed at facility since December 2024.? Patient utilizes a wheelchair to assist with mobility.? Patient does not utilize oxygen at the facility. Patient requires assistance with completion of ADL?s. ?Patient?s medical surrogate decision maker is sonCamilo.? Facility PCP provides services to the patient. ?Patient is aligned with oncology services with [facility].? Patient is not currently receiving cancer treatment.? Patient received 1 session of dialysis during current admission.? The patient is not established with outpatient dialysis. ?ICU resident requested that BROACHER discuss hospice services with the patient?s son. ?Prior to discussing hospice with the patient?s son, confirmed with [facility] that patient can return to facility with hospice.? BROACHER informed that [facility] contracted with SNF.? BROACHER discussed hospice option with the patient?s son, Camilo Stewart.? Patient?s son informed BROACHER that at current time not ready to transition the patient to hospice services.? Patient informed BROACHER that he will meet with Dr. Angulo to discuss possible treatment options.? In addition, patient?s son stated that patient demonstrated improvement following initial dialysis session.? BROACHER relayed to the patient?s son that if hospice is chosen patient possesses coverage for SNF with hospice.? Next of Kin: Camilo Stewart D/C Plan: SNF
--- NOTE | 2025-03-06 18:31 | PC.NURSE ---
BFR TO 200 D/T INCREASED AP DESPITE ALL INTERVENTIONS, WILL CONT. TO MONITOR
[2025-03-06] MEDS: EPOETIN ALFA INJ 1,000 UNIT/0.05 ML UNIT 10000 UNIT SC (20:00)
[2025-03-06] MEDS: HEPARIN SOD INJ 1000 UNIT/ML VIAL 10 ML 2600 UNIT INDWELLCAT (20:04)
[2025-03-06] MEDS: POTASSIUM CHL 10 mEq IVPB 10 MEQ/100 ML BAG 100 MEQ IV ×4 (20:48→23:51)
[2025-03-07] VITALS (10 sets, daily range): BP systolic 117–146; BP diastolic 70–92; PULSE 85–117; RESP 18–47; TEMP 36.2–37.2; O2SAT 95–100; BMI 18.2
--- NOTE | 2025-03-07 | XR_ITS ---
Examination: MRI of brain without intravenous contrast. MRI brain with intravenous contrast. Date and time of exam:March 07, 2025 1159 hours INDICATIONS: Altered mental status beginning December 15, 2024 Technique: Multiple axial and sagittal images of the brain to been obtained. Siemens high-resolution 1.52 Bere short bore scanner utilized. Sagittal sections, T1 weighted images, TR 500, TE 14, are performed. Axial sections proton-density and T2-weighted images have been obtained. Inversion recovery axial images, TR 9260, TE 111, TR 2500. Diffusion weighted images, axial sections, TR 4800, TE 128, B value 1000. Axial sections, ADC map, TR 4800, TE 128. Axial and coronal images were also obtained post 3 cc gadolinium administered intravenously. Findings:: Enlargement of the sella turcica is not present. The optic chiasm and infundibular stalk are not remarkable. There is no localized enlargement of the medulla or ade. Fourth ventricle and cerebellar tonsils appear normal in position. No subacute area of hemorrhage density is seen. Fourth ventricle is midline. Mass in the cerebellopontine angle region is not evident. 7th and 8th nerve complexes exhibit symmetry Globes are symmetrical Orbital musculature including medial lateral rectus muscles do not exhibit abnormality Increased white matter signal is prominent Effacement of the cortical sulcal markings is not identified. Mass effect upon the ventricular system is not identified. Diffusion-weighted images demonstrate no focus of restricted diffusion Old infarcts right cerebellar hemisphere right basal ganglia including right caudate nucleus, right frontal parietal lobe Contrast images demonstrate no abnormal enhancement Impression: Negative for acute hemorrhage mass effect or midline shift Old infarcts as above Prominent chronic microvascular white matter change
[2025-03-07] MEDS: HEPARIN SOD INJ 5000 UNIT/ML VIAL SC ×3 (05:45→21:49)
[2025-03-07 06:32] LABS: Basophils # (Auto) 0.1 Thou/mm3 (0.0-0.2); Basophils % (Auto) 0 % (0-2.5); Eosinophils # (Auto) 0.3 Thou/mm3 (0.0-0.5); Eosinophils % (Auto) 2 % (0-10); Hematocrit 27.2 % (36.0-46.0); Immature Granulocytes % (Auto) 4 % (0-0); Immature Granulocytes Auto 0.58 Thou/mm3 (0.00-0.00); Lymphocytes # (Auto) 2.5 Thou/mm3 (1.0-4.8); Lymphocytes % (Auto) 15 % (10-50); Mean Corpuscular HGB Conc 30.1 g/dl (31.0-37.0); Mean Corpuscular Volume 80 fL (80-100); Monocytes # (Auto) 0.8 Thou/mm3 (0.0-0.8); Monocytes % (Auto) 5 % (0-12); Neutrophils # (Auto) 12.6 Thou/mm3 (1.8-7.7); Neutrophils % (Auto) 75 % (37-80); Nucleated Red Blood Cell # 1.57 Thou/mm3 (0.00-0.00); Nucleated Red Blood Cell % 9 /100 WBC (0); Platelet Count 330 Thou/mm3 (140-440); RDW Standard Deviation 77.5 fL (36.4-46.3); Red Blood Count 3.41 Miln/mm3 (4.00-5.20); White Blood Count 16.8 Thou/mm3 (3.6-11.0)
[2025-03-07 06:56] LABS: Hemoglobin 8.2 g/dL (12.0-16.0)
[2025-03-07 07:24] LABS: Alanine Aminotransferase 13 U/L (10-49); Albumin, Serum 3.2 gm/dL (3.4-4.8); Albumin/Globulin Ratio 1.4 (1.2-2.2); Alkaline Phosphatase 735 U/L (46-116); Anion Gap 14 (7-16); Aspartate Amino Transferase 66 U/L (0-34); BUN/Creatinine Ratio 15 Ratio (12-20); Bilirubin,Total 0.9 mg/dL (0.3-1.2); Blood Urea Nitrogen 22 mg/dL (9-23); Calcium 10.3 mg/dL (8.3-10.6); Calcium (Corrected) 10.9 mg/dL (8.5-10.1); Carbon Dioxide 24.3 mMol/L (20.0-31.0); Chloride 102 mMol/L (98-107); Creatinine (Component) 1.5 mg/dL (0.6-1.3); Estimated Creatinine Clearance 27.2 mL/min (>60); Globulin 2.3 gm/dL (2.3-3.5); Glucose 62 mg/dL (74-106); Magnesium 1.9 mg/dL (1.6-2.6); Osmolality,Calculated 280 (275-295); Phosphorous 3.2 mg/dL (2.4-5.1); Potassium 4.1 mMol/L (3.4-5.1); Sodium 140 mMol/L (136-145); Total Protein 5.5 gm/dL (5.7-8.2); eGFR 38 See Note
[2025-03-07] MEDS: DEXTROSE 5%-0.45% NS 1,000 ML 70 ML IV (09:02)
[2025-03-07] MEDS: PANTOPRAZOLE INJ 40 MG VIAL IVP (09:06)
--- NOTE | 2025-03-07 11:41 | PC.SS ---
Update: Patient on room air. P.O. feeds. IV fluids in place. Brain MRI pending for today. Patient has received [address] Jang [address]. [address]. Angulo oncology consulting. Goals of care discussion pending. Patient is ICU downgrade.
--- NOTE | 2025-03-07 12:37 | ESPR_ITS ---
<Statement entered by Genet Nance MD - 03/08/25 00:27> Patient seen and examined at bedside. No acute overnight events reported. Patient's mentation has been stable, able to follow some commands. Imaging showed a 6 and 17 mm nodule in both hemithorax's left and right respectively as well as widespread osteolytic and osteoblastic metastasis with pathological fractures and left superior/inferior pubic rami. Brain MRI was negative for any mass or metastasis. At this point, patient would benefit from goals of care discussion with family and will have that arranged for tomorrow morning over the phone with patient's son. Depending on goals of care discussion, can plan for patient disposition. Otherwise, patient is able to swallow sips of water, but still unable to eat safely. I discussed with and supervised the financial intern physician who took care of this patient. I personally saw and examined the patient and discussed the assessment and plan with the entire medicine team, including my attending Dr. Comer, I agree with most of the assessment and plan as documented below Genet Nance M.D. PGY-2 Disclaimer: Despite multiple revisions, due to the dictation software being used, the document bellow may not be free of grammatical errors including phonetic/typographic errors. However, this does not deter from our commitment to providing health care in the patient's best interest in mind. Documentation for date of: 03/07/25 Subjective Subjective Interval history: Patient was seen and examined at bedside. No acute overnight events. Patient today was able to follow more commands, but still unable to communicate. At this time we still don't think it is safe for patient to start diet. Brain MRI was negative for any mass. CT of chest/abdomen/pelvis showed showed 6mm pulmonary nodule in L upper lobe, 17mm nodule in R middle lobe, and widespread osteolytic osteoblastic metastases with pathologic fractures in left superior/inferior pubic rami. Exam Vital Signs Temp Pulse Resp BP Pulse Ox O2 Del Method O2 Flow Rate 97.4 F 115 H 29 H 126/80 96 Room Air 2 03/07/25 04:00 03/07/25 06:35 03/07/25 06:35 03/07/25 04:00 03/07/25 06:35 03/07/25 04:00 03/06/25 04:00 Narrative Exam General: Still not able to communicate verbally, able to follow more commands today and moving all extremities. Eyes: PERRL, EOMI. Anicteric, not tracking Ears: No ear discharge. Nose: No nasal discharge. Mouth/Throat: Dry mucous membranes, no redness, no lesions. Neck: Neck supple, non-tender, no cervical lymphadenopathy. Lungs: Clear VANESSA to auscultation and percussion, No accessory muscle use. Cardio: Normal S1/S2, regular rhythm, no murmurs, no JVD Abdomen: Soft, non-tender, no palpable masses, peristalsis present, no guarding or rebound. Extremities: Symmetrical, no significant deformities, no peripheral edema , non-tender, peripheral pulses presents. Skin: Lesion on L thoracic wall with ulceration and fixed to wall. Neuro: No focal neurological deficits appreciated but was limited due to patient's mental status. able to follow more commands today. Objective Labs 03/07/25 04:42 03/07/25 04:42 Labs: Laboratory Results - last 24 hr 03/07/25 04:42 WBC 16.8 H RBC 3.41 L Hgb 8.2 L Hct 27.2 L MCV 80 MCH 24.0 L MCHC 30.1 L RDW Std Deviation 77.5 H Plt Count 330 D Neut % (Auto) 75 Lymph % (Auto) 15 [place] % (Auto) 5 Eos % (Auto) 2 Baso % (Auto) 0 Neut # (Auto) 12.6 H Lymph # (Auto) 2.5 [place] # (Auto) 0.8 Eos # (Auto) 0.3 Baso # (Auto) 0.1 Immature Gran # (Auto) 0.58 H Absolute Nucleated RBC 1.57 H Immature Gran % 4 H Nucleated RBC % 9 H Sodium 140 Potassium 4.1 D Chloride 102 Carbon Dioxide 24.3 Anion Gap 14 BUN 22 Creatinine 1.5 H Estim Creat Clear Calc 27.2 L eGFR 38 L BUN/Creatinine Ratio 15 Glucose 62 L Calculated Osmolality 280 Calcium 10.3 Corrected Calcium 10.9 H Phosphorus 3.2 Magnesium 1.9 Total Bilirubin 0.9 AST 66 H ALT 13 Alkaline Phosphatase 735 H Total Protein 5.5 L Albumin 3.2 L Globulin 2.3 Albumin/Globulin Ratio 1.4 Quality Measures Quality Measures VTE prophylaxis Advance care planning discussed with:: patient and child Assessment & Plan Assessment Current Active Medications: Generic Name Dose Route Start Last Admin Trade Name Freq PRN Reason Stop Dose Admin Acetaminophen 650 mg 03/03/25 16:01 Acetaminophen 325 Mg Tablet PO 04/02/25 16:00 Q6H PRN Fever >101.5 Acetaminophen 650 mg 03/03/25 16:01 Acetaminophen 325 Mg Tablet PO 04/02/25 16:00 Q6H PRN PAIN SCALE 1-3 (mild Hydrocodone Bitart/Acetaminophen 1 tab 03/03/25 16:01 03/04/25 17:45 Hydrocodone/Apap 10/325 Tab PO 03/08/25 16:00 1 tab Q4H PRN Administration PAIN SCALE 4-6 (Moderate Albuterol/Ipratropium 3 ml 03/03/25 17:23 Albuterol/Ipratropium (Duoneb) Rt Citlaly 3 Ml Nebu INH 04/02/25 18:59 Q4HRRT PRN SHORTNESS OF BREATH OR WHEEZE Heparin Sodium (Porcine) 5,000 unit 03/03/25 22:00 03/07/25 05:45 Heparin Sod Inj 5000 Unit/Ml Vial SC 03/17/25 21:59 5,000 unit Q8HR JUAN Administration Heparin Sodium (Porcine) 2,600 unit 03/05/25 15:12 03/06/25 20:04 Heparin Sod Inj 1000 Unit/Ml Vial 10 Ml INDWELLCAT 03/19/25 15:11 2,600 unit PRN PRN Administration DIALYSIS Albumin Human 25 gm in 100 mls @ 100 mls/min 03/05/25 11:03 03/05/25 15:46 Albuminar-25 Ivpb IV 100 mls/min PRN PRN Administration DIALYSIS Dextrose/Sodium Chloride 1,000 mls @ 70 mls/hr 03/07/25 08:30 03/07/25 09:02 D5-1/2ns IV 03/07/25 22:47 70 mls/hr .[id number] JUAN Administration Ondansetron HCl 4 mg 03/03/25 16:01 Ondansetron Inj 2 Mg/Ml Inj 2 Ml IV 04/02/25 16:00 Q6H PRN NAUSEA OR VOMITING Protocol Pantoprazole Sodium 40 mg 03/04/25 09:00 03/07/25 09:06 Pantoprazole Inj 40 Mg Vial IVP 04/03/25 08:59 40 mg QDAY JUAN Administration Potassium Chloride 40 meq 03/04/25 11:00 03/07/25 09:02 Potassium Chloride 10% 20 Meq/15 Ml Udc PO 04/03/25 10:59 Not Given BID JUAN Plan 65-year-old female with past medical history of breast cancer s/p left mastectomy, hypertension, hyperlipidemia, CVA, peripheral vascular disease, and Raynaud's phenomenon was admitted to the ICU on 03/03/2025 for hypercalcemia likely in the setting of possible malignancy before being downgraded to the medical floors on 03/06/2025 for further management. #Acute encephalopathy #Hypercalcemia #Hx of breast cancer with possible recurrence and metastasis Patient was recently admitted to the ICU on 03/03/2025 for hypercalcemia likely in the setting of possible malignancy. Patient does have a history of breast cancer status post left mastectomy, but given hypercalcemia as well as lesion seen on the left chest wall patient mostly had recurrence of breast cancer which possibly could have metastasized to the brain causing her acute encephalopathy versus her hypocalcemia from possible malignancy causing her acute encephalopathy. Patient's initial calcium was 17 and today is 10.3 and 10.9 corrected Alkaline phosphatase was also elevated at 735 today Patient received calcitonin as well as pamidronate in the ICU Patient required hemodialysis after session was on 03/05/2025. Patient may benefit of goals of care discussion with family after imaging is done and was oncology states what would be the course of action. Brain MRI was negative for any mass. CT of chest/abdomen/pelvis showed showed 6mm pulmonary nodule in L upper lobe, 17mm nodule in R middle lobe, and widespread osteolytic osteoblastic metastases with pathologic fractures in left superior/inferior pubic rami Will plan for goals of care discussion with family at bedside Plan: Will continue with hemodialysis as scheduled Will continue with IV fluids Will continue to monitor calcium with daily labs Nephrology consulted, appreciate recommendations Oncology consulted, appreciate recommendations #Acute hypoxic respiratory failure #Community-acquired pneumonia #Hx of smoking Patient chets x-ray that showed no pneumonia, but does look more like vascular congestion than pneumonia at this time Patient did receive one-time dose of antibiotics Plan: Will continue with DuoNebs as needed Will continue with O2 administration Will continue to monitor #AYDEN Patient came in with creatinine of 2.2 and her baseline is around 1 Patient creatinine today was 1.5 Likely in the setting of hypovolemia versus possible ATN given hypercalcemia Patient is currently on hemodialysis Plan: IV fluids Will continue with hemodialysis schedule Avoid nephrotoxic agents Renally dose medication Nephrology consulted, prescription medications #Anemia of chronic disease Patient's hemoglobin was 10.7 on admission and her baseline is around 8 Hemoglobin today 8.2, but no active signs of bleeding Plan: Will transfuse a hemoglobin less than 7 Will continue to monitor #Leukocytosis Patient's WBC slightly uptrended Most likely reactive in the setting of possible malignancy Plan: Will continue to monitor #NSTEMI Patient's troponins did come back elevated at 1.446 and peaked at 2.209 before downtrending EKG did not show any ST depressions or elevations Plan: Will continue to monitor Disposition: Patient seen in telemetry for hypercalcemia 2/2 possible malignancy. Diet: NPO GI prophylaxis: protonix DVT prophylaxis: heparin subcu Code: Full code Case disclosed with Attending Dr. Comer and my senior Dr. Goyo Mccarthy PGY1 Attending Provider Attestation/Addendum I have discussed and was present for the essential components of the history, physical examination, diagnosis, and treatment plan with the resident. I agree with the patient's care as documented by the resident and amended herein by me. Narayan Comer, DO. Patient seen and evaluated this AM. Vital signs stable, significant labs today include a WBC of 16.8, hemoglobin stable at 8.2, creatinine downtrending to 1.5. CT chest abdomen pelvis ordered today to evaluate for any potential metastasis, the imaging did demonstrate a 6 mm pulmonary nodule in the left upper lobe, 1.7 cm pulmonary nodule in the right middle lobe, bibasilar pneumonia with small pleural effusions and widespread osteolytic osteoblastic metastasis with pathologic fractures in the left superior inferior pubic rami. MRI brain was also ordered and negative for any acute intracranial pathology, no metastatic disease noted. Will have a goals of care discussion today with the patient's son to evaluate for hospice care, if hospice is denied, the patient can be discharged home or to SNF and will need follow-up with oncology. Although this document has been carefully reviewed, there may still be some phonetic and other typographical errors. These errors are purely grammatical due to imperfections in the software program and should not be construed in any way to compromise the substance of the patient's medical care during this visit.
--- NOTE | 2025-03-07 13:17 | ESPR_ITS ---
Documentation for date of: 03/07/25 Subjective Subjective Interval history: 65 y/o F with PMHx significant for hypertension, hyperlipidemia, breast cancer status post left mastectomy, CVA, peripheral vascular disease, Raynaud's phenomenon brought in by ambulance from [facility] where she was found to be weak and hypoxic. Patient was seen at bedside and was not communicating well aside from nodding her head to questions after they are being repeated by her son. Son says that patient is wheelchair-bound and has lost weight and has had decreased appetite lately. Patient has history of cancer status post left mastectomy with incomplete margin removal. Son states that they recently followed up with oncology who is suspecting that the patient may have recurrent malignancy. Sons also contributes the patient used to be a heavy smoker when she was younger had stopped for some time however she is roommates with her who is a smoker and he states that sometimes she would ask for cigarette from her and he will give it to her. Patient has also used marijuana in the past. She does not drink alcohol. ED COURSE: Patient had a blood pressure 134/92 and a pulse of 123 with a respiratory 20 temperature 99.4 and O2 sat 91 on 6 L nasal cannula. After speaking with Dr. Ferris, he revealed the patient was found to be in SVT and he was about to cardiovert however after the dose of diltiazem she converted. CBC showed a WBC of 21.2, hemoglobin 10.7, platelet count of 912 CMP was significant for sodium of 145, potassium 3.3, BUN 65, creatinine 2.2 glucose 119 and a calcium of 17.1 after correction. Alk phos is elevated at 995 Troponins were elevated at 1.446 and BNP was elevated at 514. Chest x-ray showed mild bibasilar pneumonia Patient received 2 L boluses of NS in the ER and her heart rate did seem to come down. Patient will be admitted to the ICU for severe hyperglycemia. Nephrology consulted for management of hypercalcemia. Patient seen and examined at bedside, unable to provide answers to questions. Per chart review and family history patient is altered from her baseline, is usually talkative. WBC 20.5, hemoglobin 7.3, platelets 799. Sodium 152, potassium 2.6, bicarb 24.9. BUN 49, creatinine 1.6, EGFR 35. Corrected calcium 15. Aggressive hydration for rapid correction of calcium, along with calcitonin. PET scan from 2022 showed hypermetabolic pulmonary nodules, hypermetabolic foci in multiple right-sided ribs. Recommend goals of care conversation with family. 03/05/2025: Patient seen and examined at bedside, awake and alert but does not verbally respond, does not follow commands. WBC 18.6, hemoglobin 8.8, sodium 150, potassium 3.0, bicarb 3.3, BUN 30, creatinine 1.2, EGFR 50. Corrected calcium 15.5, ALP 688. Calcium has worsened despite aggressive fluid resuscitation, patient annemarie severely symptomatic. Will place dialysis catheter today and plan for 1 session hemodialysis. May require further sessions depending on response, will continue to monitor. 03/06/2025: Patient seen examined at bedside, awake and alert but does not follow or respond to questioning. When limbs are moved, has purposeful movements to get comfortable, otherwise stares blankly. WBC 14.6, hemoglobin 8.6. Sodium 142, bicarb 28.8, BUN 23, creatinine 1.6, EGFR 35. ALP 725, corrected calcium 12.1. Plan for hemodialysis today without fluid removal. Suspect patient's mental status due to brain metastasis, patient will get brain MRI today. 03/07/2025: Patient seen examined at bedside, awake and alert but does not follow or respond to questioning. When limbs are moved, has purposeful movements to get comfortable, otherwise stares blankly. Brain MRI was negative for any mass. CT of chest/abdomen/pelvis showed showed 6mm pulmonary nodule in L upper lobe, 17mm nodule in R middle lobe, and widespread osteolytic osteoblastic metastases with pathologic fractures in left superior/inferior pubic rami. Ca 10.9, Cr 1.5, GFR 38. Exam Vital Signs Temp Pulse Resp BP Pulse Ox O2 Del Method O2 Flow Rate 97.4 F 115 H 29 H 126/80 96 Room Air 2 03/07/25 04:00 03/07/25 06:35 03/07/25 06:35 03/07/25 04:00 03/07/25 06:35 03/07/25 04:00 03/06/25 04:00 Narrative Exam General: Still not able to communicate verbally, able to follow more commands today and moving all extremities. Eyes: PERRL, EOMI. Anicteric, not tracking Ears: No ear discharge. Nose: No nasal discharge. Mouth/Throat: Dry mucous membranes, no redness, no lesions. Neck: Neck supple, non-tender, no cervical lymphadenopathy. Lungs: Clear VANESSA to auscultation and percussion, No accessory muscle use. Cardio: Normal S1/S2, regular rhythm, no murmurs, no JVD Abdomen: Soft, non-tender, no palpable masses, peristalsis present, no guarding or rebound. Extremities: Symmetrical, no significant deformities, no peripheral edema , non-tender, peripheral pulses presents. Skin: Lesion on L thoracic wall with ulceration and fixed to wall. Neuro: No focal neurological deficits appreciated but was limited due to patient's mental status. able to follow more commands today. Objective Labs 03/12/25 05:41 03/12/25 05:41 Labs: Laboratory Results - last 24 hr 03/07/25 04:42 WBC 16.8 H RBC 3.41 L Hgb 8.2 L Hct 27.2 L MCV 80 MCH 24.0 L MCHC 30.1 L RDW Std Deviation 77.5 H Plt Count 330 D Neut % (Auto) 75 Lymph % (Auto) 15 [place] % (Auto) 5 Eos % (Auto) 2 Baso % (Auto) 0 Neut # (Auto) 12.6 H Lymph # (Auto) 2.5 [place] # (Auto) 0.8 Eos # (Auto) 0.3 Baso # (Auto) 0.1 Immature Gran # (Auto) 0.58 H Absolute Nucleated RBC 1.57 H Immature Gran % 4 H Nucleated RBC % 9 H Sodium 140 Potassium 4.1 D Chloride 102 Carbon Dioxide 24.3 Anion Gap 14 BUN 22 Creatinine 1.5 H Estim Creat Clear Calc 27.2 L eGFR 38 L BUN/Creatinine Ratio 15 Glucose 62 L Calculated Osmolality 280 Calcium 10.3 Corrected Calcium 10.9 H Phosphorus 3.2 Magnesium 1.9 Total Bilirubin 0.9 AST 66 H ALT 13 Alkaline Phosphatase 735 H Total Protein 5.5 L Albumin 3.2 L Globulin 2.3 Albumin/Globulin Ratio 1.4 Quality Measures Quality Measures VTE prophylaxis Advance care planning discussed with:: patient Assessment & Plan Assessment Current Active Medications: Generic Name Dose Route Start Last Admin Trade Name Freq PRN Reason Stop Dose Admin Acetaminophen 650 mg 03/03/25 16:01 Acetaminophen 325 Mg Tablet PO 04/02/25 16:00 Q6H PRN Fever >101.5 Acetaminophen 650 mg 03/03/25 16:01 Acetaminophen 325 Mg Tablet PO 04/02/25 16:00 Q6H PRN PAIN SCALE 1-3 (mild Hydrocodone Bitart/Acetaminophen 1 tab 03/03/25 16:01 03/04/25 17:45 Hydrocodone/Apap 10/325 Tab PO 03/08/25 16:00 1 tab Q4H PRN Administration PAIN SCALE 4-6 (Moderate Albuterol/Ipratropium 3 ml 03/03/25 17:23 Albuterol/Ipratropium (Duoneb) Rt Citlaly 3 Ml Nebu INH 04/02/25 18:59 Q4HRRT PRN SHORTNESS OF BREATH OR WHEEZE Heparin Sodium (Porcine) 5,000 unit 03/03/25 22:00 03/07/25 05:45 Heparin Sod Inj 5000 Unit/Ml Vial SC 03/17/25 21:59 5,000 unit Q8HR JUAN Administration Heparin Sodium (Porcine) 2,600 unit 03/05/25 15:12 03/06/25 20:04 Heparin Sod Inj 1000 Unit/Ml Vial 10 Ml INDWELLCAT 03/19/25 15:11 2,600 unit PRN PRN Administration DIALYSIS Albumin Human 25 gm in 100 mls @ 100 mls/min 03/05/25 11:03 03/05/25 15:46 Albuminar-25 Ivpb IV 100 mls/min PRN PRN Administration DIALYSIS Dextrose/Sodium Chloride 1,000 mls @ 70 mls/hr 03/07/25 08:30 03/07/25 09:02 D5-1/2ns IV 03/07/25 22:47 70 mls/hr .[id number] JUAN Administration Ondansetron HCl 4 mg 03/03/25 16:01 Ondansetron Inj 2 Mg/Ml Inj 2 Ml IV 04/02/25 16:00 Q6H PRN NAUSEA OR VOMITING Protocol Pantoprazole Sodium 40 mg 03/04/25 09:00 03/07/25 09:06 Pantoprazole Inj 40 Mg Vial IVP 04/03/25 08:59 40 mg QDAY JUAN Administration Potassium Chloride 40 meq 03/04/25 11:00 03/07/25 09:02 Potassium Chloride 10% 20 Meq/15 Ml Udc PO 04/03/25 10:59 Not Given BID JUAN Plan 65-year-old female past medical history hypertension, hyperlipidemia, breast cancer status post left mastectomy, CVA, peripheral vascular disease, Raynaud's phenomenon admitted to ICU for severe symptomatic hypercalcemia. Nephrology consulted for management of severe symptomatic hypercalcemia. #Severe symptomatic hypercalcemia, improving Patient presented with weakness, hypoxia. Very lethargic, poorly communicative, altered from baseline per family. Patient severely hypercalcemic, corrected calcium 15. Likely due to metastatic lesions from recurrence of previous breast cancer. Despite aggressive fluid therapy, patient calcium worsens at 15.5. Elevated ALP 688, metastatic bone lesions likely source of cancer. Will place temporary dialysis catheter today, plan for 1 session hemodialysis. PTH 13.3, not elevated enough to be source of hypercalcemia. Patient calcium improved significantly after first session of hemodialysis to corrected calcium 12.1. Patient remains severely symptomatic, suspect other etiology. Patient was on Calcitonin twice daily - Frequent neurochecks - Monitor daily labs - Vitamin D labs, PTHrp tests ordered - Hemodialysis without fluid removal #AYDEN (acute kidney injury) Patient is clinically very dry on exam. Has AYDEN, likely due to prerenal dehydration lessening of hypercalcemia. - Monitor daily renal function - Avoid nephrotoxins - Renally dose meds - Strict I's and O's - Will receive hemodialysis without fluid removal today #Hypokalemia Patient has severe hypokalemia, potassium 2.6. Received 40 mEq p.o. potassium and 40 mEq IV potassium. Patient received more potassium in the afternoon due to hypokalemia. Patient continues to have low potassium despite frequent repletion. Possibly related to malnutrition or metastatic cancer. - Replete as needed - Will continue to monitor #Hypernatremia, resolved #Acute encephalopathy, worsened #Episode of SVT #Tachycardia #Acute hypoxic respiratory failure #History of smoking #Sepsis #Anemia likely of chronic disease Management as per primary team. FEN: Dysphagia diet DVT PPx: Heparin 5K SQ every 8 hours GI PPx: Protonix 40 IV daily Lines: Peripheral IVs, Padilla cath Code Status: Full code Thank you for allowing us to participate in the care of this patient. Plan of care discussed with attending Dr. Moon. Alessia Owens PGY?1 Attending Provider Attestation/Addendum Pt is seen and examined. Labs and investigations are reviewed. Agree witth assessment and plan by resident. agree with findings. Surinder Moon MD
--- NOTE | 2025-03-07 17:22 | PC.SS ---
DIRECTOR CLINICAL DATA contacted patient's son to schedule goals of care discussion. Patient's son unable to arrive at hospital until 6:45 pm. DIRECTOR CLINICAL DATA informed resident of arrival time. web services architect to contact patient's son to arrange meeting for 03-08-25.
[2025-03-08] VITALS (9 sets, daily range): BP systolic 125–145; BP diastolic 84–99; PULSE 95–115; RESP 16–22; TEMP 36.2–37.6; O2SAT 93–98; BMI 18.2
[2025-03-08] MEDS: HEPARIN SOD INJ 5000 UNIT/ML VIAL SC ×2 (05:07→14:16)
[2025-03-08 06:20] LABS: Basophils # (Auto) 0.1 Thou/mm3 (0.0-0.2); Basophils % (Auto) 0 % (0-2.5); Eosinophils # (Auto) 0.5 Thou/mm3 (0.0-0.5); Eosinophils % (Auto) 3 % (0-10); Hematocrit 25.8 % (36.0-46.0); Immature Granulocytes % (Auto) 6 % (0-0); Immature Granulocytes Auto 0.97 Thou/mm3 (0.00-0.00); Lymphocytes # (Auto) 2.5 Thou/mm3 (1.0-4.8); Lymphocytes % (Auto) 16 % (10-50); Mean Corpuscular HGB Conc 29.8 g/dl (31.0-37.0); Mean Corpuscular Hemoglobin 23.9 pg (25.0-35.0); Mean Corpuscular Volume 80 fL (80-100); Monocytes % (Auto) 6 % (0-12); Neutrophils # (Auto) 10.8 Thou/mm3 (1.8-7.7); Neutrophils % (Auto) 69 % (37-80); Nucleated Red Blood Cell # 1.62 Thou/mm3 (0.00-0.00); Nucleated Red Blood Cell % 10 /100 WBC (0); Platelet Count 248 Thou/mm3 (140-440); RDW Standard Deviation 79.1 fL (36.4-46.3); Red Blood Count 3.22 Miln/mm3 (4.00-5.20); White Blood Count 15.8 Thou/mm3 (3.6-11.0)
[2025-03-08 06:25] LABS: Hemoglobin 7.7 g/dL (12.0-16.0)
[2025-03-08 07:02] LABS: Alanine Aminotransferase 12 U/L (10-49); Albumin, Serum 3.2 gm/dL (3.4-4.8); Albumin/Globulin Ratio 1.4 (1.2-2.2); Alkaline Phosphatase 693 U/L (46-116); Anion Gap 13 (7-16); Aspartate Amino Transferase 55 U/L (0-34); BUN/Creatinine Ratio 15 Ratio (12-20); Bilirubin,Total 0.8 mg/dL (0.3-1.2); Blood Urea Nitrogen 39 mg/dL (9-23); Calcium 9.5 mg/dL (8.3-10.6); Calcium (Corrected) 10.1 mg/dL (8.5-10.1); Carbon Dioxide 23.4 mMol/L (20.0-31.0); Chloride 107 mMol/L (98-107); Creatinine (Component) 2.6 mg/dL (0.6-1.3); Estimated Creatinine Clearance 15.7 mL/min (>60); Globulin 2.3 gm/dL (2.3-3.5); Glucose 92 mg/dL (74-106); Magnesium 1.8 mg/dL (1.6-2.6); Osmolality,Calculated 294 (275-295); Phosphorous 3.5 mg/dL (2.4-5.1); Potassium 3.5 mMol/L (3.4-5.1); Sodium 143 mMol/L (136-145); Total Protein 5.5 gm/dL (5.7-8.2); eGFR 20 See Note
--- NOTE | 2025-03-08 08:48 | PCS.ST ---
PO trials with speech therapy completed. Significant improvement with oral mgt and control. No s/s of aspiration. Recommend Puree diet/regular liquids.
--- NOTE | 2025-03-08 10:13 | PC.SS ---
SS follow up note; Team A will contact patient's son for a goals of care meeting over the phone.
[2025-03-08] MEDS: PANTOPRAZOLE INJ 40 MG VIAL IVP (10:49)
--- NOTE | 2025-03-08 10:54 | ESPR_ITS ---
Documentation for date of: 03/08/25 Subjective Subjective Interval history: 65 y/o F with PMHx significant for hypertension, hyperlipidemia, breast cancer status post left mastectomy, CVA, peripheral vascular disease, Raynaud's phenomenon brought in by ambulance from [facility] where she was found to be weak and hypoxic. Patient was seen at bedside and was not communicating well aside from nodding her head to questions after they are being repeated by her son. Son says that patient is wheelchair-bound and has lost weight and has had decreased appetite lately. Patient has history of cancer status post left mastectomy with incomplete margin removal. Son states that they recently followed up with oncology who is suspecting that the patient may have recurrent malignancy. Sons also contributes the patient used to be a heavy smoker when she was younger had stopped for some time however she is roommates with her who is a smoker and he states that sometimes she would ask for cigarette from her and he will give it to her. Patient has also used marijuana in the past. She does not drink alcohol. ED COURSE: Patient had a blood pressure 134/92 and a pulse of 123 with a respiratory 20 temperature 99.4 and O2 sat 91 on 6 L nasal cannula. After speaking with Dr. Ferris, he revealed the patient was found to be in SVT and he was about to cardiovert however after the dose of diltiazem she converted. CBC showed a WBC of 21.2, hemoglobin 10.7, platelet count of 912 CMP was significant for sodium of 145, potassium 3.3, BUN 65, creatinine 2.2 glucose 119 and a calcium of 17.1 after correction. Alk phos is elevated at 995 Troponins were elevated at 1.446 and BNP was elevated at 514. Chest x-ray showed mild bibasilar pneumonia Patient received 2 L boluses of NS in the ER and her heart rate did seem to come down. Patient will be admitted to the ICU for severe hyperglycemia. Nephrology consulted for management of hypercalcemia. Patient seen and examined at bedside, unable to provide answers to questions. Per chart review and family history patient is altered from her baseline, is usually talkative. WBC 20.5, hemoglobin 7.3, platelets 799. Sodium 152, potassium 2.6, bicarb 24.9. BUN 49, creatinine 1.6, EGFR 35. Corrected calcium 15. Aggressive hydration for rapid correction of calcium, along with calcitonin. PET scan from 2022 showed hypermetabolic pulmonary nodules, hypermetabolic foci in multiple right-sided ribs. Recommend goals of care conversation with family. 03/05/2025: Patient seen and examined at bedside, awake and alert but does not verbally respond, does not follow commands. WBC 18.6, hemoglobin 8.8, sodium 150, potassium 3.0, bicarb 3.3, BUN 30, creatinine 1.2, EGFR 50. Corrected calcium 15.5, ALP 688. Calcium has worsened despite aggressive fluid resuscitation, patient annemarie severely symptomatic. Will place dialysis catheter today and plan for 1 session hemodialysis. May require further sessions depending on response, will continue to monitor. 03/06/2025: Patient seen examined at bedside, awake and alert but does not follow or respond to questioning. When limbs are moved, has purposeful movements to get comfortable, otherwise stares blankly. WBC 14.6, hemoglobin 8.6. Sodium 142, bicarb 28.8, BUN 23, creatinine 1.6, EGFR 35. ALP 725, corrected calcium 12.1. Plan for hemodialysis today without fluid removal. Suspect patient's mental status due to brain metastasis, patient will get brain MRI today. 03/07/2025: Patient seen examined at bedside, awake and alert but does not follow or respond to questioning. When limbs are moved, has purposeful movements to get comfortable, otherwise stares blankly. Brain MRI was negative for any mass. CT of chest/abdomen/pelvis showed showed 6mm pulmonary nodule in L upper lobe, 17mm nodule in R middle lobe, and widespread osteolytic osteoblastic metastases with pathologic fractures in left superior/inferior pubic rami. Ca 10.9, Cr 1.5, GFR 38. 03/08/2025: Patient seen and examined at bedside. Awake, nonverbal. Patient's renal function worsened compared to yesterday creatinine 2.6, BUN 39, GFR 20, on assessment patient has dry mucous membranes, will benefit from IV fluids, patient started on normal saline 75 cc/h. Will reassess renal function in a.m. to assess further need of dialysis catheter. Patient has otherwise good urine output. Exam Vital Signs Temp Pulse Resp BP Pulse Ox O2 Del Method O2 Flow Rate 97.2 F 109 H 18 145/89 H 98 Nasal Cannula 1 03/08/25 07:58 03/08/25 07:58 03/08/25 07:58 03/08/25 07:58 03/08/25 07:58 03/08/25 07:58 03/08/25 07:58 Narrative Exam General: Still not able to communicate verbally, able to follow more commands today and moving all extremities. Eyes: PERRL, EOMI. Anicteric, not tracking Ears: No ear discharge. Nose: No nasal discharge. Mouth/Throat: Dry mucous membranes, no redness, no lesions. Neck: Neck supple, non-tender, no cervical lymphadenopathy. Lungs: Clear VANESSA to auscultation and percussion, No accessory muscle use. Cardio: Normal S1/S2, regular rhythm, no murmurs, no JVD Abdomen: Soft, non-tender, no palpable masses, peristalsis present, no guarding or rebound. Extremities: Symmetrical, no significant deformities, no peripheral edema , non-tender, peripheral pulses presents. Skin: Lesion on L thoracic wall with ulceration and fixed to wall. Neuro: No focal neurological deficits appreciated but was limited due to patient's mental status. able to follow more commands today. Objective Labs 03/12/25 05:41 03/12/25 05:41 Labs: Laboratory Results - last 24 hr 03/08/25 05:49 WBC 15.8 H RBC 3.22 L Hgb 7.7 L Hct 25.8 L MCV 80 MCH 23.9 L MCHC 29.8 L RDW Std Deviation 79.1 H Plt Count 248 D Neut % (Auto) 69 Lymph % (Auto) 16 [place] % (Auto) 6 Eos % (Auto) 3 Baso % (Auto) 0 Neut # (Auto) 10.8 H Lymph # (Auto) 2.5 [place] # (Auto) 1.0 H Eos # (Auto) 0.5 Baso # (Auto) 0.1 Immature Gran # (Auto) 0.97 H Absolute Nucleated RBC 1.62 H Immature Gran % 6 H Nucleated RBC % 10 H Sodium 143 Potassium 3.5 D Chloride 107 Carbon Dioxide 23.4 Anion Gap 13 BUN 39 H Creatinine 2.6 H D Estim Creat Clear Calc 15.7 L eGFR 20 L BUN/Creatinine Ratio 15 Glucose 92 Calculated Osmolality 294 Calcium 9.5 Corrected Calcium 10.1 Phosphorus 3.5 Magnesium 1.8 Total Bilirubin 0.8 AST 55 H ALT 12 Alkaline Phosphatase 693 H D Total Protein 5.5 L Albumin 3.2 L Globulin 2.3 Albumin/Globulin Ratio 1.4 Quality Measures Quality Measures VTE prophylaxis Advance care planning discussed with:: patient Assessment & Plan Assessment Current Active Medications: Generic Name Dose Route Start Last Admin Trade Name Freq PRN Reason Stop Dose Admin Acetaminophen 650 mg 03/03/25 16:01 Acetaminophen 325 Mg Tablet PO 04/02/25 16:00 Q6H PRN Fever >101.5 Acetaminophen 650 mg 03/03/25 16:01 Acetaminophen 325 Mg Tablet PO 04/02/25 16:00 Q6H PRN PAIN SCALE 1-3 (mild Hydrocodone Bitart/Acetaminophen 1 tab 03/03/25 16:01 03/04/25 17:45 Hydrocodone/Apap 10/325 Tab PO 03/08/25 16:00 1 tab Q4H PRN Administration PAIN SCALE 4-6 (Moderate Albuterol/Ipratropium 3 ml 03/03/25 17:23 Albuterol/Ipratropium (Duoneb) Rt Citlaly 3 Ml Nebu INH 04/02/25 18:59 Q4HRRT PRN SHORTNESS OF BREATH OR WHEEZE Heparin Sodium (Porcine) 5,000 unit 03/03/25 22:00 03/08/25 05:07 Heparin Sod Inj 5000 Unit/Ml Vial SC 03/17/25 21:59 5,000 unit Q8HR JUAN Administration Heparin Sodium (Porcine) 2,600 unit 03/05/25 15:12 03/06/25 20:04 Heparin Sod Inj 1000 Unit/Ml Vial 10 Ml INDWELLCAT 03/19/25 15:11 2,600 unit PRN PRN Administration DIALYSIS Albumin Human 25 gm in 100 mls @ 100 mls/min 03/05/25 11:03 03/05/25 15:46 Albuminar-25 Ivpb IV 100 mls/min PRN PRN Administration DIALYSIS Ondansetron HCl 4 mg 03/03/25 16:01 Ondansetron Inj 2 Mg/Ml Inj 2 Ml IV 04/02/25 16:00 Q6H PRN NAUSEA OR VOMITING Protocol Pantoprazole Sodium 40 mg 03/04/25 09:00 03/08/25 10:49 Pantoprazole Inj 40 Mg Vial IVP 04/03/25 08:59 40 mg QDAY JUAN Administration Potassium Chloride 40 meq 03/04/25 11:00 03/08/25 09:43 Potassium Chloride 10% 20 Meq/15 Ml Udc PO 04/03/25 10:59 Not Given BID JUAN Plan 65-year-old female past medical history hypertension, hyperlipidemia, breast cancer status post left mastectomy, CVA, peripheral vascular disease, Raynaud's phenomenon admitted to ICU for severe symptomatic hypercalcemia. Nephrology consulted for management of severe symptomatic hypercalcemia. #AYDEN (acute kidney injury) Patient is clinically very dry on exam. Has AYDEN, likely due to prerenal dehydration lessening of hypercalcemia. -Patient was given IV NS 75 cc/h - Monitor daily renal function - Avoid nephrotoxins - Renally dose meds - Strict I's and O's - Will receive hemodialysis without fluid removal today #Severe symptomatic hypercalcemia, improving Patient presented with weakness, hypoxia. Very lethargic, poorly communicative, altered from baseline per family. Patient severely hypercalcemic, corrected calcium 15. Likely due to metastatic lesions from recurrence of previous breast cancer. Despite aggressive fluid therapy, patient calcium worsens at 15.5. Elevated ALP 688, metastatic bone lesions likely source of cancer. Will place temporary dialysis catheter today, plan for 1 session hemodialysis. PTH 13.3, not elevated enough to be source of hypercalcemia. Patient calcium improved significantly after first session of hemodialysis to corrected calcium 12.1. Patient remains severely symptomatic, suspect other etiology. Patient was on Calcitonin twice daily - Frequent neurochecks - Monitor daily labs - Vitamin D labs, PTHrp tests ordered - Hemodialysis without fluid removal #Hypokalemia Patient has severe hypokalemia, potassium 2.6. Received 40 mEq p.o. potassium and 40 mEq IV potassium. Patient received more potassium in the afternoon due to hypokalemia. Patient continues to have low potassium despite frequent repletion. Possibly related to malnutrition or metastatic cancer. - Replete as needed - Will continue to monitor #Hypernatremia, resolved #Acute encephalopathy, worsened #Episode of SVT #Tachycardia #Acute hypoxic respiratory failure #History of smoking #Sepsis #Anemia likely of chronic disease Management as per primary team. FEN: Dysphagia diet DVT PPx: Heparin 5K SQ every 8 hours GI PPx: Protonix 40 IV daily Lines: Peripheral IVs, Padilla cath Code Status: Full code Thank you for allowing us to participate in the care of this patient. Plan of care discussed with attending Dr. Moon. Alessia Owens PGY?1 Attending Provider Attestation/Addendum Pt is seen and examined. Labs and investigations are reviewed. Agree witth assessment and plan by resident. agree with findings. Surinder Moon MD
--- NOTE | 2025-03-08 13:42 | PC.SS ---
SS follow up note; SS contacted patient's son, Camilo in regards to goals of care meeting for today at 2:30PM. Patients son Camilo reported that he would be off work at 2pm and would be arriving between 2:50-3PM.
--- NOTE | 2025-03-08 15:42 | PC.SS ---
SS follow up note; Goals of care meeting was conducted with patient's son, Camilo. SS was present, as well as Dr. Worley and patient's nurse, Trang. Dr. Worley explained the patient's medical condition and diagnosis. Patient's son expressed that he would like to speak to DR. Angulo before making a decision. Dr Worley informed patient's son that he would contact Dr. Angulo and see if he is able to speak to him. SS will stand by for further needs.
[2025-03-08] MEDS: DEXTROSE 5%-NS 1,000 ML 100 ML IV (15:49)
--- NOTE | 2025-03-08 16:05 | PC.SS ---
SS follow up note; SS followed up with Babita and she informed SS that patient is from [facility] and could return back to [facility] medically cleared.
[2025-03-08] MEDS: HYDROmorphone INJ 2 MG/ML VIAL 0.25 MG IVP (16:24)
--- NOTE | 2025-03-08 16:51 | PD.RESPRO ---
Documentation for date of: 03/08/25 Subjective Subjective Interval history: Patient was seen and examined at bedside this morning. No acute overnight events. Today we had goals of care discussion with the patient's son, Camilo, along with addiction social worker and patient's nurse. It was explained to detail the current condition that the patient was in and that her cancer at this time had metastasized and was stage IV at this time. Given this information we also stated that given her advanced stage of cancer chemotherapy and radiation at this time would be most likely futile and could be even more detrimental for her health at this time given the she is very weak and is deteriorating. Patient's son was was still not also wanted to talk to do the oncologist therefore he was able to talk with the oncologist via phone call to which patient was also told that most likely chemotherapy and radiation at this time would be futile and would be more detrimental to her health than actual benefits at this time. The son was understanding, but as to have a little bit more time to make his decision concerning the patient's CODE STATUS and the route to pursue from now. Also explained to the patient that this time in the hospital medically we were expecting to discharge the patient in the next 24 hours and that based on his decision we will plan accordingly. Also explained to the patient's son that even though the patient today was able to swallow with speech evaluation there was still high risk of her aspirating, patient's son understood this and stated that he would like to take the risk at this time and to start feeding her. Will wait for patient's son's decision, but for now we will continue with medical treatment and will start IV fluids and some pain medication patient appears to be in pain. Exam Vital Signs Temp Pulse Resp BP Pulse Ox O2 Del Method O2 Flow Rate 97.4 F 105 H 16 142/99 H 98 Nasal Cannula 1 03/08/25 12:03/08/25 12:03/08/25 12:00 03/08/25 12:00 03/08/25 12:03/08/25 12:03/08/25 12:00 Narrative Exam General: Able to follow some commands and moving all extremities, but still unable to communicate Eyes: PERRL, EOMI. Anicteric, not tracking Ears: No ear discharge. Nose: No nasal discharge. Mouth/Throat: Dry mucous membranes, no redness, no lesions. Neck: Neck supple, non-tender, no cervical lymphadenopathy. Lungs: Clear VANESSA to auscultation and percussion, No accessory muscle use. Cardio: Normal S1/S2, regular rhythm, no murmurs, no JVD Abdomen: Soft, non-tender, no palpable masses, peristalsis present, no guarding or rebound. Extremities: Symmetrical, no significant deformities, no peripheral edema , non-tender, peripheral pulses presents. Skin: Lesion on L thoracic wall with ulceration and fixed to wall. Neuro: No focal neurological deficits appreciated but was limited due to patient's mental status. Still not able to communicate, but able to follow some commands and was more cooperative with speech evaluation today. Objective Labs 03/08/25 05:49 03/08/25 05:49 Labs: Laboratory Results - last 24 hr 03/08/25 05:49 WBC 15.8 H RBC 3.22 L Hgb 7.7 L Hct 25.8 L MCV 80 MCH 23.9 L MCHC 29.8 L RDW Std Deviation 79.1 H Plt Count 248 D Neut % (Auto) 69 Lymph % (Auto) 16 [place] % (Auto) 6 Eos % (Auto) 3 Baso % (Auto) 0 Neut # (Auto) 10.8 H Lymph # (Auto) 2.5 [place] # (Auto) 1.0 H Eos # (Auto) 0.5 Baso # (Auto) 0.1 Immature Gran # (Auto) 0.97 H Absolute Nucleated RBC 1.62 H Immature Gran % 6 H Nucleated RBC % 10 H Sodium 143 Potassium 3.5 D Chloride 107 Carbon Dioxide 23.4 Anion Gap 13 BUN 39 H Creatinine 2.6 H D Estim Creat Clear Calc 15.7 L eGFR 20 L BUN/Creatinine Ratio 15 Glucose 92 Calculated Osmolality 294 Calcium 9.5 Corrected Calcium 10.1 Phosphorus 3.5 Magnesium 1.8 Total Bilirubin 0.8 AST 55 H ALT 12 Alkaline Phosphatase 693 H D Total Protein 5.5 L Albumin 3.2 L Globulin 2.3 Albumin/Globulin Ratio 1.4 Quality Measures Quality Measures VTE prophylaxis Advance care planning discussed with:: patient and child Assessment & Plan Assessment Current Active Medications: Generic Name Dose Route Start Last Admin Trade Name Freq PRN Reason Stop Dose Admin Acetaminophen 650 mg 03/03/25 16:01 Acetaminophen 325 Mg Tablet PO 04/02/25 16:00 Q6H PRN Fever >101.5 Acetaminophen 650 mg 03/03/25 16:01 Acetaminophen 325 Mg Tablet PO 04/02/25 16:00 Q6H PRN PAIN SCALE 1-3 (mild Albuterol/Ipratropium 3 ml 03/03/25 17:23 Albuterol/Ipratropium (Duoneb) Rt Citlaly 3 Ml Nebu INH 04/02/25 18:59 Q4HRRT PRN SHORTNESS OF BREATH OR WHEEZE Heparin Sodium (Porcine) 5,000 unit 03/03/25 22:00 03/08/25 14:16 Heparin Sod Inj 5000 Unit/Ml Vial SC 03/17/25 21:59 5,000 unit Q8HR JUAN Administration Heparin Sodium (Porcine) 2,600 unit 03/05/25 15:12 03/06/25 20:04 Heparin Sod Inj 1000 Unit/Ml Vial 10 Ml INDWELLCAT 03/19/25 15:11 2,600 unit PRN PRN Administration DIALYSIS Hydromorphone HCl 0.25 mg 03/08/25 16:06 03/08/25 16:24 Hydromorphone Inj 2 Mg/Ml Vial IVP 03/13/25 16:05 0.25 mg Q3HR PRN Administration PAIN Protocol Albumin Human 25 gm in 100 mls @ 100 mls/min 03/05/25 11:03 03/05/25 15:46 Albuminar-25 Ivpb IV 100 mls/min PRN PRN Administration DIALYSIS Dextrose/Sodium Chloride 1,000 mls @ 100 mls/hr 03/08/25 14:30 03/08/25 15:49 D5-Ns IV 03/09/25 00:29 100 mls/hr .Q10H JUAN Administration Sodium Chloride 1,000 mls @ 75 mls/hr 03/08/25 14:26 Ns IV 03/09/25 03:45 .[id number] JUAN Ondansetron HCl 4 mg 03/03/25 16:01 Ondansetron Inj 2 Mg/Ml Inj 2 Ml IV 04/02/25 16:00 Q6H PRN NAUSEA OR VOMITING Protocol Pantoprazole Sodium 40 mg 03/04/25 09:00 03/08/25 10:49 Pantoprazole Inj 40 Mg Vial IVP 04/03/25 08:59 40 mg QDAY JUAN Administration Potassium Chloride 40 meq 03/04/25 11:00 03/08/25 09:43 Potassium Chloride 10% 20 Meq/15 Ml Udc PO 04/03/25 10:59 Not Given BID JUAN Plan 65-year-old female with past medical history of breast cancer s/p left mastectomy, hypertension, hyperlipidemia, CVA, peripheral vascular disease, and Raynaud's phenomenon was admitted to the ICU on 03/03/2025 for hypercalcemia likely in the setting of possible malignancy before being downgraded to the medical floors on 03/06/2025 for further management. #Acute encephalopathy #Hypercalcemia #Hx of breast cancer with possible recurrence and metastasis Patient was recently admitted to the ICU on 03/03/2025 for hypercalcemia likely in the setting of possible malignancy. Patient does have a history of breast cancer status post left mastectomy, but given hypercalcemia as well as lesion seen on the left chest wall patient mostly had recurrence of breast cancer which possibly could have metastasized to the brain causing her acute encephalopathy versus her hypocalcemia from possible malignancy causing her acute encephalopathy. Patient's initial calcium was 17 and today is 9.5 and 10.1 corrected Alkaline phosphatase was also elevated at 693 today Patient received calcitonin as well as pamidronate in the ICU Patient required hemodialysis after session was on 03/05/2025. Patient may benefit of goals of care discussion with family after imaging is done and was oncology states what would be the course of action. Brain MRI was negative for any mass. CT of chest/abdomen/pelvis showed showed 6mm pulmonary nodule in L upper lobe, 17mm nodule in R middle lobe, and widespread osteolytic osteoblastic metastases with pathologic fractures in left superior/inferior pubic rami Had goals of care discussion with patient's son, but for now no decision was made concerning patient's CODE STATUS or plan for hospice at the time of this note. Plan: Will continue with hemodialysis as scheduled Will continue with IV fluids Will continue to monitor calcium with daily labs Nephrology consulted, appreciate recommendations Oncology consulted, appreciate recommendations #Acute hypoxic respiratory failure #Community-acquired pneumonia #Hx of smoking Patient chets x-ray that showed no pneumonia, but does look more like vascular congestion than pneumonia at this time Patient did receive one-time dose of antibiotics Plan: Will continue with DuoNebs as needed Will continue with O2 administration Will continue to monitor #AYDEN Patient came in with creatinine of 2.2 and her baseline is around 1 Patient creatinine today was 2.6 Likely in the setting of hypovolemia versus possible ATN given hypercalcemia Patient is currently on hemodialysis Plan: IV fluids Will continue with hemodialysis schedule Avoid nephrotoxic agents Renally dose medication Nephrology consulted, prescription medications #Anemia of chronic disease Patient's hemoglobin was 10.7 on admission and her baseline is around 8 Hemoglobin today 7.7, but no active signs of bleeding Plan: Will transfuse a hemoglobin less than 7 Will continue to monitor #Leukocytosis Patient's WBC downtrending Most likely reactive in the setting of possible malignancy No fevers Plan: Will continue to monitor #NSTEMI Patient's troponins did come back elevated at 1.446 and peaked at 2.209 before downtrending EKG did not show any ST depressions or elevations Plan: Will continue to monitor Disposition: Patient seen in telemetry for hypercalcemia 2/2 possible malignancy, pending DC in 24 hrs. Diet: dysphagia 1 GI prophylaxis: protonix DVT prophylaxis: heparin subcu Code: Full code Case disclosed with Attending Dr. Souleymane Mccarthy PGY1 Attending Provider Attestation/Addendum I have discussed and was present for the essential components of the history, physical examination, diagnosis, and treatment plan with the resident. I agree with the patient's care as documented by the resident and amended herein by me. Narayan Comer DO. Had goals of care discussion with the patient's son today, he was relatively indecisive despite Dr. Angulo's recommendations and our recommendations of hospice care considering the patient's metastatic breast cancer with widespread osseous metastatic disease. He will let us know tonight however if the patient still wants full treatment then once the patient's kidney function improved she will be discharged back to SNF and she can follow-up with oncology on an outpatient basis. Although this document has been carefully reviewed, there may still be some phonetic and other typographical errors. These errors are purely grammatical due to imperfections in the software program and should not be construed in any way to compromise the substance of the patient's medical care during this visit.
[2025-03-08] MEDS: POTASSIUM CHLORIDE 10% 20 MEQ/15 ML UDC 40 MEQ PO (20:21)
[2025-03-09] VITALS (29 sets, daily range): BP systolic 113–180; BP diastolic 69–92; PULSE 86–101; RESP 14–20; TEMP 35.9–37; O2SAT 92–99; BMI 18.3
--- NOTE | 2025-03-09 | XR_ITS ---
Ultrasound-guided needle placement left internal jugular vein Permanent tunneled dialysis catheter insertion, percutaneous Fluoroscopy AP chest, portable, single view. Date and time of procedure: March 09, 2025 at 1154 hours INDICATIONS: Renal failure, need for long-term dialysis with permanent tunneled dialysis catheter Informed consent provided Technique: A timeout was completed verifying correct patient, procedure, site, positioning, and special equipment if applicable. The patient was placed in a dependent position appropriate for dialysis catheter placement based on the vein to be cannulated. The patient'sleft neck was prepped and draped in sterile fashion. Maximum Sterile Barrier Technique used including cap, mask, sterile gown, sterile gloves, and sterile full body drape. If ultrasound technique used: sterile gel and sterile probe covers. Hand Hygiene performed using proper scrub, soap and water, or alcohol-based hand rub. 1% lidocaine was used to anesthetize the surrounding skin area [employer] portable ultrasound apparatus utilized to confirm patency of the left internal jugular vein Utilizing ultrasonographic guidance successful 21-gauge needle puncture into the left internal jugular vein Ultrasound images were recorded and stored. Vessel micropuncture was performed with 21-gauge needle. 0.18 wire guide is introduced into the vein. 0.18 wire is introduced into the vena cava under fluoroscopy. Subcutaneous tunnel formed in the upper chest. Permanent tunneled dialysis catheter placed in the subcutaneous tunnel. Dilators were introduced over the J-wire guide. Tunneled dialysis catheter is introduced through a dilator with venous sheath into the superior vena cava under fluoroscopic guidance. The catheter is sutured in place to the skin and a sterile dressing applied. Perfusion to the extremity distal to the point of catheter insertion is checked and found to be adequate Attending radiologist was present for the entire procedure Estimated blood loss2 cc. The patient tolerated the procedure well and there were no complications Impression: Successful ultrasound-guided needle placement left internal jugular vein Successful permanent tunneled dialysis catheter insertion, percutaneous Fluoroscopy 1.1 minute radiation dose 2.12 milligray 1 spot fluoroscopic chest film. AP chest performed at completion procedure demonstrates satisfactory position dialysis catheter. May use dialysis catheter.
--- NOTE | 2025-03-09 | XR_ITS ---
Examination: Venous access removal temporary right internal jugular dialysis catheter Fluoroscopy AP chest single view Exam date and time: March 09, 2025 1155 hours INDICATIONS: Removal temporary dialysis catheter for placement of a permanent tunneled dialysis catheter today TECHNIQUE AND FINDINGS: Informed consent provided. Timeout performed. Skin prepped over the entrance site of the temporary dialysis catheter in Steri-Drape applied maximum sterile barrier technique hand hygiene 1% lidocaine administered for local anesthesia 0.35 wire guide placed through the temporary dialysis catheter was successful removal Direct pressure applied for control of hemostasis Estimated blood loss 0 cc Fluoroscopy 10 seconds IMPRESSION: Successful venous access removal temporary right internal jugular dialysis catheter
[2025-03-09] MEDS: SODIUM CHLORIDE 0.9% 1000 ML 1,000 ML 75 ML IV (00:25)
[2025-03-09] MEDS: HYDROmorphone INJ 2 MG/ML VIAL 0.25 MG IVP ×3 (04:44→18:17)
[2025-03-09 06:21] LABS: Basophils # (Auto) 0.1 Thou/mm3 (0.0-0.2); Basophils % (Auto) 1 % (0-2.5); Eosinophils # (Auto) 0.7 Thou/mm3 (0.0-0.5); Eosinophils % (Auto) 4 % (0-10); Hematocrit 25.1 % (36.0-46.0); Immature Granulocytes % (Auto) 9 % (0-0); Lymphocytes # (Auto) 2.6 Thou/mm3 (1.0-4.8); Lymphocytes % (Auto) 15 % (10-50); Mean Corpuscular HGB Conc 30.3 g/dl (31.0-37.0); Mean Corpuscular Hemoglobin 24.4 pg (25.0-35.0); Mean Corpuscular Volume 81 fL (80-100); Monocytes # (Auto) 1.2 Thou/mm3 (0.0-0.8); Monocytes % (Auto) 8 % (0-12); Neutrophils # (Auto) 10.6 Thou/mm3 (1.8-7.7); Neutrophils % (Auto) 64 % (37-80); Nucleated Red Blood Cell # 1.63 Thou/mm3 (0.00-0.00); Nucleated Red Blood Cell % 10 /100 WBC (0); Platelet Count 230 Thou/mm3 (140-440); Red Blood Count 3.11 Miln/mm3 (4.00-5.20); White Blood Count 16.6 Thou/mm3 (3.6-11.0)
[2025-03-09 06:26] LABS: INR 1.1 (0.9-1.3); Prothrombin Time 12.1 Seconds (9.0-12.2)
[2025-03-09 06:29] LABS: Alanine Aminotransferase 19 U/L (10-49); Albumin, Serum 3.3 gm/dL (3.4-4.8); Albumin/Globulin Ratio 1.5 (1.2-2.2); Alkaline Phosphatase 652 U/L (46-116); Anion Gap 12 (7-16); Aspartate Amino Transferase 66 U/L (0-34); BUN/Creatinine Ratio 16 Ratio (12-20); Bilirubin,Total 0.8 mg/dL (0.3-1.2); Blood Urea Nitrogen 51 mg/dL (9-23); Calcium 8.9 mg/dL (8.3-10.6); Calcium (Corrected) 9.5 mg/dL (8.5-10.1); Carbon Dioxide 23.5 mMol/L (20.0-31.0); Chloride 111 mMol/L (98-107); Creatinine (Component) 3.1 mg/dL (0.6-1.3); Estimated Creatinine Clearance 13.2 mL/min (>60); Globulin 2.2 gm/dL (2.3-3.5); Glucose 97 mg/dL (74-106); Magnesium 1.8 mg/dL (1.6-2.6); Osmolality,Calculated 304 (275-295); Phosphorous 4.1 mg/dL (2.4-5.1); Potassium 3.3 mMol/L (3.4-5.1); Sodium 146 mMol/L (136-145); Total Protein 5.5 gm/dL (5.7-8.2); eGFR 16 See Note
[2025-03-09 06:30] LABS: Hemoglobin 7.6 g/dL (12.0-16.0)
[2025-03-09 06:39] LABS: Vitamin D,1,25 (OH)2,Total 15 pg/mL (18-72); Vitamin D2, 1,25 (OH)2 <8 pg/mL; Vitamin D3, 1,25 (OH)2 15 pg/mL
--- NOTE | 2025-03-09 07:46 | PC.SS ---
SS follow up note; SS was informed that patient's is agreeable to transition patient to hospice, with [facility]. SS submitted hospice referral through [employer].
--- NOTE | 2025-03-09 08:15 | PC.NURSE ---
dr wahl at bedside, md notified of patient being a gcs 11 and not being able to swallow liquids, pt has oral potassium ordered. md stated to non admin and do iv instead.
--- NOTE | 2025-03-09 09:00 | XR_ITS ---
Venous access removal temporary dialysis catheter Permanent tunneled dialysis catheter insertion, percutaneous Fluoroscopy AP chest, portable, single view. Date and time of procedure: March 09, 2025 0941 hours INDICATIONS: Need for long-term dialysis secondary to renal failure Informed consent provided Technique: A timeout was completed verifying correct patient, procedure, site, positioning, and special equipment if applicable. The patient was placed in a dependent position appropriate for dialysis catheter placement based on the vein to be cannulated. The patient'sright neck was prepped and draped in sterile fashion. Maximum Sterile Barrier Technique used including cap, mask, sterile gown, sterile gloves, and sterile full body drape. 0.35 wire guide placed through the temporary dialysis catheter into the inferior vena cava. Subcutaneous tunnel formed in the upper chest. Permanent tunneled dialysis catheter placed in the subcutaneous tunnel. Dilators were introduced over the J-wire guide. Tunneled dialysis catheter is introduced through a dilator with venous sheath into the superior vena cava under fluoroscopic guidance. The catheter is sutured in place to the skin and a sterile dressing applied. Perfusion to the extremity distal to the point of catheter insertion is checked and found to be adequate Attending radiologist was present for the entire procedure Estimated blood loss2 cc. The patient tolerated the procedure well and there were no complications Impression: Venous access removal temporary dialysis catheter Successful permanent tunneled dialysis catheter insertion, percutaneous 10 seconds 2 spot fluoroscopic chest films. AP chest performed at completion procedure demonstrates satisfactory position dialysis catheter. May use dialysis catheter.
[2025-03-09] MEDS: PANTOPRAZOLE INJ 40 MG VIAL IVP (09:09)
--- NOTE | 2025-03-09 09:33 | PC.SS ---
SS follow up note; SS attempted to contact patient's son, Camilo. SS Left Voicemail with SS contact Number. SS contacted Dyan from [facility] and she informed SS that She spoke to Patient's son, Camilo after Goals of Care meeting and he was agreeable to transition patient on hospice. SS will have Dr. Comer submit hospice order. Dyan from [facility] informed SS that she spoke to Babita from [facility] and patient is able to discharge back to [facility] on hospice services. SS will set up transportation after 2PM once patient's son get's off work as requested.
[2025-03-09] MEDS: HEPARIN SOD INJ 1000 UNIT/ML VIAL 3500 UNIT INDWELLCAT (10:31)
[2025-03-09] MEDS: LIDOCAINE INJ PF 1% 30 ML VIAL 18 ML EPID (10:31)
[2025-03-09] MEDS: HEPARIN SOD LOCK SYR 100 UNIT/ML 500 UNIT STFIELD (10:31)
[2025-03-09] MEDS: fentaNYL CIT INJ 50 mCg/ML AMP 2ML IVP (10:33)
[2025-03-09 12:40] LABS: Path Review Blood Smear Sent to Pathologist
[2025-03-09] MEDS: ONDANSETRON INJ 2 MG/ML INJ 2 ML 4 MG IV (12:40)
--- NOTE | 2025-03-09 13:10 | PC.NURSE ---
pt off floor to dialysis
--- NOTE | 2025-03-09 13:35 | PC.SS ---
SS follow up note; Patient not eating possible peg tube, patient will need dialysis before discharge. SS was informed by Dr. Comer that patient's son does not want to purse with hospice services after all. Patient will discharge back to [facility] when medically cleared.
--- NOTE | 2025-03-09 14:42 | PCS.ST ---
LINE BUILDER recommending to allow puree/thin liquid diet feeding only when fully alert and with active participation.
--- NOTE | 2025-03-09 15:08 | PD.HHPROG ---
Documentation for date of: 03/09/25 Subjective - Hospitalist Subjective Interval history: No acute events overnight, TDC placed, WBC 16, hemoglobin 7.6, potassium 3.3, creatinine 3.1. Exam Vital Signs Temp Pulse Resp BP Pulse Ox O2 Del Method O2 Flow Rate 97.8 F 98 18 148/82 H 96 Nasal Cannula 2 03/09/25 13:21 03/09/25 15:01 03/09/25 13:21 03/09/25 15:01 03/09/25 13:21 03/09/25 12:02 03/09/25 13:21 Narrative General: No acute distress HEENT: PERRL, EOMI. Lungs: CTA bilaterally Cardio: Normal S1/S2, regular rhythm, no murmurs, no JVD Neuro: No focal neurological deficits noted Objective - Hospitalist Labs Diagram: 03/09/25 05:29 03/09/25 05:29 Labs: Laboratory Results - last 24 hr 03/03/25 03/09/25 17:14 05:29 WBC 16.6 H RBC 3.11 L Hgb 7.6 L Hct 25.1 L MCV 81 MCH 24.4 L MCHC 30.3 L RDW Std Deviation 78.0 H Plt Count 230 Neut % (Auto) 64 Lymph % (Auto) 15 Greenlee % (Auto) 8 Eos % (Auto) 4 Baso % (Auto) 1 Neut # (Auto) 10.6 H Lymph # (Auto) 2.6 Greenlee # (Auto) 1.2 H Eos # (Auto) 0.7 H Baso # (Auto) 0.1 Immature Gran # (Auto) 1.40 H Absolute Nucleated RBC 1.63 H Immature Gran % 9 H Nucleated RBC % 10 H Smear Path Review Sent to Pathologist PT 12.1 INR 1.1 APTT 35.0 Sodium 146 H Potassium 3.3 L Chloride 111 H Carbon Dioxide 23.5 Anion Gap 12 BUN 51 H Creatinine 3.1 H D Estim Creat Clear Calc 13.2 L eGFR 16 L BUN/Creatinine Ratio 16 Glucose 97 Calculated Osmolality 304 H Calcium 8.9 Corrected Calcium 9.5 Phosphorus 4.1 Magnesium 1.8 Total Bilirubin 0.8 AST 66 H ALT 19 Alkaline Phosphatase 652 H D Total Protein 5.5 L Albumin 3.3 L Globulin 2.2 L Albumin/Globulin Ratio 1.5 Vit D 1,25-Dihyd Total 15 L 1,25 Dihydroxy Vit D2 <8 1,25 Dihydroxy Vit D3 15 Assessment & Plan Plan: 65-year-old female with past medical history of breast cancer s/p left mastectomy, hypertension, hyperlipidemia, CVA, peripheral vascular disease, and Raynaud's phenomenon was admitted to the ICU on 03/03/2025 for hypercalcemia likely in the setting of possible malignancy before being downgraded to the medical floors on 03/06/2025 for further management. #Acute encephalopathy #Hypercalcemia #Metastatic breast cancer Patient was recently admitted to the ICU on 03/03/2025 for hypercalcemia likely in the setting of possible malignancy. Patient does have a history of breast cancer status post left mastectomy, but given hypercalcemia as well as lesion seen on the left chest wall patient mostly had recurrence of breast cancer which possibly could have metastasized to the brain causing her acute encephalopathy versus her hypocalcemia from possible malignancy causing her acute encephalopathy. Patient's initial calcium was 17 and today is 9.5 and 10.1 corrected Alkaline phosphatase was also elevated at 693 today Patient received calcitonin as well as pamidronate in the ICU Patient required hemodialysis after session was on 03/05/2025. Patient may benefit of goals of care discussion with family after imaging is done and was oncology states what would be the course of action. Brain MRI was negative for any mass. CT of chest/abdomen/pelvis showed showed 6mm pulmonary nodule in L upper lobe, 17mm nodule in R middle lobe, and widespread osteolytic osteoblastic metastases with pathologic fractures in left superior/inferior pubic rami Had goals of care discussion with patient's son, but for now no decision was made concerning patient's CODE STATUS or plan for hospice at the time of this note. Plan: Will continue with hemodialysis as scheduled Will continue with IV fluids Nephrology consulted, appreciate recommendations Oncology consulted, appreciate recommendations #Acute hypoxic respiratory failure #Community-acquired pneumonia #Hx of smoking Patient chets x-ray that showed no pneumonia, but does look more like vascular congestion than pneumonia at this time Patient did receive one-time dose of antibiotics Plan: Will continue with DuoNebs as needed Will continue with O2 administration Will continue to monitor #AYDEN Patient came in with creatinine of 2.2 and her baseline is around 1 Patient creatinine today was 2.6 Likely in the setting of hypovolemia versus possible ATN given hypercalcemia Patient is currently on hemodialysis Plan: IV fluids Will continue with hemodialysis schedule Avoid nephrotoxic agents Renally dose medication Nephrology consulted, prescription medications #Anemia of chronic disease Patient's hemoglobin was 10.7 on admission and her baseline is around 8 Hemoglobin today 7.7, but no active signs of bleeding Plan: Will transfuse a hemoglobin less than 7 Will continue to monitor #Leukocytosis Patient's WBC downtrending Most likely reactive in the setting of possible malignancy No fevers Plan: Will continue to monitor #NSTEMI Patient's troponins did come back elevated at 1.446 and peaked at 2.209 before downtrending EKG did not show any ST depressions or elevations Plan: Will continue to monitor Disposition: Likely DC in 2 to 3 days pending hemodialysis chair. I did have a discussion with the son this morning in regards to goals of care and he stated he does 1 of proceed with full treatment going forward, to include hemodialysis and possible PEG tube placement however last night he spoke with social work and stated he wished to pursue hospice care so it is a bit confusing today. I will meet with the patient's son today with adoption social worker in the room to have further discussions but as of now we will continue with hemodialysis as scheduled. Diet: dysphagia 1 GI prophylaxis: protonix DVT prophylaxis: heparin subcu Code: Full code Time Spent with Patient Time: Total time spent is greater than 50% in coordination of care (as documented) at patient's floor/unit and/or counseling patient: Time with patient: 25 - 35 minutes Reason for Continued Stay Reason for continued stay: further monitoring and other Quality Measures Quality Measures VTE prophylaxis Advance care planning discussed with:: child
--- NOTE | 2025-03-09 15:25 | PC.DIETICIAN ---
Nutrition Prescription: 1) If oral intake is feasible: consider Dys Pureed, Cardiac. Ensure Plus 240ml BID with lunch and dinner. 2) If PEG tube is placed and EN is initiated: consider Trophic feeds of Jevity 1.5 at 20 ml/hr hrs via GT by pump. When indicated by MD, consider advancing 10 ml every 8 hrs to goal rate of 45 ml/hr x 24 hrs.If no IV fluids, water flushes of 25 ml/hr (or as recommended by MD). 3) Consider PPN/TPN if pt is NPO >5 days. Thank you! :)
--- NOTE | 2025-03-09 16:03 | PC.SS ---
SS follow up note; SS was contacted by Dyan from [facility] and she informed SS that patient's son, Camilo is agreeable to hospice. SS contacted Camilo and he reports he wants patient to get treated first and then discharge on hospice. SS contacted Dr. Comer and he reported he will meet with patient's son today. Patient is getting dialysis and then will discharge possible on hospice. SS will stand by for further needs.
--- NOTE | 2025-03-09 16:59 | PC.SS ---
MARKETING PRODUCTION SPECIALIST and attending met with the patient's son, Camilo Stewart. Patient's son is surrogate medical decision maker. Attending discussed with the patient's son hospice option. Patient's son expressed to continue dialysis and to seek cancer treatment on behalf of the patient. Based on the plan to continue treatment options, hospice will not be pursued at this time. In addition, Code Status; reviewed. Patient will remain full code. Plan is for the patient to receive inpatient dialysis sessions and transition to SNF once outpatient schedule has been obtained.
[2025-03-10] VITALS (17 sets, daily range): BP systolic 99–142; BP diastolic 66–101; PULSE 72–148; RESP 20–31; TEMP 36.2–37.1; O2SAT 89–99
[2025-03-10 05:48] LABS: Basophils # (Auto) 0.1 Thou/mm3 (0.0-0.2); Basophils % (Auto) 1 % (0-2.5); Eosinophils # (Auto) 0.6 Thou/mm3 (0.0-0.5); Eosinophils % (Auto) 3 % (0-10); Hematocrit 25.5 % (36.0-46.0); Immature Granulocytes % (Auto) 7 % (0-0); Immature Granulocytes Auto 1.17 Thou/mm3 (0.00-0.00); Lymphocytes # (Auto) 2.5 Thou/mm3 (1.0-4.8); Lymphocytes % (Auto) 16 % (10-50); Mean Corpuscular HGB Conc 30.2 g/dl (31.0-37.0); Mean Corpuscular Hemoglobin 24.4 pg (25.0-35.0); Mean Corpuscular Volume 81 fL (80-100); Monocytes # (Auto) 1.3 Thou/mm3 (0.0-0.8); Monocytes % (Auto) 8 % (0-12); Neutrophils # (Auto) 10.7 Thou/mm3 (1.8-7.7); Neutrophils % (Auto) 65 % (37-80); Nucleated Red Blood Cell # 1.74 Thou/mm3 (0.00-0.00); Nucleated Red Blood Cell % 11 /100 WBC (0); Platelet Count 178 Thou/mm3 (140-440); Red Blood Count 3.16 Miln/mm3 (4.00-5.20); White Blood Count 16.3 Thou/mm3 (3.6-11.0)
[2025-03-10 05:49] LABS: Hemoglobin 7.7 g/dL (12.0-16.0)
[2025-03-10 06:11] LABS: Alanine Aminotransferase 20 U/L (10-49); Albumin, Serum 3.3 gm/dL (3.4-4.8); Albumin/Globulin Ratio 1.4 (1.2-2.2); Alkaline Phosphatase 673 U/L (46-116); Anion Gap 12 (7-16); Aspartate Amino Transferase 68 U/L (0-34); BUN/Creatinine Ratio 15 Ratio (12-20); Bilirubin,Total 0.9 mg/dL (0.3-1.2); Blood Urea Nitrogen 32 mg/dL (9-23); Calcium 8.4 mg/dL (8.3-10.6); Carbon Dioxide 27.2 mMol/L (20.0-31.0); Chloride 105 mMol/L (98-107); Creatinine (Component) 2.1 mg/dL (0.6-1.3); Estimated Creatinine Clearance 19.5 mL/min (>60); Globulin 2.4 gm/dL (2.3-3.5); Glucose 87 mg/dL (74-106); Magnesium 1.9 mg/dL (1.6-2.6); Osmolality,Calculated 292 (275-295); Phosphorous 3.5 mg/dL (2.4-5.1); Potassium 3.5 mMol/L (3.4-5.1); Sodium 144 mMol/L (136-145); Total Protein 5.7 gm/dL (5.7-8.2); eGFR 26 See Note
[2025-03-10] MEDS: HYDROmorphone INJ 2 MG/ML VIAL 0.25 MG IVP (07:30)
--- NOTE | 2025-03-10 07:43 | EKG_ITS ---
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 Labor Relations: MARIELLE : 1960 Requested By: Bhavesh Correia Order Number: [id number] Reading MD: Bhavesh Correia Measurements Intervals [place] Rate: 146 P: TX: QRS: 34 QRSD: 89 T: -6 QT: 318 QTc: 496 Interpretive Statements ATRIAL FIBRILLATION WITH RAPID VENTRICULAR RESPONSE MODERATE VOLTAGE CRITERIA FOR LVH, CONSIDER NORMAL VARIANT ST DEVIATION AND MODERATE T-WAVE ABNORMALITY, CONSIDER ANTERIOR ISCHEMIA Compared to ECG 03/03/2025 13:22:04 Possible ischemia now present Sinus tachycardia no longer present T-wave abnormality still present /store/S0/[id number]
[2025-03-10] MEDS: SODIUM CHLORIDE 0.9% 500 ML 500 ML 999 ML IV (07:45)
[2025-03-10] MEDS: POTASSIUM CHLORIDE 10% 20 MEQ/15 ML UDC 40 MEQ PO ×2 (08:22→20:41)
[2025-03-10] MEDS: PANTOPRAZOLE INJ 40 MG VIAL IVP (08:22)
[2025-03-10] MEDS: METOPROLOL TARTRATE INJ 1 MG/ML AMP 5 ML 2.5 MG IVP ×3 (08:27→19:34)
--- NOTE | 2025-03-10 08:44 | PD.RESPRO ---
Documentation for date of: 03/10/25 Subjective Subjective Interval history: This morning, patient had a rapid response for A-fib with RVR with bedside twelve-lead EKG, however patient denied any chest pain. Will order troponin and upgrade patient to telemetry to give IV Lopressor 2.5 mg and continue to give if heart rate tolerates. Otherwise, patient is calm and not in any apparent distress. Patient denies any chest pain or shortness of breath. Patient's family time would like to pursue dialysis and continue to seek cancer treatment which is not in line with the goals of hospice. Patient is still full code at this time. Patient received hemodialysis yesterday, but will reach out to see if patient needs any more sessions. Exam Vital Signs Temp Pulse Resp BP Pulse Ox O2 Del Method O2 Flow Rate 97.1 F 147 H 20 111/82 95 Room Air 2 03/10/25 07:41 03/10/25 08:27 03/10/25 08:16 03/10/25 08:27 03/10/25 08:16 03/10/25 04:00 03/10/25 08:16 Narrative Exam General Appearance: Pt appears elderly than stated age, cachectic, in no apparent distress, will to follow some commands but unable to communicate verbally, HEENT: NC/AT, no scleral icterus, no conjunctival pallor, MMM, edentulous Lungs: CTAB, no wheezes or crackles appreciated CVS: RRR, S1/S2 heard, no murmurs or rubs appreciated ABD: Soft, non-tender, non-distended, BS + in all 4 quadrants EXT: no deformity/edema/lesions/cyanosis/clubbing, radial pulses 2+ BL, DP pulses 2 + BL SKIN: Skin exam normal without any rashes. Neuro: Alert and awake. Able to respond to some commands, however unable to verbally communicate. Otherwise neuroexam limited due to patient's mental condition Psych: Able to assess due to patient's mental condition Objective Labs 03/10/25 05:20 03/10/25 05:20 Labs: Laboratory Results - last 24 hr 03/09/25 03/10/25 05:29 05:20 WBC 16.3 H RBC 3.16 L Hgb 7.7 L Hct 25.5 L MCV 81 MCH 24.4 L MCHC 30.2 L RDW Std Deviation 79.0 H Plt Count 178 D Neut % (Auto) 65 Lymph % (Auto) 16 [place] % (Auto) 8 Eos % (Auto) 3 Baso % (Auto) 1 Neut # (Auto) 10.7 H Lymph # (Auto) 2.5 [place] # (Auto) 1.3 H Eos # (Auto) 0.6 H Baso # (Auto) 0.1 Immature Gran # (Auto) 1.17 H Absolute Nucleated RBC 1.74 H Immature Gran % 7 H Nucleated RBC % 11 H Smear Path Review Sent to Pathologist Sodium 144 Potassium 3.5 Chloride 105 Carbon Dioxide 27.2 Anion Gap 12 BUN 32 H Creatinine 2.1 H D Estim Creat Clear Calc 19.5 L eGFR 26 L BUN/Creatinine Ratio 15 Glucose 87 Calculated Osmolality 292 Calcium 8.4 Corrected Calcium 9.0 Phosphorus 3.5 Magnesium 1.9 Total Bilirubin 0.9 AST 68 H ALT 20 Alkaline Phosphatase 673 H D Total Protein 5.7 Albumin 3.3 L Globulin 2.4 Albumin/Globulin Ratio 1.4 Quality Measures Quality Measures VTE prophylaxis Advance care planning discussed with:: patient Assessment & Plan Assessment Current Active Medications: Generic Name Dose Route Start Last Admin Trade Name Freq PRN Reason Stop Dose Admin Acetaminophen 650 mg 03/03/25 16:01 Acetaminophen 325 Mg Tablet PO 04/02/25 16:00 Q6H PRN Fever >101.5 Acetaminophen 650 mg 03/03/25 16:01 Acetaminophen 325 Mg Tablet PO 04/02/25 16:00 Q6H PRN PAIN SCALE 1-3 (mild Albuterol/Ipratropium 3 ml 03/03/25 17:23 Albuterol/Ipratropium (Duoneb) Rt Citlaly 3 Ml Nebu INH 04/02/25 18:59 Q4HRRT PRN SHORTNESS OF BREATH OR WHEEZE Heparin Sodium (Porcine) 5,000 unit 03/03/25 22:00 03/08/25 14:16 Heparin Sod Inj 5000 Unit/Ml Vial SC 03/17/25 21:59 5,000 unit Q8HR JUAN Administration Heparin Sodium (Porcine) 3,500 unit 03/09/25 15:03 Heparin Sod Inj 1000 Unit/Ml Vial 10 Ml INDWELLCAT 03/23/25 15:02 X1 PRN DIALYSIS Hydromorphone HCl 0.25 mg 03/08/25 16:06 03/10/25 07:30 Hydromorphone Inj 2 Mg/Ml Vial IVP 03/13/25 16:05 0.25 mg Q3HR PRN Administration PAIN Protocol Albumin Human 25 gm in 100 mls @ 100 mls/min 03/05/25 11:03 03/05/25 15:46 Albuminar-25 Ivpb IV 100 mls/min PRN PRN Administration DIALYSIS Ondansetron HCl 4 mg 03/03/25 16:01 03/09/25 12:40 Ondansetron Inj 2 Mg/Ml Inj 2 Ml IV 04/02/25 16:00 4 mg Q6H PRN Administration NAUSEA OR VOMITING Protocol Pantoprazole Sodium 40 mg 03/04/25 09:00 03/10/25 08:22 Pantoprazole Inj 40 Mg Vial IVP 04/03/25 08:59 40 mg QDAY JUAN Administration Potassium Chloride 40 meq 03/04/25 11:00 03/10/25 08:22 Potassium Chloride 10% 20 Meq/15 Ml Udc PO 04/03/25 10:59 40 meq BID JUAN Administration Plan 65-year-old female with past medical history of breast cancer s/p left mastectomy, hypertension, hyperlipidemia, CVA, peripheral vascular disease, and Raynaud's phenomenon was admitted to the ICU on 03/03/2025 for hypercalcemia likely in the setting of possible malignancy before being downgraded to the medical floors on 03/06/2025 for further management. #Acute encephalopathy #Hypercalcemia #Metastatic breast cancer Patient was recently admitted to the ICU on 03/03/2025 for hypercalcemia likely in the setting of possible malignancy. Patient does have a history of breast cancer status post left mastectomy, but given hypercalcemia as well as lesion seen on the left chest wall patient mostly had recurrence of breast cancer which possibly could have metastasized to the brain causing her acute encephalopathy versus her hypocalcemia from possible malignancy causing her acute encephalopathy. Patient's initial calcium was 17 and today is 9.5 and 10.1 corrected Alkaline phosphatase was also elevated at 693 today Patient received calcitonin as well as pamidronate in the ICU Patient required hemodialysis after session was on 03/05/2025. Patient may benefit of goals of care discussion with family after imaging is done and was oncology states what would be the course of action. Brain MRI was negative for any mass. CT of chest/abdomen/pelvis showed showed 6mm pulmonary nodule in L upper lobe, 17mm nodule in R middle lobe, and widespread osteolytic osteoblastic metastases with pathologic fractures in left superior/inferior pubic rami Had goals of care discussion with patient's son, but for now no decision was made concerning patient's CODE STATUS or plan for hospice at the time of this note. Plan: Will continue with hemodialysis as scheduled Will continue with IV fluids Nephrology consulted, appreciate recommendations Oncology consulted, appreciate recommendations PPD #Atrial fibrillation with RVR Patient presented with elevated heart rate of 140s this morning, and EKG confirmed finding. Kostas Vascor is 2. ? Gave Lopressor IV 2.5 mg which helped control heart rate ? Consider IV Lopressor 2.5 mg if heart rate is consistently again above 120s to 130s ? Consider anticoagulation for stroke risk, will have to weigh risk and benefits of starting medication to patient's son prior to discharge #Acute hypoxic respiratory failure #Community-acquired pneumonia #Hx of smoking Patient chets x-ray that showed no pneumonia, but does look more like vascular congestion than pneumonia at this time Patient did receive one-time dose of antibiotics Plan: Will continue with DuoNebs as needed Will continue with O2 administration Will continue to monitor #AYDEN Patient came in with creatinine of 2.2 and her baseline is around 1 Patient creatinine today was 2.6 Likely in the setting of hypovolemia versus possible ATN given hypercalcemia Patient is currently on hemodialysis Plan: IV fluids Will continue with hemodialysis schedule Avoid nephrotoxic agents Renally dose medication Nephrology consulted, prescription medications #Anemia of chronic disease Patient's hemoglobin was 10.7 on admission and her baseline is around 8 Hemoglobin today 7.7, but no active signs of bleeding Plan: Will transfuse a hemoglobin less than 7 Will continue to monitor #Leukocytosis Patient's WBC downtrending Most likely reactive in the setting of possible malignancy No fevers Plan: Will continue to monitor #NSTEMI Patient's troponins did come back elevated at 1.446 and peaked at 2.209 before downtrending EKG did not show any ST depressions or elevations Plan: Will continue to monitor Disposition: Likely to DC on Wednesday status post PPD reading and dialysis chair placement outpatient Diet: dysphagia 1 GI prophylaxis: protonix DVT prophylaxis: heparin subcu Code: Full code Patient's plan and care discussed with my attending, Dr. Souleymane Nance MD PGY-2 Attending Provider Attestation/Addendum I have discussed and was present for the essential components of the history, physical examination, diagnosis, and treatment plan with the resident. I agree with the patient's care as documented by the resident and amended herein by me. Narayan Comer DO. Patient seen and evaluated this AM. No acute events overnight however rapid response called this morning for elevated heart rate, EKG revealed atrial fibrillation with a rate of 146, Lopressor 2.5 mg IV was given with improvement. A small fluid bolus was also given. Patient will be scheduled for dialysis today and likely 1 more session tomorrow before she can be discharged back to nursing facility. No hospice at this time per son as he wishes to pursue further oncological evaluation. Social work working on hemodialysis chair, PPD was ordered. Nephrology consulted, appreciate recommendations. Will continue to monitor closely while she is here. Although this document has been carefully reviewed, there may still be some phonetic and other typographical errors. These errors are purely grammatical due to imperfections in the software program and should not be construed in any way to compromise the substance of the patient's medical care during this visit.
--- NOTE | 2025-03-10 09:39 | ESPR_ITS ---
Documentation for date of: 03/10/25 Subjective Subjective Interval history: 65 y/o F with PMHx significant for hypertension, hyperlipidemia, breast cancer status post left mastectomy, CVA, peripheral vascular disease, Raynaud's phenomenon brought in by ambulance from [facility] where she was found to be weak and hypoxic. Patient was seen at bedside and was not communicating well aside from nodding her head to questions after they are being repeated by her son. Son says that patient is wheelchair-bound and has lost weight and has had decreased appetite lately. Patient has history of cancer status post left mastectomy with incomplete margin removal. Son states that they recently followed up with oncology who is suspecting that the patient may have recurrent malignancy. Sons also contributes the patient used to be a heavy smoker when she was younger had stopped for some time however she is roommates with her who is a smoker and he states that sometimes she would ask for cigarette from her and he will give it to her. Patient has also used marijuana in the past. She does not drink alcohol. ED COURSE: Patient had a blood pressure 134/92 and a pulse of 123 with a respiratory 20 temperature 99.4 and O2 sat 91 on 6 L nasal cannula. After speaking with Dr. Ferris, he revealed the patient was found to be in SVT and he was about to cardiovert however after the dose of diltiazem she converted. CBC showed a WBC of 21.2, hemoglobin 10.7, platelet count of 912 CMP was significant for sodium of 145, potassium 3.3, BUN 65, creatinine 2.2 glucose 119 and a calcium of 17.1 after correction. Alk phos is elevated at 995 Troponins were elevated at 1.446 and BNP was elevated at 514. Chest x-ray showed mild bibasilar pneumonia Patient received 2 L boluses of NS in the ER and her heart rate did seem to come down. Patient will be admitted to the ICU for severe hyperglycemia. Nephrology consulted for management of hypercalcemia. Patient seen and examined at bedside, unable to provide answers to questions. Per chart review and family history patient is altered from her baseline, is usually talkative. WBC 20.5, hemoglobin 7.3, platelets 799. Sodium 152, potassium 2.6, bicarb 24.9. BUN 49, creatinine 1.6, EGFR 35. Corrected calcium 15. Aggressive hydration for rapid correction of calcium, along with calcitonin. PET scan from 2022 showed hypermetabolic pulmonary nodules, hypermetabolic foci in multiple right-sided ribs. Recommend goals of care conversation with family. 03/05/2025: Patient seen and examined at bedside, awake and alert but does not verbally respond, does not follow commands. WBC 18.6, hemoglobin 8.8, sodium 150, potassium 3.0, bicarb 3.3, BUN 30, creatinine 1.2, EGFR 50. Corrected calcium 15.5, ALP 688. Calcium has worsened despite aggressive fluid resuscitation, patient annemarie severely symptomatic. Will place dialysis catheter today and plan for 1 session hemodialysis. May require further sessions depending on response, will continue to monitor. 03/06/2025: Patient seen examined at bedside, awake and alert but does not follow or respond to questioning. When limbs are moved, has purposeful movements to get comfortable, otherwise stares blankly. WBC 14.6, hemoglobin 8.6. Sodium 142, bicarb 28.8, BUN 23, creatinine 1.6, EGFR 35. ALP 725, corrected calcium 12.1. Plan for hemodialysis today without fluid removal. Suspect patient's mental status due to brain metastasis, patient will get brain MRI today. 03/07/2025: Patient seen examined at bedside, awake and alert but does not follow or respond to questioning. When limbs are moved, has purposeful movements to get comfortable, otherwise stares blankly. Brain MRI was negative for any mass. CT of chest/abdomen/pelvis showed showed 6mm pulmonary nodule in L upper lobe, 17mm nodule in R middle lobe, and widespread osteolytic osteoblastic metastases with pathologic fractures in left superior/inferior pubic rami. Ca 10.9, Cr 1.5, GFR 38. 03/08/2025: Patient seen and examined at bedside. Awake, nonverbal. Patient's renal function worsened compared to yesterday creatinine 2.6, BUN 39, GFR 20, on assessment patient has dry mucous membranes, will benefit from IV fluids, patient started on normal saline 75 cc/h. Will reassess renal function in a.m. to assess further need of dialysis catheter. Patient has otherwise good urine output. 03/10/2025: Patient seen and examined at bedside. Awake, Patient has permanent dialysis catheter placed, was exchanged for TDC on 03/09/2025. Patient received dialysis on 03/09/2025 for 3 hours 2 minutes, about 0.4 L was removed. Patient is full code, tachycardic, EKG suspicious of atrial fibrillation with RVR was moved to telemetry for further assessment. Exam Vital Signs Temp Pulse Resp BP Pulse Ox O2 Del Method O2 Flow Rate 97.1 F 147 H 20 111/82 95 Room Air 2 03/10/25 07:41 03/10/25 08:27 03/10/25 08:16 03/10/25 08:27 03/10/25 08:16 03/10/25 04:00 03/10/25 08:16 Narrative Exam General: Still not able to communicate verbally, able to follow more commands today and moving all extremities. Eyes: PERRL, EOMI. Anicteric, not tracking Ears: No ear discharge. Nose: No nasal discharge. Mouth/Throat: Dry mucous membranes, no redness, no lesions. Neck: Neck supple, non-tender, no cervical lymphadenopathy. Lungs: Clear VANESSA to auscultation and percussion, No accessory muscle use. Cardio: Normal S1/S2, regular rhythm, no murmurs, no JVD Abdomen: Soft, non-tender, no palpable masses, peristalsis present, no guarding or rebound. Extremities: Symmetrical, no significant deformities, no peripheral edema , non-tender, peripheral pulses presents. Skin: Lesion on L thoracic wall with ulceration and fixed to wall. Neuro: No focal neurological deficits appreciated but was limited due to patient's mental status. Objective Labs 03/12/25 05:41 03/12/25 05:41 Labs: Laboratory Results - last 24 hr 03/09/25 03/10/25 05:29 05:20 WBC 16.3 H RBC 3.16 L Hgb 7.7 L Hct 25.5 L MCV 81 MCH 24.4 L MCHC 30.2 L RDW Std Deviation 79.0 H Plt Count 178 D Neut % (Auto) 65 Lymph % (Auto) 16 [place] % (Auto) 8 Eos % (Auto) 3 Baso % (Auto) 1 Neut # (Auto) 10.7 H Lymph # (Auto) 2.5 [place] # (Auto) 1.3 H Eos # (Auto) 0.6 H Baso # (Auto) 0.1 Immature Gran # (Auto) 1.17 H Absolute Nucleated RBC 1.74 H Immature Gran % 7 H Nucleated RBC % 11 H Smear Path Review Sent to Pathologist Sodium 144 Potassium 3.5 Chloride 105 Carbon Dioxide 27.2 Anion Gap 12 BUN 32 H Creatinine 2.1 H D Estim Creat Clear Calc 19.5 L eGFR 26 L BUN/Creatinine Ratio 15 Glucose 87 Calculated Osmolality 292 Calcium 8.4 Corrected Calcium 9.0 Phosphorus 3.5 Magnesium 1.9 Total Bilirubin 0.9 AST 68 H ALT 20 Alkaline Phosphatase 673 H D Total Protein 5.7 Albumin 3.3 L Globulin 2.4 Albumin/Globulin Ratio 1.4 Quality Measures Quality Measures VTE prophylaxis Advance care planning discussed with:: patient Assessment & Plan Assessment Current Active Medications: Generic Name Dose Route Start Last Admin Trade Name Freq PRN Reason Stop Dose Admin Acetaminophen 650 mg 03/03/25 16:01 Acetaminophen 325 Mg Tablet PO 04/02/25 16:00 Q6H PRN Fever >101.5 Acetaminophen 650 mg 03/03/25 16:01 Acetaminophen 325 Mg Tablet PO 04/02/25 16:00 Q6H PRN PAIN SCALE 1-3 (mild Albuterol/Ipratropium 3 ml 03/03/25 17:23 Albuterol/Ipratropium (Duoneb) Rt Citlaly 3 Ml Nebu INH 04/02/25 18:59 Q4HRRT PRN SHORTNESS OF BREATH OR WHEEZE Heparin Sodium (Porcine) 5,000 unit 03/03/25 22:00 03/08/25 14:16 Heparin Sod Inj 5000 Unit/Ml Vial SC 03/17/25 21:59 5,000 unit Q8HR JUAN Administration Heparin Sodium (Porcine) 3,500 unit 03/09/25 15:03 Heparin Sod Inj 1000 Unit/Ml Vial 10 Ml INDWELLCAT 03/23/25 15:02 X1 PRN DIALYSIS Hydromorphone HCl 0.25 mg 03/08/25 16:06 03/10/25 07:30 Hydromorphone Inj 2 Mg/Ml Vial IVP 03/13/25 16:05 0.25 mg Q3HR PRN Administration PAIN Protocol Albumin Human 25 gm in 100 mls @ 100 mls/min 03/05/25 11:03 03/05/25 15:46 Albuminar-25 Ivpb IV 100 mls/min PRN PRN Administration DIALYSIS Ondansetron HCl 4 mg 03/03/25 16:01 03/09/25 12:40 Ondansetron Inj 2 Mg/Ml Inj 2 Ml IV 04/02/25 16:00 4 mg Q6H PRN Administration NAUSEA OR VOMITING Protocol Pantoprazole Sodium 40 mg 03/04/25 09:00 03/10/25 08:22 Pantoprazole Inj 40 Mg Vial IVP 04/03/25 08:59 40 mg QDAY JUAN Administration Potassium Chloride 40 meq 03/04/25 11:00 03/10/25 08:22 Potassium Chloride 10% 20 Meq/15 Ml Udc PO 04/03/25 10:59 40 meq BID JUAN Administration Plan 65-year-old female past medical history hypertension, hyperlipidemia, breast cancer status post left mastectomy, CVA, peripheral vascular disease, Raynaud's phenomenon admitted to ICU for severe symptomatic hypercalcemia. Nephrology consulted for management of severe symptomatic hypercalcemia. #AYDEN (acute kidney injury) Patient is clinically very dry on exam. Has AYDEN, likely due to prerenal dehydration lessening of hypercalcemia. Patient had worsening renal function with IV fluids, patient's underlying AYDEN worsened. Patient's temporary dialysis catheter was exchanged for permanent dialysis catheter, patient received dialysis on 03/09/2025-0.4 L removed. - Will continue with dialysis inpatient, patient still does have good urine output - Patient has high possibility of being weaned off of dialysis if patient's kidneys recover - Monitor daily renal function - Avoid nephrotoxins - Renally dose meds - Strict I's and O's #Severe symptomatic hypercalcemia, improving #High suspicion of hypercalcemia of malignancy Patient presented with weakness, hypoxia. Very lethargic, poorly communicative, altered from baseline per family. Patient severely hypercalcemic, corrected calcium 15. Likely due to metastatic lesions from recurrence of previous breast cancer. Despite aggressive fluid therapy, patient calcium worsens at 15.5. Elevated ALP 688, metastatic bone lesions likely source of cancer. Will place temporary dialysis catheter today, plan for 1 session hemodialysis. PTH 13.3, not elevated enough to be source of hypercalcemia. 25?OH vitamin D total 32.1, vitamin D 1, 25 di-hyd total 15, 1, 2 dihydroxy vitamin D to less than 8, 1, 25 dihydroxy vitamin D3 15 PTH 13.3 - Frequent neurochecks - Monitor daily labs - Pending PTHrp - Hemodialysis without fluid removal #Hypokalemia Patient has severe hypokalemia, potassium 2.6. Received 40 mEq p.o. potassium and 40 mEq IV potassium. Patient received more potassium in the afternoon due to hypokalemia. Patient continues to have low potassium despite frequent repletion. Possibly related to malnutrition or metastatic cancer. - Replete as needed - Will continue to monitor #Hypernatremia, resolved #Acute encephalopathy, worsened #Episode of SVT #Tachycardia #Acute hypoxic respiratory failure #History of smoking #Sepsis #Anemia likely of chronic disease Management as per primary team. FEN: Dysphagia diet DVT PPx: Heparin 5K SQ every 8 hours GI PPx: Protonix 40 IV daily Lines: Peripheral IVs, Padilla cath Code Status: Full code Thank you for allowing us to participate in the care of this patient. Plan of care discussed with attending Dr. Moon. Alessia Owens PGY?1 Attending Provider Attestation/Addendum Pt is seen and examined. Labs and investigations are reviewed. Agree witth assessment and plan by resident. agree with findings. Surinder Moon MD
[2025-03-10] MEDS: TUBERCULIN PPD INJ 5 UNIT/0.1 ML DOSE ID (14:05)
[2025-03-11] VITALS (14 sets, daily range): BP systolic 121–139; BP diastolic 64–98; PULSE 97–149; RESP 21–26; TEMP 36.5–37; O2SAT 92–97
[2025-03-11] MEDS: HYDROmorphone INJ 2 MG/ML VIAL 0.25 MG IVP (02:59)
[2025-03-11 06:06] LABS: Basophils # (Auto) 0.2 Thou/mm3 (0.0-0.2); Basophils % (Auto) 1 % (0-2.5); Eosinophils # (Auto) 0.4 Thou/mm3 (0.0-0.5); Eosinophils % (Auto) 2 % (0-10); Hematocrit 25.8 % (36.0-46.0); Immature Granulocytes % (Auto) 8 % (0-0); Immature Granulocytes Auto 1.56 Thou/mm3 (0.00-0.00); Lymphocytes # (Auto) 2.9 Thou/mm3 (1.0-4.8); Lymphocytes % (Auto) 16 % (10-50); Mean Corpuscular HGB Conc 29.5 g/dl (31.0-37.0); Mean Corpuscular Hemoglobin 24.4 pg (25.0-35.0); Mean Corpuscular Volume 83 fL (80-100); Monocytes # (Auto) 1.5 Thou/mm3 (0.0-0.8); Monocytes % (Auto) 8 % (0-12); Neutrophils # (Auto) 12.2 Thou/mm3 (1.8-7.7); Neutrophils % (Auto) 65 % (37-80); Nucleated Red Blood Cell # 2.66 Thou/mm3 (0.00-0.00); Nucleated Red Blood Cell % 14 /100 WBC (0); Platelet Count 221 Thou/mm3 (140-440); RDW Standard Deviation 81.7 fL (36.4-46.3); Red Blood Count 3.11 Miln/mm3 (4.00-5.20); White Blood Count 18.7 Thou/mm3 (3.6-11.0)
[2025-03-11 06:14] LABS: Hemoglobin 7.6 g/dL (12.0-16.0)
[2025-03-11 06:26] LABS: Alanine Aminotransferase 26 U/L (10-49); Albumin, Serum 3.3 gm/dL (3.4-4.8); Albumin/Globulin Ratio 1.4 (1.2-2.2); Alkaline Phosphatase 754 U/L (46-116); Anion Gap 10 (7-16); Aspartate Amino Transferase 98 U/L (0-34); BUN/Creatinine Ratio 16 Ratio (12-20); Blood Urea Nitrogen 41 mg/dL (9-23); Calcium 8.3 mg/dL (8.3-10.6); Calcium (Corrected) 8.9 mg/dL (8.5-10.1); Carbon Dioxide 23.6 mMol/L (20.0-31.0); Chloride 110 mMol/L (98-107); Creatinine (Component) 2.6 mg/dL (0.6-1.3); Estimated Creatinine Clearance 15.6 mL/min (>60); Globulin 2.3 gm/dL (2.3-3.5); Glucose 101 mg/dL (74-106); Magnesium 1.8 mg/dL (1.6-2.6); Osmolality,Calculated 296 (275-295); Potassium 4.7 mMol/L (3.4-5.1); Sodium 144 mMol/L (136-145); Total Protein 5.6 gm/dL (5.7-8.2); eGFR 20 See Note
[2025-03-11] MEDS: cefTRIAXone/D5w 1gm IV premix 1 GM/50 ML BAG IV (09:13)
[2025-03-11] MEDS: PANTOPRAZOLE 40 MG TABLET PO (09:14)
[2025-03-11] MEDS: SODIUM CHLORIDE 0.45 % 1,000 ML 80 ML IV (11:37)
--- NOTE | 2025-03-11 11:48 | ESPR_ITS ---
Documentation for date of: 03/11/25 Subjective Subjective Interval history: Overnight, patient received an additional 2 doses of metoprolol tartrate 2.5 mg IV for A-fib with RVR with rate going into the 140s to 150s. Patient seen and examined at bedside. Patient peers to be less talkative than usual. Patient started on low-dose metoprolol 25 mg succinate XL and will increase maintenance to 25 depending on how patient's heart rate tolerates. Urine cultures also ordered today. Consulted cardiology for further recommendations, and does agree to discuss risks and benefits with patient and patient's son on starting anticoagulation with Eliquis. Patient's hemoglobin is stable but 7.6. nephrology also updated us that patient is not a candidate for outpatient dialysis, as patient needs a bed and there are no beds available and cannot qualify for his outpatient chair because she most likely cannot sit in a chair for 3 hours. Nephrology recommended to reach out to patient's son to have a medical subcu discussion update regarding patient's current prognosis. At this time we will give patient fluids and see how patient responds. Exam Vital Signs Temp Pulse Resp BP Pulse Ox O2 Del Method O2 Flow Rate 98.3 F 110 H 24 H 130/70 97 Nasal Cannula 2.5 03/11/25 07:00 03/11/25 07:22 03/11/25 07:00 03/11/25 07:00 03/11/25 07:00 03/11/25 07:00 03/11/25 07:00 Narrative Exam General Appearance: Pt appears elderly than stated age, cachectic, in no apparent distress, able to follow some commands but less talkative than yesterday, nonverbal HEENT: NC/AT, no scleral icterus, no conjunctival pallor, MMM, edentulous Lungs: CTAB, no wheezes or crackles appreciated CVS: RRR, S1/S2 heard, no murmurs or rubs appreciated ABD: Soft, non-tender, non-distended, BS + in all 4 quadrants EXT: no deformity/edema/lesions/cyanosis/clubbing, radial pulses 2+ BL, DP pulses 2 + BL SKIN: Skin exam normal without any rashes. Neuro: Alert and awake. Able to respond to some commands, however unable to verbally communicate. Otherwise neuroexam limited due to patient's mental condition Psych: Able to assess due to patient's mental condition Objective Labs 03/11/25 04:36 03/11/25 04:36 Labs: Laboratory Results - last 24 hr 03/11/25 04:36 WBC 18.7 H RBC 3.11 L Hgb 7.6 L Hct 25.8 L MCV 83 MCH 24.4 L MCHC 29.5 L RDW Std Deviation 81.7 H Plt Count 221 D Neut % (Auto) 65 Lymph % (Auto) 16 [place] % (Auto) 8 Eos % (Auto) 2 Baso % (Auto) 1 Neut # (Auto) 12.2 H Lymph # (Auto) 2.9 [place] # (Auto) 1.5 H Eos # (Auto) 0.4 Baso # (Auto) 0.2 Immature Gran # (Auto) 1.56 H Absolute Nucleated RBC 2.66 H Immature Gran % 8 H Nucleated RBC % 14 H Sodium 144 Potassium 4.7 D Chloride 110 H Carbon Dioxide 23.6 Anion Gap 10 BUN 41 H Creatinine 2.6 H D Estim Creat Clear Calc 15.6 L eGFR 20 L BUN/Creatinine Ratio 16 Glucose 101 Calculated Osmolality 296 H Calcium 8.3 Corrected Calcium 8.9 Phosphorus 3.0 Magnesium 1.8 Total Bilirubin 1.0 AST 98 H ALT 26 Alkaline Phosphatase 754 H D Total Protein 5.6 L Albumin 3.3 L Globulin 2.3 Albumin/Globulin Ratio 1.4 Quality Measures Quality Measures VTE prophylaxis Advance care planning discussed with:: child Assessment & Plan Assessment Current Active Medications: Generic Name Dose Route Start Last Admin Trade Name Freq PRN Reason Stop Dose Admin Acetaminophen 650 mg 03/03/25 16:01 Acetaminophen 325 Mg Tablet PO 04/02/25 16:00 Q6H PRN Fever >101.5 Acetaminophen 650 mg 03/03/25 16:01 Acetaminophen 325 Mg Tablet PO 04/02/25 16:00 Q6H PRN PAIN SCALE 1-3 (mild Albuterol/Ipratropium 3 ml 03/03/25 17:23 Albuterol/Ipratropium (Duoneb) Rt Citlaly 3 Ml Nebu INH 04/02/25 18:59 Q4HRRT PRN SHORTNESS OF BREATH OR WHEEZE Heparin Sodium (Porcine) 5,000 unit 03/03/25 22:00 03/08/25 14:16 Heparin Sod Inj 5000 Unit/Ml Vial SC 03/17/25 21:59 5,000 unit Q8HR JUAN Administration Heparin Sodium (Porcine) 3,500 unit 03/09/25 15:03 Heparin Sod Inj 1000 Unit/Ml Vial 10 Ml INDWELLCAT 03/23/25 15:02 X1 PRN DIALYSIS Albumin Human 25 gm in 100 mls @ 100 mls/min 03/05/25 11:03 03/05/25 15:46 Albuminar-25 Ivpb IV 100 mls/min PRN PRN Administration DIALYSIS Ceftriaxone Sodium/Dextrose 1 gm in 50 mls @ 100 mls/hr 03/11/25 08:35 03/11/25 09:13 Rocephin/D5w 1gm Iv Premix IV 03/18/25 08:34 100 mls/hr QDAY JUAN Administration Sodium Chloride 1,000 mls @ 80 mls/hr 03/11/25 11:12 03/11/25 11:37 Ns 0.45% IV 03/11/25 23:41 80 mls/hr .[id number] JUAN Administration Ondansetron HCl 4 mg 03/03/25 16:01 03/09/25 12:40 Ondansetron Inj 2 Mg/Ml Inj 2 Ml IV 04/02/25 16:00 4 mg Q6H PRN Administration NAUSEA OR VOMITING Protocol Pantoprazole Sodium 40 mg 03/11/25 09:00 03/11/25 09:14 Pantoprazole 40 Mg Tablet PO 04/03/25 08:59 40 mg QDAY JUAN Administration Potassium Chloride 40 meq 03/04/25 11:00 03/10/25 20:41 Potassium Chloride 10% 20 Meq/15 Ml Udc PO 04/03/25 10:59 40 meq BID JUAN Administration Plan 65-year-old female with past medical history of breast cancer s/p left mastectomy, hypertension, hyperlipidemia, CVA, peripheral vascular disease, and Raynaud's phenomenon was admitted to the ICU on 03/03/2025 for hypercalcemia likely in the setting of possible malignancy before being downgraded to the medical floors on 03/06/2025 for further management. #Acute encephalopathy #Hypercalcemia #Metastatic breast cancer Patient was recently admitted to the ICU on 03/03/2025 for hypercalcemia likely in the setting of possible malignancy. Patient does have a history of breast cancer status post left mastectomy, but given hypercalcemia as well as lesion seen on the left chest wall patient mostly had recurrence of breast cancer which possibly could have metastasized to the brain causing her acute encephalopathy versus her hypocalcemia from possible malignancy causing her acute encephalopathy. Patient's initial calcium was 17 and today is 9.5 and 10.1 corrected Alkaline phosphatase was also elevated at 693 today Patient received calcitonin as well as pamidronate in the ICU Patient required hemodialysis after session was on 03/05/2025. Patient may benefit of goals of care discussion with family after imaging is done and was oncology states what would be the course of action. Brain MRI was negative for any mass. CT of chest/abdomen/pelvis showed showed 6mm pulmonary nodule in L upper lobe, 17mm nodule in R middle lobe, and widespread osteolytic osteoblastic metastases with pathologic fractures in left superior/inferior pubic rami Had goals of care discussion with patient's son, but for now no decision was made concerning patient's CODE STATUS or plan for hospice at the time of this note. Plan: Will continue with hemodialysis as scheduled Will continue with IV fluids at 1/2 NS at 80cc/hr x 1 L Nephrology consulted, appreciate recommendations Oncology consulted, appreciate recommendations PPD #Atrial fibrillation with RVR Patient presented with elevated heart rate of 140s this morning, and EKG confirmed finding. Kostas Vascor is 2. ? Gave Lopressor IV 2.5 mg which helped control heart rate ? Consider IV Lopressor 2.5 mg if heart rate is consistently again above 120s to 130s ? Consider anticoagulation for stroke risk, will have to weigh risk and benefits of starting medication to patient's son prior to discharge - Consulted cardiology and recommended to start patient on Metoprolol 25mg XL and increase in increments of 25 depending on HR and can start Eliquis low dose BID once patient's Hgb is stable #Acute hypoxic respiratory failure #Community-acquired pneumonia #Hx of smoking Patient chets x-ray that showed no pneumonia, but does look more like vascular congestion than pneumonia at this time Patient did receive one-time dose of antibiotics Plan: Will continue with DuoNebs as needed Will continue with O2 administration Will continue to monitor #AYDEN Patient came in with creatinine of 2.2 and her baseline is around 1 Patient creatinine today was 2.6 Likely in the setting of hypovolemia versus possible ATN given hypercalcemia Patient is currently on hemodialysis Plan: IV fluids Will continue with hemodialysis schedule Avoid nephrotoxic agents Renally dose medication Nephrology consulted, prescription medications -Will call son regarding patient's current prognosis #Anemia of chronic disease Patient's hemoglobin was 10.7 on admission and her baseline is around 8 Hemoglobin today 7.7, but no active signs of bleeding Plan: Will transfuse a hemoglobin less than 7 Will continue to monitor #Leukocytosis Patient's WBC downtrending Most likely reactive in the setting of possible malignancy No fevers Plan: Will continue to monitor #NSTEMI Patient's troponins did come back elevated at 1.446 and peaked at 2.209 before downtrending EKG did not show any ST depressions or elevations Plan: Will continue to monitor Disposition: Will give fluids to see how patient's Cr function improves, but however not a outpatient dialysis candidate at this time. Diet: dysphagia 1 GI prophylaxis: protonix DVT prophylaxis: heparin subcu Code: Full code Patient's plan and care discussed with my attending, Dr. Souleymane Nance MD PGY-2 Attending Provider Attestation/Addendum With the exception of some mild I have discussed and was present for the essential components of the history, physical examination, diagnosis, and treatment plan with the resident. I agree with the patient's care as documented by the resident and amended herein by me. Narayan Comer, DO. Patient seen and evaluated this AM. Overnight, the patient did have another run of atrial fibrillation and received Lopressor 2.5 mg IV, maximum rate was in the 140-150s. Patient started on metoprolol for improved control. Cardiology consulted for atrial fibrillation, will consider starting Eliquis at 2.5 mg twice daily. Will continue the patient on ceftriaxone for any urological infection considering elevated WBC however may be secondary to malignancy. BUN 41, creatinine 2.6 today, WBC 18, hemoglobin 7.6. Unfortunately, per nephrology, the patient is not a hemodialysis candidate because she cannot sit upright in the chair and there is no beds for placement. She still is making urine, 950 mL last 24 hours, her kidneys may in fact recover somewhat over time. We will talk to the son about this as we will have to revisit the goals of care and possible hospice. Will continue to monitor closely while she is here. Although this document has been carefully reviewed, there may still be some phonetic and other typographical errors. These errors are purely grammatical due to imperfections in the software program and should not be construed in any way to compromise the substance of the patient's medical care during this visit.
--- NOTE | 2025-03-11 11:54 | PD.RESPRO ---
Documentation for date of: 03/11/25 Subjective Subjective Interval history: 65 y/o F with PMHx significant for hypertension, hyperlipidemia, breast cancer status post left mastectomy, CVA, peripheral vascular disease, Raynaud's phenomenon brought in by ambulance from [facility] where she was found to be weak and hypoxic. Patient was seen at bedside and was not communicating well aside from nodding her head to questions after they are being repeated by her son. Son says that patient is wheelchair-bound and has lost weight and has had decreased appetite lately. Patient has history of cancer status post left mastectomy with incomplete margin removal. Son states that they recently followed up with oncology who is suspecting that the patient may have recurrent malignancy. Sons also contributes the patient used to be a heavy smoker when she was younger had stopped for some time however she is roommates with her who is a smoker and he states that sometimes she would ask for cigarette from her and he will give it to her. Patient has also used marijuana in the past. She does not drink alcohol. ED COURSE: Patient had a blood pressure 134/92 and a pulse of 123 with a respiratory 20 temperature 99.4 and O2 sat 91 on 6 L nasal cannula. After speaking with Dr. Ferris, he revealed the patient was found to be in SVT and he was about to cardiovert however after the dose of diltiazem she converted. CBC showed a WBC of 21.2, hemoglobin 10.7, platelet count of 912 CMP was significant for sodium of 145, potassium 3.3, BUN 65, creatinine 2.2 glucose 119 and a calcium of 17.1 after correction. Alk phos is elevated at 995 Troponins were elevated at 1.446 and BNP was elevated at 514. Chest x-ray showed mild bibasilar pneumonia Patient received 2 L boluses of NS in the ER and her heart rate did seem to come down. Patient will be admitted to the ICU for severe hyperglycemia. Nephrology consulted for management of hypercalcemia. Patient seen and examined at bedside, unable to provide answers to questions. Per chart review and family history patient is altered from her baseline, is usually talkative. WBC 20.5, hemoglobin 7.3, platelets 799. Sodium 152, potassium 2.6, bicarb 24.9. BUN 49, creatinine 1.6, EGFR 35. Corrected calcium 15. Aggressive hydration for rapid correction of calcium, along with calcitonin. PET scan from 2022 showed hypermetabolic pulmonary nodules, hypermetabolic foci in multiple right-sided ribs. Recommend goals of care conversation with family. 03/05/2025: Patient seen and examined at bedside, awake and alert but does not verbally respond, does not follow commands. WBC 18.6, hemoglobin 8.8, sodium 150, potassium 3.0, bicarb 3.3, BUN 30, creatinine 1.2, EGFR 50. Corrected calcium 15.5, ALP 688. Calcium has worsened despite aggressive fluid resuscitation, patient annemarie severely symptomatic. Will place dialysis catheter today and plan for 1 session hemodialysis. May require further sessions depending on response, will continue to monitor. 03/06/2025: Patient seen examined at bedside, awake and alert but does not follow or respond to questioning. When limbs are moved, has purposeful movements to get comfortable, otherwise stares blankly. WBC 14.6, hemoglobin 8.6. Sodium 142, bicarb 28.8, BUN 23, creatinine 1.6, EGFR 35. ALP 725, corrected calcium 12.1. Plan for hemodialysis today without fluid removal. Suspect patient's mental status due to brain metastasis, patient will get brain MRI today. 03/07/2025: Patient seen examined at bedside, awake and alert but does not follow or respond to questioning. When limbs are moved, has purposeful movements to get comfortable, otherwise stares blankly. Brain MRI was negative for any mass. CT of chest/abdomen/pelvis showed showed 6mm pulmonary nodule in L upper lobe, 17mm nodule in R middle lobe, and widespread osteolytic osteoblastic metastases with pathologic fractures in left superior/inferior pubic rami. Ca 10.9, Cr 1.5, GFR 38. 03/08/2025: Patient seen and examined at bedside. Awake, nonverbal. Patient's renal function worsened compared to yesterday creatinine 2.6, BUN 39, GFR 20, on assessment patient has dry mucous membranes, will benefit from IV fluids, patient started on normal saline 75 cc/h. Will reassess renal function in a.m. to assess further need of dialysis catheter. Patient has otherwise good urine output. 03/10/2025: Patient seen and examined at bedside. Awake, Patient has permanent dialysis catheter placed, was exchanged for TDC on 03/09/2025. Patient received dialysis on 03/09/2025 for 3 hours 2 minutes, about 0.4 L was removed. Patient is full code, tachycardic, EKG suspicious of atrial fibrillation with RVR was moved to telemetry for further assessment. 03/11/2025: Patient seen and examined at bedside, resting comfortably. Patient awake, still does not verbally respond or follow commands well. Patient appears dry on clinical exam, will give IV fluids 1 L. Sodium 144, potassium 4.7, chloride 110, bicarb 23.6, BUN 41, creatinine 2.6, EGFR 20, corrected calcium 8.9. Exam Vital Signs Temp Pulse Resp BP Pulse Ox O2 Del Method O2 Flow Rate 98.3 F 110 H 24 H 130/70 97 Nasal Cannula 2.5 03/11/25 07:00 03/11/25 07:22 03/11/25 07:00 03/11/25 07:00 03/11/25 07:00 03/11/25 07:00 03/11/25 07:00 Narrative Exam General: Still not able to communicate verbally, moving all extremities. Eyes: PERRL, EOMI. Anicteric, not tracking HEENT: Dry mucous membranes, no redness, no lesions. Neck: Neck supple, non-tender, no cervical lymphadenopathy. Lungs: Clear VANESSA to auscultation and percussion, No accessory muscle use. Cardio: Normal S1/S2, regular rhythm, no murmurs, no JVD Abdomen: Soft, non-tender, no palpable masses, peristalsis present, no guarding or rebound. Extremities: Symmetrical, no significant deformities, no peripheral edema , non-tender, peripheral pulses presents. Skin: Lesion on L thoracic wall with ulceration and fixed to wall. Neuro: No focal neurological deficits appreciated but was limited due to patient's mental status. Objective Labs 03/11/25 04:36 03/11/25 04:36 Labs: Laboratory Results - last 24 hr 03/11/25 04:36 WBC 18.7 H RBC 3.11 L Hgb 7.6 L Hct 25.8 L MCV 83 MCH 24.4 L MCHC 29.5 L RDW Std Deviation 81.7 H Plt Count 221 D Neut % (Auto) 65 Lymph % (Auto) 16 [place] % (Auto) 8 Eos % (Auto) 2 Baso % (Auto) 1 Neut # (Auto) 12.2 H Lymph # (Auto) 2.9 [place] # (Auto) 1.5 H Eos # (Auto) 0.4 Baso # (Auto) 0.2 Immature Gran # (Auto) 1.56 H Absolute Nucleated RBC 2.66 H Immature Gran % 8 H Nucleated RBC % 14 H Sodium 144 Potassium 4.7 D Chloride 110 H Carbon Dioxide 23.6 Anion Gap 10 BUN 41 H Creatinine 2.6 H D Estim Creat Clear Calc 15.6 L eGFR 20 L BUN/Creatinine Ratio 16 Glucose 101 Calculated Osmolality 296 H Calcium 8.3 Corrected Calcium 8.9 Phosphorus 3.0 Magnesium 1.8 Total Bilirubin 1.0 AST 98 H ALT 26 Alkaline Phosphatase 754 H D Total Protein 5.6 L Albumin 3.3 L Globulin 2.3 Albumin/Globulin Ratio 1.4 Quality Measures Quality Measures VTE prophylaxis Advance care planning discussed with:: patient Assessment & Plan Assessment Current Active Medications: Generic Name Dose Route Start Last Admin Trade Name Freq PRN Reason Stop Dose Admin Acetaminophen 650 mg 03/03/25 16:01 Acetaminophen 325 Mg Tablet PO 04/02/25 16:00 Q6H PRN Fever >101.5 Acetaminophen 650 mg 03/03/25 16:01 Acetaminophen 325 Mg Tablet PO 04/02/25 16:00 Q6H PRN PAIN SCALE 1-3 (mild Albuterol/Ipratropium 3 ml 03/03/25 17:23 Albuterol/Ipratropium (Duoneb) Rt Citlaly 3 Ml Nebu INH 04/02/25 18:59 Q4HRRT PRN SHORTNESS OF BREATH OR WHEEZE Heparin Sodium (Porcine) 5,000 unit 03/03/25 22:00 03/08/25 14:16 Heparin Sod Inj 5000 Unit/Ml Vial SC 03/17/25 21:59 5,000 unit Q8HR JUAN Administration Heparin Sodium (Porcine) 3,500 unit 03/09/25 15:03 Heparin Sod Inj 1000 Unit/Ml Vial 10 Ml INDWELLCAT 03/23/25 15:02 X1 PRN DIALYSIS Albumin Human 25 gm in 100 mls @ 100 mls/min 03/05/25 11:03 03/05/25 15:46 Albuminar-25 Ivpb IV 100 mls/min PRN PRN Administration DIALYSIS Ceftriaxone Sodium/Dextrose 1 gm in 50 mls @ 100 mls/hr 03/11/25 08:35 03/11/25 09:13 Rocephin/D5w 1gm Iv Premix IV 03/18/25 08:34 100 mls/hr QDAY JUAN Administration Sodium Chloride 1,000 mls @ 80 mls/hr 03/11/25 11:12 03/11/25 11:37 Ns 0.45% IV 03/11/25 23:41 80 mls/hr .[id number] JUAN Administration Ondansetron HCl 4 mg 03/03/25 16:01 03/09/25 12:40 Ondansetron Inj 2 Mg/Ml Inj 2 Ml IV 04/02/25 16:00 4 mg Q6H PRN Administration NAUSEA OR VOMITING Protocol Pantoprazole Sodium 40 mg 03/11/25 09:00 03/11/25 09:14 Pantoprazole 40 Mg Tablet PO 04/03/25 08:59 40 mg QDAY JUAN Administration Potassium Chloride 40 meq 03/04/25 11:00 03/10/25 20:41 Potassium Chloride 10% 20 Meq/15 Ml Udc PO 04/03/25 10:59 40 meq BID JUAN Administration Plan 65-year-old female past medical history hypertension, hyperlipidemia, breast cancer status post left mastectomy, CVA, peripheral vascular disease, Raynaud's phenomenon admitted to ICU for severe symptomatic hypercalcemia. Nephrology consulted for management of severe symptomatic hypercalcemia. #AYDEN (acute kidney injury) Patient is clinically very dry on exam. Has AYDEN, likely due to prerenal dehydration lessening of hypercalcemia. Patient had worsening renal function with IV fluids, patient's underlying AYDEN worsened. Patient's temporary dialysis catheter was exchanged for permanent dialysis catheter, patient received dialysis on 03/09/2025-0.4 L removed. - Will continue with dialysis inpatient, patient still does have good urine output - Patient has high possibility of being weaned off of dialysis if patient's kidneys recover - Monitor daily renal function - Avoid nephrotoxins - Renally dose meds - Strict I's and O's - IVF: Half NS at 80 mL/h x 1 L - No hemodialysis today #Severe symptomatic hypercalcemia, resolved #High suspicion of hypercalcemia of malignancy Patient presented with weakness, hypoxia. Very lethargic, poorly communicative, altered from baseline per family. Patient severely hypercalcemic, corrected calcium 15. Likely due to metastatic lesions from recurrence of previous breast cancer. Despite aggressive fluid therapy, patient calcium worsens at 15.5. Elevated ALP 688, metastatic bone lesions likely source of cancer. Will place temporary dialysis catheter today, plan for 1 session hemodialysis. PTH 13.3, not elevated enough to be source of hypercalcemia. 25?OH vitamin D total 32.1, vitamin D 1, 25 di-hyd total 15, 1, 2 dihydroxy vitamin D to less than 8, 1, 25 dihydroxy vitamin D3 15 PTH 13.3 - Frequent neurochecks - Monitor daily labs - Pending PTHrp - Hemodialysis without fluid removal #Hypokalemia, resolved Patient has severe hypokalemia, potassium 2.6. Received 40 mEq p.o. potassium and 40 mEq IV potassium. Patient received more potassium in the afternoon due to hypokalemia. Patient continues to have low potassium despite frequent repletion. Possibly related to malnutrition or metastatic cancer. - Replete as needed - Will continue to monitor #Hypernatremia, resolved #Acute encephalopathy, worsened #Episode of SVT #Tachycardia #Acute hypoxic respiratory failure #History of smoking #Sepsis #Anemia likely of chronic disease Management as per primary team. FEN: Dysphagia diet DVT PPx: Heparin 5K SQ every 8 hours GI PPx: Protonix 40 IV daily Lines: Peripheral IVs, Padilla cath Code Status: Full code Thank you for allowing us to participate in the care of this patient. Plan of care discussed with attending Dr. Jang. Nash Wilson MD PGY?1 Attending Provider Attestation/Addendum Patient currently seen and examined with resident physician Dr. Wilson. Note reviewed, agree with findings and recommendations. Patient was moved out of ICU. During my absence Dr. Moon was covering. Noted she has a PermCath now and waiting for outpatient dialysis. Patient extremely fragile and unable to sit in the chair. Unfortunately she is not an outpatient dialysis candidate. Started to make urine. Will give her IV fluids as clinically she looks rather dehydrated. Plan of care discussed with primary team. Hold dialysis for now.
[2025-03-11] MEDS: METOPROLOL SUCCINATE XL 25 MG TABCR PO (12:20)
[2025-03-11] MEDS: METOPROLOL TARTRATE INJ 1 MG/ML AMP 5 ML 2.5 MG IVP (14:43)
--- NOTE | 2025-03-11 15:26 | PC.SS ---
Rounding: Pt is NOT candidate for outpt HD due to nt being able to sit up in chair. Per Team GOC to be held with son to determine goal.
[2025-03-12] VITALS (12 sets, daily range): BP systolic 119–152; BP diastolic 64–106; PULSE 98–118; RESP 10–22; TEMP 36.4–36.7; O2SAT 90–100
[2025-03-12 06:54] LABS: Basophils # (Auto) 0.2 Thou/mm3 (0.0-0.2); Basophils % (Auto) 1 % (0-2.5); Eosinophils # (Auto) 0.3 Thou/mm3 (0.0-0.5); Eosinophils % (Auto) 1 % (0-10); Hematocrit 26.6 % (36.0-46.0); Immature Granulocytes % (Auto) 9 % (0-0); Immature Granulocytes Auto 2.09 Thou/mm3 (0.00-0.00); Lymphocytes # (Auto) 3.4 Thou/mm3 (1.0-4.8); Lymphocytes % (Auto) 15 % (10-50); Mean Corpuscular HGB Conc 29.7 g/dl (31.0-37.0); Mean Corpuscular Hemoglobin 24.3 pg (25.0-35.0); Mean Corpuscular Volume 82 fL (80-100); Monocytes # (Auto) 1.7 Thou/mm3 (0.0-0.8); Monocytes % (Auto) 7 % (0-12); Neutrophils # (Auto) 15.7 Thou/mm3 (1.8-7.7); Neutrophils % (Auto) 67 % (37-80); Nucleated Red Blood Cell % 13 /100 WBC (0); Platelet Count 230 Thou/mm3 (140-440); RDW Standard Deviation 78.9 fL (36.4-46.3); Red Blood Count 3.25 Miln/mm3 (4.00-5.20); White Blood Count 23.3 Thou/mm3 (3.6-11.0)
[2025-03-12 06:56] LABS: Hemoglobin 7.9 g/dL (12.0-16.0)
[2025-03-12 07:00] LABS: Alanine Aminotransferase 28 U/L (10-49); Albumin, Serum 3.4 gm/dL (3.4-4.8); Albumin/Globulin Ratio 1.5 (1.2-2.2); Alkaline Phosphatase 817 U/L (46-116); Anion Gap 11 (7-16); Aspartate Amino Transferase 91 U/L (0-34); BUN/Creatinine Ratio 18 Ratio (12-20); Blood Urea Nitrogen 44 mg/dL (9-23); Calcium (Corrected) 8.5 mg/dL (8.5-10.1); Carbon Dioxide 24.2 mMol/L (20.0-31.0); Chloride 107 mMol/L (98-107); Creatinine (Component) 2.5 mg/dL (0.6-1.3); Estimated Creatinine Clearance 16.2 mL/min (>60); Globulin 2.3 gm/dL (2.3-3.5); Glucose 106 mg/dL (74-106); Magnesium 1.7 mg/dL (1.6-2.6); Osmolality,Calculated 294 (275-295); Phosphorous 3.3 mg/dL (2.4-5.1); Potassium 3.4 mMol/L (3.4-5.1); Sodium 142 mMol/L (136-145); Total Protein 5.7 gm/dL (5.7-8.2); eGFR 21 See Note
[2025-03-12] MEDS: METOPROLOL SUCCINATE XL 25 MG TABCR PO ×2 (08:12→10:46)
[2025-03-12] MEDS: PANTOPRAZOLE 40 MG TABLET PO (08:13)
[2025-03-12] MEDS: SODIUM CHLORIDE 0.45 % 1,000 ML 85 ML IV (08:13)
[2025-03-12] MEDS: cefTRIAXone/D5w 1gm IV premix 1 GM/50 ML BAG IV (08:13)
--- NOTE | 2025-03-12 08:41 | ESCONSULT_ITS ---
HPI Data of Consult Requesting Physician: Ryan Comer DO Admitting Provider: Troy Medina MD Attending Provider: Ryan Comer DO Primary Care Provider: Physician No Primary/Family Consult Narrative History of present illness: This is a 65-year-old female PMHx of HTN, HLD, breast cancer s/p left mastectomy, CVA, PVD, and Raynaud's presented from [facility] on 03/03/2025 with concern for weakness and hypoxemia. She is wheelchair-bound at baseline, usually communicate well. However, her son noted that she was not communicating with them at the time that he saw her, the day before admission. There is also reported significant weight loss and worsening appetite recently. On ED presentation, T99.4, BP 134/92, HR 123, RR 20, satting 91% on 16 cannula. ED reported an episode of SVT but was converted to sinus with DILTIAZEM and after 2 L of NS bolus. CBC showed WBC 21, Hgb 10.7, PLT 912. CHEM panel showed sodium 145, potassium 3.3, BUN 65, CR 2.2, GLUCOSE 119, corrected calcium 17.1, ALP 995. Troponin was elevated at 1.446 and BNP was 514. EKG showed sinus tachycardia without acute ST changes. CXR showed mild bibasilar pneumonia. She was initially admitted to ICU with severe symptomatic hypercalcemia. Hypercalcemia was corrected with HD. Pneumonia was treated with ANTIBIOTICS. Troponin peaked at 2.209. She was stabilized, downgraded to floors on 03/06. Labs then showed sodium 140, potassium 4.0, CR 1.6, BUN 23, EGFR 35, corrected calcium 12.1, AST 74, ALP 725, WBC 14.6, Hgb 8.6, PLT 447. CT CAP was done on 03/06 showing 6 mm pulmonary nodule at the left upper lobe, 17 mm pulmonary nodule of the right middle lobe, bibasilar pneumonia with small bilateral pleural effusion, widespread osteo lytic osteoblastic metastasis with pelvis illogical fracture of left superior inferior pubic ramus. Brain MRI was done on 03/07, showing prominent chronic microvascular white matter change, old infarct of right cerebral hemisphere and right basal ganglia and right frontal/parietal lobes, but no acute pathology. Microbiology workup including MRSA swab have been negative thus far. Today's labs are showing WBC 23.3, Hgb 7.9, PLT 230. There appears no sign of active bleed, stool color has been brown, no reported dark stool. She is currently undergoing workup for anemia by primary team. Potassium 3.4, magnesium 1.7, BUN 44, CR 2.5, corrected calcium 8.5, ALP 817, AST 91. Since admission, heart rate ranging from 86-1 50s despite METOPROLOL. Telemetry review showed paroxysmal A-fib, overnight was in RVR with HR 130s, she received METOPROLOL 25 mg x 1 followed by METOPROLOL 2.5 mg IV x 1. This morning she was again in RVR with HR 130s. Remains nonverbal, altered, however she nodded her head for no chest pain SOB or dizziness. Objectively, denies not appear in acute distress or pain. She appeared dry on exam, especially oral mucosa, no lower extremity edema noted, lungs clear without crackles. Recommended METOPROLOL succinate 50 mg daily, may increase the dose or give additional 25 mg as needed for heart rate control. Recommending starting ELIQUIS 2.5 mg BID once active bleeding ruled out. Maintain K > 4.0 and Mg > 2.0. cc:: cc: Ryan Comer DO Review of Systems Review of Systems Narrative Review of Systems: 12 point system review negative except for above mentioned. Past Medical History Past Medical History NEUROLOGIC: Positive Neurological Disorders and Cerebrovascular Accident CARDIAC: Positive Cardiac Disorders, Hypercholesterolemia and Hypertension RESPIRATORY: Positive Pneumonia REPRODUCTIVE: Positive Breast Cancer MUSCULOSKELETAL: Positive Musculoskeletal Disorders and Fractures ENDOCRINE: Positive Hyperthyroidism PSYCHO/SOCIAL: Positive Depression and Anxiety OTHER HISTORY: Positive Hospitalization, Chicken Pox, Cancer and Breast Cancer Family History FAMILY HISTORY: Positive Family Cancer; Negative Family Cardiac Disorders, Family Surgery or Family Anesthesia Reaction Surgical History SURGICAL: Positive Amputation and Tubal Ligation Social History SMOKING STATUS: Smoker, status unknown SUBSTANCE USE: methamphetamine Exam Vital Signs Temp Pulse Resp BP Pulse Ox O2 Del Method O2 Flow Rate 98.0 F 115 H 17 152/97 H 91 L Nasal Cannula 2.5 03/12/25 08:00 03/12/25 08:12 03/12/25 08:00 03/12/25 08:12 03/12/25 08:00 03/12/25 08:00 03/11/25 15:45 Narrative Exam GENERAL * ill appearing adult female, cachectic, NAD HEENT * NCAT.?MED. Dry mucosa is moist. Patent Nares NECK * Supple, nontender, no thyromegaly, no meningismus, no JVD, no step offs CHEST * RRR, no m/g/r * CTAB, no w/r/r. Symmetrical chest rise. No intercostal subcostal retraction * Atraumatic, nontender, no crepitus, symmetrical expansion. ABDOMEN * Soft, flat, nontender. No guarding/rebound tenderness/masses. * Bowel sounds presents EXTREMITIES * No edema/cyanosis.? SKIN * Warm and dry, no jaundice/rashes. NEUROMUSCULAR * Limited exam secondary to altered mentation PSYCHIATRY * cooperative, no SI or HI or hallucinations. Results Labs 03/12/25 05:41 03/12/25 05:41 Labs: Short CBC 03/12/25 Range/Units 05:41 WBC 23.3 H (3.6-11.0) Thou/mm3 Hgb 7.9 L (12.0-16.0) g/dL Hct 26.6 L (36.0-46.0) % Plt Count 230 (140-440) Thou/mm3 BMP 03/12/25 05:41 Sodium 142 Potassium 3.4 D Chloride 107 Carbon Dioxide 24.2 BUN 44 H Creatinine 2.5 H Glucose 106 Calcium 8.0 L Liver Function 03/12/25 Range/Units 05:41 Total Bilirubin 1.0 (0.3-1.2) mg/dL AST 91 H (0-34) U/L ALT 28 (10-49) U/L Alkaline Phosphatase 817 H D (46-116) U/L Albumin 3.4 (3.4-4.8) gm/dL Quality Measures Quality Measures VTE prophylaxis Advance care planning discussed with:: patient Medications Home Medications and Allergies Home Medications ?Medication ?Instructions ?Recorded ?Confirmed ?Type famotidine 20 mg tablet 20 mg PO Q12H 12/05/2103/04 History gabapentin 600 mg tablet 600 mg PO TID 12/05/2103/04 History levothyroxine 50 mcg tablet 50 mcg PO QDAY 12/05/21 History atorvastatin 80 mg tablet 80 mg PO DAILY UD 12/14/24 0 03/04/25 History clopidogrel 75 mg tablet 75 mg PO .evening 12/14/24 0 03/04/25 History ascorbic acid (vitamin C) 500 mg 500 mg PO QDAY 03/04/25 History tablet (Vitamin C) ferrous sulfate 325 mg (65 mg 325 mg PO QDAY 03/04/25 03/04/25 History iron) tablet (Feosol) megestrol 40 mg tablet 40 mg PO TID take before eac h meal 03/04/25 03/04/25 History Allergies Allergy/AdvReac Type Severity Reaction Status Date / Time codeine Allergy Vomiting Verified 03/03/25 13:31 Visit Medications Acetaminophen (Acetaminophen 325 Mg Tablet) 650 mg PO Q6H PRN PRN Reason: Fever >101.5 Stop: 04/02/25 16:00 Acetaminophen (Acetaminophen 325 Mg Tablet) 650 mg PO Q6H PRN PRN Reason: PAIN SCALE 1-3 (mild Stop: 04/02/25 16:00 Albuterol/Ipratropium (Albuterol/Ipratropium (Duoneb) Rt Citlaly 3 Ml Nebu) 3 ml INH Q4HRRT PRN PRN Reason: SHORTNESS OF BREATH OR WHEEZE Stop: 04/02/25 18:59 Heparin Sodium (Porcine) (Heparin Sod Inj 5000 Unit/Ml Vial) 5,000 unit SC Q8HR JUAN Stop: 03/17/25 21:59 Last Admin: 03/08/25 14:16 Dose: 5,000 unit Heparin Sodium (Porcine) (Heparin Sod Inj 1000 Unit/Ml Vial 10 Ml) 3,500 unit INDWELLCAT X1 PRN PRN Reason: DIALYSIS Stop: 03/23/25 15:02 Albumin Human (Albuminar-25 Ivpb) 25 gm in 100 mls @ 100 mls/min IV PRN PRN PRN Reason: DIALYSIS Last Admin: 03/05/25 15:46 Dose: 100 mls/min Ceftriaxone Sodium/Dextrose (Rocephin/D5w 1gm Iv Premix) 1 gm in 50 mls @ 100 mls/hr IV QDAY JUAN Stop: 03/18/25 08:34 Last Admin: 03/12/25 08:13 Dose: 100 mls/hr Sodium Chloride (Ns 0.45%) 1,000 mls @ 85 mls/hr IV .[id number] ONE Stop: 03/12/25 19:19 Last Admin: 03/12/25 08:13 Dose: 85 mls/hr Metoprolol Succinate (Metoprolol Succinate Xl 25 Mg Tabcr) 25 mg PO QDAY [facility] Stop: 04/11/25 08:59 Last Admin: 03/12/25 08:12 Dose: 25 mg Ondansetron HCl (Ondansetron Inj 2 Mg/Ml Inj 2 Ml) 4 mg IV Q6H PRN; Protocol PRN Reason: NAUSEA OR VOMITING Stop: 04/02/25 16:00 Last Admin: 03/09/25 12:40 Dose: 4 mg Pantoprazole Sodium (Pantoprazole 40 Mg Tablet) 40 mg PO QDAY [facility] Stop: 04/03/25 08:59 Last Admin: 03/12/25 08:13 Dose: 40 mg Discontinued Medications Hydrocodone Bitart/Acetaminophen (Hydrocodone/Apap 10/325 Tab) 1 tab PO Q4H PRN PRN Reason: PAIN SCALE 4-6 (Moderate Stop: 03/08/25 16:00 Last Admin: 03/04/25 17:45 Dose: 1 tab Calcitonin Ollie (Calcitonin, Ollie Synth Inj 1 Unit/0.005 Ml Vial) 192 unit SC Q12HR [facility] Stop: 04/02/25 16:29 Last Admin: 03/05/25 22:16 Dose: 192 unit Denosumab (Denosumab Inj 60 Mg/Ml Syringe) 60 mg SC X1 ONE Stop: 03/03/25 18:46 Last Admin: 03/03/25 18:46 Dose: 60 mg Diltiazem HCl (Diltiazem Inj 5 Mg/Ml Vial 5 Ml) 10 mg IV X1 ONE Stop: 03/03/25 14:10 Last Admin: 03/03/25 14:13 Dose: 10 mg Epoetin Elijah (Epoetin Elijah Inj 1,000 Unit/0.05 Ml Unit) 10,000 unit SC X1 ONE Stop: 03/06/25 18:01 Last Admin: 03/06/25 20:00 Dose: 10,000 unit Fentanyl Citrate (Fentanyl Cit Inj 50 Mcg/Ml Amp 2ml) 50 mcg IVP X1 ONE Stop: 03/09/25 10:31 Last Admin: 03/09/25 10:33 Dose: 50 mcg Furosemide (Furosemide Inj 10 Mg/Ml 4ml Vial) 40 mg IVP X1 ONE Stop: 03/04/25 15:09 Last Admin: 03/04/25 16:07 Dose: 40 mg Heparin Sodium (Beef Lung) (Heparin Sod Lock Syr 100 Unit/Ml) 500 unit STFIELD X1 ONE Stop: 03/09/25 10:31 Last Admin: 03/09/25 10:31 Dose: 500 unit Heparin Sodium (Porcine) (Heparin Sod Inj 1000 Unit/Ml Vial 10 Ml) 2,600 unit INDWELLCAT PRN PRN PRN Reason: DIALYSIS Stop: 03/19/25 15:11 Last Admin: 03/06/25 20:04 Dose: 2,600 unit Heparin Sodium (Porcine) (Heparin Sod Inj 1000 Unit/Ml Vial) 3,500 unit INDWELLCAT X1 ONE Stop: 03/09/25 10:31 Last Admin: 03/09/25 10:31 Dose: 3,500 unit Hydralazine HCl (Hydralazine Inj 20 Mg/Ml Vial) 10 mg IV X1 ONE Stop: 03/05/25 10:12 Last Admin: 03/05/25 11:22 Dose: 10 mg Hydromorphone HCl (Hydromorphone Inj 2 Mg/Ml Vial) 0.25 mg IVP Q3HR PRN; Protocol PRN Reason: PAIN Stop: 03/13/25 16:05 Last Admin: 03/11/25 02:59 Dose: 0.25 mg Sodium Chloride (Ns) 1,000 mls @ 999 mls/hr IV .Q1H1M ONE Stop: 03/03/25 14:34 Last Infusion: 03/03/25 15:15 Dose: Infused Sodium Chloride (Ns) 1,000 mls @ 999 mls/hr IV .Q1H1M ONE Stop: 03/03/25 14:35 Last Infusion: 03/03/25 15:15 Dose: Infused Magnesium Sulfate (Magnesium Sulfate Ivpb) 2 gm in 50 mls @ 25 mls/hr IV X1 ONE Stop: 03/03/25 18:25 Last Admin: 03/03/25 18:29 Dose: 25 mls/hr Potassium Chloride (Kcl Ivpb) 10 meq in 100 mls @ 100 mls/hr IV Q1H JUAN Stop: 03/03/25 20:28 Last Admin: 03/03/25 21:36 Dose: 100 mls/hr Sodium Chloride (Ns) 1,000 mls @ 250 mls/hr IV .Q4H JUAN Stop: 04/02/25 16:31 Last Infusion: 03/04/25 12:40 Dose: 0 mls/hr Azithromycin 500 mg/ Sodium (Chloride) 250 mls @ 250 mls/hr IV QDAY@1400 [facility] Stop: 03/11/25 13:59 Ceftriaxone Sodium/Dextrose (Rocephin/D5w 1gm Iv Premix) 1 gm in 50 mls @ 100 mls/hr IV QDAY JUAN Stop: 03/10/25 17:22 Last Admin: 03/04/25 09:17 Dose: 100 mls/hr Azithromycin 500 mg/ Sodium (Chloride) 250 mls @ 250 mls/hr IV X1 ONE Stop: 03/03/25 18:29 Last Admin: 03/03/25 18:56 Dose: 250 mls/hr Potassium Chloride (Kcl Ivpb) 10 meq in 100 mls @ 100 mls/hr IV Q1H [facility] Stop: 03/04/25 11:50 Last Admin: 03/04/25 12:38 Dose: 100 mls/hr Lactated Ringer's (Lactated Ringers) 1,000 mls @ 500 mls/hr IV .Q2H [facility] Stop: 04/03/25 12:34 Last Admin: 03/10/25 06:56 Dose: Not Given Pamidronate Disodium 60 mg/ (Sodium Chloride) 506.6667 mls @ 126.667 mls/hr IV X1 ONE; Protocol Stop: 03/04/25 16:44 Last Admin: 03/04/25 13:15 Dose: 126.667 mls/hr Ceftriaxone Sodium/Dextrose (Rocephin/D5w 1gm Iv Premix) 1 gm in 50 mls @ 100 mls/hr IV QDAY JUAN Stop: 03/12/25 08:59 Last Admin: 03/05/25 08:45 Dose: 100 mls/hr Potassium Chloride (Kcl Ivpb) 10 meq in 100 mls @ 100 mls/hr IV Q1H JUAN Stop: 03/04/25 22:27 Last Admin: 03/04/25 22:08 Dose: 100 mls/hr Lactated Ringer's (Lactated Ringers) 1,000 mls @ 999 mls/hr IV .Q1H1M ONE Stop: 03/05/25 01:49 Last Admin: 03/05/25 01:26 Dose: 999 mls/hr Lactated Ringer's (Lactated Ringers) 1,000 mls @ 999 mls/hr IV .Q1H1M ONE Stop: 03/05/25 05:55 Last Admin: 03/05/25 05:16 Dose: 999 mls/hr Sodium Chloride (Ns 0.45%) 1,000 mls @ 150 mls/hr IV .Q6H40M ONE Stop: 03/05/25 13:34 Last Admin: 03/05/25 07:24 Dose: 150 mls/hr Magnesium Sulfate (Magnesium Sulfate Ivpb) 2 gm in 50 mls @ 25 mls/hr IV X1 ONE Stop: 03/05/25 08:56 Last Admin: 03/05/25 07:23 Dose: 25 mls/hr Potassium Chloride (Kcl Ivpb) 10 meq in 100 mls @ 100 mls/hr IV Q1[facility] Stop: 03/05/25 10:57 Last Admin: 03/05/25 10:56 Dose: 100 mls/hr Sodium Chloride (Ns) 1,000 mls @ 80 mls/hr IV .[id number] ONE Stop: 03/06/25 20:20 Last Admin: 03/10/25 06:56 Dose: Not Given Lactated Ringer's (Lactated Ringers) 1,000 mls @ 60 mls/hr IV .[id number] JUAN Stop: 03/07/25 01:24 Last Admin: 03/06/25 09:28 Dose: 60 mls/hr Potassium Chloride (Kcl Ivpb) 10 meq in 100 mls @ 100 mls/hr IV Q1[facility] Stop: 03/07/25 00:35 Last Admin: 03/06/25 23:51 Dose: 100 mls/hr Dextrose/Sodium Chloride (D5-1/2ns) 1,000 mls @ 70 mls/hr IV .[id number] JUAN Stop: 03/07/25 22:47 Last Admin: 03/07/25 09:02 Dose: 70 mls/hr Dextrose/Sodium Chloride (D5-Ns) 1,000 mls @ 100 mls/hr IV .Q10H JUAN Stop: 03/09/25 00:29 Last Infusion: 03/09/25 07:00 Dose: Infused Sodium Chloride (Ns) 1,000 mls @ 75 mls/hr IV .[id number] [facility] Stop: 03/09/25 03:45 Last Infusion: 03/09/25 07:34 Dose: Infused Sodium Chloride (Ns) 500 mls @ 999 mls/hr IV .Q31M ONE Stop: 03/10/25 08:15 Last Admin: 03/10/25 07:45 Dose: 999 mls/hr Sodium Chloride (Ns 0.45%) 1,000 mls @ 80 mls/hr IV .[id number] [facility] Stop: 03/11/25 23:41 Last Admin: 03/11/25 11:37 Dose: 80 mls/hr Labetalol HCl (Labetalol Inj 5 Mg/Ml Vial 20 Ml) 10 mg IVP X1 ONE Stop: 03/04/25 09:35 Last Admin: 03/04/25 10:34 Dose: 10 mg Labetalol HCl (Labetalol Inj 5 Mg/Ml Vial 20 Ml) 10 mg IVP X1 ONE Stop: 03/05/25 05:25 Last Admin: 03/05/25 06:08 Dose: 10 mg Lidocaine HCl (Lidocaine Inj Pf 1% 30 Ml Vial) 18 ml EPID X1 ONE Stop: 03/09/25 10:31 Last Admin: 03/09/25 10:31 Dose: 18 ml Metoprolol Succinate (Metoprolol Succinate Xl 25 Mg Tabcr) 25 mg PO X1 ONE Stop: 03/11/25 12:01 Last Admin: 03/11/25 12:20 Dose: 25 mg Metoprolol Tartrate (Metoprolol Tartrate Inj 1 Mg/Ml Amp 5 Ml) 2.5 mg IVP X1 ONE Stop: 03/10/25 07:52 Last Admin: 03/10/25 08:27 Dose: 2.5 mg Metoprolol Tartrate (Metoprolol Tartrate Inj 1 Mg/Ml Amp 5 Ml) 2.5 mg IVP X1 ONE Stop: 03/10/25 18:03 Last Admin: 03/10/25 18:06 Dose: 2.5 mg Metoprolol Tartrate (Metoprolol Tartrate Inj 1 Mg/Ml Amp 5 Ml) 2.5 mg IVP X1 ONE Stop: 03/10/25 19:24 Last Admin: 03/10/25 19:34 Dose: 2.5 mg Metoprolol Tartrate (Metoprolol Tartrate Inj 1 Mg/Ml Amp 5 Ml) 2.5 mg IVP X1 ONE Stop: 03/11/25 14:41 Last Admin: 03/11/25 14:43 Dose: 2.5 mg Midazolam HCl (Midazolam Inj 1 Mg/Ml Vial 2 Ml) 2 mg IV X1 ONE Stop: 03/05/25 10:48 Last Admin: 03/05/25 10:56 Dose: 2 mg Morphine Sulfate (Morphine Sulf Inj 10 Mg/Ml Vial) 1 mg IVP X1 ONE Stop: 03/05/25 04:52 Last Admin: 03/05/25 05:16 Dose: 1 mg Pamidronate Disodium (Pamidronate Inj 30 Mg/10 Ml Vial) 60 mg IV X1 ONE Stop: 03/05/25 07:04 Last Admin: 03/10/25 06:56 Dose: Not Given Pantoprazole Sodium (Pantoprazole Inj 40 Mg Vial) 40 mg IVP QDAY JUAN Stop: 04/03/25 08:59 Last Admin: 03/10/25 08:22 Dose: 40 mg Potassium Chloride (Potassium Chloride 10% 20 Meq/15 Ml Udc) 40 meq PO BID JUAN Stop: 04/03/25 10:59 Last Admin: 03/10/25 20:41 Dose: 40 meq Potassium Chloride (Potassium Chloride 10% 20 Meq/15 Ml Udc) 40 meq PO X1 ONE; Protocol Stop: 03/04/25 16:09 Last Admin: 03/04/25 17:52 Dose: 40 meq Potassium Chloride (Potassium Chloride 10% 20 Meq/15 Ml Udc) 20 meq PO X1 ONE; Protocol Stop: 03/04/25 16:31 Last Admin: 03/04/25 18:27 Dose: Not Given Potassium Chloride (Potassium Chloride 10% 20 Meq/15 Ml Udc) 40 meq PO BID ONE Stop: 03/12/25 07:35 Tuberculin PPD (Tuberculin Ppd Inj 5 Unit/0.1 Ml Dose) 5 unit ID X1 ONE Stop: 03/10/25 10:40 Last Admin: 03/10/25 14:05 Dose: 5 unit Assessment & Plan Plan This is a 65-year-old female PMHx of HTN, HLD, breast cancer s/p left mastectomy, CVA, PVD, and Raynaud's presented from [facility] on 03/03/2025 with concern for weakness and hypoxemia. Atrial fibrillation with RVR NSTEMI type II History is limited secondary to mentation, unable to assess symptoms. NAD on exam. HR 86-150s, overnight. EKG showed A-fib with RVR, HR 150, initially controlled with METOPROLOL. Troponin peaked at 2.209, likely demand ischemia 2/[address] changes on EKG. She was found again in A-fib on exam and on telemetry, HR 130s today. ? Recommended METOPROLOL succinate 50 mg daily, may give additional doses PRN if RVR again ? Given another dose of METOPROLOL SUCC 50 mg X1 this afternoon since HR 118 on tele. ? [id number] 2?3, recommended ELIQUIS 2.5 mg BID once active bleed ruled out ? Maintain K > 4.0 and Mg > 2.0 ? Ordered ECHO given history of A-fib Elevated BNP BNP 514 on admission. She received several doses of LASIX in ED and in ICU, concern for shortness of breath. Has good urine output. At this time, no signs of CHF exacerbation, no fluid overload. Hopxemia likely PNA in origin. ? Recommended outpatient ECHO and cardiology follow-up ? Maintain K > 4.0 and Mg > 2.0 Acute hypoxic respiratory failure Community-acquired pneumonia Hx of smoking AYDEN Anemia of chronic disease Management of rest of the medical conditions as per primary team and other consultants. Thank you for the consult and allowing me to participate in the care of the patient. Cardiology will continue to follow. Case was discussed with attending, Dr. Jernigan. Quintin Burr DO PGYI Attending Provider Attestation/Addendum I have personally seen and examined the patient separately on the above date of service and discussed the plan of care with the resident. I reviewed the resident Dr. Quintin Burr consultation progress note and agree with the resident findings and plan in the note above and have also edited the documentation to reflect my findings and plan. A 65 year-old female with a past medical history of metastatic breast cancer stage IV with history of left mastectomy, metastatic lung with possible lung nodules as well as osteoblastic and osteolytic bone lesions, essential hypertension, hyperlipidemia, CVA, peripheral vascular disease, ex-smoker, CKD stage III-initially presented on 03/03/2025 for further evaluation of hypercalcemia. Cardiology now consulted for further evaluation of new onset atrial fibrillation with RVR. Assessment and plan 1. New onset atrial fibrillation with RVR 2. Metastatic breast cancer stage IV mostly with metastasis to the bone as well as the lung 3. Hypercalcemia. 4. Essential hypertension 5. Acute hypoxic respiratory failure secondary to pneumonia-resolved now 6. Cachexia mostly secondary to malignancy 7. Rest of the comorbidities as noted above. EKG reviewed and patient does have paroxysmal atrial fibrillation with RVR new onset and reviewed the EKGs.. Mostly secondary to the electrolyte abnormalities as well as acute hypoxic respiratory failure. Overnight patient's heart rate again increased to 130 bpm and was again in atrial fibrillation with RVR and received as needed dose of metoprolol 2.5 mg. Patient recommended to be started on Paxlovid grams once daily and if blood pressure is tolerated give additional 25 mg of metoprolol XL and continue to increase it by 25 mg. Continue to monitor telemetry. Recommend to keep potassium for than 4 hours and greater than 2.0. Patient chest Vascor is elevated at 3 and will require anticoagulation and recommend to start the patient 2.5 mg twice daily of Eliquis which is the appropriate dose for her as he we discussed and 60 kg and creatinine greater than 2.0. Anticoagulation to be started if there is no risk of bleeding patient's hemoglobin is on the lower side.. Primary team to complete the workup for severe anemia and to rule out any acute bleeding. Patient did have elevated troponins which peaked 2.2 during the admission mostly secondary to type II NSTEMI from supply/demand mismatch given the acute hypoxic respiratory failure. Troponin down trended without any additional treatment and mostly secondary to NSTEMI type II. Noted cardiogram was performed at the present point of time and will order for an echocardiogram as her last echo appears to be in 2021 to rule out regional wall motion emergency elevated LV function RV function as well as diastolic function. Patient BNP was also elevated and patient did receive few doses of Lasix during his admission patient does have some shortness of breath. Recommend echocardiogram which has been ordered. Status improved with elevation to gram sodium diet. At this point of time patient does not appear to be fluid overloaded. Overall patient's prognosis is poor and primary team is having goals of care discussion with the family and patient still continues to be full code at the present point of time. Management of rest of the medical conditions as per primary team and other consultants. Thank you for the consult and allowing me to participate in the care of the patient. Cardiology will continue to follow. Martin Jernigan M.D. Interventional Cardiology
--- NOTE | 2025-03-12 10:25 | PC.SS ---
SS follow up note; Needs GOC, Not a candidate for HD. Patient will discharge back to [facility] when medically cleared.
--- NOTE | 2025-03-12 13:04 | ESPR_ITS ---
Documentation for date of: 03/12/25 Subjective Subjective Interval history: 65 y/o F with PMHx significant for hypertension, hyperlipidemia, breast cancer status post left mastectomy, CVA, peripheral vascular disease, Raynaud's phenomenon brought in by ambulance from [facility] where she was found to be weak and hypoxic. Patient was seen at bedside and was not communicating well aside from nodding her head to questions after they are being repeated by her son. Son says that patient is wheelchair-bound and has lost weight and has had decreased appetite lately. Patient has history of cancer status post left mastectomy with incomplete margin removal. Son states that they recently followed up with oncology who is suspecting that the patient may have recurrent malignancy. Sons also contributes the patient used to be a heavy smoker when she was younger had stopped for some time however she is roommates with her who is a smoker and he states that sometimes she would ask for cigarette from her and he will give it to her. Patient has also used marijuana in the past. She does not drink alcohol. ED COURSE: Patient had a blood pressure 134/92 and a pulse of 123 with a respiratory 20 temperature 99.4 and O2 sat 91 on 6 L nasal cannula. After speaking with Dr. Ferris, he revealed the patient was found to be in SVT and he was about to cardiovert however after the dose of diltiazem she converted. CBC showed a WBC of 21.2, hemoglobin 10.7, platelet count of 912 CMP was significant for sodium of 145, potassium 3.3, BUN 65, creatinine 2.2 glucose 119 and a calcium of 17.1 after correction. Alk phos is elevated at 995 Troponins were elevated at 1.446 and BNP was elevated at 514. Chest x-ray showed mild bibasilar pneumonia Patient received 2 L boluses of NS in the ER and her heart rate did seem to come down. Patient will be admitted to the ICU for severe hyperglycemia. Nephrology consulted for management of hypercalcemia. Patient seen and examined at bedside, unable to provide answers to questions. Per chart review and family history patient is altered from her baseline, is usually talkative. WBC 20.5, hemoglobin 7.3, platelets 799. Sodium 152, potassium 2.6, bicarb 24.9. BUN 49, creatinine 1.6, EGFR 35. Corrected calcium 15. Aggressive hydration for rapid correction of calcium, along with calcitonin. PET scan from 2022 showed hypermetabolic pulmonary nodules, hypermetabolic foci in multiple right-sided ribs. Recommend goals of care conversation with family. 03/05/2025: Patient seen and examined at bedside, awake and alert but does not verbally respond, does not follow commands. WBC 18.6, hemoglobin 8.8, sodium 150, potassium 3.0, bicarb 3.3, BUN 30, creatinine 1.2, EGFR 50. Corrected calcium 15.5, ALP 688. Calcium has worsened despite aggressive fluid resuscitation, patient annemarie severely symptomatic. Will place dialysis catheter today and plan for 1 session hemodialysis. May require further sessions depending on response, will continue to monitor. 03/06/2025: Patient seen examined at bedside, awake and alert but does not follow or respond to questioning. When limbs are moved, has purposeful movements to get comfortable, otherwise stares blankly. WBC 14.6, hemoglobin 8.6. Sodium 142, bicarb 28.8, BUN 23, creatinine 1.6, EGFR 35. ALP 725, corrected calcium 12.1. Plan for hemodialysis today without fluid removal. Suspect patient's mental status due to brain metastasis, patient will get brain MRI today. 03/07/2025: Patient seen examined at bedside, awake and alert but does not follow or respond to questioning. When limbs are moved, has purposeful movements to get comfortable, otherwise stares blankly. Brain MRI was negative for any mass. CT of chest/abdomen/pelvis showed showed 6mm pulmonary nodule in L upper lobe, 17mm nodule in R middle lobe, and widespread osteolytic osteoblastic metastases with pathologic fractures in left superior/inferior pubic rami. Ca 10.9, Cr 1.5, GFR 38. 03/08/2025: Patient seen and examined at bedside. Awake, nonverbal. Patient's renal function worsened compared to yesterday creatinine 2.6, BUN 39, GFR 20, on assessment patient has dry mucous membranes, will benefit from IV fluids, patient started on normal saline 75 cc/h. Will reassess renal function in a.m. to assess further need of dialysis catheter. Patient has otherwise good urine output. 03/10/2025: Patient seen and examined at bedside. Awake, Patient has permanent dialysis catheter placed, was exchanged for TDC on 03/09/2025. Patient received dialysis on 03/09/2025 for 3 hours 2 minutes, about 0.4 L was removed. Patient is full code, tachycardic, EKG suspicious of atrial fibrillation with RVR was moved to telemetry for further assessment. 03/11/2025: Patient seen and examined at bedside, resting comfortably. Patient awake, still does not verbally respond or follow commands well. Patient appears dry on clinical exam, will give IV fluids 1 L. Sodium 144, potassium 4.7, chloride 110, bicarb 23.6, BUN 41, creatinine 2.6, EGFR 20, corrected calcium 8.9. 03/12/2025: Patient seen and examined at bedside, resting comfortably. Patient awake, seemed more responsive to verbal stimuli but did not verbally respond. Still appears dry clinical exam, will give additional IV fluids. Sodium 142, potassium 3.4, bicarb 24.2, BUN 44, creatinine 2.5, EGFR 21. Exam Vital Signs Temp Pulse Resp BP Pulse Ox O2 Del Method O2 Flow Rate 98.0 F 99 17 136/106 H 91 L Nasal Cannula 2.5 03/12/25 08:00 03/12/25 12:00 03/12/25 08:00 03/12/25 10:46 03/12/25 08:00 03/12/25 08:00 03/11/25 15:45 Narrative Exam General: Still not able to communicate verbally, moving all extremities. Eyes: PERRL, EOMI. Anicteric, not tracking HEENT: Dry mucous membranes, no redness, no lesions. Neck: Neck supple, non-tender, no cervical lymphadenopathy. Lungs: Clear VANESSA to auscultation and percussion, No accessory muscle use. Cardio: Normal S1/S2, regular rhythm, no murmurs, no JVD Abdomen: Soft, non-tender, no palpable masses, peristalsis present, no guarding or rebound. Extremities: Symmetrical, no significant deformities, no peripheral edema , non-tender, peripheral pulses presents. Left upper extremity swollen compared to right. Skin: Lesion on L thoracic wall with ulceration and fixed to wall. Neuro: No focal neurological deficits appreciated but was limited due to patient's mental status. Objective Labs 03/12/25 05:41 03/12/25 05:41 Labs: Laboratory Results - last 24 hr 03/05/25 03/12/25 04:54 05:41 WBC 23.3 H RBC 3.25 L Hgb 7.9 L Hct 26.6 L MCV 82 MCH 24.3 L MCHC 29.7 L RDW Std Deviation 78.9 H Plt Count 230 Neut % (Auto) 67 Lymph % (Auto) 15 [place] % (Auto) 7 Eos % (Auto) 1 Baso % (Auto) 1 Neut # (Auto) 15.7 H Lymph # (Auto) 3.4 [place] # (Auto) 1.7 H Eos # (Auto) 0.3 Baso # (Auto) 0.2 Immature Gran # (Auto) 2.09 H Absolute Nucleated RBC 3.00 H Immature Gran % 9 H Nucleated RBC % 13 H Sodium 142 Potassium 3.4 D Chloride 107 Carbon Dioxide 24.2 Anion Gap 11 BUN 44 H Creatinine 2.5 H Estim Creat Clear Calc 16.2 L eGFR 21 L BUN/Creatinine Ratio 18 Glucose 106 Calculated Osmolality 294 Calcium 8.0 L Corrected Calcium 8.5 Phosphorus 3.3 Magnesium 1.7 Total Bilirubin 1.0 AST 91 H ALT 28 Alkaline Phosphatase 817 H D Total Protein 5.7 Albumin 3.4 Globulin 2.3 Albumin/Globulin Ratio 1.5 Misc Test Result See Sep Rpt Quality Measures Quality Measures VTE prophylaxis Advance care planning discussed with:: patient and child Assessment & Plan Assessment Current Active Medications: Generic Name Dose Route Start Last Admin Trade Name Freq PRN Reason Stop Dose Admin Acetaminophen 650 mg 03/03/25 16:01 Acetaminophen 325 Mg Tablet PO 04/02/25 16:00 Q6H PRN Fever >101.5 Acetaminophen 650 mg 03/03/25 16:01 Acetaminophen 325 Mg Tablet PO 04/02/25 16:00 Q6H PRN PAIN SCALE 1-3 (mild Albuterol/Ipratropium 3 ml 03/03/25 17:23 Albuterol/Ipratropium (Duoneb) Rt Citlaly 3 Ml Nebu INH 04/02/25 18:59 Q4HRRT PRN SHORTNESS OF BREATH OR WHEEZE Heparin Sodium (Porcine) 5,000 unit 03/03/25 22:00 03/08/25 14:16 Heparin Sod Inj 5000 Unit/Ml Vial SC 03/17/25 21:59 5,000 unit Q8HR JUAN Administration Heparin Sodium (Porcine) 3,500 unit 03/09/25 15:03 Heparin Sod Inj 1000 Unit/Ml Vial 10 Ml INDWELLCAT 03/23/25 15:02 X1 PRN DIALYSIS Albumin Human 25 gm in 100 mls @ 100 mls/min 03/05/25 11:03 03/05/25 15:46 Albuminar-25 Ivpb IV 100 mls/min PRN PRN Administration DIALYSIS Ceftriaxone Sodium/Dextrose 1 gm in 50 mls @ 100 mls/hr 03/11/25 08:35 03/12/25 08:13 Rocephin/D5w 1gm Iv Premix IV 03/18/25 08:34 100 mls/hr QDAY JUAN Administration Sodium Chloride 1,000 mls @ 85 mls/hr 03/12/25 07:34 03/12/25 08:13 Ns 0.45% IV 03/12/25 19:19 85 mls/hr .[id number] ONE Administration Metoprolol Succinate 50 mg 03/13/25 09:00 Metoprolol Succinate Xl 25 Mg Tabcr PO 04/12/25 08:59 QDAY JUAN Ondansetron HCl 4 mg 03/03/25 16:01 03/09/25 12:40 Ondansetron Inj 2 Mg/Ml Inj 2 Ml IV 04/02/25 16:00 4 mg Q6H PRN Administration NAUSEA OR VOMITING Protocol Pantoprazole Sodium 40 mg 03/11/25 09:00 03/12/25 08:13 Pantoprazole 40 Mg Tablet PO 04/03/25 08:59 40 mg QDAY JUAN Administration Plan 65-year-old female past medical history hypertension, hyperlipidemia, breast cancer status post left mastectomy, CVA, peripheral vascular disease, Raynaud's phenomenon admitted to ICU for severe symptomatic hypercalcemia. Nephrology consulted for management of severe symptomatic hypercalcemia. #AYDEN (acute kidney injury) Patient is clinically very dry on exam. Has AYDEN, likely due to prerenal dehydration lessening of hypercalcemia. Patient had worsening renal function with IV fluids, patient's underlying AYDEN worsened. Patient's temporary dialysis catheter was exchanged for permanent dialysis catheter, patient received dialysis on 03/09/2025-0.4 L removed. Kidney function improved somewhat with IV fluids, will give additional liter. Patient is not a candidate for outpatient dialysis. Will see if kidneys recover with IVF, recommend goals of care with patient's family. - Monitor daily renal function - Avoid nephrotoxins - Renally dose meds - Strict I's and O's - IVF: Half NS at 85 mL/h x 1 L - No hemodialysis today #Severe symptomatic hypercalcemia, resolved #High suspicion of hypercalcemia of malignancy Patient presented with weakness, hypoxia. Very lethargic, poorly communicative, altered from baseline per family. Patient severely hypercalcemic, corrected calcium 15. Likely due to metastatic lesions from recurrence of previous breast cancer. Despite aggressive fluid therapy, patient calcium worsens at 15.5. Elevated ALP 688, metastatic bone lesions likely source of cancer. Will place temporary dialysis catheter today, plan for 1 session hemodialysis. PTH 13.3, not elevated enough to be source of hypercalcemia. 25?OH vitamin D total 32.1, vitamin D 1, 25 di-hyd total 15, 1, 2 dihydroxy vitamin D to less than 8, 1, 25 dihydroxy vitamin D3 15 PTH 13.3. PTH?RP 13. - Frequent neurochecks - Monitor daily labs - Hypercalcemia resolved with hemodialysis #Left upper extremity swelling Left upper extremity is swollen compared to right, concern for thrombus in the setting of malignancy. Venous duplex ordered. - Follow-up ultrasound #Hypokalemia, resolved Patient has severe hypokalemia, potassium 2.6. Received 40 mEq p.o. potassium and 40 mEq IV potassium. Patient received more potassium in the afternoon due to hypokalemia. Patient continues to have low potassium despite frequent repletion. Possibly related to malnutrition or metastatic cancer. - Replete as needed - Will continue to monitor #Hypernatremia, resolved #Acute encephalopathy, worsened #Episode of SVT #Tachycardia #Acute hypoxic respiratory failure #History of smoking #Sepsis #Anemia likely of chronic disease Management as per primary team. FEN: Dysphagia diet DVT PPx: Heparin 5K SQ every 8 hours GI PPx: Protonix 40 IV daily Lines: Peripheral IVs, Padilla cath Code Status: Full code Thank you for allowing us to participate in the care of this patient. Plan of care discussed with attending Dr. Jang. Nash Wilson MD PGY?1 Attending Provider Attestation/Addendum Patient currently seen and examined with resident physician Dr. Wilson. Note reviewed, agree with findings and recommendations. Patient was moved out of ICU. During my absence Dr. Moon was covering. Noted she has a PermCath now and waiting for outpatient dialysis. 03/12/2025 Patient extremely fragile and unable to sit in the chair. Unfortunately she is not an outpatient dialysis candidate. Started to make urine. Will give her IV fluids as clinically she looks rather dehydrated. Plan of care discussed with primary team. Hold dialysis for now.
--- NOTE | 2025-03-12 13:05 | XR_ITS ---
Examination: Duplex scan of the upper extremity, unilateral left complete Date and time of exam: March 12, 2025 1534 hours INDICATIONS: Diagnosis hypercalcemia, arm swelling and pain this week Technique: Duplex scan of the extremity veins using B-mode/grayscale imaging and Doppler spectral analysis and color flow Attention is directed to internal echogenicity, compression and augmentation involving these veins, color flow assessment, spectral analysis Findings: Major deep venous structures in the extremity demonstrate normal course and caliber. There is no evidence of deep vein thrombosis. Normal color flow and spectral analysis Impression: Negative for DVT..
--- NOTE | 2025-03-12 13:26 | PD.RESPRO ---
Documentation for date of: 03/12/25 Subjective Subjective Interval history: Patient was seen and examined at bedside this morning. No acute overnight. Patient more responsive to commands today, but still non-verbal. At this time patient continues to be full code and will continue with all medical interventions for now as per patient's son stated that he would like to pursue treatment moving forward. Exam Vital Signs Temp Pulse Resp BP Pulse Ox O2 Del Method O2 Flow Rate 98.1 F 100 18 133/86 H 100 Nasal Cannula 3 03/12/25 12:00 03/12/25 12:00 03/12/25 12:00 03/12/25 12:00 03/12/25 12:00 03/12/25 12:00 03/12/25 12:00 Narrative Exam General: Able to follow some commands to a greater extent today than other days and moving all extremities, but still unable to communicate Eyes: PERRL, EOMI. Anicteric, not tracking Ears: No ear discharge. Nose: No nasal discharge. Mouth/Throat: Dry mucous membranes, no redness, no lesions. Neck: Neck supple, non-tender, no cervical lymphadenopathy. Lungs: Clear VANESSA to auscultation and percussion, No accessory muscle use. Cardio: Normal S1/S2, regular rhythm, no murmurs, no JVD Abdomen: Soft, non-tender, no palpable masses, peristalsis present, no guarding or rebound. Extremities: Symmetrical, no significant deformities, no peripheral edema , non-tender, peripheral pulses presents. Skin: Lesion on L thoracic wall with ulceration and fixed to wall. Neuro: No focal neurological deficits appreciated but was limited due to patient's mental status. Still not able to communicate, but able to follow some commands and was more cooperative with exam today. Objective Labs 03/12/25 05:41 03/12/25 05:41 Labs: Laboratory Results - last 24 hr 03/05/25 03/12/25 04:54 05:41 WBC 23.3 H RBC 3.25 L Hgb 7.9 L Hct 26.6 L MCV 82 MCH 24.3 L MCHC 29.7 L RDW Std Deviation 78.9 H Plt Count 230 Neut % (Auto) 67 Lymph % (Auto) 15 [place] % (Auto) 7 Eos % (Auto) 1 Baso % (Auto) 1 Neut # (Auto) 15.7 H Lymph # (Auto) 3.4 [place] # (Auto) 1.7 H Eos # (Auto) 0.3 Baso # (Auto) 0.2 Immature Gran # (Auto) 2.09 H Absolute Nucleated RBC 3.00 H Immature Gran % 9 H Nucleated RBC % 13 H Sodium 142 Potassium 3.4 D Chloride 107 Carbon Dioxide 24.2 Anion Gap 11 BUN 44 H Creatinine 2.5 H Estim Creat Clear Calc 16.2 L eGFR 21 L BUN/Creatinine Ratio 18 Glucose 106 Calculated Osmolality 294 Calcium 8.0 L Corrected Calcium 8.5 Phosphorus 3.3 Magnesium 1.7 Total Bilirubin 1.0 AST 91 H ALT 28 Alkaline Phosphatase 817 H D Total Protein 5.7 Albumin 3.4 Globulin 2.3 Albumin/Globulin Ratio 1.5 Misc Test Result See Sep Rpt Quality Measures Quality Measures VTE prophylaxis Advance care planning discussed with:: patient and child Assessment & Plan Assessment Current Active Medications: Generic Name Dose Route Start Last Admin Trade Name Freq PRN Reason Stop Dose Admin Acetaminophen 650 mg 03/03/25 16:01 Acetaminophen 325 Mg Tablet PO 04/02/25 16:00 Q6H PRN Fever >101.5 Acetaminophen 650 mg 03/03/25 16:01 Acetaminophen 325 Mg Tablet PO 04/02/25 16:00 Q6H PRN PAIN SCALE 1-3 (mild Albuterol/Ipratropium 3 ml 03/03/25 17:23 Albuterol/Ipratropium (Duoneb) Rt Citlaly 3 Ml Nebu INH 04/02/25 18:59 Q4HRRT PRN SHORTNESS OF BREATH OR WHEEZE Heparin Sodium (Porcine) 5,000 unit 03/03/25 22:00 03/08/25 14:16 Heparin Sod Inj 5000 Unit/Ml Vial SC 03/17/25 21:59 5,000 unit Q8HR JUAN Administration Heparin Sodium (Porcine) 3,500 unit 03/09/25 15:03 Heparin Sod Inj 1000 Unit/Ml Vial 10 Ml INDWELLCAT 03/23/25 15:02 X1 PRN DIALYSIS Albumin Human 25 gm in 100 mls @ 100 mls/min 03/05/25 11:03 03/05/25 15:46 Albuminar-25 Ivpb IV 100 mls/min PRN PRN Administration DIALYSIS Ceftriaxone Sodium/Dextrose 1 gm in 50 mls @ 100 mls/hr 03/11/25 08:35 03/12/25 08:13 Rocephin/D5w 1gm Iv Premix IV 03/18/25 08:34 100 mls/hr QDAY JUAN Administration Sodium Chloride 1,000 mls @ 85 mls/hr 03/12/25 07:34 03/12/25 08:13 Ns 0.45% IV 03/12/25 19:19 85 mls/hr .[id number] ONE Administration Metoprolol Succinate 50 mg 03/13/25 09:00 Metoprolol Succinate Xl 25 Mg Tabcr PO 04/12/25 08:59 QDAY JUAN Ondansetron HCl 4 mg 03/03/25 16:01 03/09/25 12:40 Ondansetron Inj 2 Mg/Ml Inj 2 Ml IV 04/02/25 16:00 4 mg Q6H PRN Administration NAUSEA OR VOMITING Protocol Pantoprazole Sodium 40 mg 03/11/25 09:00 03/12/25 08:13 Pantoprazole 40 Mg Tablet PO 04/03/25 08:59 40 mg QDAY JUAN Administration Plan 65-year-old female with past medical history of breast cancer s/p left mastectomy, hypertension, hyperlipidemia, CVA, peripheral vascular disease, and Raynaud's phenomenon was admitted to the ICU on 03/03/2025 for hypercalcemia likely in the setting of possible malignancy before being downgraded to the medical floors on 03/06/2025 for further management. #Acute encephalopathy #Hypercalcemia #Metastatic breast cancer Patient was recently admitted to the ICU on 03/03/2025 for hypercalcemia likely in the setting of possible malignancy. Patient does have a history of breast cancer status post left mastectomy, but given hypercalcemia as well as lesion seen on the left chest wall patient mostly had recurrence of breast cancer which possibly could have metastasized to the brain causing her acute encephalopathy versus her hypocalcemia from possible malignancy causing her acute encephalopathy. Patient's initial calcium was 17 and today is 8 and 8.5 corrected Alkaline phosphatase was also elevated at 817 today Patient received calcitonin as well as pamidronate in the ICU Patient required hemodialysis after session was on 03/05/2025. Patient may benefit of goals of care discussion with family after imaging is done and was oncology states what would be the course of action. Brain MRI was negative for any mass. CT of chest/abdomen/pelvis showed showed 6mm pulmonary nodule in L upper lobe, 17mm nodule in R middle lobe, and widespread osteolytic osteoblastic metastases with pathologic fractures in left superior/inferior pubic rami Had goals of care discussion with patient's son, but for now no decision was made concerning patient's CODE STATUS or plan for hospice at the time of this note. Plan: Will continue with IV fluids Nephrology consulted, appreciate recommendations Oncology consulted, appreciate recommendations #Atrial fibrillation with RVR Patient had an episode of A-fib with RVR with a heart rates in the 140s EKG did show A-fib with RVR [id number] score of 2 points Plan: Metoprolol succinate XL 50 mg daily Will discuss with patient's son about starting anticoagulation after discussion of risk and benefits Will keep potassium magnesium above 4 and 2 respectively Cardiology consulted, appreciate recommendations #Acute hypoxic respiratory failure #Community-acquired pneumonia #Hx of smoking Patient chets x-ray that showed no pneumonia, but does look more like vascular congestion than pneumonia at this time Patient did receive one-time dose of antibiotics Plan: Will continue with DuoNebs as needed Will continue with O2 administration Will continue to monitor #AYDEN Patient came in with creatinine of 2.2 and her baseline is around 1 Patient creatinine today was 2.5 Likely in the setting of hypovolemia versus possible ATN given hypercalcemia Patient is currently on hemodialysis Plan: IV fluids Avoid nephrotoxic agents Renally dose medication Nephrology consulted, prescription medications #Anemia of chronic disease Patient's hemoglobin was 10.7 on admission and her baseline is around 8 Hemoglobin today 7.9, but no active signs of bleeding Plan: Will transfuse a hemoglobin less than 7 Will continue to monitor #Leukocytosis Patient's WBC uptrending Most likely reactive in the setting of possible malignancy No fevers Plan: Will continue to monitor #NSTEMI Patient's troponins did come back elevated at 1.446 and peaked at 2.209 before downtrending EKG did not show any ST depressions or elevations Plan: Will continue to monitor Disposition: Patient seen in telemetry for hypercalcemia 2/2 possible malignancy, pending DC in next 24 hrs, will need to discontinue HD catheter prior to DC if no plan for further HD as outpatient given not a candidate. Diet: dysphagia 1 GI prophylaxis: protonix DVT prophylaxis: heparin subcu Code: Full code Case disclosed with Attending Dr. Souleymane Pikepo PGY1 Attending Provider Attestation/Addendum I have discussed and was present for the essential components of the history, physical examination, diagnosis, and treatment plan with the resident. I agree with the patient's care as documented by the resident and amended herein by me. Narayan Comer DO. Patient seen and evaluated this AM. No acute events overnight, BP 140/64 mmHg, patient tach in the a.m., pulse 115, I/O 840/1200 overnight. Significant labs include a WBC of 23, hemoglobin low stable at 7.4, BUN 44 creatinine 2.5. Will keep tunneled dialysis catheter in until nephrology says otherwise to complete an adequate course of inpatient hemodialysis is required, per nephrology, patient is not a candidate for outpatient hemodialysis at this time due to her inability to sit in a hemodialysis chair. Patient's son has been notified, apparently he did speak with Dr. Angulo this morning about potential treatment options, he still does not wish to pursue hospice at this time hence we will commence with full treatment. Of note the patient is still full code per her son's request however we did speak to him about possibly changing to DNR/DNI in the best interest of the patient. Likely discharge in 1 to 2 days pending nephrology recommendations. Although this document has been carefully reviewed, there may still be some phonetic and other typographical errors. These errors are purely grammatical due to imperfections in the software program and should not be construed in any way to compromise the substance of the patient's medical care during this visit.
[2025-03-12 14:15] LABS: INR 1.4 (0.9-1.3); Partial Thromboplastin Time 38.9 Seconds (22.0-36.0); Prothrombin Time 14.6 Seconds (9.0-12.2)
[2025-03-12] MEDS: METOPROLOL SUCCINATE XL 25 MG TABCR 50 MG PO (20:09)
--- NOTE | 2025-03-12 21:06 | PC.NURSE ---
notified Dr. Monahan of [facility]'s hr afib rvr [id number], I just gave lopressor po, so Dr said to give it a couple hours and call back if rate continues to be high
[2025-03-13] VITALS (15 sets, daily range): BP systolic 109–149; BP diastolic 64–82; PULSE 80–150; RESP 10–23; TEMP 36.3–36.7; O2SAT 96–99; BMI 18.1
--- NOTE | 2025-03-13 01:09 | PC.NURSE ---
notified Dr. Gil that patient's hr is sustaining 140-150, she will order something
[2025-03-13] MEDS: METOPROLOL TARTRATE INJ 1 MG/ML AMP 5 ML 2.5 MG IVP (01:33)
--- NOTE | 2025-03-13 02:35 | PC.NURSE ---
notified Dr. Gil of patients hr sustaining again [id number], new order being entered.
[2025-03-13] MEDS: METOPROLOL TARTRATE INJ 1 MG/ML AMP 5 ML 5 MG IVP (03:02)
[2025-03-13 06:23] LABS: Basophils # (Auto) 0.2 Thou/mm3 (0.0-0.2); Basophils % (Auto) 1 % (0-2.5); Eosinophils # (Auto) 0.3 Thou/mm3 (0.0-0.5); Eosinophils % (Auto) 1 % (0-10); Hematocrit 25.1 % (36.0-46.0); Immature Granulocytes % (Auto) 8 % (0-0); Immature Granulocytes Auto 1.77 Thou/mm3 (0.00-0.00); Lymphocytes # (Auto) 3.3 Thou/mm3 (1.0-4.8); Lymphocytes % (Auto) 15 % (10-50); Mean Corpuscular HGB Conc 31.5 g/dl (31.0-37.0); Mean Corpuscular Hemoglobin 24.4 pg (25.0-35.0); Mean Corpuscular Volume 78 fL (80-100); Monocytes # (Auto) 1.6 Thou/mm3 (0.0-0.8); Monocytes % (Auto) 7 % (0-12); Neutrophils # (Auto) 15.5 Thou/mm3 (1.8-7.7); Neutrophils % (Auto) 68 % (37-80); Nucleated Red Blood Cell # 3.19 Thou/mm3 (0.00-0.00); Nucleated Red Blood Cell % 14 /100 WBC (0); Platelet Count 254 Thou/mm3 (140-440); RDW Standard Deviation 72.9 fL (36.4-46.3); Red Blood Count 3.24 Miln/mm3 (4.00-5.20); White Blood Count 22.6 Thou/mm3 (3.6-11.0)
[2025-03-13 07:10] LABS: Alanine Aminotransferase 21 U/L (10-49); Albumin, Serum 2.9 gm/dL (3.4-4.8); Albumin/Globulin Ratio 1.3 (1.2-2.2); Alkaline Phosphatase 730 U/L (46-116); Anion Gap 14 (7-16); Aspartate Amino Transferase 54 U/L (0-34); BUN/Creatinine Ratio 21 Ratio (12-20); Bilirubin,Total 0.8 mg/dL (0.3-1.2); Blood Urea Nitrogen 48 mg/dL (9-23); Calcium 7.8 mg/dL (8.3-10.6); Calcium (Corrected) 8.7 mg/dL (8.5-10.1); Carbon Dioxide 21.2 mMol/L (20.0-31.0); Chloride 108 mMol/L (98-107); Creatinine (Component) 2.3 mg/dL (0.6-1.3); Estimated Creatinine Clearance 17.6 mL/min (>60); Globulin 2.2 gm/dL (2.3-3.5); Glucose 101 mg/dL (74-106); Magnesium 1.6 mg/dL (1.6-2.6); Osmolality,Calculated 297 (275-295); Phosphorous 2.8 mg/dL (2.4-5.1); Potassium 3.2 mMol/L (3.4-5.1); Sodium 143 mMol/L (136-145); Total Protein 5.1 gm/dL (5.7-8.2); eGFR 23 See Note
[2025-03-13 07:28] LABS: Hemoglobin 7.9 g/dL (12.0-16.0)
--- NOTE | 2025-03-13 07:59 | ESPR_ITS ---
Documentation for date of: 03/13/25 Subjective Subjective Interval history: Overnight in RVR again, HR 150s, given total of METOPROLOL 7.5 mg IV, HR 102 this morning. Will continue with METOPROLOL SUCCINATE 50 mg BID. Remains asymptomatic without chest pain or shortness of breath, satting well although slightly tachypneic with RR 22, on 2 L NC. Potassium 3.2, magnesium 1.6, both repleted. Renal function improving CR 2.3, BUN 48, EGFR 23. Afebrile, leukocytosis improving to 22.6, Hgb stable at 7.9. Exam Vital Signs Temp Pulse Resp BP Pulse Ox O2 Del Method O2 Flow Rate 97.3 F 105 H 23 H 117/80 97 Nasal Cannula 2 03/13/25 04:00 03/13/25 07:13 03/13/25 04:00 03/13/25 04:00 03/13/25 04:00 03/13/25 04:00 03/13/25 04:00 Narrative Exam GENERAL * ill appearing adult female, cachectic, NAD HEENT * NCAT.?MED. Dry mucosa is moist. Patent Nares NECK * Supple, nontender, no thyromegaly, no meningismus, no JVD, no step offs CHEST * RRR, no m/g/r * CTAB, no w/r/r. Symmetrical chest rise. No intercostal subcostal retraction * Atraumatic, nontender, no crepitus, symmetrical expansion. ABDOMEN * Soft, flat, nontender. No guarding/rebound tenderness/masses. * Bowel sounds presents EXTREMITIES * No edema/cyanosis.? SKIN * Warm and dry, no jaundice/rashes. NEUROMUSCULAR * Limited exam secondary to altered mentation PSYCHIATRY * cooperative, no SI or HI or hallucinations. Objective Labs 03/13/25 05:46 03/13/25 05:46 Labs: Laboratory Results - last 24 hr 03/12/25 03/13/25 13:53 05:46 WBC 22.6 H RBC 3.24 L Hgb 7.9 L Hct 25.1 L MCV 78 L MCH 24.4 L MCHC 31.5 RDW Std Deviation 72.9 H Plt Count 254 Neut % (Auto) 68 Lymph % (Auto) 15 [place] % (Auto) 7 Eos % (Auto) 1 Baso % (Auto) 1 Neut # (Auto) 15.5 H Lymph # (Auto) 3.3 [place] # (Auto) 1.6 H Eos # (Auto) 0.3 Baso # (Auto) 0.2 Immature Gran # (Auto) 1.77 H Absolute Nucleated RBC 3.19 H Immature Gran % 8 H Nucleated RBC % 14 H PT 14.6 H INR 1.4 H APTT 38.9 H Sodium 143 Potassium 3.2 L Chloride 108 H Carbon Dioxide 21.2 Anion Gap 14 BUN 48 H Creatinine 2.3 H Estim Creat Clear Calc 17.6 L eGFR 23 L BUN/Creatinine Ratio 21 H Glucose 101 Calculated Osmolality 297 H Calcium 7.8 L Corrected Calcium 8.7 Phosphorus 2.8 Magnesium 1.6 Total Bilirubin 0.8 AST 54 H ALT 21 Alkaline Phosphatase 730 H D Total Protein 5.1 L Albumin 2.9 L D Globulin 2.2 L Albumin/Globulin Ratio 1.3 Quality Measures Quality Measures VTE prophylaxis Advance care planning discussed with:: patient Assessment & Plan Assessment Current Active Medications: Generic Name Dose Route Start Last Admin Trade Name Freq PRN Reason Stop Dose Admin Acetaminophen 650 mg 03/03/25 16:01 Acetaminophen 325 Mg Tablet PO 04/02/25 16:00 Q6H PRN Fever >101.5 Acetaminophen 650 mg 03/03/25 16:01 Acetaminophen 325 Mg Tablet PO 04/02/25 16:00 Q6H PRN PAIN SCALE 1-3 (mild Albuterol/Ipratropium 3 ml 03/03/25 17:23 Albuterol/Ipratropium (Duoneb) Rt Citlaly 3 Ml Nebu INH 04/02/25 18:59 Q4HRRT PRN SHORTNESS OF BREATH OR WHEEZE Heparin Sodium (Porcine) 5,000 unit 03/03/25 22:00 03/08/25 14:16 Heparin Sod Inj 5000 Unit/Ml Vial SC 03/17/25 21:59 5,000 unit Q8HR JUAN Administration Heparin Sodium (Porcine) 3,500 unit 03/09/25 15:03 Heparin Sod Inj 1000 Unit/Ml Vial 10 Ml INDWELLCAT 03/23/25 15:02 X1 PRN DIALYSIS Albumin Human 25 gm in 100 mls @ 100 mls/min 03/05/25 11:03 03/12/25 18:58 Albuminar-25 Ivpb IV Infused PRN PRN Infusion DIALYSIS Ceftriaxone Sodium/Dextrose 1 gm in 50 mls @ 100 mls/hr 03/11/25 08:35 03/12/25 18:58 Rocephin/D5w 1gm Iv Premix IV 03/18/25 08:34 Infused QDAY JUAN Infusion Magnesium Sulfate 2 gm in 50 mls @ 25 mls/hr 03/13/25 07:23 Magnesium Sulfate Ivpb IV 03/13/25 09:22 X1 ONE Metoprolol Succinate 50 mg 03/13/25 09:00 Metoprolol Succinate Xl 25 Mg Tabcr PO 04/12/25 08:59 QDAY JUAN Ondansetron HCl 4 mg 03/03/25 16:01 03/09/25 12:40 Ondansetron Inj 2 Mg/Ml Inj 2 Ml IV 04/02/25 16:00 4 mg Q6H PRN Administration NAUSEA OR VOMITING Protocol Pantoprazole Sodium 40 mg 03/11/25 09:00 03/12/25 08:13 Pantoprazole 40 Mg Tablet PO 04/03/25 08:59 40 mg QDAY JUAN Administration Plan This is a 65-year-old female PMHx of HTN, HLD, breast cancer s/p left mastectomy, CVA, PVD, and Raynaud's presented from [facility] on 03/03/2025 with concern for weakness and hypoxemia. Atrial fibrillation with RVR NSTEMI type II History is limited secondary to mentation, unable to assess symptoms. NAD on exam. HR 86-150s, overnight. EKG showed A-fib with RVR, HR 150, initially controlled with METOPROLOL. Troponin peaked at 2.209, likely demand ischemia 2/[address] changes on EKG. HR in 100s during AM, BP 123/80, however she goes into RVR 150s overnight for which she has been getting METOPROLOL IV pushes. ? Changed METOPROLOL SUCCINATE 50 mg to BID, may increase dose as needed if HR remains poorly controlled ? [id number] 2?3, recommended ELIQUIS 2.5 mg BID once active bleed ruled out ? Maintain K > 4.0 and Mg > 2.0 ? Pending ECHO given history of A-fib Elevated BNP BNP 514 on admission. She received several doses of LASIX in ED and in ICU, concern for shortness of breath. Has good urine output. At this time, no signs of CHF exacerbation, no fluid overload. Hopxemia likely PNA in origin. ? Recommended outpatient ECHO and cardiology follow-up ? Maintain K > 4.0 and Mg > 2.0 Acute hypoxic respiratory failure Community-acquired pneumonia Hx of smoking AYDEN Anemia of chronic disease Management of rest of the medical conditions as per primary team and other consultants. Thank you for the consult and allowing me to participate in the care of the patient. Cardiology will continue to follow. Case was discussed with attending, Dr. Jernigan. Quintin Burr DO PGYI Attending Provider Attestation/Addendum I have personally seen and examined the patient separately on the above date of service and discussed the plan of care with the resident. I reviewed the resident Dr. Quintin Burr consultation progress note and agree with the resident findings and plan in the note above and have also edited the documentation to reflect my findings and plan. Martin Jernigan M.D. Interventional Cardiology
[2025-03-13] MEDS: cefTRIAXone/D5w 1gm IV premix 1 GM/50 ML BAG IV (08:05)
[2025-03-13] MEDS: MAGNESIUM OXIDE 400 MG TABLET PO (08:05)
[2025-03-13] MEDS: Magnesium Sulfate 2 GM Ivpb 2 GM/50 ML BAG IV (08:05)
[2025-03-13] MEDS: POTASSIUM CHLORIDE 10% 20 MEQ/15 ML UDC PO (08:06)
[2025-03-13] MEDS: METOPROLOL SUCCINATE XL 25 MG TABCR 50 MG PO ×2 (08:06→18:00)
[2025-03-13] MEDS: PANTOPRAZOLE 40 MG TABLET PO (08:06)
--- NOTE | 2025-03-13 09:08 | PD.RESPRO ---
Documentation for date of: 03/13/25 Subjective Subjective Interval history: 65 y/o F with PMHx significant for hypertension, hyperlipidemia, breast cancer status post left mastectomy, CVA, peripheral vascular disease, Raynaud's phenomenon brought in by ambulance from [facility] where she was found to be weak and hypoxic. Patient was seen at bedside and was not communicating well aside from nodding her head to questions after they are being repeated by her son. Son says that patient is wheelchair-bound and has lost weight and has had decreased appetite lately. Patient has history of cancer status post left mastectomy with incomplete margin removal. Son states that they recently followed up with oncology who is suspecting that the patient may have recurrent malignancy. Sons also contributes the patient used to be a heavy smoker when she was younger had stopped for some time however she is roommates with her who is a smoker and he states that sometimes she would ask for cigarette from her and he will give it to her. Patient has also used marijuana in the past. She does not drink alcohol. ED COURSE: Patient had a blood pressure 134/92 and a pulse of 123 with a respiratory 20 temperature 99.4 and O2 sat 91 on 6 L nasal cannula. After speaking with Dr. Ferris, he revealed the patient was found to be in SVT and he was about to cardiovert however after the dose of diltiazem she converted. CBC showed a WBC of 21.2, hemoglobin 10.7, platelet count of 912 CMP was significant for sodium of 145, potassium 3.3, BUN 65, creatinine 2.2 glucose 119 and a calcium of 17.1 after correction. Alk phos is elevated at 995 Troponins were elevated at 1.446 and BNP was elevated at 514. Chest x-ray showed mild bibasilar pneumonia Patient received 2 L boluses of NS in the ER and her heart rate did seem to come down. Patient will be admitted to the ICU for severe hyperglycemia. Nephrology consulted for management of hypercalcemia. Patient seen and examined at bedside, unable to provide answers to questions. Per chart review and family history patient is altered from her baseline, is usually talkative. WBC 20.5, hemoglobin 7.3, platelets 799. Sodium 152, potassium 2.6, bicarb 24.9. BUN 49, creatinine 1.6, EGFR 35. Corrected calcium 15. Aggressive hydration for rapid correction of calcium, along with calcitonin. PET scan from 2022 showed hypermetabolic pulmonary nodules, hypermetabolic foci in multiple right-sided ribs. Recommend goals of care conversation with family. 03/05/2025: Patient seen and examined at bedside, awake and alert but does not verbally respond, does not follow commands. WBC 18.6, hemoglobin 8.8, sodium 150, potassium 3.0, bicarb 3.3, BUN 30, creatinine 1.2, EGFR 50. Corrected calcium 15.5, ALP 688. Calcium has worsened despite aggressive fluid resuscitation, patient annemarie severely symptomatic. Will place dialysis catheter today and plan for 1 session hemodialysis. May require further sessions depending on response, will continue to monitor. 03/06/2025: Patient seen examined at bedside, awake and alert but does not follow or respond to questioning. When limbs are moved, has purposeful movements to get comfortable, otherwise stares blankly. WBC 14.6, hemoglobin 8.6. Sodium 142, bicarb 28.8, BUN 23, creatinine 1.6, EGFR 35. ALP 725, corrected calcium 12.1. Plan for hemodialysis today without fluid removal. Suspect patient's mental status due to brain metastasis, patient will get brain MRI today. 03/07/2025: Patient seen examined at bedside, awake and alert but does not follow or respond to questioning. When limbs are moved, has purposeful movements to get comfortable, otherwise stares blankly. Brain MRI was negative for any mass. CT of chest/abdomen/pelvis showed showed 6mm pulmonary nodule in L upper lobe, 17mm nodule in R middle lobe, and widespread osteolytic osteoblastic metastases with pathologic fractures in left superior/inferior pubic rami. Ca 10.9, Cr 1.5, GFR 38. 03/08/2025: Patient seen and examined at bedside. Awake, nonverbal. Patient's renal function worsened compared to yesterday creatinine 2.6, BUN 39, GFR 20, on assessment patient has dry mucous membranes, will benefit from IV fluids, patient started on normal saline 75 cc/h. Will reassess renal function in a.m. to assess further need of dialysis catheter. Patient has otherwise good urine output. 03/10/2025: Patient seen and examined at bedside. Awake, Patient has permanent dialysis catheter placed, was exchanged for TDC on 03/09/2025. Patient received dialysis on 03/09/2025 for 3 hours 2 minutes, about 0.4 L was removed. Patient is full code, tachycardic, EKG suspicious of atrial fibrillation with RVR was moved to telemetry for further assessment. 03/11/2025: Patient seen and examined at bedside, resting comfortably. Patient awake, still does not verbally respond or follow commands well. Patient appears dry on clinical exam, will give IV fluids 1 L. Sodium 144, potassium 4.7, chloride 110, bicarb 23.6, BUN 41, creatinine 2.6, EGFR 20, corrected calcium 8.9. 03/12/2025: Patient seen and examined at bedside, resting comfortably. Patient awake, seemed more responsive to verbal stimuli but did not verbally respond. Still appears dry clinical exam, will give additional IV fluids. Sodium 142, potassium 3.4, bicarb 24.2, BUN 44, creatinine 2.5, EGFR 21. 03/13/2025: Patient seen examined at bedside, resting comfortably. Patient awake, more responsive, able to follow some commands. Sodium 143, potassium 3.2, bicarb 21.2, BUN 48, creatinine 2.3, EGFR 23. Kidney function improving, patient will not require dialysis. Ultrasound for DVT left upper extremity negative. Primary team planning to discharge today. Exam Vital Signs Temp Pulse Resp BP Pulse Ox O2 Del Method O2 Flow Rate 97.5 F 96 20 123/80 97 Nasal Cannula 2 03/13/25 08:00 03/13/25 08:06 03/13/25 08:00 03/13/25 08:06 03/13/25 08:00 03/13/25 04:00 03/13/25 04:00 Narrative Exam General: Still not able to communicate verbally, moving all extremities. Eyes: PERRL, EOMI. Anicteric, not tracking HEENT: Dry mucous membranes, no redness, no lesions. Neck: Neck supple, non-tender, no cervical lymphadenopathy. Lungs: Clear VANESSA to auscultation and percussion, No accessory muscle use. Cardio: Normal S1/S2, regular rhythm, no murmurs, no JVD Abdomen: Soft, non-tender, no palpable masses, peristalsis present, no guarding or rebound. Extremities: Symmetrical, no significant deformities, no peripheral edema , non-tender, peripheral pulses presents. Left upper extremity swollen compared to right. Skin: Lesion on L thoracic wall with ulceration and fixed to wall. Neuro: No focal neurological deficits appreciated but was limited due to patient's mental status. Objective Labs 03/13/25 05:46 03/13/25 05:46 Labs: Laboratory Results - last 24 hr 03/12/25 03/13/25 13:53 05:46 WBC 22.6 H RBC 3.24 L Hgb 7.9 L Hct 25.1 L MCV 78 L MCH 24.4 L MCHC 31.5 RDW Std Deviation 72.9 H Plt Count 254 Neut % (Auto) 68 Lymph % (Auto) 15 [place] % (Auto) 7 Eos % (Auto) 1 Baso % (Auto) 1 Neut # (Auto) 15.5 H Lymph # (Auto) 3.3 [place] # (Auto) 1.6 H Eos # (Auto) 0.3 Baso # (Auto) 0.2 Immature Gran # (Auto) 1.77 H Absolute Nucleated RBC 3.19 H Immature Gran % 8 H Nucleated RBC % 14 H PT 14.6 H INR 1.4 H APTT 38.9 H Sodium 143 Potassium 3.2 L Chloride 108 H Carbon Dioxide 21.2 Anion Gap 14 BUN 48 H Creatinine 2.3 H Estim Creat Clear Calc 17.6 L eGFR 23 L BUN/Creatinine Ratio 21 H Glucose 101 Calculated Osmolality 297 H Calcium 7.8 L Corrected Calcium 8.7 Phosphorus 2.8 Magnesium 1.6 Total Bilirubin 0.8 AST 54 H ALT 21 Alkaline Phosphatase 730 H D Total Protein 5.1 L Albumin 2.9 L D Globulin 2.2 L Albumin/Globulin Ratio 1.3 Quality Measures Quality Measures VTE prophylaxis Advance care planning discussed with:: patient and child Assessment & Plan Assessment Current Active Medications: Generic Name Dose Route Start Last Admin Trade Name Freq PRN Reason Stop Dose Admin Acetaminophen 650 mg 03/03/25 16:01 Acetaminophen 325 Mg Tablet PO 04/02/25 16:00 Q6H PRN Fever >101.5 Acetaminophen 650 mg 03/03/25 16:01 Acetaminophen 325 Mg Tablet PO 04/02/25 16:00 Q6H PRN PAIN SCALE 1-3 (mild Albuterol/Ipratropium 3 ml 03/03/25 17:23 Albuterol/Ipratropium (Duoneb) Rt Citlaly 3 Ml Nebu INH 04/02/25 18:59 Q4HRRT PRN SHORTNESS OF BREATH OR WHEEZE Heparin Sodium (Porcine) 5,000 unit 03/03/25 22:00 03/08/25 14:16 Heparin Sod Inj 5000 Unit/Ml Vial SC 03/17/25 21:59 5,000 unit Q8HR JUAN Administration Heparin Sodium (Porcine) 3,500 unit 03/09/25 15:03 Heparin Sod Inj 1000 Unit/Ml Vial 10 Ml INDWELLCAT 03/23/25 15:02 X1 PRN DIALYSIS Albumin Human 25 gm in 100 mls @ 100 mls/min 03/05/25 11:03 03/12/25 18:58 Albuminar-25 Ivpb IV Infused PRN PRN Infusion DIALYSIS Ceftriaxone Sodium/Dextrose 1 gm in 50 mls @ 100 mls/hr 03/11/25 08:35 03/13/25 08:05 Rocephin/D5w 1gm Iv Premix IV 03/18/25 08:34 100 mls/hr QDAY JUAN Administration Magnesium Sulfate 2 gm in 50 mls @ 25 mls/hr 03/13/25 07:23 03/13/25 08:05 Magnesium Sulfate Ivpb IV 03/13/25 09:22 25 mls/hr X1 ONE Administration Ondansetron HCl 4 mg 03/03/25 16:01 03/09/25 12:40 Ondansetron Inj 2 Mg/Ml Inj 2 Ml IV 04/02/25 16:00 4 mg Q6H PRN Administration NAUSEA OR VOMITING Protocol Pantoprazole Sodium 40 mg 03/11/25 09:00 03/13/25 08:06 Pantoprazole 40 Mg Tablet PO 04/03/25 08:59 40 mg QDAY JUAN Administration Plan 65-year-old female past medical history hypertension, hyperlipidemia, breast cancer status post left mastectomy, CVA, peripheral vascular disease, Raynaud's phenomenon admitted to ICU for severe symptomatic hypercalcemia. Nephrology consulted for management of severe symptomatic hypercalcemia. #AYDEN (acute kidney injury) Patient is clinically very dry on exam. Has AYDEN, likely due to prerenal dehydration lessening of hypercalcemia. Patient had worsening renal function with IV fluids, patient's underlying AYDEN worsened. Patient's temporary dialysis catheter was exchanged for permanent dialysis catheter, patient received dialysis on 03/09/2025-0.4 L removed. Kidney function improved somewhat with IV fluids, will give additional liter. Patient is not a candidate for outpatient dialysis. Will see if kidneys recover with IVF, recommend goals of care with patient's family. Kidney function improved with IVF. Patient is now require further dialysis. Patient okay to have dialysis catheter removed anticipation of discharge. - Monitor daily renal function - Avoid nephrotoxins - Renally dose meds - Strict I's and O's - No hemodialysis - Encourage oral hydration with assistance #Severe symptomatic hypercalcemia, resolved #High suspicion of hypercalcemia of malignancy Patient presented with weakness, hypoxia. Very lethargic, poorly communicative, altered from baseline per family. Patient severely hypercalcemic, corrected calcium 15. Likely due to metastatic lesions from recurrence of previous breast cancer. Despite aggressive fluid therapy, patient calcium worsens at 15.5. Elevated ALP 688, metastatic bone lesions likely source of cancer. Will place temporary dialysis catheter today, plan for 1 session hemodialysis. PTH 13.3, not elevated enough to be source of hypercalcemia. 25?OH vitamin D total 32.1, vitamin D 1, 25 di-hyd total 15, 1, 2 dihydroxy vitamin D to less than 8, 1, 25 dihydroxy vitamin D3 15 PTH 13.3. PTH?RP 13. - Frequent neurochecks - Monitor daily labs - Hypercalcemia resolved with hemodialysis #Left upper extremity swelling Left upper extremity is swollen compared to right, concern for thrombus in the setting of malignancy. Venous duplex ordered. - Follow-up ultrasound #Hypokalemia, resolved Patient has severe hypokalemia, potassium 2.6. Received 40 mEq p.o. potassium and 40 mEq IV potassium. Patient received more potassium in the afternoon due to hypokalemia. Patient continues to have low potassium despite frequent repletion. Possibly related to malnutrition or metastatic cancer. - Replete as needed - Will continue to monitor #Hypernatremia, resolved #Acute encephalopathy, worsened #Episode of SVT #Tachycardia #Acute hypoxic respiratory failure #History of smoking #Sepsis #Anemia likely of chronic disease Management as per primary team. FEN: Dysphagia diet DVT PPx: Heparin 5K SQ every 8 hours GI PPx: Protonix 40 IV daily Lines: Peripheral IVs, Padilla cath Code Status: Full code Thank you for allowing us to participate in the care of this patient. Plan of care discussed with attending Dr. Jang. Nash Wilson MD PGY?1 Attending Provider Attestation/Addendum Patient currently seen and examined with resident physician Dr. Wilson. Note reviewed, agree with findings and recommendations. Patient was moved out of ICU. During my absence Dr. Moon was covering. Noted she has a PermCath now and waiting for outpatient dialysis. 03/13/2025 Patient extremely fragile and unable to sit in the chair. Unfortunately she is not an outpatient dialysis candidate. Fortunately she started to make urine. Give her IV fluids and the calcium, creatinine started to improve. No need for further dialysis at this point. Will DC dialysis catheter and discharge her home. She needs to follow-up with cancer center for possible chemotherapy for her breast cancer. Plan of care discussed with primary team.
--- NOTE | 2025-03-13 10:38 | XR_ITS ---
Examination: Venous access removal permanent tunneled dialysis catheter AP chest 2 views Exam date and time: March 13, 2025 1434 hours INDICATIONS: No longer needed for hemodialysis TECHNIQUE AND FINDINGS: Informed consent provided. Timeout performed. Skin prepped over the entrance site of the left internal jugular dialysis catheter and sterile drape applied hand hygiene 1% lidocaine administered for local anesthesia Careful dissection around the permanent tunneled dialysis catheter was successful removal Estimated blood loss 1 cc IMPRESSION: Successful venous access removal permanent tunneled dialysis catheter Second chest film March 30, 2025 1453 hours no longer demonstrates the dialysis catheter
[2025-03-13] MEDS: POTASSIUM CHLORIDE 10% 20 MEQ/15 ML UDC 40 MEQ PO (12:44)
[2025-03-13] MEDS: Magnesium Sulfate 4 GM Ivpb 4 GM/50 ML BAG IV (12:44)
--- NOTE | 2025-03-13 12:44 | PC.SS ---
Addendum entered by Swetha Jean 03/13/25 15:43: SS Was informed by Dr. Nance that patient's tunnel cath was removed. SS contacted patient's nurse Enid however was at lunch at the time, Chelsy informed SS that she would notify patient's nurse Enid. SS set up transportation with [facility] for 1900. SS will updated nurse Enid and patient's son, Camilo. Addendum entered by Swetha Jean 03/13/25 14:34: SS follow up note; SS contacted Babita from [facility] and she informed SS that patient's bedhold was up, however patient could discharge to their sister facility[facility] in [place]. SS contacted patient's son, Camilo and he is agreeable and verbalized understanding. SS contacted Brenda from [facility] and she informed SS she needed updated PASSR and Discharge order. SS faxed requested information to [phone]. Original Note: SS contacted [facility] to set up transportation for patient, SS kept getting transferred to [facility]. SS was informed Patient was not able to be found on their system. SS contacted Son, Camilo and he informed SS he is not able to provide payment. SS will have [facility] ambulance form signed by Po. SS will stand by for further needs.
--- NOTE | 2025-03-13 13:33 | ESDS_ITS ---
<Statement entered by Genet Nance MD - 03/13/25 15:25> I discussed with and supervised the purchasing intern physician who took care of this patient. I personally saw and examined the patient and discussed the assessment and plan with the entire medicine team, including my attending Dr. Comer, I agree with most of the assessment and plan as documented below Genet Nance M.D. PGY-2 Planned Discharge Date 03/13/25 DS: Providers Provider Date of admission: 03/03/25 16:01 Primary care physician: Physician No Primary/Family Admitting Provider: Troy Medina MD Attending Provider on Admission: Ryan Comer DO Consults: 03/03/25 16:08 Consult to Nephrology Routine Comment: hypercalcemia Consulting Provider: Mello Jang 03/05/25 08:04 Referral Speech Therapy Routine Comment: holding food 03/05/25 09:00 Consult to Oncology Routine Comment: hx of breast cancer, PET showing mets. Consulting Provider: Rickey Angulo 03/11/25 08:32 Consult to Cardiology Routine Comment: Consulting Provider: Martin Jernigan Attending Provider on DC: Ryan Comer DO Discharging Provider: Ryan Comer DO DS: Diagnosis Problem List Completed Was Problem List Reviewed/Reconciled?: Yes Hospital Course Hospital Course Hospital course: 65-year-old female with past medical history of breast cancer s/p left ma stectomy, hypertension, hyperlipidemia, CVA, peripheral vascular disease, and Raynaud's phenomenon was admitted to the ICU on 03/03/2025 for hypercalcemia likely in the setting of possible malignancy before being downgraded to the medical floors on 03/06/2025 for further management. Throughout the ICU course patient did not clear her calcium down on calcitonin therefore nephrology was consulted and started the patient on hemodialysis. Given that the patient does have a history of breast cancer which most likely recurred oncology was consulted. After patient was downgraded to the medical floor as she was found to have metastasis to the bone. Given this finding goals of care discussion were made with the patient's son at bedside, but patient's son decided that at this time they would like to pursue further treatment for patient's cancer and would like to remain full code and pursue all medical interventions. Throughout the hospital stay patient got hemodialysis catheter in place, but given that patient was bedridden at this time she was not a candidate for outpatient hemodialysis as she would not be able to tolerate sitting in a dialysis chair. This was explained to the son who understood that she will not need to come to the ER if she would require any further hemodialysis. At this time hemodialysis catheter was also removed. Patient's kidney function did slightly improve with some IV fluids, but still chronic as above 2. Throughout the hospital course of the patient she also developed A-fib with RVR and cardiology was consulted. Patient was recommended to be started on metoprolol succinate 50 mg XL twice daily and to start patient on Eliquis 2.5 mg twice daily given patient's creatinine function and body weight. The risk and benefits were discussed with the patient's son and he agreed to start the patient on Eliquis at this time. At the time of discharge patient was stable enough to be discharged to a halfway facility to receive further cancer treatment oncology outpatient. Discharge plan: Please follow-up with your primary care physician within 1 week upon discharge Please follow-up with primary care physician concerning echo results. Please follow-up with oncologist within 1 week upon discharge to schedule for cancer treatment. Please follow-up with your filament cutter and pressure vessel inspector within 1-2 weeks upon discharge. You have been started on metoprolol XL 50mg twice daily as well as Eliquis 2.5 mg twice daily for your A-fib Please continue taking all other home medications as prescribed Please come back to the ER if symptoms persist or worsen Problem list: #Acute encephalopathy #Hypercalcemia #Metastatic breast cancer #Atrial fibrillation with RVR #Acute hypoxic respiratory failure #Community-acquired pneumonia #Hx of smoking #AYDEN #Anemia of chronic disease #Leukocytosis #NSTEMI Case disclosed with Attending Dr. Comer and my senior Dr. Nance PGY2 Shan Mccarthy PGY1 Status at Discharge Overall status at discharge: patient is progressing back to baseline Time Spent with Patient Time attestation: Total time spent providing and/or coordinating discharge services:>35 min Time spent: Greater than 30 minutes Exam Vital Signs Temp Pulse Resp BP Pulse Ox O2 Del Method O2 Flow Rate 98.1 F 89 16 112/78 98 Nasal Cannula 2 03/13/25 12:00 03/13/25 12:00 03/13/25 12:03/13/25 12:03/13/25 12:03/13/25 12:03/13/25 12:00 Narrative Exam General: More alert today and moving all extremities, but still unable to communicate Eyes: PERRL, EOMI. Anicteric, not tracking Ears: No ear discharge. Nose: No nasal discharge. Mouth/Throat: Dry mucous membranes, no redness, no lesions. Neck: Neck supple, non-tender, no cervical lymphadenopathy. Lungs: Clear VANESSA to auscultation and percussion, No accessory muscle use. Cardio: Normal S1/S2, regular rhythm, no murmurs, no JVD Abdomen: Soft, non-tender, no palpable masses, peristalsis present, no guarding or rebound. Extremities: Symmetrical, no significant deformities, no peripheral edema , non-tender, peripheral pulses presents. Skin: Lesion on L thoracic wall with ulceration and fixed to wall. Neuro: No focal neurological deficits appreciated but was limited due to patient's mental status. Still not able to communicate, but more alert today. Discharge Plan Plan Patient Disposition: Xfer Skilled Nsg Fac (SNF) Care Plan Goals: Please follow-up with your primary care physician within 1 week upon discharge Please follow-up with primary care physician concerning echo results. Please follow-up with oncologist within 1 week upon discharge to schedule for c ancer treatment. Please follow-up with your filament cutter and pressure vessel inspector within 1-2 weeks upon discharge. You have been started on metoprolol XL 50mg twice daily as well as Eliquis 2.5 mg twice daily for your A-fib Stop Clopidogrel as you are on aspirin and eliquis. Please continue taking all other home medications as prescribed Please come back to the ER if symptoms persist or worsen Prescriptions/Referrals Prescriptions/Med Rec: New metoprolol succinate 25 mg Tablet Extended Release 24 Hr 50 mg PO BID Qty: 0 0RF Eliquis 2.5 mg Tablet 2.5 mg PO BID Qty: 0 0RF Continued gabapentin 600 mg tablet 600 mg PO TID famotidine 20 mg tablet 20 mg PO Q12H levothyroxine 50 mcg Tablet 50 mcg PO QDAY hydrocodone-acetaminophen 5-325 mg tablet 1 tab PO TID MDD APAP PRN (Reason: pain) Qty: 15 0RF atorvastatin 80 mg tablet 80 mg PO DAILY UD Patient Comments: TAKE 1 TABLET BY MOUTH EVERY DAY duloxetine 30 mg Capsule,Delayed Release(Dr/Ec) 30 mg PO QDAY 30 Days Qty: 30 2RF aspirin 81 mg capsule 81 mg PO QDAY Qty: 30 1RF ferrous sulfate [Feosol] 325 mg (65 mg iron) tablet 325 mg PO QDAY ascorbic acid (vitamin C) [Vitamin C] 500 mg tablet 500 mg PO QDAY Held megestrol 40 mg tablet 40 mg PO TID Hold Instructions: Resume on 03/20/25. Hold until follow-up with oncologist Discontinued clopidogrel 75 mg tablet 75 mg PO .evening Patient Comments: TAKE 1 TABLET BY MOUTH EVERY EVENING Referrals: No Primary/Family,Physician [Primary Care Provider] - Patient/Caregiver Discharge Instructions Other Discharge Activity Instructions:: Please follow-up with your primary care physician within 1 week upon discharge Please follow-up with primary care physician concerning echo results. Please follow-up with oncologist within 1 week upon discharge to schedule for cancer treatment. Please follow-up with your filament cutter and pressure vessel inspector within 1-2 weeks upon discharge. You have been started on metoprolol XL 50mg twice daily as well as Eliquis 2.5 mg twice daily for your A-fib Stop Clopidogrel as you are on aspirin and eliquis. Please continue taking all other home medications as prescribed Please come back to the ER if symptoms persist or worsen Education Materials: Acute Kidney Failure Dc, Understanding Bone Metastasis, ED Dehydration (Adult) Print Language: Yoruba Activity Restrictions/Additional Instructions: dehydration Stand Alone Forms: Joyce Award Info., Patient Portal Info Letter Discharge Order Discharge Orders: Discharge (Routine); Ordered 03/13/25 Ordered By: Shan Mccarthy Quality Discharge Quality Measures VTE prophylaxis Attestestation MD Attestation I have discussed and was present for the essential components of the discharge history, physical examination, diagnosis, and discharge treatment plan with the resident. I agree with the patient's discharge care as documented by the resident and amended herein by me. Narayan Comer DO. The patient understood all discharge instructions, all questions were answered satisfactorily. The patient was instructed to return to the Emergency Department is symptoms worsened or persisted. Patient was stable, afebrile at time of discharge to SNF. Patient will not require or rather is not a candidate for hemodialysis at this time. We believe patient is a hospice candidate however the patient's son wishes to defer hospice at this time. Although this document has been carefully reviewed, there may still be some phonetic and other typographical errors. These errors are purely grammatical due to imperfections in the software program and should not be construed in any way to compromise the substance of the patient's medical care during this visit.
--- NOTE | 2025-03-13 19:32 | ECHO_ITS ---
Transthoracic Echo Report Ht (in): 63 Wt (lb): 102 Exam Location: Portable Status: Inpatient Recoater: SHARMIN Gilmore^^^^ Indications: Procedure Performed: BP: / HR: 123 Rhythm: Atrial fibrillation Technical Quality: Fair MEASUREMENTS (Male / Female) Normal Values 2D ECHO LV Diastolic Diameter PLAX 3.1 cm 4.2 - 5.9 / 3.9 - 5.3 cm LV Systolic Diameter PLAX 2.1 cm IVS Diastolic Thickness 1.1 cm 0.6 - 1.0 / 0.6 - 0.9 cm LVPW Diastolic Thickness 0.9 cm 0.6 - 1.0 / 0.6 - 0.9 cm LV Relative Wall Thickness 0.6 LVOT Diameter 1.7 cm Aortic Root Diameter 3.5 cm LA Systolic Diameter LX 1.0 cm 3.0 - 4.0 / 2.7 - 3.8 cm LA Volume Index 20.8 cm?/m? 16 - 28 cm?/m? Ascending Aorta Diameter 2.9 cm DOPPLER AV Peak Velocity 194.0 cm/s AV Peak Gradient 15.1 mmHg AV Mean Gradient 9.0 mmHg AV Velocity Time Integral 31.3 cm AI Peak Velocity 200.0 cm/s AI Peak Gradient 16.0 mmHg AI Pressure Half Time 771.0 ms LVOT Peak Velocity 146.0 cm/s LVOT Peak Gradient 8.5 mmHg LVOT Velocity Time Integral 40.0 cm LVOT Cardiac Index 7828.3 cm?/min?m? AV Area Cont Eq vti 2.9 cm? AV Area Cont Eq pk 1.7 cm? MV Area PHT 5.2 cm? Mitral E Point Velocity 88.7 cm/s Mitral A Point Velocity 114.0 cm/s Mitral E to A Ratio 0.8 LV E' Lateral Velocity 6.3 cm/s Mitral E to LV E' Lateral Ratio 14.0 LV E' Septal Velocity 6.5 cm/s Mitral E to LV E' Septal Ratio 13.6 TR Peak Velocity 289.3 cm/s TR Peak Gradient 33.5 mmHg PV Peak Velocity 168.0 cm/s PV Peak Gradient 11.3 mmHg RVOT Peak Velocity 73.2 cm/s FINDINGS Left Ventricle The left ventricular wall thickness is mildly increased. The left ventricular ejection fraction is normal, estimated at 60-65%. There is grade I diastolic dysfunction of the left ventricle (impaired relaxation pattern). Right Ventricle The right ventricle is normal in size and systolic function. The estimated right ventricular systolic pressure, 48 mmHg. Left Atrium The left atrium is normal by two-dimensional, color flow and Doppler imaging with no structural abnormalities, no thrombus formation present. Right Atrium The right atrium is normal by two-dimensional imaging, color flow and Doppler imaging with no structural abnormalities, no thrombus formation present. Atrial Septum The interatrial septum appears normal with no evidence of a shunt. Aorta The aorta is normal by two-dimensional, color flow and Doppler interrogation. Mitral Valve Mild mitral regurgitation. Mild mitral annular calcification. Aortic Valve Aortic valve sclerosis. Trace to mild aortic valve regurgitation. Diffuse calcification of the aortic valve. Tricuspid Valve There is mild to moderate tricuspid valve regurgitation. Pulmonic Valve Trivial pulmonic valve regurgitation. Vessels The pulmonary artery appears normal. The inferior vena cava pulmonary and hepatic veins appear normal. Pericardium The pericardium is normal by two-dimensional imaging. There is no significant pericardial effusion. CONCLUSIONS Indication: AFIB LV appears normal with EF 60-65%. Mild LVH Diastolic dysfunction present but cannot be graded because of the A-fib Normal RV size and function. RVSP moderately elevated at 48-50 mmHg. Mild aortic valve stenosis without stenosis. Trace MR and mild TR LA appears small secondary to mildly dilated descending thoracic aorta Martin Jernigan (Electronically Signed) Final Date: 13 Mar 2025 13:56
== END 2025-03-13 18:45 | disposition skilled nursing facility (03) | DRG 640 ==
LOC: SERX 15:06 → SERHOLD 16:57 → S2SX 19:55 → S3SX 03-07 15:19 → S2NX 03-10 09:02
PROVIDERS: Internal Medicine; Radiology Diagnostic Radiology; Student in an Organized Health Care Education/Training Program; Admitting Provider Internal Medicine Critical Care Medicine; Emergency Provider Emergency Medicine; Visit Provider Student in an Organized Health Care Education/Training Program
DX: E83.52 Hypercalcemia (principal); G93.41 Metabolic encephalopathy; J96.01 Acute respiratory failure with hypoxia; J18.9 Pneumonia, unspecified organism; I47.10 Supraventricular tachycardia, unspecified; N17.9 Acute kidney failure, unspecified; C79.31 Secondary malignant neoplasm of brain; C79.51 Secondary malignant neoplasm of bone; N39.0 Urinary tract infection, site not specified; R64 Cachexia; E87.1 Hypo-osmolality and hyponatremia; E87.0 Hyperosmolality and hypernatremia; M84.454A Pathological fracture, pelvis, initial encounter for fracture; M86.8X6 Other osteomyelitis, lower leg; I10 Essential (primary) hypertension; E78.5 Hyperlipidemia, unspecified; C50.912 Malignant neoplasm of unspecified site of left female breast; R73.9 Hyperglycemia, unspecified; E86.0 Dehydration; F17.210 Nicotine dependence, cigarettes, uncomplicated; D63.8 Anemia in other chronic diseases classified elsewhere; Z86.73 Personal history of transient ischemic attack (TIA), and cerebral infarction without residual deficits; I73.00 Raynaud's syndrome without gangrene; I48.0 Paroxysmal atrial fibrillation; R13.10 Dysphagia, unspecified; E87.70 Fluid overload, unspecified; D45 Polycythemia vera; F17.200 Nicotine dependence, unspecified, uncomplicated; E87.6 Hypokalemia; Z79.899 Other long term (current) drug therapy; Z74.01 Bed confinement status; Z85.3 Personal history of malignant neoplasm of breast; Z99.2 Dependence on renal dialysis; Z90.12 Acquired absence of left breast and nipple; Z99.3 Dependence on wheelchair
CPT/HCPCS: 36415; 70553; 71045; 71260; 74177; 76937; 77001; 80053; 80061; 80069; 80074; 81001; 82306; 82310; 82652; 82728; 83540; 83550; 83735; 83880; 83970; 84100; 84443; 84484; 85025; 85610; 85730; 86580; 86706; 87040; 87081; 87086; 87811; 92526; 92610; 93005; 93225; 93306; 93971; 94664; 94762; 96372; 99285; A4649; A9579; C1750; C1769; C1894; J0360; J0456; J0630; J0696; J0897; J1171; J1642; J1643; J1644; J1938; J2250; J2270; J2405; J2430; J2470; J3010; J3475; J3480; J3490; J7030; J7040; J7042; J7050; J7120; P9047; Q4081; Q9967; A9270; J1920

== ENCOUNTER 2025-04-02 15:03 | Outpatient (RCR) | payer MEDICARE, MEDICAID, SELFPAY ==
--- NOTE | 2025-04-03 06:38 | CTCFLWUP_ITS ---
Patient: SANG HOFF : 1960 Page 5 of 7 FOLLOW UP NOTE DATE OF SERVICE: 04/02/2025 NAME: SANG HOFF ACCOUNT: [id number] : 1960 AGE: 65 INTERVAL HISTORY: Subjective: Chief Complaint Bleeding lesion near left breast mastectomy site, low oxygen levels, swollen left arm, cognitive decline, gait abnormalities History of Present Illness Sang is a female patient with a complex medical history including breast cancer, stroke, polycythemia, and recent osteomyelitis. She presents with multiple ongoing health concerns and complications. The patient had a left breast mastectomy in 2021 for breast cancer and currently has a bleeding lesion near the mastectomy site. She is on hydroxyurea for polycythemia, which may be contributing to non-healing wounds. A PET scan was suggested for cancer recurrence evaluation but has been rescheduled for the . A bone marrow biopsy is planned to evaluate for leukemia. Sang experienced a stroke in 2020 affecting the left side of her body, resulting in muscle weakness and gait abnormalities. Her left arm is currently swollen, necessitating the removal of wristbands. She has cognitive decline and is under the care of a neurologist, Dr. Ireland. The patient's mobility is significantly impaired; she is not able to walk and requires aggressive rehabilitation and physical therapy. Recently, Sang developed acute osteomyelitis in her right ankle and foot, leading to a toe amputation in December due to infection. She is on a pureed diet to prevent aspiration, though she dislikes the taste. Her overall condition is described as debilitated, with poor kidney function and persistently high liver enzymes. She was previously on dialysis, which was discontinued after five sessions as her kidney function improved. The patient's oxygen levels have been low, necessitating oxygen therapy. Her heart rate and blood pressure have been elevated, and she may require emergency room evaluation. Sang is currently residing in a retirement, as she is unable to live independently. Her general condition and multiple medical issues have led to discussions about potential hospice care. Medications and Supplements - Hydroxyurea - For polycythemia - Causes non-healing wounds - Can be given every other day - Anastrozole - For breast cancer - Should be taking but unclear if currently taking Review of Systems General: Positive for cognitive decline. Skin: Positive for bleeding lesion near mastectomy site. Respiratory: Positive for low oxygen levels. Gastrointestinal: Positive for difficulty with pureed diet. Musculoskeletal: Positive for left arm swelling, muscle weakness, gait abnormalities. Neurological: Positive for cognitive decline. Objective: Vital Signs - Oxygen Saturation: 100% on oxygen - Heart Rate: Tachycardic - Blood Pressure: High Physical Examination General: Patient appears debilitated. Musculoskeletal: Left arm is swollen. Muscle weakness noted. Gait abnormalities observed. Skin: Bleeding lesion near left breast mastectomy site. Laboratory, Imaging, and Diagnostic Test Results - CBC: - Hemoglobin: Elevated - White blood cell count: Elevated - Platelets: Stable - Glucose: Elevated - Calcium: Low, now regular - Liver enzymes: Persistently elevated - PET scan: Rescheduled for the 9th - Oxygen saturation: - Initially: Low 80s - After proper equipment: 100% DIAGNOSIS: Malignant neoplasm of nipple and areola, left female breast [ICD10] C50.012 DATE OF DIAGNOSIS: 5 cm infiltrating ductal carcinoma of the left breast. Status post left simple mastectomy (12/17/2021.) Polycythemia rubra vera, JAK2 positive (11/15/2020). Raynaud's disease. History of transient ischemic attack in 2018 History of left breast cancer in 2007, s/p left partial mastectomy. Ms. Hoff did not get chemotherapy or radiation therapy at that time More than [id number] smoking history. STAGE/TNM: ONCOLOGY HISTORY: DIAGNOSIS: Malignant neoplasm of nipple and areola, left female breast [ICD10] C50.012 DATE OF DIAGNOSIS: 5 cm infiltrating ductal carcinoma of the left breast. Status post left simple mastectomy (12/17/2021.) Polycythemia rubra vera, JAK2 positive (11/15/2020). Raynaud's disease. History of transient ischemic attack in 2018 History of left breast cancer in 2007, s/p left partial mastectomy. Ms. Hoff did not get chemotherapy or radiation therapy at that time More than [id number] smoking history. 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 anastrozole - 1 mg 1 tab Daily 2. aspirin - 325 mg 1 tab Daily 3. gabapentin - 300 mg 2 Capsule Twice a Day 4. hydroxyurea - 500 mg 2 Capsule Twice a Day 5. ibuprofen - 200 mg 5 tab Daily 6. Lipitor - As directed 7. Plavix - 75 mg Daily Medications Last Reconciled by Magui Lundy MA on 04/02/2025 ALLERGIES: codeine sulfate REVIEW OF SYSTEMS: A complete 14-point review of systems was performed and is negative except as noted in interval history. PHYSICAL EXAMINATION: VITAL SIGNS: Temperature?98.2, B/P?163/82, Oxygen?Saturation?82% PAIN: 3 - Between mild and moderate pain ECOG Performance Status: 4 - Completely disabled; no self-care; bedridden GENERAL APPEARANCE: Thin, frail HEENT: temporal wasting, dry lips, missing teeth CARDIOVASCULAR: Not assessed. PULMONARY: shallow ,tachypneic EXTREMITIES: No pedal edema or cyanosis. SKIN: wrinkled and dry NEUROLOGIC: Alert, asked for water from son, ?yes? and ?no? only response to questions PSHYCHIATRIC: calm, slow to move LABORATORY DATA: I have personally reviewed and interpreted each of the patient?s relevant lab tests, abnormal findings are below: Date 04/02/25 04/03/25 ??WHITE?BLOOD?COUNT?(Thou/mm3) 14.1?H 13.5?H ??RED?BLOOD?COUNT?(Miln/mm3) 3.46?L 3.49?L ??HEMOGLOBIN?(gm/dl) 8.5?L 8.8?L ??HEMATOCRIT?(%) 29.0?L 30.0?L ??PLATELET?COUNT?(Thou/mm3) 507?H 557?H ??NEUTROPHILS?%,?AUTO?(%) 61 59 ??LYMPH?%,?AUTO?(%) 24 26 ??NEUTROPHILS,?AUTO?(Thou/mm3) 8.6?H 8.0?H ??GLUCOSE,RANDOM?(mg/dL) ? 85 ??BLOOD?UREA?NITROGEN?(mg/dL) ? 15 ??CREATININE?(mg/dL) ? 0.70 ??SODIUM?(mmol/L) ? 149?H ??POTASSIUM?(mmol/L) ? 4.3 ??CHLORIDE?(mmol/L) ? 113?H ??CrCl?(CandG)?(ml/min) ? 59.44 ??AST/SGOT?(Unit/L) ? 24 ??ALT/SGPT?(Unit/L) ? <?7?L ??ALKALINE?PHOSPHATASE?(Unit/L) ? 931?H ??BILIRUBIN,?TOTAL?(mg/dL) ? 0.3 ??PROTEIN?TOTAL?(gm/dl) ? 6.1 ??ALBUMIN,?SERUM?(gm/dl) ? 3.7 ??GLOBULIN?(gm/dl) ? 2.4 ??ALBUMIN/GLOBULIN?RATIO ? 1.5 ??CALCIUM,?SERUM?(mg/dL) ? 7.7?L ??CALCIUM?SERUM?(CORRECTED)?(mg/dL) ? 7.9?L ??MAGNESIUM?(mg/dL) ? 1.8 ASSESSMENT/PLAN: Assessment and Plan: Sang, a female patient with a history of breast cancer, stroke, and polycythemia, presents with multiple complex medical issues including cognitive decline, gait abnormalities, and a bleeding lesion near her mastectomy site. Breast Cancer Assessment: Patient had a left breast mastectomy in 2021 for breast cancer. Currently, there is a bleeding lesion near the mastectomy site, raising concern for potential cancer recurrence. A PET scan has been suggested to evaluate for recurrence. The patient should be on anastrozole for breast cancer management. Plan: - Initiate anastrozole for breast cancer management - Perform PET scan on the to evaluate for cancer recurrence - Assess bleeding lesion near mastectomy site Polycythemia Assessment: Patient is on hydroxyurea for polycythemia. Recent lab results show elevated hemoglobin and white cell count, while platelets remain stable. Hydroxyurea may be contributing to non-healing wounds. Plan: - Adjust hydroxyurea dosing to every other day - Monitor complete blood count Stroke Assessment: Patient had a stroke on the left side in 2020, resulting in muscle weakness and gait abnormalities. By 2021, the patient was walking. However, there is evidence of persistent neurological deficits, including cognitive decline. The patient is followed by Dr. Ireland, a neurologist. Plan: - Continue follow-up with neurologist Dr. Ireland - Recommend aggressive rehabilitation and physical therapy Osteomyelitis Assessment: Patient had acute osteomyelitis in the right ankle and foot. In December, a toe was amputated due to infection. Plan: - stable and keep a watch for similar recurrence Renal Function Assessment: Patient has a history of dialysis, which was discontinued after the 5th session as kidney function improved. Current kidney function is poor, but patient is not on dialysis at present. Plan: - Monitor renal function regularly - Assess need for reinitiating dialysis Respiratory Status Assessment: Patient has low oxygen levels, with saturation in the low 80s. Oxygen supplementation improved saturation to 100%. Patient requires oxygen support for adequate oxygenation. Plan: - Provide oxygen supplementation as needed - Ensure proper oxygen equipment is available during transfers and appointments Patient was transferred by ems to ER as desaturated to 80 and difficult to follow commands Nutritional Status Assessment: Patient is on a pureed diet to prevent aspiration but dislikes the taste. Improved nutrition has led to increased strength. Plan: - Continue pureed diet for aspiration prevention - Explore options to improve palatability of pureed foods Leukemia Evaluation Assessment: A bone marrow biopsy is planned for leukemia evaluation. The reason for this evaluation is not specified in the transcript. Plan: - Perform bone marrow biopsy (date not specified) Overall Health Status Assessment: Patient's general condition is significantly debilitated, with multiple complex medical issues including cognitive decline, limited mobility, and poor kidney function. The patient is unable to live independently and is currently residing in a retirement. Given the patient's overall health status and multiple comorbidities, hospice care has been suggested as a potential option. Plan: - Discuss hospice care options with patient and family - Continue supportive care in the retirement setting - Monitor overall health status and adjust care plan as needed Order # Description [id number] Ferritin + Iron Panel + Reticulocyte Count + Vitamin B-12 + Folic Acid; Serum [id number] CT Guided Bone Marrow Biopsy and Aspiration [id number] Flowcytometry [id number] Myeloproliferative Neoplasms Extended Reflex Panel [id number] ORDERS: Order # Description RETURN TO CLINIC: BILLING AND COMPLIANCE: I reviewed external records from providers outside my specialty as summarized above. I spent a total of 50 minutes on this patient?s care on the day of their visit excluding time spent related to any billed procedures. This time includes time spent with the patient as well as time spent documenting in the medical record, reviewing patients records and tests, obtaining history, placing orders, communicating with other healthcare professionals, counseling the patient, family or caregiver, and/or care coordination for the diagnoses above. Electronically Signed by: {Object.Sanct_ID*[email or web address]@M}, {Object.Sanct_ID*PnP.Suffix@U} D: {Object.Sanct_Date} T: {Object.Sanct_Time} CC: PCP: Chaitanya Lentz Referring: Chaitanya Lenzt This document was completed utilizing speech recognition software. Grammatical errors, random word insertions, pronoun errors, and incomplete sentences are an occasional consequence of this system due to software limitations, ambient noise, and hardware issues. Any formal questions or concerns about the content, text or information contained within the body of this dictation should be directly addressed to the provider for clarification.
== END 2025-04-30 23:59 | disposition home or self-care (01) ==
LOC: SCTC 15:03
PROVIDERS: PCP Hospitalist; Referring Provider Internal Medicine Hematology & Oncology; Visit Provider Internal Medicine Hematology & Oncology
DX: C50.812 Malignant neoplasm of overlapping sites of left female breast (principal); D45 Polycythemia vera; Z86.73 Personal history of transient ischemic attack (TIA), and cerebral infarction without residual deficits; M86.9 Osteomyelitis, unspecified; Z90.12 Acquired absence of left breast and nipple; Z87.891 Personal history of nicotine dependence; R58 Hemorrhage, not elsewhere classified
CPT/HCPCS: 99212; G0463

== ENCOUNTER 2025-04-02 16:32 | Inpatient (IN) | payer MEDICARE, MEDICAID, SELFPAY ==
[2025-04-02 16:45] VITALS: BP 158/87; PULSE 77; RESP 25; RESP 26; TEMP 36.8; O2SAT 95; O2SAT 99
[2025-04-02 16:47] VITALS: BMI 24.0
--- NOTE | 2025-04-02 16:47 | EKG_ITS ---
[facility] Test Date: 2025-04-02 Pat Name: ASNG HOFF Department: Room: - Gender: Female Branch Manager: : 1960 Requested By: Reuben Wayne Order Number: [id number] Reading MD: Reuben Wayne Measurements Intervals [place] Rate: 78 P: 47 NV: 159 QRS: 26 QRSD: 86 T: 42 QT: 379 QTc: 432 Interpretive Statements SINUS RHYTHM LEFT VENTRICULAR HYPERTROPHY AND ST-T CHANGE [VOLTAGE CRITERIA PLUS ST/T ABNORMALITY] Compared to ECG 03/10/2025 07:48:13 ST (T wave) deviation now present Atrial fibrillation no longer present T-wave abnormality no longer present Possible ischemia no longer present /store/S0/[id number].pdf
--- NOTE | 2025-04-02 16:47 | XR_ITS ---
Examination: AP chest single view TECHNIQUE: AP portable semiupright chest single view Date and time: April 02, 2025 1712 hours Comparison March 05, 2025 INDICATIONS: Shortness of breath today. FINDINGS: Mild CHF Pneumonia at the right base Prominent central pulmonary arteries Mild enlargement cardiac contour Severe osteopenia with multiple rib fractures several of which may be subacute, clinical correlation advised IMPRESSION: Mild CHF Pneumonia right base Suspicious for pulmonary artery hypertension Consider rib series follow-up
--- NOTE | 2025-04-02 17:03 | PC.NURSE ---
PT BIBA from [facility] after nurses at [facility] called for pt being SOB and confused wnen EMS arrived pt was 77% on RA and oxygen was applied pt was brought in as a stat medical from [facility]. Pt has hx of breast ca with left side mastectomy .
[2025-04-02 17:08] LABS: Lactate (Lactic Acid) 1.6 mMol/L (0.4-2.0)
[2025-04-02 17:12] LABS: Basophils # (Auto) 0.2 Thou/mm3 (0.0-0.2); Basophils % (Auto) 1 % (0-2.5); Eosinophils # (Auto) 0.5 Thou/mm3 (0.0-0.5); Eosinophils % (Auto) 3 % (0-10); Immature Granulocytes % (Auto) 3 % (0-0); Immature Granulocytes Auto 0.38 Thou/mm3 (0.00-0.00); Lymphocytes # (Auto) 3.4 Thou/mm3 (1.0-4.8); Lymphocytes % (Auto) 24 % (10-50); Mean Corpuscular HGB Conc 29.3 g/dl (31.0-37.0); Mean Corpuscular Hemoglobin 24.6 pg (25.0-35.0); Mean Corpuscular Volume 84 fL (80-100); Monocytes % (Auto) 7 % (0-12); Neutrophils # (Auto) 8.6 Thou/mm3 (1.8-7.7); Neutrophils % (Auto) 61 % (37-80); Nucleated Red Blood Cell # 0.17 Thou/mm3 (0.00-0.00); Nucleated Red Blood Cell % 1 /100 WBC (0); Platelet Count 507 Thou/mm3 (140-440); RDW Standard Deviation 90.1 fL (36.4-46.3); Red Blood Count 3.46 Miln/mm3 (4.00-5.20); White Blood Count 14.1 Thou/mm3 (3.6-11.0)
[2025-04-02 17:17] LABS: Hemoglobin 8.5 g/dL (12.0-16.0)
[2025-04-02 17:26] LABS: INR 1.1 (0.9-1.3); Partial Thromboplastin Time 34.2 Seconds (22.0-36.0); Prothrombin Time 12.4 Seconds (9.0-12.2)
--- NOTE | 2025-04-02 17:28 | PD.EDSOB ---
ED SOB =RME/HPI General Chief Complaint: Shortness of Breath/Dyspnea Stated Complaint: SOB Time Seen by Provider: 04/02/25 16:46 Arrival date/time: 04/02/25 16:32 RME / HPI RME / HPI Narrative: 65 year old female with history of breast cancer s/p left mastectomy, CVA, AFib on low dose Eliquis, hypertension, hyperlipidemia, PAD [facility] of shortness of breath today. Medics report staff at [facility] placed the patient on 4L nasal cannula. On their arrival noted the patient to be lethargic with shallow respirations. State they began bagging the patient however was fighting. On arrival to ED, patient denies feeling short of breath, chest pain, cough, abdominal pain, n/v/d, or urinary symptoms. Denies any changes in oral intake. Related Data Home Medications ?Medication ?Instructions ?Recorded ?Confirmed famotidine 20 mg tablet 20 mg PO Q12H 12/05/21 04/02/25 gabapentin 600 mg tablet 600 mg PO TID 12/05/21 04/02/25 levothyroxine 50 mcg tablet 50 mcg PO QDAY 12/05/21 04/02/25 atorvastatin 80 mg tablet 80 mg PO DAILY UD 12/14/24 04/02/25 ascorbic acid (vitamin C) 500 mg 500 mg PO QDAY 03/04/25 04/02/25 tablet (Vitamin C) ferrous sulfate 325 mg (65 mg 325 mg PO QDAY 03/04/25 04/02/25 iron) tablet (Feosol) megestrol 40 mg tablet 40 mg PO TID take before each meal 03/04/25 04/02/25 bisacodyl 10 mg rectal suppository [address] QDAY PRN constipation 04/02/25 04/02/25 (Dulcolax (bisacodyl)) Previous Rx's ?Medication ?Instructions ?Recorded aspirin 81 mg capsule 81 mg PO QDAY #30 caps 12/16/24 apixaban 2.5 mg tablet (Eliquis) 2.5 mg PO BID #0 tabs 03/13/25 metoprolol succinate 25 mg 50 mg (2 x 25 mg) PO BID #0 tabs 03/13/25 tablet,extended release 24 hr Allergies Allergy/AdvReac Type Severity Reaction Status Date / Time codeine Allergy Vomiting Verified 03/22/25 16:46 Review of Systems Review of Systems Systems Reviewed: All systems reviewed, normal except as documented Past Medical History Past Medical History NEUROLOGIC: Positive Neurological Disorders (Reynaulds disease), Cerebrovascular Accident and Peripheral Neuropathy (takes gabapentin); Negative Seizures CARDIAC: Positive Cardiac Disorders, Cardiac Arrhythmia (SVT), Hypercholesterolemia and Hypertension; Negative Congestive Heart Failure RESPIRATORY: Positive Pneumonia; Negative Chronic Obstructive Pulmonary Disease (COPD) or Asthma GASTROINTESTINAL: Positive Gastrointestinal Disorders, Hepatitis and Gastroesophageal Reflux Disease GENITOURINARY: Positive Genitourinary Disorders, Renal Disease and Dialysis (dialysis catheter removed 03/2025) REPRODUCTIVE: Positive Breast Cancer and Previous Pregnancies; Negative Endometriosis, Pelvic Inflammatory Disease or Uterine Prolapse MUSCULOSKELETAL: Positive Musculoskeletal Disorders (needs assistance with mobility, use wheelchair), Fractures and Osteomyelitis ENDOCRINE: Positive Endocrine Disorders and Hyperthyroidism; Negative Diabetes Mellitus Type 1 or Diabetes Mellitus Type 2 HEMATOLOGIC: Positive Blood Disorders (Polycythemia Vera); Negative Anemia, Leukemia, Hemophilia, Thalassemia, Sickle Cell Disease or Clotting Problems PSYCHO/SOCIAL: Positive Depression and Anxiety OTHER HISTORY: Positive Hospitalization, Blood Transfusions, Chicken Pox, Cancer and Breast Cancer; Negative Autoimmune Disease, Down Syndrome, Developmental Delay, Shingles, Falls, Blood Transfusion Reaction, Anesthesia Reactions, Organ Transplant, Chemotherapy, Radiation Therapy, Hyperbaric Therapy, MRSA, VRSA, Vancomycin-Resistant Enterococci, Human Immunodeficiency Virus (HIV), Measles, Mumps, Rubella ([place] Measles), Pertussis or Clostridium Difficile Family History FAMILY HISTORY: Positive Family Cancer; Negative Family Cardiac Disorders, Family Surgery or Family Anesthesia Reaction Surgical History SURGICAL: Positive Amputation (toes) and Tubal Ligation; Negative Cardiac Surgery, Pacemaker, Endocrine Surgery, Abdominal Surgery or Organ Transplant Social History SMOKING STATUS: Never smoker SUBSTANCE USE: methamphetamine ED Exam Narrative Physical exam: GENERAL APPEARANCE: Speaking 1-2 word sentences, alert to person but slightly combative and agitated HEENT: NC, AT. MMM. EOMI, clear conjunctiva, oropharynx clear. NECK: Supple without lymphadenopathy. No stiffness or restricted ROM. HEART: Normal rate and regular rhythm, normal S1/S1, no m/r/g LUNGS: CTAB, moving air well. No crackles or wheezes are heard. ABDOMEN: Soft, nontender, nondistended with good bowel sounds heard. BACK: No midline C/T/L spine pain or deformity, No CVAT, no obvious deformity. EXTREMITIES: Without cyanosis, clubbing or edema. MUSCULOSKELETAL: FROM of all major joints, no chest tenderness NEUROLOGICAL: Grossly nonfocal. Alert to person, moving all 4 extremities. CN not formally tested but appear grossly intact. Skin: Warm and dry without any rash. Course Quality Measures none Orders Category Date Time Status Bedside COVID-19 Antigen Test NOW Care 04/02/25 16:46 Active Bedside Influenza A&B Antigen Test NOW Care 04/02/25 16:[address] Screening NOW Care 04/02/25 17:46 Active EKG (ED ONLY) *Do not use* NOW Care 04/02/25 16:[address] angio chest Stat Exams 04/02/25 17:46 Completed EKG (ED Only) Stat Exams 04/02/25 16:47 Draft XR chest 1V Stat Exams 04/02/25 16:47 Completed BNP [B-Type Natriuretic Peptide] Stat Lab 04/02/25 16:45 Completed Blood Culture (Lab) Stat Lab 04/02/25 19:25 Results CBC Stat Lab 04/02/25 16:45 Completed CMP [Comprehensive Metabolic Panel] Stat Lab 04/02/25 16:45 Completed Lactate (Lactic Acid) Stat Lab 04/02/25 16:45 Completed Partial Thromboplastin Time Stat Lab 04/02/25 16:45 Completed Procalcitonin Stat Lab 04/02/25 16:45 Completed Prothrombin Time with INR Stat Lab 04/02/25 16:45 Completed Troponin I Stat Lab 04/02/25 16:45 Completed Azithromycin Inj [Zithromax Inj] 500 mg Med 04/02/25 18:51 Discontinued Sodium Chloride 0.9% 250 ml [Ns] 250 ml IV X1 LORazepam [Ativan Inj] Med 04/02/25 17:44 Discontinued 0.5 mg IVP X1 ONE Sodium Chloride 0.9% 1000 ml [Ns] 1,000 ml Med 04/02/25 18:51 Discontinued IV 999 mls/hr cefTRIAXone/D5w 1gm IV premix [Rocephin/D5w 1gm IV Med 04/02/25 18:50 Discontinued premix] 1 gm in 50 ml IV X1 Vital Signs Vital signs: Vital Signs Temperature 98.3 F 04/02/25 16:45 Pulse Rate 77 04/02/25 16:45 Respiratory Rate 25 H 04/02/25 16:45 Blood Pressure 158/87 H 04/02/25 16:45 Pulse Oximetry (%) 99 04/02/25 16:45 Oxygen Delivery Method Oxy Mask 04/02/25 16:45 Oxygen Flow Rate 15 04/02/25 16:45 Shortness of Breath / Dyspnea MDM Narrative MDM Narrative:: Jazzmine Arnett, marcella scribing for and in the presence of Dr. Wayne. 65 year old female with history of breast cancer s/p left mastectomy, CVA, AFib on low dose Eliquis, hypertension, hyperlipidemia, PAD presented to the ED brought in by ambulance from the cancer treatment [facility]. Per medics, patient hypoxic on scene on 4L nasal cannula placed by staff. Given history of breast cancer, the patient is at high risk of PE. Currently on low dose of Eliquis (2.5mg). Will order CT angio to rule out PE. Patient data External records reviewed:: [facility] previous records (I reviewed admission from 03/03/2025 through 03/13/2025) and EMS form Clinical information provided by:: patient and EMS Social determinants that could affect healthcare access:: none Patient has the following chronic illnesses:: breast cancer s/p left mastectomy, CVA, hypertension, hyperlipidemia, PAD How is presenting disease/condition affected by chronic disease/condition?: exacerbated by Evaluation data The following diagnostics were reviewed and interpreted by me:: lab results, radiology exam(s) and EKG tracing(s) (EKG 04/02/2025 @ 17:07. Sinus rhythm, rate 78, left ventricular hypertrophy, no STEMI. ) Lab and/or radiology exams considered but not ordered:: None Interpretation Summary: Ordering Physician: Reuben Wayne MD Date of Service: 04/02/25 Procedure(s): XR chest 1V Accession Number(s): [id number] cc: Reuben Wayne MD; Duglas Hoover MD; NO PRIMARY/FAMILY,PHYSICIAN~ Examination: AP chest single view TECHNIQUE: AP portable semiupright chest single view Date and time: April 02, 2025 1712 hours Comparison March 05, 2025 INDICATIONS: Shortness of breath today. FINDINGS: Mild CHF Pneumonia at the right base Prominent central pulmonary arteries Mild enlargement cardiac contour Severe osteopenia with multiple rib fractures several of which may be subacute, clinical correlation advised IMPRESSION: Mild CHF Pneumonia right base Suspicious for pulmonary artery hypertension Consider rib series follow-up Dictated By:Duglas Hoover MD Signed By:<Electronically signed by Duglas Hoover MD in OV>04/02/25 2727 Medications / Prescriptions Medications or Prescriptions considered but not ordered:: None Medication administrations:: Medication Administration History Acetaminophen (Acetaminophen 325 Mg Tablet) 650 mg PO Q6H PRN PRN Reason: Fever >99.5 Stop: 05/02/25 22:38 Acetaminophen (Acetaminophen 325 Mg Tablet) 1,000 mg PO Q6H PRN PRN Reason: PAIN SCALE 1-3 (mild Stop: 05/02/25 22:38 Albuterol/Ipratropium (Albuterol/Ipratropium (Duoneb) Rt Citlaly 3 Ml Nebu) 3 ml INH Q2HR PRN PRN Reason: SHORTNESS OF BREATH OR WHEEZE Stop: 05/03/25 00:16 Apixaban (Apixaban 2.5 Mg Tablet) 2.5 mg PO BID [facility] Stop: 05/03/25 08:59 Last Admin: 04/03/25 21:22 Dose: 2.5 mg Documented By: Admin: 04/03/25 09:24 Dose: 2.5 mg Documented By: MR Aspirin (Aspirin 81 Mg Chew) 81 mg PO QDAY [facility] Stop: 05/03/25 08:59 Last Admin: 04/03/25 09:22 Dose: 81 mg Documented By: MR Atorvastatin Calcium (Atorvastatin Calcium 20 Mg Tablet) 80 mg PO DAILY [facility] Stop: 05/03/25 08:59 Last Admin: 04/03/25 09:24 Dose: 80 mg Documented By: MR Balsam [place] Oil (Balsam [place] Oil (Venelex) 60 Gm Tube) 0 gm TOP BID [facility] Stop: 05/03/25 20:59 Last Admin: 04/03/25 21:24 Dose: 1 applicatio Documented By: ISMAEL Docusate Sodium (Docusate Sod 100 Mg Capsule) 100 mg PO QDAY [facility]; Protocol Stop: 05/03/25 08:59 Last Admin: 04/03/25 09:23 Dose: 100 mg Documented By: MR Gabapentin (Gabapentin 300 Mg Capsule) 600 mg PO TID [facility] Stop: 05/03/25 05:59 Last Admin: 04/04/25 06:10 Dose: 600 mg Documented By: Admin: 04/03/25 21:22 Dose: 600 mg Documented By: Admin: 04/03/25 12:59 Dose: 600 mg Documented By: Admin: 04/03/25 05:26 Dose: Not Given Documented By: JEN Non-Admin Reason: NPO Ampicillin Sodium/Sulbactam (Sodium 1.5 gm/ Sodium Chloride) 50 mls @ 100 mls/hr IV Q6HR JUAN Stop: 04/10/25 06:29 Last Admin: 04/04/25 06:09 Dose: 100 mls/hr Documented By: Infusion: 04/04/25 01:05 Dose: Infused Documented By: Admin: 04/04/25 00:35 Dose: 100 mls/hr Documented By: Infusion: 04/03/25 18:12 Dose: Infused Documented By: Admin: 04/03/25 17:42 Dose: 100 mls/hr Documented By: Infusion: 04/03/25 12:39 Dose: Infused Documented By: Admin: 04/03/25 12:09 Dose: 100 mls/hr Documented By: Infusion: 04/03/25 08:08 Dose: Infused Documented By: Admin: 04/03/25 07:38 Dose: 100 mls/hr Documented By: JEN Azithromycin 500 mg/ Sodium (Chloride) 250 mls @ 250 mls/hr IV QDAY JUAN Stop: 04/10/25 11:27 Last Admin: 04/03/25 12:46 Dose: 250 mls/hr Documented By: Levothyroxine Sodium (Levothyroxine Sodium 25 Mcg Tablet) 50 mcg PO ACBR JUAN Stop: 05/03/25 05:59 Last Admin: 04/04/25 06:10 Dose: 50 mcg Documented By: Admin: 04/03/25 05:26 Dose: Not Given Documented By: JEN Non-Admin Reason: NPO Megestrol Acetate (Megestrol Acet 20 Mg Tablet) 40 mg PO TID JUAN Stop: 05/03/25 05:59 Last Admin: 04/04/25 06:10 Dose: 40 mg Documented By: Admin: 04/03/25 21:23 Dose: 40 mg Documented By: Admin: 04/03/25 12:59 Dose: 40 mg Documented By: Admin: 04/03/25 05:27 Dose: Not Given Documented By: JEN Non-Admin Reason: NPO Metoprolol Succinate (Metoprolol Succinate Xl 25 Mg Tabcr) 50 mg PO BID [facility] Stop: 05/03/25 08:59 Last Admin: 04/03/25 21:22 Dose: 50 mg Documented By: Admin: 04/03/25 09:23 Dose: 50 mg Documented By: MR Ondansetron HCl (Ondansetron Inj 2 Mg/Ml Inj 2 Ml) 4 mg IVP Q6H PRN; Protocol PRN Reason: NAUSEA OR VOMITING Stop: 05/02/25 22:38 Pantoprazole Sodium (Pantoprazole Inj 40 Mg Vial) 40 mg IVP QDAY [facility] Stop: 05/03/25 08:59 Last Admin: 04/03/25 09:23 Dose: 40 mg Documented By: Sennosides (Senna Tablet) 1 tab PO QDAY [facility]; Protocol Stop: 05/03/25 08:59 Last Admin: 04/03/25 09:24 Dose: 1 tab Documented By: MR Discontinued Medications Calcium Carbonate (Calcium Carbonate 600 Mg Tablet) 600 mg PO X1 ONE Stop: 04/03/25 08:33 Last Admin: 04/03/25 09:23 Dose: 600 mg Documented By: MR Calcium Gluconate (Calcium Gluconate 10% Inj 1 Gm/10 Ml Vial) 1 gm IV X1 ONE Stop: 04/02/25 23:53 Last Admin: 04/03/25 01:09 Dose: 1 gm Documented By: AM Furosemide (Furosemide Inj 10 Mg/Ml Vial 2 Ml) 40 mg IVP X1 ONE Stop: 04/02/25 23:53 Last Admin: 04/03/25 01:08 Dose: 40 mg Documented By: AM Ceftriaxone Sodium/Dextrose (Rocephin/D5w 1gm Iv Premix) 1 gm in 50 mls @ 100 mls/hr IV X1 ONE Stop: 04/02/25 19:19 Last Infusion: 04/02/25 19:57 Dose: Infused Documented By: Admin: 04/02/25 19:27 Dose: 100 mls/hr Documented By: INOCENCIO Azithromycin 500 mg/ Sodium (Chloride) 250 mls @ 250 mls/hr IV X1 ONE Stop: 04/02/25 19:50 Last Infusion: 04/02/25 21:44 Dose: Infused Documented By: Admin: 04/02/25 19:57 Dose: 250 mls/hr Documented By: KENNA Sodium Chloride (Ns) 1,000 mls @ 999 mls/hr IV .Q1H1M ONE Stop: 04/02/25 19:51 Last Infusion: 04/02/25 20:20 Dose: Infused Documented By: Admin: 04/02/25 19:23 Dose: 999 mls/hr Documented By: INOCENCIO Ampicillin Sodium/Sulbactam (Sodium 1.5 gm/ Sodium Chloride) 50 mls @ 100 mls/hr IV X1 ONE Stop: 04/02/25 23:59 Last Infusion: 04/03/25 00:59 Dose: Infused Documented By: Admin: 04/03/25 00:22 Dose: 100 mls/hr Documented By: MARCELLA Lorazepam (Lorazepam 2 Mg/Ml Vial) 0.5 mg IVP X1 ONE Stop: 04/02/25 17:45 Last Admin: 04/02/25 18:09 Dose: 0.5 mg Documented By: INOCENCIO Lorazepam (Lorazepam 0.5 Mg Tablet) 0.5 mg PO X1 ONE Stop: 04/03/25 13:13 Last Admin: 04/03/25 13:35 Dose: 0.5 mg Documented By: Sodium Polystyrene Sulfonate (Sod Polystyrene Sulfon Susp 15 Gm/60 Ml Btl) 30 gm PO X1 ONE Stop: 04/02/25 23:53 Last Admin: 04/03/25 01:08 Dose: 30 gm Documented By: MACRELLA See above Consultations Consultation(s) initiated? (list below): No Diagnosis Shortness of Breath Differential Diagnosis: acute exacerbation of chronic obstructive airways disease, congestive heart failure, community acquired pneumonia and pulmonary embolism Most likely diagnosis given after review of the tests above:: Hypoxic Admission Indicated Admission indicated?: not indicated Explain why admission is indicated or not indicated:: Patient signed out to Dr. Todd pending final disposition. Admission Request Was there a request for admission?: No Disposition Plan Disposition Plan: other (specify) (Signed out to Dr. Todd pending CTA. ) Critical Care Time Critical Care Time Critical Care Time: Yes Total Critical Care Time (min.): 35 Attestation: The high probability of sudden, clinically significant deterioration in the patient's condition required the highest level of my preparedness to intervene urgently. The services I provided to this patient were to treat and/or prevent clinically significant deterioration. Services included the following: chart data review, reviewing nursing notes and/or old charts, documentation time, senior telecommunications consultant collaboration regarding findings and treatment options, medication orders and management, direct patient care, vital sign assessments and ordering, interpreting and reviewing diagnostic studies and lab tests. Aggregate critical care time includes only time during which I was engaged in work directly related to the patient's care, as described above, whether at bedside or elsewhere in the Emergency Department. It did not include time spent performing other reported procedures or the services of residents, students, nurses or physician assistants. Discharge Plan Plan Patient Disposition: Admit Acute Care w/in Hospital Problem List Clinical Impression: Pneumonia, Dehydration, Sepsis, Hypoxia
[2025-04-02 17:41] LABS: B-Type Natriuretic Peptide 163 pg/mL (0-100)
[2025-04-02 17:43] LABS: Anion Gap 11 (7-16); Blood Urea Nitrogen 19 mg/dL (9-23); Carbon Dioxide 23.3 mMol/L (20.0-31.0); Chloride 112 mMol/L (98-107); Creatinine (Component) 0.8 mg/dL (0.6-1.3); Potassium 5.2 mMol/L (3.4-5.1); Sodium 146 mMol/L (136-145)
[2025-04-02 17:44] LABS: Alanine Aminotransferase 9 U/L (10-49); Albumin, Serum 3.5 gm/dL (3.4-4.8); Albumin/Globulin Ratio 1.8 (1.2-2.2); Alkaline Phosphatase 901 U/L (46-116); Aspartate Amino Transferase 27 U/L (0-34); BUN/Creatinine Ratio 24 Ratio (12-20); Bilirubin,Total 0.3 mg/dL (0.3-1.2); Calcium 7.5 mg/dL (8.3-10.6); Calcium (Corrected) 7.9 mg/dL (8.5-10.1); Estimated Creatinine Clearance 57.2 mL/min (>60); Glucose 105 mg/dL (74-106); Osmolality,Calculated 292 (275-295); Procalcitonin 0.14 ng/ml (0.0-0.49); Total Protein 5.5 gm/dL (5.7-8.2); Troponin I < 0.020 ng/mL (0.0-0.045); eGFR > 60 See Note
--- NOTE | 2025-04-02 17:46 | XR_ITS ---
Examination: CTA chest with intravenous contrast 2-D reconstructions 3-D reconstructions, vascular Date and time of exam: April 02, 2025 202 hours INDICATIONS: Onset chest pain and shortness of breath today, diagnosis malignant neoplasm breast CTDI: vol (mGy) 4.81 DLP: (mGycm) 157 Technique: Multiple axial sections of the thorax have been obtained. 3 mm slice thickness, from below the hemidiaphragms to above the apices of the lungs. Mediastinal and lung density settings have been obtained. 2-D sagittal and coronal reconstructions. 3-D angiographic renderings, 3-D volume renderings, 3D post processing, vascular maximum intensity projections obtained. Contrast administered is 100 cc Isovue-370. Low dose protocols were performed. One or more of the following dose reduction techniques were used; automated exposure control, adjustment of the mA and/or KV according to patient size, use of iterative reconstruction technique. Findings: AP dimension ascending thoracic aorta 3.6 cm no dissection Main pulmonary artery segment enlarged 34 mm No pulmonary artery emboli Prominent pneumonia at the lung bases with small pleural effusions Moderate vascular congestion Widespread osteolytic osteoblastic metastases, prominent compression T5 with retropulsion of this vertebral body 4 mm IMPRESSION: Pulmonary artery hypertension Negative for pulmonary artery emboli Prominent pneumonia lung bases, consider aspiration pneumonia Moderate vascular congestion Widespread osseous metastatic disease
[2025-04-02] MEDS: LORazepam 2 MG/ML VIAL 0.5 MG IVP (18:09)
--- NOTE | 2025-04-02 18:15 | PD.EDADDENDU ---
Emergency Room Addendum Addendum Narrative: 1800: Care assumed from Dr. Wayne, the previous shift emergency physician. Past medical, surgical, social and family history reviewed. Vitals and home medications reviewed. Results and treatment plan discussed. I will assume the care of the patient at this time and will follow the patient, pending CT angio of the chest. Please refer to the emergency department record for history and examination from initial visit. 2051: CTA has been performed and is currently pending being read by the radiologist. 2116: CT angio of the chest shows prominent pneumonia and is negative for PE. Patient was initially saturating at 77% room air en route with EMS and was placed on 15L/oxy mask. Patient has since been titrated down and is currently on 96% on 5L via venti mask. Will consult an admission to the hospitalist. 2122: Discussed case with the resident physician, attending Dr. Caceres from Hospitalist service regarding admission. Discussed patients ED course, exam findings, labs, and radiology results. The Hospitalist agrees to accept the patient for admission. Diagnoses: pneumonia, sepsis, hypoxia, dehydration RADIOLOGY RESULTS: [facility] Report Signed Patient: SANG HOFF. Record#: [id number] Birthdate: 1960 Age/Sex: 65 / F Location: [facility] Attending Dr: Ordering Physician: Reuben Wayne MD Date of Service: 04/02/25 Procedure(s): CT angio chest Accession Number(s): [id number] cc: Reuben Wayne MD; Duglas Hoover MD; NO PRIMARY/FAMILY,PHYSICIAN~ Examination: CTA chest with intravenous contrast 2-D reconstructions 3-D reconstructions, vascular Date and time of exam: April 02, 20252022 hours INDICATIONS: Onset chest pain and shortness of breath today, diagnosis malignant neoplasm breast CTDI: vol (mGy) 4.81 DLP: (mGycm) 157 Technique: Multiple axial sections of the thorax have been obtained. 3 mm slice thickness, from below the hemidiaphragms to above the apices of the lungs. Mediastinal and lung density settings have been obtained. 2-D sagittal and coronal reconstructions. 3-D angiographic renderings, 3-D volume renderings, 3D post processing, vascular maximum intensity projections obtained. Contrast administered is 100 cc Isovue-370. Low dose protocols were performed. One or more of the following dose reduction techniques were used; automated exposure control, adjustment of the mA and/or KV according to patient size, use of iterative reconstruction technique. Findings: AP dimension ascending thoracic aorta 3.6 cm no dissection Main pulmonary artery segment enlarged 34 mm No pulmonary artery emboli Prominent pneumonia at the lung bases with small pleural effusions Moderate vascular congestion Widespread osteolytic osteoblastic metastases, prominent compression T5 with retropulsion of this vertebral body 4 mm IMPRESSION: Pulmonary artery hypertension Negative for pulmonary artery emboli Prominent pneumonia lung bases, consider aspiration pneumonia Moderate vascular congestion Widespread osseous metastatic disease Dictated By: Duglas Hoover MD Signed By: <Electronically signed by Duglas Hoover MD in [place]> 04/02/252112 Critical Care Time: 60 minutes The high probability of sudden, clinically significant deterioration in the patient?s condition required the highest level of my preparedness to intervene urgently. The services I provided to this patient were to treat and/or prevent clinically significant deterioration. Services included the following: chart data review, reviewing nursing notes and/or old charts, documentation time, customer experience consultant collaboration regarding findings and treatment options, medication orders and management, direct patient care, vital sign assessments and ordering, interpreting and reviewing diagnostic studies and lab tests. Aggregate critical care time includes only time during which I was engaged in work directly related to the patient?s care, as described above, whether at bedside or elsewhere in the Emergency Department. It did not include time spent performing other reported procedures or the services of residents, students, nurses or physician assistants.
[2025-04-02 18:45] VITALS: BP 144/71; PULSE 79; RESP 23; TEMP 37; O2SAT 98
[2025-04-02 18:47] VITALS: BP 171/91; PULSE 80; RESP 18; TEMP 36.7; O2SAT 100
[2025-04-02 19:00] VITALS: BP 158/87; PULSE 86; RESP 20; TEMP 37.1; O2SAT 95
--- NOTE | 2025-04-02 19:10 | PC.NURSE ---
Assumed care of pt. Pt resting on gurney with son at bedside. Pt is awake and alert, GCS 14, with no acute distress. Skin pink, warm, dry. Resp slightly labored with SpO2 95% 15L oximask. VS within normal limits at this time. Pt awaiting CTA and disposition. Bedrails up X4 with bed at lowest setting.
[2025-04-02] MEDS: SODIUM CHLORIDE 0.9% 1000 ML 1,000 ML 999 ML IV (19:23)
[2025-04-02] MEDS: cefTRIAXone/D5w 1gm IV premix 1 GM/50 ML BAG IV (19:27)
[2025-04-02] MEDS: AZITHROMYCIN INJ 500 MG in SODIUM CHLORIDE 0.9% 250 ML 250 ML 250 MG IV (19:57)
[2025-04-02 21:24] VITALS: BP 168/85; PULSE 82; RESP 20; TEMP 36.7; O2SAT 100
--- NOTE | 2025-04-02 22:46 | ESHP_ITS ---
Documentation for date of: 04/02/25 HPI History of Present Illness Chief complaint: Hypoxia History of present illness: History taken by chart review as patient is poor historian 65-year-old female with past medical history of hypertension, hyperlipidemia, breast cancer status post left mastectomy, CVA, peripheral vascular disease, Raynaud's phenomenon came to the ED due to hypoxia. Patient was seen at bedside and was not communicating well aside from nodding her head to questions. Per EMS report patient was in the cancer treatment center and became hypoxic around the 70s was placed on 4 L nasal cannula and required bagging at 1 point. At this time patient has a GCS of 14 able to answer questions although somewhat limited. Patient denies feeling short of breath, chest pain, cough, abdominal pain, nausea, vomiting, diarrhea, changes in bowel or urinary habits. ED course: ED vitals: BP 158/87, HR 77, RR 25, temp 98.3, saturating 99% on 15 L OxyMask ED labs: Leukocytosis, normocytic anemia, thrombocytosis, mild hyperkalemia, hypochloremia, hypocalcemia, alk phos 901, BNP 163, chest x-ray shows right basilar pneumonia, mild CHF, chest CTA negative for pulmonary embolism In the ED patient received ceftriaxone, azithromycin, 1 L NS bolus, Ativan 0.5 PMHx: As above SX Hx: Unknown Social Hx: Used to be a heavy smoker, denies alcohol use previous history of marijuana use FH X: Unknown Review of Systems Review of Systems ROS Unobtainable: unobtainable due to mental status Exam Vital Signs Temp Pulse Resp BP Pulse Ox O2 Del Method O2 Flow Rate 98.1 F 82 20 168/85 H 100 Oxy Mask 8 04/02/25 21:24 04/02/25 21:24 04/02/25 21:24 04/02/25 21:24 04/02/25 21:24 04/02/25 21:24 04/02/25 21:24 Narrative Exam Physical Exam GENERAL: NAD, cachectic, GCS 14 HEENT: Moist mucosa. Eyes open, symmetrical, & clear CARDIO: Heart RRR, no obvious murmurs PULM: No noted coughing/dyspnea CTA B/L, no R/W/R GI: Abdomen soft, nondistended, no pain on palpation. BSx4 SKIN/MSK/EXT: Amputation of middle toes of bilateral lower extremities, no pain on palpation. Pedal pulses present B/L NEURO: able to move all 4 extremities Results: Labs 04/02/25 16:45 04/02/25 16:45 Labs: Short CBC 04/02/25 Range/Units 16:45 WBC 14.1 H (3.6-11.0) Thou/mm3 Hgb 8.5 L (12.0-16.0) g/dL Hct 29.0 L (36.0-46.0) % Plt Count 507 H D (140-440) Thou/mm3 BMP 04/02/25 16:45 Sodium 146 H Potassium 5.2 H Chloride 112 H Carbon Dioxide 23.3 BUN 19 Creatinine 0.8 Glucose 105 Calcium 7.5 L Cardiac Enzymes 04/02/25 Range/Units 16:45 Troponin I < 0.020 (0.0-0.045) ng/mL Liver Function 04/02/25 Range/Units 16:45 Total Bilirubin 0.3 (0.3-1.2) mg/dL AST 27 (0-34) U/L ALT 9 L (10-49) U/L Alkaline Phosphatase 901 H (46-116) U/L Albumin 3.5 (3.4-4.8) gm/dL Quality Measures Quality Measures none Advance care planning discussed with:: patient Medications Home Medications and Allergies Home Medications ?Medication ?Instructions ?Recorded ?Confirmed ?Type famotidine 20 mg tablet 20 mg PO Q12H 12/05/2104/02 History gabapentin 600 mg tablet 600 mg PO TID 12/05/2104/02 History levothyroxine 50 mcg tablet 50 mcg PO QDAY 12/05/21 History atorvastatin 80 mg tablet 80 mg PO DAILY UD 12/14/24 0 04/02/25 History ascorbic acid (vitamin C) 500 mg 500 mg PO QDAY 04/02/25 History tablet (Vitamin C) ferrous sulfate 325 mg (65 mg 325 mg PO QDAY 03/04/25 04/02/25 History iron) tablet (Feosol) megestrol 40 mg tablet 40 mg PO TID take before eac h meal 03/04/25 04/02/25 History bisacodyl 10 mg rectal suppository 10 mg NE QDAY PRN c onstipation 04/02/25 04/02/25 History (Dulcolax (bisacodyl)) Allergies Allergy/AdvReac Type Severity Reaction Status Date / Time codeine Allergy Vomiting Verified 03/22/25 16:46 Visit Medications Acetaminophen (Acetaminophen 325 Mg Tablet) 650 mg PO Q6H PRN PRN Reason: Fever >99.5 Stop: 05/02/25 22:38 Docusate Sodium (Docusate Sod 100 Mg Capsule) 100 mg PO QDAY JUAN; Protocol Stop: 05/03/25 08:59 Ondansetron HCl (Ondansetron Inj 2 Mg/Ml Inj 2 Ml) 4 mg IVP Q6H PRN; Protocol PRN Reason: NAUSEA OR VOMITING Stop: 05/02/25 22:38 Pantoprazole Sodium (Pantoprazole Inj 40 Mg Vial) 40 mg IVP QDAY JUAN Stop: 05/03/25 08:59 Sennosides (Senna Tablet) 1 tab PO QDAY JUAN; Protocol Stop: 05/03/25 08:59 Discontinued Medications Ceftriaxone Sodium/Dextrose (Rocephin/D5w 1gm Iv Premix) 1 gm in 50 mls @ 100 mls/hr IV X1 ONE Stop: 04/02/25 19:19 Last Infusion: 04/02/25 19:57 Dose: Infused Azithromycin 500 mg/ Sodium (Chloride) 250 mls @ 250 mls/hr IV X1 ONE Stop: 04/02/25 19:50 Last Infusion: 04/02/25 21:44 Dose: Infused Sodium Chloride (Ns) 1,000 mls @ 999 mls/hr IV .Q1H1M ONE Stop: 04/02/25 19:51 Last Infusion: 04/02/25 20:20 Dose: Infused Lorazepam (Lorazepam 2 Mg/Ml Vial) 0.5 mg IVP X1 ONE Stop: 04/02/25 17:45 Last Admin: 04/02/25 18:09 Dose: 0.5 mg Assessment & Plan Plan 65-year-old female with past medical history of hypertension, hyperlipidemia, breast cancer status post left mastectomy, CVA, peripheral vascular disease, Raynaud's phenomenon came to the ED due to hypoxia. Patient was admitted for acute hypoxic respiratory failure likely secondary to aspiration pneumonia. #Acute hypoxic respiratory failure likely secondary to #Aspiration pneumonia #Acute encephalopathy Patient initially was in the cancer treatment center, found with shortness of breath and hypoxia in the 70s, EMS put the patient on 4 L nasal cannula and required to be bagged at some point. Aspiration evidenced on chest x-ray and CT Initially there was suspicion of pulmonary embolism however CT chest is negative In the ED patient received ceftriaxone and azithromycin, 1 L NS bolus ? Unasyn (04/02/2025? ? Follow cultures ? DuoNebs as needed ? N.p.o. ? Speech eval ? Aspiration precautions #Hypocalcemia #Hyperkalemia ? Calcium gluconate ? Kayexalate ? Lasix 40 x 1 ? Monitor CMP #History of metastatic breast cancer Is seen at the [facility], with widespread metastatic ? Oncology consulted, appreciate recs ? Consider goals of care discussion #Atrial fibrillation on Eliquis #PAD #Hypertension #Hyperlipidemia #Hypothyroidism #Anemia of chronic disease #History of CVA ? Resumed home meds including Eliquis, levothyroxine, gabapentin, metoprolol, aspirin and statin Health Maintenance: Disposition: Telemetry, on IV antibiotics follow-up cultures Fluids: None Feeding: N.p.o. after swallow screen/speech eval Thrombo prophylaxis: Eliquis Gastric Ulcer prophylaxis: Pantoprazole CODE STATUS: Full code Case discussed with my attending Dr. Morris Soto MD PGY-1 Attending Provider Attestation/Addendum I have examined the patient, reviewed labs and imaging findings, discussed the case with the resident(s), and reviewed entered orders. I agree with the plan of care as outlined in this note, with these additional summaries/recommendations: After examination of the patient and review of the clinical data, I feel that this patient needs admission to the hospital for further treatment and evaluation. Patient is a 65-year-old female with a medical history of breast cancer status post left mastectomy and currently on chemotherapy, history of CVA, atrial fibrillation on Eliquis, primary hypertension, hyperlipidemia, hypothyroidism, and peripheral artery disease who presented to [facility] emergency department on 04/02/2025 with chief complaint of shortness of breath. Per chart review patient was at [facility] and when EMS arrived she was satting 77% on room air. Patient diagnosed with acute hypoxic respiratory failure most likely secondary to aspiration pneumonia. CTA chest was negative for PE but did reveal pneumonia at lung bases, moderate vascular congestion, and widespread osseous metastatic disease. Patient appears very weak and frail and providing minimal history. Start IV antibiotics. Blood and urine cultures taken in the ED and follow-up results when available. Continue supplemental oxygen and wean as tolerated. N.p.o. and referred to speech therapy. Hypocalcemia present and replacement given, follow-up repeat level in AM. Minimal hyperkalemia with potassium 5.2 and will monitor for now. Continue home Eliquis for atrial fibrillation. Resume home statin and levothyroxine. Resume home metoprolol succinate for primary hypertension and A-fib. Patient in agreement with admission to the hospital. All questions answered to satisfaction. Please see residents note for additional details and management. Dr. Morris MD
[2025-04-03] VITALS (15 sets, daily range): BP systolic 119–150; BP diastolic 53–89; PULSE 64–106; RESP 13–33; TEMP 35.9–37.2; O2SAT 92–100; BMI 16.9
[2025-04-03] MEDS: AMPICILLIN/SULBAC INJ 1.5 GM in SODIUM CHLORIDE 0.9% (Popper) 50 ML IV ×4 (00:22→17:42)
[2025-04-03] MEDS: SOD POLYSTYRENE SULFON SUSP 15 GM/60 ML BTL 30 GM PO (01:08)
[2025-04-03] MEDS: FUROSEMIDE INJ 10 MG/ML VIAL 2 ML 40 MG IVP (01:08)
[2025-04-03] MEDS: CALCIUM GLUCONATE 10% INJ 1 GM/10 ML VIAL IV (01:09)
[2025-04-03 05:43] LABS: Basophils # (Auto) 0.2 Thou/mm3 (0.0-0.2); Basophils % (Auto) 2 % (0-2.5); Eosinophils # (Auto) 0.4 Thou/mm3 (0.0-0.5); Eosinophils % (Auto) 3 % (0-10); Immature Granulocytes % (Auto) 3 % (0-0); Immature Granulocytes Auto 0.35 Thou/mm3 (0.00-0.00); Lymphocytes # (Auto) 3.5 Thou/mm3 (1.0-4.8); Lymphocytes % (Auto) 26 % (10-50); Mean Corpuscular HGB Conc 29.3 g/dl (31.0-37.0); Mean Corpuscular Hemoglobin 25.2 pg (25.0-35.0); Mean Corpuscular Volume 86 fL (80-100); Monocytes % (Auto) 8 % (0-12); Neutrophils % (Auto) 59 % (37-80); Nucleated Red Blood Cell # 0.16 Thou/mm3 (0.00-0.00); Nucleated Red Blood Cell % 1 /100 WBC (0); Platelet Count 557 Thou/mm3 (140-440); RDW Standard Deviation 89.7 fL (36.4-46.3); Red Blood Count 3.49 Miln/mm3 (4.00-5.20); White Blood Count 13.5 Thou/mm3 (3.6-11.0)
[2025-04-03 06:13] LABS: Alanine Aminotransferase < 7 U/L (10-49); Albumin, Serum 3.7 gm/dL (3.4-4.8); Albumin/Globulin Ratio 1.5 (1.2-2.2); Alkaline Phosphatase 931 U/L (46-116); Anion Gap 12 (7-16); Aspartate Amino Transferase 24 U/L (0-34); BUN/Creatinine Ratio 21 Ratio (12-20); Bilirubin,Total 0.3 mg/dL (0.3-1.2); Blood Urea Nitrogen 15 mg/dL (9-23); Calcium 7.7 mg/dL (8.3-10.6); Calcium (Corrected) 7.9 mg/dL (8.5-10.1); Carbon Dioxide 23.8 mMol/L (20.0-31.0); Chloride 113 mMol/L (98-107); Creatinine (Component) 0.7 mg/dL (0.6-1.3); Estimated Creatinine Clearance 57.8 mL/min (>60); Globulin 2.4 gm/dL (2.3-3.5); Glucose 85 mg/dL (74-106); Hemoglobin 8.8 g/dL (12.0-16.0); Magnesium 1.8 mg/dL (1.6-2.6); Osmolality,Calculated 295 (275-295); Phosphorous 2.9 mg/dL (2.4-5.1); Potassium 4.3 mMol/L (3.4-5.1); Sodium 149 mMol/L (136-145); Thyroid Stimulating Hormone 6.75 uIU/mL (0.55-4.78); Total Protein 6.1 gm/dL (5.7-8.2); eGFR > 60 See Note
--- NOTE | 2025-04-03 07:47 | PC.NURSE ---
Med rec is not done,Camilo, son, will call to update RN on pt's meds.
--- NOTE | 2025-04-03 08:15 | PC.NURSE ---
Dr. Angulo seen pt at bedside no new orders.
--- NOTE | 2025-04-03 08:15 | PC.NURSE ---
Speech therapist at bedside
--- NOTE | 2025-04-03 08:20 | PCS.ST ---
Swallow Evaluation completed. See report for details. Recommend Dysphagia 2/regular liquids. No s/s of aspiration.
--- NOTE | 2025-04-03 08:47 | PC.SS ---
Patient Natividad Isidro is a 65 Year old female admitted for Malignant neoplasm of nipple and areola. SS contacted patient's son, Camilo Stewart via phone. Patient is a resident of [facility].? Patient has been placed at facility since December 2024.? Patient is bed bound and required assistance with completing all ADL's.?Patient?s medical surrogate decision maker is son, Camilo Stewart.? Facility PCP provides services to the patient. Camilo reports he would like patient to discharge back to [facility] when medically cleared. SS will assist with transportation. Next of Kin: Camilo Teagueler D/C Plan:[facility]
[2025-04-03] MEDS: ASPIRIN 81 MG CHEW PO (09:22)
[2025-04-03] MEDS: DOCUSATE SOD 100 MG CAPSULE PO (09:23)
[2025-04-03] MEDS: METOPROLOL SUCCINATE XL 25 MG TABCR 50 MG PO ×2 (09:23→21:22)
[2025-04-03] MEDS: PANTOPRAZOLE INJ 40 MG VIAL IVP (09:23)
[2025-04-03] MEDS: CALCIUM CARBONATE 600 MG TABLET PO (09:23)
[2025-04-03] MEDS: APIXABAN 2.5 MG TABLET PO ×2 (09:24→21:22)
[2025-04-03] MEDS: ATORVASTATIN CALCIUM 20 MG TABLET 80 MG PO (09:24)
[2025-04-03] MEDS: SENNA TABLET 1 TAB PO (09:24)
--- NOTE | 2025-04-03 09:26 | PD.ONCCONS ---
HPI Data of Consult Consult date: 04/03/25 Requesting Physician: Maykel Caceres MD Primary Care Provider: Physician No Primary/Family Consult Narrative Reason for consult: Multiple comorbidities including active cancer admitted with pneumonia History of present illness: Patient followed at [facility] with suspected recurrent and disseminated left breast CA saw Dr. Lentz yesterday and noted to be in respiratory distress with low sats and was sent to the ER. Patient was noted to hypoxic around 70s on 4 L via nasal cannula. CT chest abdomen pelvis April 02, 2025 revealed prominent pneumonia lung bases along with widespread osseous mets disease pulmonary arterial hypertension negative for pulmonary emboli. A.m. CBC 04/03/2025 13.5 WBC hemoglobin 8.8 platelets 5 57,000 sodium 149 potassium 4.3. Corrected calcium 7.9 alk phos 931. Currently receiving bronchodilators electrolyte replacements antibiotics antihypertensives. Referred for oncological consultation. cc:: cc: Maykel Caceres MD Past Medical History Social History SOCIAL: Patient has been a SNF patient since December this year. SMOKING STATUS: Former smoker Past Medical History Comments PMH COMMENT: Left breast CA since 2006, treated with initial partial mastectomy then simple mastectomy for recurrence. Now with suspected to have mets PET scan pending. History of polycythemia Raynaud's TIA Meds Home Medications and Allergies Home Medications ?Medication ?Instructions ?Recorded ?Confirmed ?Type famotidine 20 mg tablet 20 mg PO Q12H 12/05/21 04/02/25 History gabapentin 600 mg tablet 600 mg PO TID 12/05/21 04/02/25 History levothyroxine 50 mcg tablet 50 mcg PO QDAY 12/05/21 04/02/25 History atorvastatin 80 mg tablet 80 mg PO DAILY UD 12/14/24 04/02/25 History ascorbic acid (vitamin C) 500 mg 500 mg PO QDAY 03/04/25 04/02/25 History tablet (Vitamin C) ferrous sulfate 325 mg (65 mg 325 mg PO QDAY 03/04/25 04/02/25 History iron) tablet (Feosol) megestrol 40 mg tablet 40 mg PO TID take before each meal 03/04/25 04/02/25 History bisacodyl 10 mg rectal suppository 10 mg [place] QDAY PRN constipation 04/02/25 04/02/25 History (Dulcolax (bisacodyl)) Allergies Allergy/AdvReac Type Severity Reaction Status Date / Time codeine Allergy Vomiting Verified 03/22/25 16:46 Exam Vital Signs Temp Pulse Resp BP Pulse Ox O2 Del Method O2 Flow Rate 97.1 F 100 22 H 119/70 98 Nasal Cannula 4 04/03/25 04:00 04/03/25 09:23 04/03/25 06:52 04/03/25 09:23 04/03/25 06:52 04/03/25 04:00 04/03/25 06:52 Narrative Exam Appearing tired and minimally communicative Results Labs 04/03/25 04:58 04/03/25 04:58 Labs: Short CBC 04/02/25 04/03/25 Range/Units 16:45 04:58 WBC 14.1 H 13.5 H (3.6-11.0) Thou/mm3 Hgb 8.5 L 8.8 L (12.0-16.0) g/dL Hct 29.0 L 30.0 L (36.0-46.0) % Plt Count 507 H D 557 H D (140-440) Thou/mm3 BMP 04/02/25 04/03/25 16:45 04:58 Sodium 146 H 149 H Potassium 5.2 H 4.3 D Chloride 112 H 113 H Carbon Dioxide 23.3 23.8 BUN 19 15 Creatinine 0.8 0.7 Glucose 105 85 Calcium 7.5 L 7.7 L Cardiac Enzymes 04/02/25 Range/Units 16:45 Troponin I < 0.020 (0.0-0.045) ng/mL Liver Function 04/02/25 04/03/25 Range/Units 16:45 04:58 Total Bilirubin 0.3 0.3 (0.3-1.2) mg/dL AST 27 24 (0-34) U/L ALT 9 L < 7 L (10-49) U/L Alkaline Phosphatase 901 H 931 H D (46-116) U/L Albumin 3.5 3.7 (3.4-4.8) gm/dL Assessment and Plan Additional Assessment & Plan Additional Plan: 1. History of left breast CA since 2006, suspected to have disseminated mets. Has PET scan pending for outpatient in a few days. 2. Admitted with shortness of breath with low sats. CT showing prominent pneumonia receiving antibiotics. 3. Longtime SNF patient with multiple comorbidities. Hospice reportedly has been discussed with family.
--- NOTE | 2025-04-03 10:41 | PC.SS ---
SS follow up note; Patient is receiving IV ABX. Will discharge back to [facility] when medically cleared
--- NOTE | 2025-04-03 11:43 | XR_ITS ---
Examination: CT brain head without contrast. 2-D sagittal coronal reconstructions Date and time of exam:April 03, 2025 1350 hours Comparison December 15, 2024 INDICATIONS: Shortness of breath headache nausea vomiting diarrhea today, diagnosis breast cancer CTDI: vol (mGy):46.6 DLP: (mGycm):974 Technique: Multiple CT axial sections of the brain have been obtained, 5 mm slice thickness. Contrast has not been administered. 2-D sagittal, coronal reconstructions have been obtained Low dose protocols were performed. One or more of the following dose reduction techniques were used; automated exposure control, adjustment of the mA and/or KV according to patient size, use of iterative reconstruction technique. Findings: No significant ventricular enlargement. Again noted large old infarct right basal ganglia Intra-axial or extra-axial hemorrhage density is not seen. No mass effect or midline shift Basal cisterns are not remarkable. Fourth ventricle is midline. Interval marked osteolytic lesions involving the entire cranial vault as well as the base of the skull, the foramen magnum and visualized C1 and C2 vertebral bodies Impression: Negative for acute hemorrhage, mass effect or midline shift Severe osteolytic metastatic disease Consider elective MRI brain and cervical spine follow-up pre and postcontrast, as clinically warranted
--- NOTE | 2025-04-03 12:03 | PC.NURSE ---
dr Cat with team rounding at bedside, order received, read back and carried out.
--- NOTE | 2025-04-03 12:06 | PC.NURSE ---
pharmacy will bring Azithromycin up to the floor.
[2025-04-03] MEDS: AZITHROMYCIN INJ 500 MG in SODIUM CHLORIDE 0.9% 250 ML 250 ML 250 MG IV (12:46)
[2025-04-03] MEDS: MEGESTROL ACET 20 MG TABLET 40 MG PO ×2 (12:59→21:23)
[2025-04-03] MEDS: GABAPENTIN 300 MG CAPSULE 600 MG PO ×2 (12:59→21:22)
[2025-04-03] MEDS: LORazepam 0.5 MG TABLET PO (13:35)
--- NOTE | 2025-04-03 13:37 | PC.NURSE ---
doctor made aware pt anxious. Pt going to CT. md to review chart and put in medication.
--- NOTE | 2025-04-03 13:45 | PC.NURSE ---
at this time pt transfer to CT. Pt alert to self accompanied by Mignon STUBBS.
--- NOTE | 2025-04-03 15:22 | ESPR_ITS ---
<Statement entered by Alex Cat MD - 04/12/25 13:29> I reviewed above note and agree with findings and plans. I have also personally examined the patient with medicine team and went over assessment and plan with medical team including application development intern and resident physician. Documentation for date of: 04/03/25 Subjective Subjective Interval history: Patient examined at bedside. She is oriented to self only, sometimes does not speak. She is saturating 92% on room air. Continue supplemental oxygen as needed. Calcium 7.9--gave calcium carb. Continue Unasyn and start azithromycin in setting of pneumonia. Blood cultures pending. Exam Vital Signs Temp Pulse Resp BP Pulse Ox O2 Del Method O2 Flow Rate 97.2 F 82 15 141/78 H 95 Nasal Cannula 4 04/03/25 12:04/03/25 12:04/03/25 12:04/03/25 12:04/03/25 12:04/03/25 12:04/03/25 06:52 Narrative Exam General: Elderly female, cachectic, does not appear to be acute distress HEENT: NCAT, No JVD noted. Mucosa moist. Pupils are equal and reactive to light bilaterally Cardiovascular: Normal S1 and S2. Regular rate and rhythm. Respiratory: Unable to auscultate, patient won't move Abdomen: Soft, nontender, not distended, normal bowel sounds. Skin: Warm to touch, dry, no rashes noted Musculoskeletal: No gross injuries. Able to move all 4 extremities. No pitting edema Neuro: Alert and oriented x1, No focal neuro deficits Objective Labs 04/03/25 04:58 04/03/25 04:58 Labs: Laboratory Results - last 24 hr 04/02/25 04/03/25 16:45 04:58 WBC 14.1 H 13.5 H RBC 3.46 L 3.49 L Hgb 8.5 L 8.8 L Hct 29.0 L 30.0 L MCV 84 86 MCH 24.6 L 25.2 MCHC 29.3 L 29.3 L RDW Std Deviation 90.1 H 89.7 H Plt Count 507 H D 557 H D Neut % (Auto) 61 59 Lymph % (Auto) 24 26 [place] % (Auto) 7 8 Eos % (Auto) 3 3 Baso % (Auto) 1 2 Neut # (Auto) 8.6 H 8.0 H Lymph # (Auto) 3.4 3.5 [place] # (Auto) 1.0 H 1.0 H Eos # (Auto) 0.5 0.4 Baso # (Auto) 0.2 0.2 Immature Gran # (Auto) 0.38 H 0.35 H Absolute Nucleated RBC 0.17 H 0.16 H Immature Gran % 3 H 3 H Nucleated RBC % 1 H 1 H PT 12.4 H INR 1.1 APTT 34.2 Sodium 146 H 149 H Potassium 5.2 H 4.3 D Chloride 112 H 113 H Carbon Dioxide 23.3 23.8 Anion Gap 11 12 BUN 19 15 Creatinine 0.8 0.7 Estim Creat Clear Calc 57.2 L 57.8 L eGFR > 60 > 60 BUN/Creatinine Ratio 24 H 21 H Glucose 105 85 Calculated Osmolality 292 295 Lactic Acid 1.6 Calcium 7.5 L 7.7 L Corrected Calcium 7.9 L 7.9 L Phosphorus 2.9 Magnesium 1.8 Total Bilirubin 0.3 0.3 AST 27 24 ALT 9 L < 7 L Alkaline Phosphatase 901 H 931 H D Troponin I < 0.020 B-Natriuretic Peptide 163 H Total Protein 5.5 L 6.1 Albumin 3.5 3.7 Globulin 2.0 L 2.4 Albumin/Globulin Ratio 1.8 1.5 Procalcitonin 0.14 TSH 6.75 H D Quality Measures Quality Measures none Advance care planning discussed with:: other Assessment & Plan Assessment Current Active Medications: Generic Name Dose Route Start Last Admin Trade Name Freq PRN Reason Stop Dose Admin Acetaminophen 650 mg 04/02/25 22:39 Acetaminophen 325 Mg Tablet PO 05/02/25 22:38 Q6H PRN Fever >99.5 Acetaminophen 1,000 mg 04/02/25 22:39 Acetaminophen 325 Mg Tablet PO 05/02/25 22:38 Q6H PRN PAIN SCALE 1-3 (mild Albuterol/Ipratropium 3 ml 04/03/25 00:17 Albuterol/Ipratropium (Duoneb) Rt Citlaly 3 Ml Nebu INH 05/03/25 00:16 Q2HR PRN SHORTNESS OF BREATH OR WHEEZE Apixaban 2.5 mg 04/03/25 09:00 04/03/25 09:24 Apixaban 2.5 Mg Tablet PO 05/03/25 08:59 2.5 mg BID JUAN Administration Aspirin 81 mg 04/03/25 09:00 04/03/25 09:22 Aspirin 81 Mg Chew PO 05/03/25 08:59 81 mg QDAY JUAN Administration Atorvastatin Calcium 80 mg 04/03/25 09:00 04/03/25 09:24 Atorvastatin Calcium 20 Mg Tablet PO 05/03/25 08:59 80 mg DAILY JUAN Administration Balsam Maninder/Phoenix Oil 0 gm 04/03/25 21:00 Balsam Maninder/Phoenix Oil (Venelex) 60 Gm Tube TOP 05/03/25 20:59 BID JUAN Docusate Sodium 100 mg 04/03/25 09:00 04/03/25 09:23 Docusate Sod 100 Mg Capsule PO 05/03/25 08:59 100 mg QDAY JUAN Administration Protocol Gabapentin 600 mg 04/03/25 06:00 04/03/25 12:59 Gabapentin 300 Mg Capsule PO 05/03/25 05:59 600 mg TID JUAN Administration Ampicillin Sodium/Sulbactam 50 mls @ 100 mls/hr 04/03/25 06:30 04/03/25 12:09 Sodium 1.5 gm/ Sodium Chloride IV 04/10/25 06:29 100 mls/hr Q6HR JUAN Administration Azithromycin 500 mg/ Sodium 250 mls @ 250 mls/hr 04/03/25 11:28 04/03/25 12:46 Chloride IV 04/10/25 11:27 250 mls/hr QDAY JUAN Administration Levothyroxine Sodium 50 mcg 04/03/25 06:00 04/03/25 05:26 Levothyroxine Sodium 25 Mcg Tablet PO 05/03/25 05:59 Not Given ACBR JUAN Megestrol Acetate 40 mg 04/03/25 06:00 04/03/25 12:59 Megestrol Acet 20 Mg Tablet PO 05/03/25 05:59 40 mg TID JUAN Administration Metoprolol Succinate 50 mg 04/03/25 09:00 04/03/25 09:23 Metoprolol Succinate Xl 25 Mg Tabcr PO 05/03/25 08:59 50 mg BID JUAN Administration Ondansetron HCl 4 mg 04/02/25 22:39 Ondansetron Inj 2 Mg/Ml Inj 2 Ml IVP 05/02/25 22:38 Q6H PRN NAUSEA OR VOMITING Protocol Pantoprazole Sodium 40 mg 04/03/25 09:00 04/03/25 09:23 Pantoprazole Inj 40 Mg Vial IVP 05/03/25 08:59 40 mg QDAY JUAN Administration Sennosides 1 tab 04/03/25 09:00 04/03/25 09:24 Senna Tablet PO 05/03/25 08:59 1 tab QDAY JUAN Administration Protocol Plan 65-year-old female with past medical history of hypertension, hyperlipidemia, breast cancer status post left mastectomy, CVA, peripheral vascular disease, Raynaud's phenomenon came to the ED due to hypoxia. Patient was admitted for acute hypoxic respiratory failure likely secondary to aspiration pneumonia. #Acute hypoxic respiratory failure likely secondary to #Aspiration pneumonia #Acute encephalopathy Patient initially was in the cancer treatment center, found with shortness of breath and hypoxia in the 70s, EMS put the patient on 4 L nasal cannula and required to be bagged at some point. Aspiration evidenced on chest x-ray and CT Initially there was suspicion of pulmonary embolism however CT chest is negative CT head negative for acute hemorrhage, mass effect or midline shift, Severe osteolytic metastatic disease ? Unasyn (04/02/2025? -IV azithromycin 500mg daily (04/03- ? blood cultures pending ? DuoNebs as needed ? Aspiration precautions #Electrolyte abnormalities #Hypocalcemia #Hyperkalemia-resolved ? Calcium gluconate ? Monitor CMP #History of metastatic breast cancer Is seen at the cancer treatment center, with widespread metastatic ? Oncology consulted, appreciate recs ? Consider goals of care discussion #Atrial fibrillation on Eliquis #PAD #Hypertension #Hyperlipidemia #Hypothyroidism #Anemia of chronic disease #History of CVA ? Resumed home meds including Eliquis, levothyroxine, gabapentin, metoprolol, aspirin and statin Health Maintenance: Disposition: Telemetry, on IV antibiotics follow-up cultures Diet: Dysphagia 2/regular liquids DVT prophylaxis: Eliquis Gastric Ulcer prophylaxis: Pantoprazole CODE STATUS: Full code The patient's management plan was discussed with my attending physician Dr. Cat. Millie Gil, PGY-1
[2025-04-03] MEDS: BALSAM PERU/CASTOR OIL (Venelex) 60 GM TUBE TOP (21:24)
[2025-04-04] VITALS: BP 136/82; PULSE 79; PULSE 80; RESP 19; TEMP 37.1; O2SAT 94
[2025-04-04] MEDS: AMPICILLIN/SULBAC INJ 1.5 GM in SODIUM CHLORIDE 0.9% (Popper) 50 ML IV ×3 (00:35→12:06)
[2025-04-04 04:00] VITALS: BP 114/94; PULSE 83; PULSE 94; RESP 20; TEMP 36.8; O2SAT 92
[2025-04-04 05:43] LABS: Basophils # (Auto) 0.2 Thou/mm3 (0.0-0.2); Basophils % (Auto) 2 % (0-2.5); Eosinophils # (Auto) 0.5 Thou/mm3 (0.0-0.5); Eosinophils % (Auto) 4 % (0-10); Hematocrit 26.5 % (36.0-46.0); Immature Granulocytes % (Auto) 2 % (0-0); Immature Granulocytes Auto 0.19 Thou/mm3 (0.00-0.00); Lymphocytes # (Auto) 3.8 Thou/mm3 (1.0-4.8); Lymphocytes % (Auto) 30 % (10-50); Mean Corpuscular HGB Conc 29.8 g/dl (31.0-37.0); Mean Corpuscular Hemoglobin 25.2 pg (25.0-35.0); Mean Corpuscular Volume 84 fL (80-100); Monocytes % (Auto) 8 % (0-12); Neutrophils # (Auto) 7.1 Thou/mm3 (1.8-7.7); Neutrophils % (Auto) 55 % (37-80); Nucleated Red Blood Cell % 1 /100 WBC (0); Platelet Count 495 Thou/mm3 (140-440); RDW Standard Deviation 89.3 fL (36.4-46.3); Red Blood Count 3.14 Miln/mm3 (4.00-5.20); White Blood Count 12.8 Thou/mm3 (3.6-11.0)
[2025-04-04 06:00] VITALS: BMI 16.9
[2025-04-04] MEDS: MEGESTROL ACET 20 MG TABLET 40 MG PO (06:10)
[2025-04-04] MEDS: LEVOTHYROXINE SODIUM 25 MCG TABLET 50 MCG PO (06:10)
[2025-04-04] MEDS: GABAPENTIN 300 MG CAPSULE 600 MG PO (06:10)
[2025-04-04 06:36] LABS: Alanine Aminotransferase < 7 U/L (10-49); Albumin, Serum 3.3 gm/dL (3.4-4.8); Albumin/Globulin Ratio 1.6 (1.2-2.2); Alkaline Phosphatase 852 U/L (46-116); Anion Gap 15 (7-16); Aspartate Amino Transferase 27 U/L (0-34); BUN/Creatinine Ratio 21 Ratio (12-20); Bilirubin,Total 0.3 mg/dL (0.3-1.2); Blood Urea Nitrogen 15 mg/dL (9-23); Calcium (Corrected) 7.6 mg/dL (8.5-10.1); Carbon Dioxide 21.1 mMol/L (20.0-31.0); Chloride 110 mMol/L (98-107); Creatinine (Component) 0.7 mg/dL (0.6-1.3); Estimated Creatinine Clearance 57.8 mL/min (>60); Globulin 2.1 gm/dL (2.3-3.5); Glucose 79 mg/dL (74-106); Magnesium 1.7 mg/dL (1.6-2.6); Osmolality,Calculated 290 (275-295); Phosphorous 2.5 mg/dL (2.4-5.1); Potassium 4.3 mMol/L (3.4-5.1); Sodium 146 mMol/L (136-145); Total Protein 5.4 gm/dL (5.7-8.2); eGFR > 60 See Note
[2025-04-04 08:00] VITALS: BP 162/93; PULSE 92; PULSE 96; RESP 24; TEMP 36.7; O2SAT 94
[2025-04-04 08:02] LABS: Hemoglobin 7.9 g/dL (12.0-16.0)
[2025-04-04 09:33] VITALS: PULSE 110; RESP 28; RESP 96
[2025-04-04] MEDS: AZITHROMYCIN INJ 500 MG in SODIUM CHLORIDE 0.9% 250 ML 250 ML 250 MG IV (09:38)
[2025-04-04] MEDS: APIXABAN 2.5 MG TABLET PO (09:38)
[2025-04-04] MEDS: CALCIUM CARBONATE 600 MG TABLET PO (09:38)
[2025-04-04] MEDS: ASPIRIN 81 MG CHEW PO (09:38)
[2025-04-04] MEDS: ATORVASTATIN CALCIUM 20 MG TABLET 80 MG PO (09:38)
[2025-04-04 09:39] VITALS: BP 162/93; PULSE 92
[2025-04-04] MEDS: PANTOPRAZOLE INJ 40 MG VIAL IVP (09:39)
[2025-04-04] MEDS: SENNA TABLET 1 TAB PO (09:39)
[2025-04-04] MEDS: DOCUSATE SOD 100 MG CAPSULE PO (09:39)
[2025-04-04] MEDS: BALSAM PERU/CASTOR OIL (Venelex) 60 GM TUBE TOP (09:39)
[2025-04-04] MEDS: METOPROLOL SUCCINATE XL 25 MG TABCR 50 MG PO (09:39)
--- NOTE | 2025-04-04 11:26 | PC.SS ---
SS contacted [facility] to set up transportation for patient, SS was informed Patient was not able to be found on their system. SS contacted Son, Camilo and he informed SS he is not able to provide payment. SS will have [facility] ambulance form signed by Osmar. SS contacted [facility] to set up transportation, ETA is for 1500. SS notified patient's nurse as well, Babita from [facility] and patient's son, Camilo.
[2025-04-04 12:00] VITALS: BP 134/90; PULSE 62; PULSE 76; RESP 24; TEMP 37.6; O2SAT 93
--- NOTE | 2025-04-04 12:59 | ESDS_ITS ---
<Statement entered by Alex Cat MD - 04/12/25 13:35> I reviewed above note and agree with findings and plans. I have also personally examined the patient with medicine team and went over assessment and plan with medical team including sports team marketing intern and resident physician. Planned Discharge Date 04/04/25 DS: Providers Provider Date of admission: 04/02/25 22:39 Primary care physician: Physician No Primary/Family Admitting Provider: Maykel Caceres MD Attending Provider on Admission: Alex Cat MD Consults: 04/02/25 22:46 Referral Speech Therapy Stat Comment: 04/02/25 23:00 Consult to Oncology Stat Comment: Consulting Provider: Rickey Angulo 04/03/25 06:34 Referral Wound Care Stat Comment: 04/03/25 06:35 Referral Wound Care Stat Comment: Attending Provider on DC: Alex Cat MD Discharging Provider: Alex Cat MD DS: Diagnosis Problem List Completed Was Problem List Reviewed/Reconciled?: Yes Hospital Course Hospital Course Hospital course: Reason for hospitalization: AHRF 2/2 aspiration PNA 65-year-old female with past medical history of hypertension, hyperlipidemia, breast cancer status post left mastectomy, CVA, peripheral vascular disease, Raynaud's phenomenon came to the ED on 04/02/25 due to hypoxia. Patient was admitted for acute hypoxic respiratory failure likely secondary to aspiration pneumonia. Patient initially was in the cancer treatment center, found with shortness of breath and hypoxia in the 70s. Aspiration evidenced on chest x-ray and CT. Initially there was suspicion of pulmonary embolism however CT chest was negative. CT head negative for acute hemorrhage, mass effect or midline shift, Severe osteolytic metastatic disease. Oncology Dr. Lentz and Dr. Angulo were consulted. She follows with oncology outpatient. Per Dr. Lentz report, patient will be starting anastrozole. During hospitalization, she remained on NC and was weaned off to room air with good saturations. Patient's son was updated on poor prognosis with multiple complex medical issues including cognitive decline, limited mobility, underlying metastatic cancer, and poor kidney function, option for hospice was discussed. At this time, he has refused stating family wants to pursue other medical treatment. Patient is now in stable condition and ready for discharge. Recommendations were given as below. Discharge Recommendations: Complete Augmentin course as prescribed for treatment of aspiration pneumonia. Resume previous medications. Follow up with oncology in 1-2 weeks. Follow up with PCP in 1-2 weeks. Hospital Diagnoses: #Acute hypoxic respiratory failure likely secondary to #Aspiration pneumonia #Acute encephalopathy #Electrolyte abnormalities #History of metastatic breast cancer #Atrial fibrillation on Eliquis #PAD #Hypertension #Hyperlipidemia #Hypothyroidism #Anemia of chronic disease #History of CVA The patient's management plan was discussed with my attending physician Dr. Cat. Millie Gil MD, PGY-1 Time Spent with Patient Time attestation: Total time spent providing and/or coordinating discharge services: Time spent: Greater than 30 minutes Exam Vital Signs Temp Pulse Resp BP Pulse Ox O2 Del Method O2 Flow Rate 98.0 F 62 28 H 162/93 H 94 L Nasal Cannula 4 04/04/25 08:00 04/04/25 12:00 04/04/25 09:33 04/04/25 09:39 04/04/25 08:00 04/04/25 08:00 04/03/25 20:43 Narrative Exam General: Elderly female, cachectic, does not appear to be acute distress HEENT: NCAT, No JVD noted. Mucosa dry. Pupils are equal and reactive to light bilaterally Cardiovascular: Normal S1 and S2. Regular rate and rhythm. Respiratory: Unable to auscultate, patient won't move Abdomen: Soft, nontender, not distended, normal bowel sounds. Skin: Warm to touch, dry, no rashes noted Musculoskeletal: No gross injuries. Able to move all 4 extremities. No pitting edema Neuro: Alert and oriented x1, No focal neuro deficits Discharge Plan Plan Patient Disposition: Xfer Detention Acute Prescriptions/Referrals Prescriptions/Med Rec: New amoxicillin-pot clavulanate [Augmentin] 500-125 mg tablet 1 tab PO BID 5 Days Qty: 10 0RF Continued gabapentin 600 mg tablet 600 mg PO TID famotidine 20 mg tablet 20 mg PO Q12H levothyroxine 50 mcg Tablet 50 mcg PO QDAY atorvastatin 80 mg tablet 80 mg PO DAILY UD Patient Comments: TAKE 1 TABLET BY MOUTH EVERY DAY aspirin 81 mg capsule 81 mg PO QDAY Qty: 30 1RF ferrous sulfate [Feosol] 325 mg (65 mg iron) tablet 325 mg PO QDAY ascorbic acid (vitamin C) [Vitamin C] 500 mg tablet 500 mg PO QDAY megestrol 40 mg tablet 40 mg PO TID metoprolol succinate 25 mg Tablet Extended Release 24 Hr 50 mg PO BID Qty: 0 0RF Eliquis 2.5 mg Tablet 2.5 mg PO BID Qty: 0 0RF bisacodyl [Dulcolax (bisacodyl)] 10 mg suppository 10 mg TN QDAY PRN (Reason: constipation) Referrals: Chaitanya Lentz MD [Physician] - Rickey Angulo MD [Physician] - No Primary/Family,Physician [Primary Care Provider] - Patient/Caregiver Discharge Instructions Other Discharge Activity Instructions:: Complete Augmentin course as prescribed for treatment of aspiration pneumonia. Resume previous medications. Follow up with oncology in 1-2 weeks. Follow up with PCP in 1-2 weeks. Print Language: Indonesian Stand Alone Forms: Joyce Award Info., Patient Portal Info Letter Discharge Order Discharge Orders: Discharge (Routine); Ordered 04/04/25 Ordered By: Millie Gil Quality Discharge Quality Measures VTE prophylaxis
--- NOTE | 2025-04-04 13:53 | PC.NURSE ---
RN called terence to give report for this pt. @[phone]. RN as told the RN receiving this pt was busy and would call back to receive report.
--- NOTE | 2025-04-04 14:37 | PC.NURSE ---
Report given to RN at terence @ [phone]. [facility] for transportation is 1500.
== END 2025-04-04 15:30 | DRG 177 ==
LOC: SERX 21:29 → SERHOLD 23:27 → S3SX 04-03 01:53
PROVIDERS: Emergency Medicine; Student in an Organized Health Care Education/Training Program; Admitting Provider Student in an Organized Health Care Education/Training Program; Emergency Provider Emergency Medicine; Visit Provider Internal Medicine
DX: J69.0 Pneumonitis due to inhalation of food and vomit (principal); J96.01 Acute respiratory failure with hypoxia; G93.40 Encephalopathy, unspecified; C79.51 Secondary malignant neoplasm of bone; E78.5 Hyperlipidemia, unspecified; I11.0 Hypertensive heart disease with heart failure; I50.9 Heart failure, unspecified; I73.00 Raynaud's syndrome without gangrene; Z85.3 Personal history of malignant neoplasm of breast; Z90.12 Acquired absence of left breast and nipple; Z87.891 Personal history of nicotine dependence; E83.51 Hypocalcemia; E87.5 Hyperkalemia; I48.91 Unspecified atrial fibrillation; E87.8 Other disorders of electrolyte and fluid balance, not elsewhere classified; E03.9 Hypothyroidism, unspecified; I27.21 Secondary pulmonary arterial hypertension; D63.8 Anemia in other chronic diseases classified elsewhere; Z79.01 Long term (current) use of anticoagulants; Z86.73 Personal history of transient ischemic attack (TIA), and cerebral infarction without residual deficits; J18.9 Pneumonia, unspecified organism; Z88.5 Allergy status to narcotic agent
CPT/HCPCS: 36415; 70450; 71045; 71275; 80053; 83605; 83735; 83880; 84100; 84145; 84443; 84484; 85025; 85610; 85730; 87040; 87081; 87400; 87811; 92526; 92610; 93005; 93225; 96365; 96366; 96367; 96375; 99291; 99292; A4649; J0295; J0456; J0612; J0696; J1938; J2060; J2470; J7030; J7050; Q9967; A9270

== ENCOUNTER 2025-10-18 10:16 | Emergency (ER) | payer MEDICARE, MEDICAID, SELFPAY ==
[2025-10-18] VITALS (11 sets, daily range): BP systolic 135–188; BP diastolic 72–108; PULSE 60–88; RESP 17–96; TEMP 36.4–37.2; O2SAT 95–100
--- NOTE | 2025-10-18 11:05 | PD.EDADULT ---
ED General RME/HPI General Chief complaint: Recheck/Abnormal Lab/Rx Stated complaint: ABNORMAL LABS Time Seen by Provider: 10/18/25 10:52 Arrival date/time: 10/18/25 10:16 RME / HPI RME / HPI narrative: 65 year old female with history of CVA, [place], hypertension, hyperlipidemia, breast cancer s/p left mastectomy, polycythemia, Raynaud's syndrome, peripheral vascular disease presents to the ED BIBA from [facility] for evaluation of abnormal labs. Per EMS, [place] staff reported the patients hemoglobin is 6.4 and platelets are 1,062. In the ED, patient is unable to provide any additional history. Related Data Home Medications ?Medication ?Instructions ?Recorded ?Confirmed famotidine 20 mg tablet 20 mg PO Q12H 12/05/21 04/02/25 gabapentin 600 mg tablet 600 mg PO TID 12/05/21 04/02/25 levothyroxine 50 mcg tablet 50 mcg PO QDAY 12/05/21 04/02/25 atorvastatin 80 mg tablet 80 mg PO DAILY UD 12/14/24 04/02/25 ascorbic acid (vitamin C) 500 mg 500 mg PO QDAY 03/04/25 04/02/25 tablet (Vitamin C) ferrous sulfate 325 mg (65 mg 325 mg PO QDAY 03/04/25 04/02/25 iron) tablet (Feosol) megestrol 40 mg tablet 40 mg PO TID take before each meal 03/04/25 04/02/25 bisacodyl 10 mg rectal suppository 10 mg SD QDAY PRN constipation 04/02/25 04/02/25 (Dulcolax (bisacodyl)) Previous Rx's ?Medication ?Instructions ?Recorded aspirin 81 mg capsule 81 mg PO QDAY #30 caps 12/16/24 apixaban 2.5 mg tablet (Eliquis) 2.5 mg PO BID #0 tabs 03/13/25 metoprolol succinate 25 mg 50 mg (2 x 25 mg) PO BID #0 tabs 03/13/25 tablet,extended release 24 hr Allergies Allergy/AdvReac Type Severity Reaction Status Date / Time codeine Allergy Vomiting Verified 10/18/25 10:20 Review of Systems Review of Systems ROS Unobtainable: unobtainable due to medical condition Past Medical History Past Medical History NEUROLOGIC: Positive Neurological Disorders, Cerebrovascular Accident and Peripheral Neuropathy CARDIAC: Positive Cardiac Disorders, Cardiac Arrhythmia, Hypercholesterolemia and Hypertension RESPIRATORY: Positive Pneumonia GASTROINTESTINAL: Positive Gastrointestinal Disorders, Hepatitis and Gastroesophageal Reflux Disease GENITOURINARY: Positive Genitourinary Disorders, Renal Disease and Dialysis REPRODUCTIVE: Positive Breast Cancer and Previous Pregnancies MUSCULOSKELETAL: Positive Musculoskeletal Disorders, Fractures and Osteomyelitis ENDOCRINE: Positive Endocrine Disorders and Hyperthyroidism HEMATOLOGIC: Positive Blood Disorders PSYCHO/SOCIAL: Positive Depression and Anxiety OTHER HISTORY: Positive Hospitalization, Blood Transfusions, Chicken Pox, Cancer and Breast Cancer Family History FAMILY HISTORY: Positive Family Cancer Surgical History SURGICAL: Positive Amputation and Tubal Ligation Social History SMOKING STATUS: Unknown if ever smoked SUBSTANCE USE: methamphetamine ED Exam Narrative Physical exam: Constitutional: Awake, nontoxic appearance, no acute distress HEENT: Normocephalic, atraumatic, extraocular movements intact, some blood noted to upper lip and tongue. Noted to be frequently gumming her thumb. Minimal dentition with one tooth noted to have severe dental alex Neck: Supple CV: Regular rate and rhythm, no murmurs/rubs/gallops Lungs: Clear to auscultation BL, no respiratory distress. Abd: Soft, NT, ND, no HSM noted to palpation Extremities: No deformities noted to extremities. Skin: Warm, dry, intact Course Course Course Narrative: 1708h: I spoke with the patient's son, who mentioned that they had discussed hospice care during the patient's previous admission. They are still in the process of considering hospice placement. The son agrees with proceeding with the transfusion for now while they continue working on finalizing the hospice arrangements. 1800: Care signed out to Dr. Jones, pending blood transfusion and final disposition. Quality Measures none Orders Category Date Time Status Miscellaneous Nursing Order NOW Care 10/18/25 17:10 Active Antibody Identification Stat Lab 10/18/25 12:10 Results CBC Stat Lab 10/18/25 10:00 Completed CMP [Comprehensive Metabolic Panel] Stat Lab 10/18/25 10:00 [address] Review Blood Smear Stat Lab 10/18/25 10:00 Completed Type and Screen Stat Lab 10/18/25 12:10 Results prbc [Red Blood Cells] Stat Lab 10/18/25 12:10 Results Vital Signs Vital signs: Vital Signs Temperature 97.9 F 10/18/25 10:17 Pulse Rate 73 10/18/25 10:17 Respiratory Rate 18 10/18/25 10:17 Blood Pressure 135/72 H 10/18/25 10:17 Pulse Oximetry (%) 95 10/18/25 10:17 Oxygen Delivery Method Room Air 10/18/25 10:17 Pulse ox is 95% on room air which is adequate. Discharge Plan Prescriptions/Referrals Prescriptions/Med Rec: No Action gabapentin 600 mg tablet 600 mg PO TID famotidine 20 mg tablet 20 mg PO Q12H levothyroxine 50 mcg Tablet 50 mcg PO QDAY atorvastatin 80 mg tablet 80 mg PO DAILY UD Patient Comments: TAKE 1 TABLET BY MOUTH EVERY DAY aspirin 81 mg capsule 81 mg PO QDAY Qty: 30 1RF ferrous sulfate [Feosol] 325 mg (65 mg iron) tablet 325 mg PO QDAY ascorbic acid (vitamin C) [Vitamin C] 500 mg tablet 500 mg PO QDAY megestrol 40 mg tablet 40 mg PO TID metoprolol succinate 25 mg Tablet Extended Release 24 Hr 50 mg PO BID Qty: 0 0RF Eliquis 2.5 mg Tablet 2.5 mg PO BID Qty: 0 0RF bisacodyl [Dulcolax (bisacodyl)] 10 mg suppository 10 mg SD QDAY PRN (Reason: constipation) Referrals: Blue Fernandes MD [Primary Care Provider] - In 1 week Problem List Clinical Impression: Anemia Patient/Caregiver Discharge Instructions Print Language: Senegalese MDM Narrative Sign Out note: 1800: Care signed out to Dr. Jones, pending blood transfusion and final disposition. Clinical Information Provided by: EMS [facility] EMS and halfway (I reviewed pmhx and medication list from [facility] ) Meds/Rx considered, not ordered None Labs/Rad/Tests considered, not ordered None Chronic Illness/Social Conditions which may negatively complicate care or outcome(s)-explain: Cancer, CVA/aphasic and halfway/debilitated EKG EKG not done Labs Labs: see narrative above Imaging Imaging interpretation: none
[2025-10-18 12:00] LABS: Basophils # (Auto) 0.2 Thou/mm3 (0.0-0.2); Basophils % (Auto) 2 % (0-2.5); Eosinophils # (Auto) 0.7 Thou/mm3 (0.0-0.5); Eosinophils % (Auto) 5 % (0-10); Hematocrit 23.8 % (36.0-46.0); Immature Granulocytes Auto 0.16 Thou/mm3 (0.00-0.00); Lymphocytes # (Auto) 2.2 Thou/mm3 (1.0-4.8); Lymphocytes % (Auto) 14 % (10-50); Mean Corpuscular HGB Conc 26.5 g/dl (31.0-37.0); Mean Corpuscular Hemoglobin 15.8 pg (25.0-35.0); Mean Corpuscular Volume 60 fL (80-100); Monocytes # (Auto) 0.9 Thou/mm3 (0.0-0.8); Monocytes % (Auto) 6 % (0-12); Neutrophils # (Auto) 11.0 Thou/mm3 (1.8-7.7); Neutrophils % (Auto) 73 % (37-80); Nucleated Red Blood Cell # 0.02 Thou/mm3 (0.00-0.00); Nucleated Red Blood Cell % 0 /100 WBC (0); RDW Standard Deviation 48.1 fL (36.4-46.3); Red Blood Count 3.98 Miln/mm3 (4.00-5.20); White Blood Count 15.2 Thou/mm3 (3.6-11.0)
[2025-10-18 12:04] LABS: Hemoglobin 6.3 g/dL (12.0-16.0); Platelet Count 1020 Thou/mm3 (140-440)
[2025-10-18 12:17] LABS: Alanine Aminotransferase 8 U/L (10-49); Albumin, Serum 4.9 gm/dL (3.4-4.8); Albumin/Globulin Ratio 1.8 (1.2-2.2); Alkaline Phosphatase 118 U/L (46-116); Anion Gap 11 (7-16); Aspartate Amino Transferase 19 U/L (0-34); BUN/Creatinine Ratio 37 Ratio (12-20); Bilirubin,Total 0.4 mg/dL (0.3-1.2); Blood Urea Nitrogen 26 mg/dL (9-23); Calcium 9.7 mg/dL (8.3-10.6); Calcium (Corrected) 9.7 mg/dL (8.5-10.1); Carbon Dioxide 23.6 mMol/L (20.0-31.0); Chloride 108 mMol/L (98-107); Creatinine (Component) 0.7 mg/dL (0.6-1.3); Estimated Creatinine Clearance 67.9 mL/min (>60); Globulin 2.7 gm/dL (2.3-3.5); Glucose 71 mg/dL (74-106); Osmolality,Calculated 287 (275-295); Potassium 4.0 mMol/L (3.4-5.1); Sodium 143 mMol/L (136-145); Total Protein 7.6 gm/dL (5.7-8.2); eGFR > 60 See Note
[2025-10-18 16:37] LABS: Path Review Blood Smear Sent to Pathologist
--- NOTE | 2025-10-18 18:34 | PC.NURSE ---
Called [facility], informed them of the plan to infuse 2 units and then discharge. Also asked them about pt's diet which is pureed
--- NOTE | 2025-10-18 19:17 | PC.NURSE ---
Per [facility], ADRIANO which is Camilo Stewart is pt's decision maker. Spoke with son Camilo Stewart and explained that pt (his mom) needs a blood transfusion, he stated he gives consent. Sloane FLORES witnessed as well.
--- NOTE | 2025-10-18 19:20 | EDNOTE_ITS ---
Emergency Room Addendum <Latonya Martinez - Last Filed: 10/18/25 23:08> Addendum Narrative: 1800: Care assumed from Dr. Sadler (emergency physician). Past medical, surgical, social and family history reviewed. Vitals and home medications reviewed. Results and treatment plan discussed. I will assume the care of the patient at this time and will follow the patient, pending completion of blood transfusion. The following addendum documentation note is intended to reflect any pending information, findings, or radiology results not included in the patient?s initial chart by the previous shift scribe. Patient is a 65yo female with medical history notable for CVA, non verbal at baseline, HTN, breast cancer, polycythemia, Raynaud's, PVD sent to the Emergency Department from [facility] with concerns for abnormal labs. Patient was told to come to the emergency department for transfusion. Patient without any signs of bleeding. Hemoglobin is 6.3m previously 7.9. Platelets 1020, has doubled from prior. No significant acute metabolic disturbances. Patient glucose 71 however has been eating in the emergency department. Prior provider evaluated patient. Ordered blood transfusion. Per the patient's son, at this time is not interested in hospice, he has all the information about hospice as this was something he was considering in the past. Patient without any signs of bleeding. 2121: Patient is alert and oriented. She speaks. Negative blood occult. Patient currently being transfused. <Trang Jones MD - Last Filed: 10/19/25 00:15> Addendum Narrative: 1800: Care assumed from Dr. Sadler (emergency physician). Past medical, surgical, social and family history reviewed. Vitals and home medications r eviewed. Results and treatment plan discussed. I will assume the care of the patient at this time and will follow the patient, pending completion of blood transfusion. The following addendum documentation note is intended to reflect any pending information, findings, or radiology results not included in the patient?s initial chart by the previous shift scribe. Patient is a 65yo female with medical history notable for CVA, cognitive decline, HTN, breast cancer, polycythemia, Raynaud's, PVD sent to the Emergency Department from [facility] with concerns for abnormal labs. Patient was told to come to the emergency department for transfusion. Patient without any signs of bleeding. Hemoglobin is 6.3m previously 7.9. Platelets 1020, has doubled from prior. No significant acute metabolic disturbances. Patient glucose 71 however has been eating in the emergency department. Prior provider evaluated patient. Ordered blood transfusion. Per the patient's son, at this time is not interested in hospice, he has all the information about hospice as this was something he was considering in the past. Patient without any signs of bleeding. 2121: Patient is alert and oriented. She speaks. Negative blood occult. Patient currently being transfused. 12:15a patient received her blood transfusion, no complications she is hemodynamically stable not distressed will discharge back to her snf.
[2025-10-18 22:20] LABS: OBS Performed By pinor; OBS QC OK? Yes; Occult Blood, Stool Negative (Negative)
[2025-10-19] VITALS: BP 173/78; PULSE 83; RESP 26; TEMP 37; O2SAT 98
[2025-10-19 00:02] VITALS: BP 173/78; PULSE 83; RESP 26; TEMP 36.9; O2SAT 98
--- NOTE | 2025-10-19 00:19 | PC.NURSE ---
REPORT CALLED TO SNF, SPOKE WITH SANG
[2025-10-19 00:41] VITALS: BP 187/71; PULSE 80; RESP 19; TEMP 36.8; O2SAT 96
--- NOTE | 2025-10-19 01:01 | PC.NURSE ---
Report given to [facility]
== END 2025-10-19 01:06 | disposition skilled nursing facility (03) ==
PROVIDERS: Family Medicine; Emergency Provider Emergency Medicine; PCP Hospitalist
DX: D64.9 Anemia, unspecified (principal)
CPT/HCPCS: 36415; 36430; 80053; 82270; 85025; 86850; 86870; 86900; 86901; 86921; 86922; 99283; P9016